=== PATIENT | female | born 1995 | race Hispanic/Latino ===

== ENCOUNTER 2019-04-26 21:30 | Emergency (ER) | payer OTHER ==
[2019-04-26] MEDS ORDERED: NA CHLORIDE 0.9% 1,000 ML ONE ×2 (22:12→23:25)
[2019-04-26] MEDS ORDERED: PROMETHAZINE 25 MG/ML VIAL ONE ×2 (22:12→23:24)
[2019-04-26 22:31] LABS: Absolute Lymphocytes (CBC) 1.7 K/uL (0.7-4.9); Basophils % 0.4 % (0-1.3); Hematocrit 43.4 % (36.0-45.0); Lymphocytes % 15.5 % (15.3-44.8); MPV 7.4 fL (7.6-11.3); RBC Red Blood Cell Count 5.01 M/uL (3.86-4.86)
[2019-04-26 22:50] LABS: BUN Blood Urea Nitrogen 6 mg/dL (7-18); Bicarbonate 21 mmol/L (21-32); Glucose Level 98 mg/dL (74-106); Potassium 3.1 mmol/L (3.5-5.1); Sodium Level 137 mmol/L (136-145)
[2019-04-26 22:55] LABS: Urine Blood 1+ (NEG); Urine Glucose NEGATIVE (NEG); Urine Protein 2+ (NEG); Urine Specific Gravity 1.025 (1.005-1.030); Urine pH 5.5 (5.0-7.0)
[2019-04-26 23:21] LABS: Urine Bacteria >50 /HPF (<20); Urine Culture Reflex Order REFLEXED; Urine RBC <5 /HPF (NONE SEEN)
[2019-04-26 23:22] LABS: Urine Mucus 1+ /HPF (NONE SEEN)
[2019-04-26] MEDS ORDERED: CEFTRIAXONE/SWI 1gm 1 GM/10 ML SYR ONE (23:45)
--- NOTE | 2019-04-27 00:19 | ER ---
Nurse's Notes [facility] Name: Matilda Jackson Age: 23 yrs Sex: Female : 1995 Arrival Date: 04/26/2019 Time: 21:33 Bed 30 Private MD: Diagnosis: Vomiting of , unspecified;Urinary tract infection, site not specified Presentation: 04/26 21:36 Presenting complaint: Patient states: I am about 9 weeks and cant hold la1 anything down, even water, for the last 2 days. Transition of care: patient was not received from another setting of care. Onset of symptoms was April 26, 2019. Risk Assessment: Do you want to hurt yourself or someone else? Patient reports no desire to harm self or others. Initial Sepsis Screen: Does the patient meet any 2 criteria? No. Patient's initial sepsis screen is negative. Does the patient have a suspected source of infection? No. Patient's initial sepsis screen is negative. Care prior to arrival: None. 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 - Social history:: Smoking status: Patient/guardian denies using tobacco. - Ebola Screening: : No symptoms or risks identified at this time. Screenin/23 01:05 Abuse screen: Denies threats or abuse. Denies injuries from another. Nutritional ad1 screening: No deficits noted. Has had N/V for 3 or more days due to . Tuberculosis screening: No symptoms or risk factors identified. Fall Risk None identified. Assessment: 04/26 22:35 General: Appears uncomfortable, Behavior is calm, cooperative, appropriate for age. ad1 Pain: Complains of pain in right upper quadrant and left upper quadrant. Neuro: No deficits noted. Cardiovascular: No deficits noted. Respiratory: No deficits noted. GI: Reports intolerance of fluids, intolerance of food, nausea, vomiting. Derm:. Musculoskeletal: No deficits noted. 23:13 Reassessment: Patient and/or family updated on plan of care and expected duration. Pain ad1 level reassessed. Patient is alert, oriented x 3, equal unlabored respirations, skin warm/dry/pink. states she still has some nausea.. 04/27 00:33 Reassessment: Patient appears in no apparent distress at this time. Patient and/or ad1 family updated on plan of care and expected duration. Pain level reassessed. Patient is alert, oriented x 3, equal unlabored respirations, skin warm/dry/pink. Patient reports no more nausea. patient able to keep water down with no nausea or vomiting following.. 01:03 Reassessment: No changes from previously documented assessment. Patient and/or family ad1 updated on plan of care and expected duration. Pain level reassessed. Patient is alert, oriented x 3, equal unlabored respirations, skin warm/dry/pink. Vital Signs: 04/26 21:38 BP 134 / 101; Pulse 97; Resp 16; Temp 97.7; Pulse Ox 100% on R/A; Weight 88.9 kg; la1 Height 5 ft. 6 in. (167.64 cm); 22:37 BP 134 / 76; Pulse 64; Resp 18; Pulse Ox 99% ; ad1 23:14 BP 109 / 65; Pulse 77; Resp 16; Pulse Ox 99% ; ad1 04/27 00:31 BP 108 / 54; Pulse 62; Resp 16; Pulse Ox 100% ; ad1 01:03 BP 111 / 65; Pulse 84; Resp 18; Pulse Ox 100% ; ad1 04/26 21:38 Body Mass Index 31.63 (88.90 kg, 167.64 cm) la1 ED Course: 04/26 21:33 Patient arrived in ED. ds1 21:37 Triage completed. la1 21:38 Arm band placed on left wrist. la1 21:50 Adarsh Preston NP is PHCP. pm1 21:50 Daniel Gomez MD is Attending Physician. pm1 22:21 Initial lab(s) drawn, by me, sent to lab. Inserted saline lock: 22 gauge in right lt1 antecubital area, using aseptic technique. 22:21 Basic Metabolic Panel Sent. lt1 22:21 CBC with Diff Sent. lt1 22:34 Urine Microscopic Only Sent. lt1 04/27 01:06 Patient has correct armband on for positive identification. ad1 01:06 No provider procedures requiring assistance completed. IV discontinued, intact, ad1 bleeding controlled. Administered Medications: 04/26 22:25 Drug: Phenergan 12.5 mg Route: IVP; Site: right antecubital; ad1 22:33 Drug: NS 0.9% 1000 ml Route: IV; Rate: 1000 ml; Site: right antecubital; ad1 23:30 Drug: Phenergan 12.5 mg Route: IVP; Site: right antecubital; ad1 23:45 Drug: NS 0.9% 1000 ml Route: IV; Rate: 1000 ml; Site: right antecubital; ad1 23:45 Drug: Rocephin 1 grams Route: IV; Rate: calculated rate; Site: right antecubital; ad1 Outcome: 04/27 00:15 Discharge ordered by . pm1 01:04 Discharged to home ad1 01:04 Condition: good 01:04 Discharge instructions given to patient, Instructed on discharge instructions, follow up and referral plans. medication usage, Demonstrated understanding of instructions, follow-up care, medications, Prescriptions given X 3. 01:07 Patient left the ED. ad1 Signatures: Vandana Daniels ds1 Madeline Caballero RN RN ad1 Everardo Vaca RN RN la1 Adarsh Preston, LANDSCAPE ACCOUNT MANAGER LANDSCAPE ACCOUNT MANAGER pm1 Alexsandra Bach lt
--- NOTE | 2019-04-27 00:21 | EDPHYS ---
Physician Documentation [facility] Name: Matilda Jackson Age: 23 yrs Sex: Female : 1995 Arrival Date: 04/26/2019 Time: 21:33 Bed 30 Private MD: ED Physician Daniel Gomez HPI: 04/26 22:05 This 23 yrs old Female presents to ER via Ambulatory with complaints of Cant pm1 Hold Anything Down- 9 Wks Preg. 22:05 The patient presents to the emergency department with nausea, vomiting. Onset: The pm1 symptoms/episode began/occurred yesterday. Possible causes: . The symptoms are aggravated by food , The symptoms are alleviated by nothing. Associated signs and symptoms: Pertinent negatives: abdominal pain, constipation, diarrhea, dysuria, fever. Severity of symptoms: in the emergency department the symptoms are unchanged. The patient has been recently seen by a physician: with similar presenting complaints, was given a prescription for an antiemetic, but unable to swallow Phenergan and the suppository kept coming out. 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 - Social history:: Smoking status: Patient/guardian denies using tobacco. - Ebola Screening: : No symptoms or risks identified at this time. ROS: 04/27 03:58 Constitutional: Negative for fever, chills, and weight loss, Eyes: Negative for injury, pm1 pain, redness, and discharge, ENT: Negative for injury, pain, and discharge, Neck: Negative for injury, pain, and swelling, Cardiovascular: Negative for chest pain, palpitations, and edema, Respiratory: Negative for shortness of breath, cough, wheezing, and pleuritic chest pain. Back: Negative for injury and pain, : Negative for injury, bleeding, discharge, and swelling, MS/Extremity: Negative for injury and deformity, Skin: Negative for injury, rash, and discoloration, Neuro: Negative for headache, weakness, numbness, tingling, and seizure. Abdomen/GI: Positive for nausea and vomiting, Negative for abdominal pain, diarrhea, constipation. Exam: 03:58 Constitutional: This is a well developed, well nourished patient who is awake, alert, pm1 and in no acute distress. Head/Face: Normocephalic, atraumatic. Eyes: Pupils equal round and reactive to light, extra-ocular motions intact. Lids and lashes normal. Conjunctiva and sclera are non-icteric and not injected. Cornea within normal limits. Periorbital areas with no swelling, redness, or edema. ENT: Nares patent. No nasal discharge, no septal abnormalities noted. Tympanic membranes are normal and external auditory canals are clear. Oropharynx with no redness, swelling, or masses, exudates, or evidence of obstruction, uvula midline. Mucous membranes moist. Neck: Trachea midline, no thyromegaly or masses palpated, and no cervical lymphadenopathy. Supple, full range of motion without nuchal rigidity, or vertebral point tenderness. No Meningismus. Chest/axilla: Normal chest wall appearance and motion. Nontender with no deformity. No lesions are appreciated. Cardiovascular: Regular rate and rhythm with a normal S1 and S2. No gallops, murmurs, or rubs. Normal PMI, no JVD. No pulse deficits. Respiratory: Lungs have equal breath sounds bilaterally, clear to auscultation and percussion. No rales, rhonchi or wheezes noted. No increased work of breathing, no retractions or nasal flaring. Abdomen/GI: Soft, non-tender, with normal bowel sounds. No distension or tympany. No guarding or rebound. No evidence of tenderness throughout. Back: No spinal tenderness. No costovertebral tenderness. Full range of motion. Skin: Warm, dry with normal turgor. Normal color with no rashes, no lesions, and no evidence of cellulitis. MS/ Extremity: Pulses equal, no cyanosis. Neurovascular intact. Full, normal range of motion. 03:58 Neuro: Orientation: is normal, Motor: is normal, moves all fours. Vital Signs: 04/26 21:38 BP 134 / 101; Pulse 97; Resp 16; Temp 97.7; Pulse Ox 100% on R/A; Weight 88.9 kg; la1 Height 5 ft. 6 in. (167.64 cm); 22:37 BP 134 / 76; Pulse 64; Resp 18; Pulse Ox 99% ; ad1 23:14 BP 109 / 65; Pulse 77; Resp 16; Pulse Ox 99% ; ad1 04/27 00:31 BP 108 / 54; Pulse 62; Resp 16; Pulse Ox 100% ; ad1 01:03 BP 111 / 65; Pulse 84; Resp 18; Pulse Ox 100% ; ad1 04/26 21:38 Body Mass Index 31.63 (88.90 kg, 167.64 cm) la1 MDM: 04/26 21:50 Patient medically screened. pm1 04/27 00:00 Data reviewed: vital signs. Data interpreted: Pulse oximetry: on room air is 99 %. pm1 Interpretation: normal. 00:14 ED course: Patient passed PO challenge. pm1 00:14 Counseling: I had a detailed discussion with the patient and/or guardian regarding: the pm1 historical points, exam findings, and any diagnostic results supporting the discharge/admit diagnosis, lab results, the need for outpatient follow up, to return to the emergency department if symptoms worsen or persist or if there are any questions or concerns that arise at home. 04/26 22:07 Order name: Basic Metabolic Panel; Complete Time: 22:53 pm1 04/26 22:07 Order name: CBC with Diff; Complete Time: 22:53 pm1 04/26 22:08 Order name: Urine Microscopic Only; Complete Time: 23:31 pm1 04/26 22:35 Order name: Urine Dipstick--Ancillary (enter results); Complete Time: 23:17 em1 04/26 22:35 Order name: Urine --Ancillary (enter results); Complete Time: 23:17 em1 04/26 23:24 Order name: Urine Culture [facility] 04/26 22:07 Order name: Urine Test (obtain specimen); Complete Time: 22:34 pm1 04/26 22:07 Order name: IV Saline Lock; Complete Time: 22:21 pm04/26 22:07 Order name: Labs collected and sent; Complete Time: 22:21 pm1 04/26 22:07 Order name: NPO; Complete Time: 22:21 pm1 04/26 22:07 Order name: Urine Dipstick-Ancillary (obtain specimen); Complete Time: 22:34 pm1 04/26 22:07 Order name: PO challenge; Complete Time: 00:29 pm1 Administered Medications: 04/26 22:25 Drug: Phenergan 12.5 mg Route: IVP; Site: right antecubital; ad1 22:33 Drug: NS 0.9% 1000 ml Route: IV; Rate: 1000 ml; Site: right antecubital; ad1 23:30 Drug: Phenergan 12.5 mg Route: IVP; Site: right antecubital; ad1 23:45 Drug: NS 0.9% 1000 ml Route: IV; Rate: 1000 ml; Site: right antecubital; ad1 23:45 Drug: Rocephin 1 grams Route: IV; Rate: calculated rate; Site: right antecubital; ad1 Disposition: 04/27 06:06 Co-signature as Attending Physician, Daniel Gomez MD I agree with the assessment and tw4 plan of care. Disposition: 04/27/19 00:15 Discharged to Home. Impression: Vomiting of , unspecified, Urinary tract infection, site not specified. - Condition is Stable. - Discharge Instructions: Hyperemesis Gravidarum, and Urinary Tract Infection. - Prescriptions for Phenergan 25 mg Rectal Suppository - insert 1 suppository by RECTAL route every 6 hours As needed; 12 suppository. promethazine 25 mg Oral Tablet - take 1 tablet by ORAL route every 6 hours As needed; 20 tablet. Macrobid 100 mg Oral Capsule - take 1 capsule by ORAL route every 12 hours for 7 days; 14 capsule. - Medication Reconciliation Form, Thank You Letter, Antibiotic Education, Prescription Opioid Use form. - Follow up: Emergency Department; When: As needed; Reason: Worsening of condition. Follow up: Private Physician; When: 2 - 3 days; Reason: Recheck today's complaints, Continuance of care, Re-evaluation by your physician. - Problem is new. - Symptoms have improved. Signatures: Dispatcher [employer] EDMS Madeline Caballero RN RN ad1 Everardo Vaca RN RN la1 Adarsh Preston, SUPERVISOR FINISHING ROOM SUPERVISOR FINISHING ROOM pm1 Daniel Gomez MD MD tw4 Corrections: (The following items were deleted from the chart) 00:15 00:15 04/27/2019 00:15 Discharged to Home. Impression: Vomiting of , pm1 unspecified. Condition is Stable. Forms are Medication Reconciliation Form, Thank You Letter, Antibiotic Education, Prescription Opioid Use. Follow up: Emergency Department; When: As needed; Reason: Worsening of condition. Follow up: Private Physician; When: 2 - 3 days; Reason: Recheck today's complaints, Continuance of care, Re-evaluation by your physician. Problem is new. Symptoms have improved. pm1 01:07 00:15 04/27/2019 00:15 Discharged to Home. Impression: Vomiting of , ad1 unspecified; Urinary tract infection, site not specified. Condition is Stable. Forms are Medication Reconciliation Form, Thank You Letter, Antibiotic Education, Prescription Opioid Use. Follow up: Emergency Department; When: As needed; Reason: Worsening of condition. Follow up: Private Physician; When: 2 - 3 days; Reason: Recheck today's complaints, Continuance of care, Re-evaluation by your physician. Problem is new. Symptoms have improved. pm1
[2019-04-27 01:54] VITALS: TEMP 97.7
[2019-04-27 01:58] VITALS: O2SAT 100
[2019-04-27 01:59] VITALS: BP 111/65
== END 2019-04-27 01:07 | disposition home or self-care (01) ==
LOC: ER 21:30 → EDBD 21:30 → ER 04-27 01:07
DX: O23.41 Unspecified infection of urinary tract in pregnancy, first trimester (principal); Z3A.09 9 weeks gestation of pregnancy
CPT/HCPCS: 87088; 85025; 87086; 80048; 36415; 81025; 96375; 96374; 99284; J2550 ×2; J0696; J7030 ×2; 81003; 81015

== ENCOUNTER 2019-07-28 13:10 | Emergency (ER) | payer OTHER ==
--- OUTSIDE RECORDS SUMMARY | 2019-07-28 13:13 | XMS REPORT | Summary of Care ---
:1995 Author Organization [facility] Address [address] [place] [address] Care Team Providers Name Role Phone Vania Kaur [facility] Unavailable Encounter Details Date Type Department Care Team Description 04/02/2019 Orders Only [facility] Doctor Unassigned, No 301 [facility] Name [address] [address] Allergies No Known Allergiesdocumented as of this encounter (statuses as of 04/02/2019) Medications Medication Sig Dispensed Refills Start Date End Date Status levonorgestrel-ethinyl Take 1 Tab by 1 Package 12 12/17/2012 Active estradiol mouth daily. (CHANELE,NUE,LESSINA) 0.1-20 mg-mcg per tabletIndications: Routine gynecological examination documented as of this encounter (statuses as of 04/02/2019) Active Problems No known active problemsdocumented as of this encounter (statuses as of 2018) Immunizations Name Administration Dates Next Due Td 08/05/2008 documented as of this encounter Social History Tobacco Use Types Packs/Day Years Used Date Never Smoker Smokeless Tobacco: Never Used Alcohol Use Drinks/Week oz/Week Comments No Sex Assigned at Date Recorded Not on file Job Start Date Occupation Industry Not on file Not on file Not on file Travel History Travel Start Travel End No recent travel history available. documented as of this encounter Last Filed Vital Signs Not on filedocumented in this encounter Plan of Treatment Health Maintenance Due Date Last Done Comments VARICELLA VACCINES (1 of 2 - 13+ 2007 2-dose series) HPV VACCINES (1 - Female 3-dose 2009 series) DTaP,Tdap,and Td Vaccines (2 - 2013 08/05/2008 Tdap) CHLAMYDIA SCREENING 12/17/2013 12/17/2012 PAP SMEAR 2015 INFLUENZA VACCINE (#1) 2019 PNEUMOCOCCAL 0-64 YEARS COMBINED Aged Out No longer eligible based on SERIES patient's age to complete this topic documented as of this encounter Procedures Procedure Name Priority Date/Time Associated Diagnosis Comments ASSIGNMENT OF BENEFITS Routine 04/02/2019 8:31 AM CDT documented in this encounter Results Not on filedocumented in this encounter Insurance Payer Benefit Plan / Subscriber ID Effective Dates Phone Address Type Group [facility] xxxxxxxxx 2012-Present [phone] [address] [place] [id number] Medicaid [place] [address] documented as of this encounter
--- OUTSIDE RECORDS SUMMARY | 2019-07-28 13:13 | XMS REPORT | Summary of Care ---
:1995 Author Organization [facility] Address [address] [place] [address] Care Team Providers Name Role Phone Vania Kaur [facility] Unavailable Imani Clay [facility] Primary Care Provider Reason for Visit Reason Comments Medication Problem Encounter Details Date Type Department Care Team Description 04/03/2019 Nurse Triage [facility] Xu Hooks RN Medication Problem [address] [place] [address] [id number] [phone] Allergies No Known Allergiesdocumented as of this encounter (statuses as of 04/03/2019) Medications Medication Sig Dispensed Refills Start Date End Date Status levonorgestrel-ethi Take 1 Tab by 1 Package 12 12/17/2012 Active nyl estradiol mouth daily. (NOLBERTO HO,BUCK COBOS) 0.1-20 mg-mcg per tabletIndications: Routine gynecological examination proMETHazine 25 mg Take 1 tablet by 30 tablet 0 04/02/2019 Active tabletIndications: mouth every 6 Nausea/vomiting in (six) hours as needed for Nausea and Vomiting (N/V). proMETHazine Insert 1 30 Suppository 0 04/03/2019 Active (PHENERGAN) 25 mg Suppository into suppositoryIndicati rectum every 4 ons: Abdominal pain (four) hours as affecting needed for Nausea and Vomiting (N/V). documented as of this encounter (statuses as of 04/03/2019) Active Problems Problem Noted Date Obesity affecting 04/02/2019 Supervision of high-risk 04/02/2019 Nausea and vomiting during 04/02/2019 Estimated Date of Delivery Comments Yes 11/10/2019 Based on last menstrual period of 02/03/2019 (Approximate) documented as of this encounter (statuses as of 04/03/2019) Immunizations Name Administration Dates Next Due Td 08/05/2008 documented as of this encounter Social History Tobacco Use Types Packs/Day Years Used Date Never Smoker Smokeless Tobacco: Never Used Alcohol Use Drinks/Week oz/Week Comments No Estimated Date of Delivery Comments Yes 11/10/2019 Based on last menstrual period of 02/03/2019 (Approximate) Sex Assigned at Date Recorded Not on file Job Start Date Occupation Industry Not on file Not on file Not on file Travel History Travel Start Travel End No recent travel history available. 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
--- OUTSIDE RECORDS SUMMARY | 2019-07-28 13:13 | XMS REPORT | Summary of Care ---
:1995 [place] [address] Care Team Providers Name Role Phone VincentBrianna mckinleyta [facility] Unavailable Imani Clay [facility] Primary Care Provider Reason for Visit Reason Comments Rx Concern/Question Encounter Details Date Type Department Care Team Description 04/03/2019 Telephone [facility] Randi Blakely RN Rx Concern/Question [place] [phone] Allergies No Known Allergiesdocumented as of this encounter (statuses as of 04/03/2019) Medications Medication Sig Dispensed Refills Start End Date Status Date levonorgestrel-et Take 1 Tab by 1 Package 12 Active hinyl estradiol mouth daily. 3 (NOLBERTO HO LE SSINA) 0.1-20 mg-mcg per tabletIndications : Routine gynecological examination proMETHazine 25 Take 1 tablet 30 tablet 0 Active mg by mouth every 9 tabletIndications 6 (six) hours : Nausea/vomiting as needed for in Nausea and Vomiting (N/V). proMETHazine Insert 1 30 Suppository 0 Active (PHENERGAN) 25 mg Suppository 9 suppositoryIndica into rectum tions: Abdominal every 4 (four) pain affecting hours as needed for Nausea and Vomiting (N/V). proMETHazine Insert 1 30 Suppository 0 04/03/20 Discontinued (PHENERGAN) 25 mg Suppository 9 19 suppositoryIndica into rectum tions: Abdominal every 4 (four) pain affecting hours as needed for Nausea and Vomiting (N/V). documented [...] Date Type Specialty Care Team Description 04/09/2019 Security Ambassador Visit [facility], [facility] 04/13/2019 Routine Visit [facility] Trimester, [facility] Res-1st 04/30/2019 Routine Visit [facility] Imani Clay, CNP [address] [place] [address] [phone] Health Maintenance Due Date Last Done Comments [...] Results Not on filedocumented in this encounter Visit Diagnoses Diagnosis Abdominal pain affecting documented in this encounter Insurance Payer Benefit Plan / Subscriber ID Effective Phone Address Type Group Dates MEDICAID MEDICAID PENDING 2019-[address] Pending PENDING [place] [address] documented as of this encounter
--- OUTSIDE RECORDS SUMMARY | 2019-07-28 13:13 | XMS REPORT | Summary of Care ---
:1995 Author Organization [facility] Address [address] [place] [id number] Care Team Providers Name Role Phone Vania Kaur [facility] Unavailable Imani Clay ELIZABETH Primary Care Provider Reason for Visit Reason Comments Initial Visit Encounter Details Date Type Department Care Team Description [facility] Supervision of high risk , antepartum (Primary Dx); Visit [facility] BETY Dolan Nausea/vomiting in ; [address] Obesity affecting in first trimester [facility] [phone] [facility] [phone] [place] [address] Allergies No Known Allergiesdocumented as of this encounter (statuses as of 04/03/2019) Medications Medication Sig Dispensed Refills Start Date End Date Status levonorgestrel-ethinyl Take 1 Tab by 1 Package 12 12/17/2012 Active estradiol mouth daily. (NOLBERTO HO LESSINA) 0.1-20 mg-mcg per tabletIndications: Routine gynecological examination [...] of this encounter Last Filed Vital Signs Vital Sign Reading Time Taken Comments Blood Pressure 127/86 04/02/2019 9:18 AM CDT Pulse 78 04/02/2019 9:18 AM CDT Temperature 36.7 C (98 F) 04/02/2019 9:18 AM CDT Respiratory Rate 16 04/02/2019 9:18 AM CDT Oxygen Saturation - - Inhaled Oxygen Concentration - - Weight 89.1 kg (196 lb 8 oz) 04/02/2019 9:18 AM CDT Height 167.6 cm (5' 6") 04/02/2019 9:18 AM CDT Body Mass Index 31.72 04/02/2019 9:18 AM CDT documented in this encounter Progress Notes Imani Clay, WHCNP - 04/02/2019 8:30 AM CDT Chief complaint: Chief Complaint Patient presents with Initial Visit HPI CC: Initial Visit Matilda Jackson is a 23 year old, , /White female. Patient's last menstrual period was 02/03/2019 (approximate). She is 8w2d with an suspected IUP. Her Estimated Date of Delivery: 11/10/19. She is being seen today for her first obstetrical visit. She complains today of: Vomiting. She reports multiple episodes of vomiting over couple week(s) and occurs after meals, in the mornings and occasionally. Associated symptom(s) include nausea. Symptoms are worse with foods,liquids and odors. OB History Para Term AB Living 1 0 SAB TAB Ectopic Multiple Live Births # Outcome Date GA Lbr Chente/2nd Weight Sex Delivery Anes PTL Lv 1 Current Histories OB History Para Term AB Living 1 0 SAB TAB Ectopic Multiple Live Births # Outcome Date GA Lbr Chente/2nd Weight Sex Delivery Anes PTL Lv 1 Current History reviewed. No pertinent past medical history. Family History Problem Relation Age of Onset No Significant Medical Problems Mother No Significant Medical Problems Father No Significant Medical Problems Sister No Significant Medical Problems Brother No Significant Medical Problems Maternal Aunt No Significant Medical Problems Maternal Uncle No Significant Medical Problems Paternal Aunt No Significant Medical Problems Paternal Uncle No Significant Medical Problems Maternal Grandmother No Significant Medical Problems Maternal Grandfather No Significant Medical Problems Paternal Grandmother No Significant Medical Problems Paternal Grandfather Family Status Relation Name Status Mo (Not Specified) Fa (Not Specified) Sis (Not Specified) Bro (Not Specified) MAunt (Not Specified) MUnc (Not Specified) PAunt (Not Specified) PUnc (Not Specified) MGMo (Not Specified) MGFa (Not Specified) PGMo (Not Specified) PGFa (Not Specified) History reviewed. No pertinent surgical history. Social History Socioeconomic History Marital status: Single Spouse name: Not on file Number of children: Not on file Years of education: Not on file Highest education level: Not on file Occupational History Not on file Social Needs Financial resource strain: Not on file Food insecurity: Worry: Not on file Inability: Not on file Transportation needs: Medical: Not on file Non-medical: Not on file Tobacco Use Smoking status: Never Smoker Smokeless tobacco: Never Used Substance and Sexual Activity Alcohol use: No Drug use: No Sexual activity: Not Currently Partners: Male control/protection: None Comment: Last intercourse: 03/26/2019 Lifestyle Physical activity: Days per week: Not on file Minutes per session: Not on file Stress: Not on file Relationships Social connections: Talks on phone: Not on file Gets together: Not on file Attends anabaptist service: Not on file Active member of club or organization: Not on file Attends meetings of clubs or organizations: Not on file Relationship status: Not on file Intimate partner violence: Fear of current or ex partner: Not on file Emotionally abused: Not on file Physically abused: Not on file Forced sexual activity: Not on file Other Topics Concern Not on file Social History Narrative Patient lives with mom. Patient feels safe at home. Patient denies any cats. Social History Substance and Sexual Activity Sexual Activity Not Currently Partners: Male control/protection: None Comment: Last intercourse: 03/26/2019 Genetic Screen Autism / Mental Retardation: No Rolan Disease: No Congenital Heart Defect: No Cystic Fibrosis: No Down Syndrome: No Familial Dysautonomia: No Hemophilia or other Blood Disorders: No Ford Chorea: No Maternal Metabolic Disorder--specify (eg. Type 1 Diabetes, PKU): No Muscular Dystrophy: No Neural Tube Defect: No Recurrent Loss or a Stillbirth: No Sickle Cell Disease or Trait: No Orlando Sachs: No Teratological Substances (specify type & strength/dose) since LMP: No Thalassemia: No Other Inherited Genetic or Chromosomal Disorder (specify): No No Significant History of Genetic Disorders: No Significant History of Genetic Disorders Labs Labs are pending. Radiology No new radiology. Allergies Matilda has No Known Allergies. Medications Matilda has a current medication list which includes the following prescription(s) : promethazine and levonorgestrel-ethinyl estradiol. Review of Systems Constitutional: Negative. HENT: Negative. Eyes: Negative. Respiratory: Negative. Breasts: Negative. Cardiovascular: Negative. Gastrointestinal: Positive for nausea and vomiting. Genitourinary: Negative. Musculoskeletal: Negative. Skin: Negative. Neurological: Negative. Psychiatric/Behavioral: Negative. Endocrine: Endocrine negative BP 127/86 (BP Location: Right arm, Patient Position: Sitting, BP CUFF SIZE: Adult Medium) | Pulse 78 | Temp 36.7 C (98 F) (Oral) | Resp 16 | Ht 5' 6 " (1.676 m) | Wt 196 lb 8 oz (89.1 kg) | LMP 02/03/2019 (Approximate) | BMI 31.72 kg/m Pregravid BMI: Could not be calculated Physical Exam Vitals reviewed. Constitutional: She is oriented to person, place, and time. She appears well- developed. Her body habitus is normal. Neck: No tenderness and no mass. No thyroid nodules and no thyromegaly palpated. No neck adenopathy. Cardiovascular: Regular rate and rhythm. No gallop, no friction rub and no murmur auscultated. No peripheral edema present. Pulmonary/Chest: Breath sounds clear to auscultation. Normal inspiratory effort. Abdominal: Abdomen is soft. No mass palpated. No tenderness present. There is no hepatosplenomegaly,splenomegaly or hepatomegaly. There is no rigidity. No hernia palpated or inspected. Neuro/Psychiatric: She has a normal mood and affect. She is oriented to person, place, and time. Skin: No lesion, no rash and no ulceration present. Lymphadenopathy: No neck adenopathy present. No axillary adenopathy present. No inguinal adenopathy present. Breast: Right breast exhibits no mass, no nipple discharge and no tenderness. Left breast exhibits no mass, no nipple discharge and no tenderness. Breasts are symmetrical. Normal left breast and normalright breast Rectal: Rectal exam with normal anal tone. No mass, no external hemorrhoid and no internal hemorrhoid palpated or inspected. External genitalia: Normal external genitalia appropriate for age. Normal hair distribution. No labial lesion. Urethral meatus: Normal urethral meatus size, location and no lesion. No prolapse present. Normal urethral meatus Urethra: Normal urethra. No urethral tenderness, no mass and no urethral scarring palpated. Bladder: Bladder has no fullness, no mass palpated and no tenderness. Normal bladder Vagina:Normal vagina. No lesion inspected. Normal estrogen effect. Normal support. No abnormal vaginal discharge found. Cervix: Normal cervix. No lesion. No tenderness and no discharge present. Closed thick Uterus: Uterus is normal size, normal contour, normal position and non-tender. Normal uterus Adnexa: Right adnexa without tenderness, ovary enlargement or mass. Left adnexa without tenderness, ovary enlargement or mass. Normal left adnexa and normal right adnexa Anus/perineum: Normal perineum and normal anus. PHYSICAL: General Exam: HEENT: Normal Neurological: Normal Abdomen: Normal gravid Extremities: Normal Pelvic Exam: Vulva: Normal Vagina: Normal Cervix: Normal Membrane status: Intact Uterus: 8 Weeks Adnexa: Normal Rectum: Normal Assessment/Plan Return to clinic in 1 weeks. for labs Denies zika virus risk, signs and symptoms such as fever,rash,joint pain, conjunctivitis (red eyes),muscle pain, headaches; outside [place] travel to areas affected by zika, and FOB exposure to zika. Educated on use of mosquito repellent. Supervision of high risk , antepartum (primary encounter diagnosis) Comment: initial visit with labs and physical exam Plan: POCT URINALYSIS W/O SPECIFIC GRAVITY, POCT TEST, PAP Smear-Liquid Based, GC & CHLAMYDIA AMPLIFIED ASSAY, POCT URINALYSIS W SPECIFIC GRAVITY, URINE CULTURE, Glucose 1 Hour Post Prandial, CBC WITH DIFF, HEPATITIS B SURFACE ANTIGEN, HIV 1/2 AG-AB WITH REFLEX, WORKUP, BLOOD BANK, RUBELLA SCREEN (DRU) IGG, GALV ONLY - SYPHILIS IGG/IGM, VZV ANTIBODY SCREEN, Nausea/vomiting in Comment: reports, patient declined IV fluids in clinic today, reporting she desires to go the ER because she reports she is not feeling well and is having pelvic discomfort Plan: proMETHazine 25 mg tablet Obesity affecting in first trimester Comment: see bmi Plan: limit weight gain and sensible diet. This visit did not involve counseling and coordination that comprised more than 50% of the visit time. BETY Carias 04/02/2019 10:15 AM Claire Paris RN - 04/02/2019 8:30 AM CDTPer provider patient to see [facility], [facility] appointment scheduled for 04/03/2019 at 8 am. CLAIRE NAYAK RN 04/02/2019 9:59 AM Claire Paris RN - 04/02/2019 8:30 AM CDTPatient is 23 year old female here for current . Patient is . 1) Previous delivery methods N/A 2) Patient is not experiencing cramping 3) Patient is not experiencing bleeding. 4) LMP 02/03/2019 5) Last Pap was: Never Results: N/A 6) Have you had a flu vaccine this season? No 7) PPD candidate? No 8) Patient complains of Sharp intermittent pain on both sides of pelvic area. 9) Patient denies history of physical, emotional, or sexual abuse. Patient states she currently feels safe at home. New ob packet given and discussed with patient. CLAIRE NAYAK RN 04/02/2019 9:26 AM documented in this encounter Plan of Treatment Date Type Specialty Care Team Description 04/09/2019 Die Forger Visit OB Satellites Lab, [facility] 04/13/2019 Routine Visit OB Satellites Trimester, [facility] Res-1st 04/30/2019 Routine Visit [facility] Satellites [facility]i engel[facility] [address] [place] [address] [phone] Name Type Priority Associated Diagnoses Date/Time GC & CHLAMYDIA LAB Routine Supervision of high risk 04/02/2019 11:21 AM CDT AMPLIFIED ASSAY , antepartum URINE CULTURE LAB Routine Supervision of high risk 04/02/2019 11:21 AM CDT , antepartum LAB ONLY PAP LAB Routine Supervision of high risk 04/02/2019 11:21 AM CDT SMEAR-LIQUID BASED , antepartum Name Type Priority Associated Diagnoses Order Schedule POCT URINALYSIS W LAB Routine Supervision of high risk 20 Occurrences starting SPECIFIC GRAVITY , antepartum 04/02/2019 until 01/27/2020 Glucose 1 Hour Post LAB Routine Supervision of high risk Expected: 2018, Prandial , antepartum Expires: 06/02/2019 CBC WITH DIFF LAB Routine Supervision of high risk Expected: 04/09/2019, , antepartum Expires: 05/03/2019 HEPATITIS B SURFACE LAB Routine Supervision of high risk Expected: 2018, ANTIGEN , antepartum Expires: 05/03/2019 HIV 1/2 AG-AB WITH LAB Routine Supervision of high risk Expected: 2018, REFLEX , antepartum Expires: 05/03/2019 WORKUP, BLOOD LAB Routine Supervision of high risk Expected: 04/09, BANK , antepartum Expires: 05/03/2019 RUBELLA SCREEN (DRU) LAB Routine Supervision of high risk Expected: 04/09, IGG , antepartum Expires: 05/03/2019 GALV ONLY - SYPHILIS LAB Routine Supervision of high risk Expected: 2018, IGG/IGM , antepartum Expires: 05/03/2019 VZV ANTIBODY SCREEN LAB Routine Supervision of high risk Expected: 2018, , antepartum Expires: 05/03/2019 Health Maintenance Due Date Last Done Comments [...] Procedure Name Priority Date/Time Associated Diagnosis Comments PAP SMEAR-LIQUID Routine 04/02/2019 11:21 Supervision of high BASED-CP AM CDT risk , antepartum POCT URINALYSIS W/O Routine 04/02/2019 9:23 Supervision of high Results for this SPECIFIC GRAVITY AM CDT risk , procedure are in antepartum the results section. POCT TEST Routine 04/02/2019 9:20 Supervision of high Results for this AM CDT risk , procedure are in antepartum the results section. documented in this encounter Results PAP Smear-Liquid Based (04/02/2019 11:21 AM CDT) Specimen Swab - CERVIX Performing Organization Address City/State/Zipcode Phone Number [facility] CLIA: [id number], [address] [place] [id number] [phone] [facility] POCT URINALYSIS W/O SPECIFIC GRAVITY (04/02/2019 9:23 AM CDT) POCT PH U 5 5 - 8 mg/dl POCT U LEUK EST 1+ Negative - Negative POCT U NIT Neg Negative - Negative POCT U PROT Trace Negative - Negative POCT U GLU Neg Negative - Negative POCT U KETONE 3+ Negative - Negative POCT U BLD Neg Negative - Negative Specimen Urine - URINE, CLEAN CATCH POCT TEST (04/02/2019 9:20 AM CDT) POCT PREG Positive On board controls acceptable Yes with C Line POCT PREG LOT # POCT PREG TEST DATE Specimen Urine - URINE, CLEAN CATCH documented in this encounter Visit Diagnoses Diagnosis Supervision of high risk , antepartum - Primary Nausea/vomiting in Unspecified vomiting of , unspecified as to episode of care Obesity affecting in first trimester documented in this encounter Insurance Payer Benefit Plan / Subscriber ID Effective Phone Address Type Group Dates MEDICAID MEDICAID PENDING 2019-[address] Pending [place] [address] [facility] [address] [address] documented as of this encounter
--- OUTSIDE RECORDS SUMMARY | 2019-07-28 13:13 | XMS REPORT | Summary of Care ---
:1995 Author Organization [facility] Address [address] [place] [address] Care Team Providers Name Role Phone Vania Kaur INFORMATION DIRECTOR Unavailable Imani Clay [facility] Primary Care Provider Reason for Visit Reason Comments Encounter Details Date Type Department Care Team Description 04/03/2019 Routine [facility] Michael Isaac MD [address] [place] [address] Abdominal pain Visit [facility] Trimester, [facility] Res-1st affecting [facility] (Primary Dx) [address] [facility], 7th [place] [address] Allergies No Known Allergiesdocumented as of this [...] Sign Reading Time Taken Comments Blood Pressure 122/80 04/03/2019 8:39 AM CDT Pulse 86 04/03/2019 8:39 AM CDT Temperature 36.9 C (98.4 F) 04/03/2019 8:39 AM CDT Respiratory Rate 17 04/03/2019 8:39 AM CDT Oxygen Saturation - - Inhaled Oxygen Concentration - - Weight 89 kg (196 lb 3.2 oz) 04/03/2019 8:39 AM CDT Height 167.6 cm (5' 6") 04/03/2019 8:39 AM CDT Body Mass Index 31.67 04/03/2019 8:39 AM CDT documented in this encounter Progress Notes Keesha Jones MD - 04/03/2019 8:00 AM CDT Chief complaint: Chief Complaint Patient presents with HPI Matilda Jackson is a 23 year old female at 8w3d by LMP referred to beta clinic for unknown viability. Patient was seen at OSH on 03/31 due to abdominal pain. Beta-hcg at that time was 35,000. TVUS showed GS and YS, no pole noted. Patient has epigastric pain. Mild diarrhea. Lasting one week. Patient denies lower pelvic pain and vaginal spotting. Histories OB History Para Term AB Living 1 0 SAB TAB Ectopic Multiple Live Births # Outcome Date GA Lbr Chente/2nd Weight Sex Delivery Anes PTL Lv 1 Current No past medical history on file. Family History Problem Relation Age of Onset [...] Specified) PGMo (Not Specified) PGFa (Not Specified) No past surgical history on file. Social History Socioeconomic History Marital status: Single [...] file Gets together: Not on file Attends christian service: Not on file Active member of [...] Male control/protection: None Comment: Last intercourse: 03/26/2019 Labs No new labs Radiology No new radiology. Allergies Matilda has No Known Allergies. Medications Matilda has a current medication list which includes the following prescription(s) : promethazine, promethazine, and levonorgestrel-ethinyl estradiol. Review of Systems Constitutional: Negative. HENT: Negative. Eyes: Negative. Respiratory: Negative. Breasts: Negative. Cardiovascular: Negative. Gastrointestinal: Positive for abdominal pain. Genitourinary: Negative. Musculoskeletal: Negative. Skin: Negative. Neurological: Negative. Psychiatric/Behavioral: Negative. Endocrine: Endocrine negative BP 122/80 (BP Location: Left arm, Patient Position: Sitting, BP CUFF SIZE: Adult Medium) | Pulse 86 | Temp 36.9 C (98.4 F) (Oral) | Resp 17 | Ht 5' 6" (1.676 m) | Wt 196 lb 3.2 oz (89 kg) | LMP 02/03/2019 (Approximate) | BMI 31.67 kg/m Pregravid BMI: Could not be calculated Physical Exam Vitals reviewed. Constitutional: She appears well-developed and well-nourished. Pulmonary/Chest: Normal inspiratory effort. Abdominal: Abdomen is soft. Tenderness present. There is no rigidity and no guarding. Epigastric tenderness and right lateral abdominal tenderness Neuro/Psychiatric: She has a normal mood and affect. Skin: Skin normal. Us Transvaginal Result Date: 03/31/2019 Narrative: EXAMINATION: US TRANSVAGINAL, US SINGLE LESS THAN 14 WEEKS CLINICAL HISTORY: r o ectopic COMPARISON: None. TECHNIQUE:Transverse and longitudinal transvaginal and transabdominal sonographic images of the pelvis were obtained. Grayscale, color Doppler, and spectral waveform analysis of the ovarian vessels wasperformed. FINDINGS: The uterus measures 7.9 x 4.9 x 6.0 cm and contains a 1.8 cm gestational sac equating to 6weeks 4 days with a 0.4 cm yolk sac. Neither a pole nor cardiac activity is visualized. The right ovary measures 4.1 x 2.8 x 2.1 cm and left ovary 3.5 x 2.3 x 1.9 cm.. Blood flow is documented within each ovary. The ovaries appear normal. There is a small subchorionic hematoma. Impression: Gestational sac with yolk sac equating to 6 weeks 4 days with small subchorionic hematoma and no visible pole could represent intrauterine demise with missed . However,correlation with quantitative serial hCGs and follow-up imaging is recommended. Findings were discussed with Dr. Raymond at 1316. hCG quantitative, serum 35,905 (H) 1 - 5 mIU/mL Assessment/Plan Abdominal pain affecting (primary encounter diagnosis) - pt denies vaginal bleeding, pelvic pain - TVUS OSH (03/31): 1.8 cm gestational sac c/w 6w4d; YS visualized, no pole ; 'subchorionic hematoma' noted - Beta-hc,905 (03/31) - Rh+/neg - VSS - Plan: Plan for patient to RTC for ultrasound 11 days from last ultrasound to assess viability Nausea and Vomiting Comment: abdominal pain Plan: LIPASE, CBC WITH DIFF, COMP. METABOLIC PANEL (23410), MAGNESIUM, proMETHazine (PHENERGAN) 25 mg suppository, CBC WITH DIFFERENTIAL D/w Dr. Poncho Jones MDElectronically signed by Keesha Jones MD at 2018 12:16 PM CDTdocumented in this encounter Plan of Treatment Date Type Specialty Care Team Description 04/09/2019 University Relations Vice President Visit OB Satellites Lab, [facility] 04/13/2019 Routine Visit OB Satellites Trimester, [facility] Res-1st 04/30/2019 Routine Visit OB Satellites Imani Clay, CNP [address] [place] [address] [phone] Name Type Priority Associated Diagnoses Order Schedule LIPASE LAB Routine Abdominal pain affecting Ordered: 04/03/2019 CBC WITH DIFF LAB Routine Abdominal pain affecting Ordered: 04/03/2019 COMP. METABOLIC PANEL LAB Routine Abdominal pain affecting Ordered: 2018 (26513) MAGNESIUM LAB Routine Abdominal pain affecting Ordered: 04/03/2019 CBC WITH DIFFERENTIAL LAB Routine Abdominal pain affecting Ordered: 2018 Health Maintenance Due Date Last Done Comments [...] encounter Visit Diagnoses Diagnosis Abdominal pain affecting - Primary documented in this encounter Insurance Payer Benefit Plan / Subscriber ID Effective Phone Address Type Group Dates MEDICAID MEDICAID PENDING 2019-[address] [place] [address] documented as of this encounter
--- OUTSIDE RECORDS SUMMARY | 2019-07-28 13:14 | XMS REPORT | Summary of Care ---
:1995 Author Organization [facility] Address [address] [place] [address] Care Team Providers Name Role Phone Vania Kaur [facility] Unavailable Imani Clay [facility] Primary Care Provider Reason for Visit Reason Comments Encounter Details Date Type Department Care Team Description 04/13/2019 Routine [facility] Monty Gu MD [address] [place] [address] with Visit [facility] Trimester, [facility] Res-1st uncertain [facility] Clinics viability, single or [address], 7th floor (Primary Dx) [place] [address] Allergies No Known Allergiesdocumented as of this encounter (statuses as of 04/13/2019) Medications Medication Sig Dispensed Refills Start Date End Date Status levonorgestrel-ethi Take 1 Tab by 1 Package 12 12/17/2012 Active nyl estradiol mouth daily. (NOLBERTO HO LESS INA) 0.1-20 mg-mcg per tabletIndications: Routine gynecological examination [...] as of this encounter (statuses as of 04/13/2019) Active Problems Problem Noted Date Abnormal maternal glucose tolerance, antepartum 04/10/2019 Overview: pendign 3hr gtt Obesity affecting 04/02/2019 Supervision of high-risk 04/02/2019 Nausea and vomiting during 04/02/2019 Estimated Date of Delivery Comments Yes 11/10/2019 Based on last menstrual period of 02/03/2019 (Approximate) documented as of this encounter (statuses as of 04/13/2019) Immunizations Name Administration Dates Next Due Td [...] Sign Reading Time Taken Comments Blood Pressure 122/76 04/13/2019 9:21 AM CDT Pulse 86 04/13/2019 9:21 AM CDT Temperature 36.8 C (98.3 F) 04/13/2019 9:21 AM CDT Respiratory Rate 17 04/13/2019 9:21 AM CDT Oxygen Saturation - - Inhaled Oxygen Concentration - - Weight 89 kg (196 lb 3.2 oz) 04/13/2019 9:21 AM CDT Height 167.6 cm (5' 6") 04/13/2019 9:21 AM CDT Body Mass Index 31.67 04/13/2019 9:21 AM CDT documented in this encounter Progress Notes Teri Corral MD - 04/13/2019 10:15 AM CDT Chief complaint: Chief Complaint Patient presents with HPI Matilda Jackson is a 23 year old who presents for follow-up for unknown viability. Patient was seen at OSH on 03/31 due to abdominal pain. Beta-hcg at that time was 35,000. TVUS 03/31 showed GS and YS, no pole noted. Today, she reports epigastric abdominal pain, rated 5/10, improves with Sprite and promethazine. Also reports vomiting 5-6x/day for the past week. Has been taking promethazine, which is improving n/v minimally. Reports occasional constipation , no diarrhea. Denies f/c, VB, CP,SOB. Histories OB History Para Term AB Living 1 0 SAB TAB Ectopic Multiple Live Births # Outcome Date GA Lbr Chente/2nd Weight Sex Delivery Anes PTL Lv 1 Current Past Medical History: Diagnosis Date Abnormal maternal glucose tolerance, antepartum 04/10/2019 Family History Problem Relation Age of Onset [...] file Gets together: Not on file Attends restoration service: Not on file Active member of [...] control/protection: None Comment: Last intercourse: 03/26/2019 Labs I have reviewed the patient's labs. Radiology TVUS 03/31: Us Transvaginal Result Date: 03/31/2019 Narrative: EXAMINATION: [...] serum 35,905 (H) 1 - 5 mIU/mL TVUS 04/13: IUP with CRL measuring 1.3 cm, cardiac activity present. Allergies Matilda has No Known Allergies. Medications Matilda has a current medication list which includes the following prescription(s) : promethazine, promethazine, and levonorgestrel-ethinyl estradiol. Review of Systems Constitutional: Negative. HENT: Negative. Eyes: Negative. Respiratory: Negative. Breasts: Negative. Cardiovascular: Negative. Gastrointestinal: Negative. Genitourinary: Negative. Musculoskeletal: Negative. Skin: Negative. Neurological: Negative. Psychiatric/Behavioral: Negative. Endocrine: Endocrine negative BP 122/76 (BP Location: Left arm, Patient Position: Sitting, BP CUFF SIZE: Adult Medium) | Pulse 86 | Temp 36.8 C (98.3 F) (Oral) | Resp 17 | Ht 5' 6" (1.676 m) | Wt 196 lb 3.2 oz (89 kg) | LMP 02/03/2019 (Approximate) | BMI 31.67 kg/m Pregravid BMI: Could not be calculated Physical Exam Vitals reviewed. Constitutional: She is oriented to person, place, and time. Neck: No mass. Cardiovascular: Regular rate and rhythm. No gallop, no friction rub and no murmur auscultated. No peripheral edema present. Pulmonary/Chest: Breath sounds clear to auscultation. Normal inspiratory effort. Abdominal: Abdomen is soft. No tenderness present. There is no rigidity and no guarding. Neuro/Psychiatric: She has a normal mood and affect. She is oriented to person, place, and time. Skin: Skin normal. Assessment/Plan - Patient was seen at OSH 03/31 for abdominal pain, TVUS showed GS 1.8 cm, YS present, no FP/CA - Beta 03/31 35,905 - Denies VB, cramping - US today: IUP, CRL 1.3 cm, cardiac activity present - Consistent with live IUP with gestational age 7w4d - Follow up for scheduled visit This visit did not involve counseling and coordination that comprised more than 50% of the visit time. Teri Corral MD 04/13/2019 9:31 AM documented in this encounter Plan of Treatment Date Type Specialty Care Team Description 04/13/2019 Ancillary Procedure [facility] Monty Gu MD Arrived [address] [place] [address] 04/16/2019 Furniture Manager Visit [facility] Lab, [facility] 04/30/2019 Routine Visit [facility] Imani Clay, CNP [address] [place] [address] [phone] Name Type Priority Associated Diagnoses Date/Time <14 WEEKS US IMAGING Routine with uncertain 04/13/2019 10:15 AM LIMITED viability, single CDT or unspecified fetus Health Maintenance Due Date Last Done Comments HPV VACCINES (1 - Female 2009 3-dose series) DTaP,Tdap,and Td Vaccines (2 2013 08/05/2008 - Tdap) INFLUENZA VACCINE (#1) 2019 CHLAMYDIA SCREENING 04/02/2020 04/02/2019, 12/17/2012 PAP SMEAR 04/02/2022 04/02/2019 PNEUMOCOCCAL 0-64 YEARS Aged Out No longer eligible based COMBINED SERIES on patient's age to complete this topic documented as of this encounter Procedures Procedure Name Priority Date/Time Associated Diagnosis Comments <14 WEEKS US Routine 04/13/2019 10:15 AM with LIMITED CDT uncertain viability, single or unspecified fetus Procedure Note - Teri Corral MD - 04/13/2019 10:16 AM CDT Live IUP. CRL measuring 1.3 cm, cardiac activity present. Consistent with gestational age of 7w4d. documented in this encounter Results Not on filedocumented in this encounter Visit Diagnoses Diagnosis with uncertain viability, single or unspecified fetus - Primary documented in this encounter Insurance Payer Benefit Plan / Subscriber ID Effective Dates Phone Address Type Group [employer] MEDICAID OF xxxxxxxxx 2019-Present [phone] [address] [place] [id number] [place] [address] documented as of this encounter
--- OUTSIDE RECORDS SUMMARY | 2019-07-28 13:14 | XMS REPORT | Summary of Care ---
:1995 Author Organization [facility] Address [address] [place] [address] Care Team Providers Name Role Phone Vania Kaur [facility] Unavailable Imani Clay [facility] Primary Care Provider Reason for Referral (Routine) Status Reason Specialty Diagnoses / Referred By Referred To Procedures Contact Contact New Request Maternal Diagnoses Supervision of high risk in first trimester Obed, Medicine Procedures CONSULT MATERNAL MEDICINE ULTRASOUND Preferred Location: [place] Imani Simon [facility] [address] [place] [address] Reason for Visit Reason Comments ULTRASOUND Encounter Details Date Type Department Care Team Description 04/09/2019 Telephone [facility]- Imani Clay ULTRASOUND Shiloh Simon [facility] [address] [facility] [address] [place] [address] [facility] [phone] [place], [place] [id number] Allergies No Known Allergiesdocumented as of this encounter (statuses as of 04/09/2019) Medications Medication Sig Dispensed Refills Start Date [...] as of this encounter (statuses as of 04/09/2019) Active Problems Problem Noted Date Obesity affecting 04/02/2019 Supervision of high-risk 04/02/2019 Nausea and vomiting during 04/02/2019 Estimated Date of Delivery Comments Yes 11/10/2019 Based on last menstrual period of 02/03/2019 (Approximate) documented as of this encounter (statuses as of 04/09/2019) Immunizations Name Administration Dates Next Due Td [...] Date Type Specialty Care Team Description 04/13/2019 Routine Visit [facility] Trimester, [facility] Res-1st 04/30/2019 Routine Visit [facility] Imani Clay, [facility] [address] [place] [address] [phone] Health Maintenance Due Date Last Done Comments VARICELLA VACCINES (1 of 2 - 2007 13+ 2-dose series) HPV VACCINES (1 - Female 2009 3-dose series) DTaP,Tdap,and Td Vaccines (2 2013 08/05/2008 - Tdap) PAP SMEAR 2015 INFLUENZA VACCINE (#1) 2019 CHLAMYDIA SCREENING 04/02/2020 04/02/2019, 12/17/2012 PNEUMOCOCCAL 0-64 YEARS Aged Out No longer eligible based COMBINED SERIES on patient's age to complete this topic documented as of this encounter Results Not on filedocumented in this encounter Visit Diagnoses Diagnosis Supervision of high risk in first trimester - Primary Unspecified high-risk documented in this encounter Insurance Payer Benefit Plan / Subscriber ID Effective Dates Phone Address Type Group [employer] MEDICAID OF xxxxxxxxx 2019-Present [phone] [address] Medicaid [place] [id number] [place] [phone] documented as of this encounter
--- OUTSIDE RECORDS SUMMARY | 2019-07-28 13:14 | XMS REPORT | Summary of Care ---
:1994 Author Organization [facility] Address [address] [place] [address] Care Team Providers Name Role Phone Vania Kaur [facility] Unavailable Imani Clay [facility] Primary Care Provider Reason for Referral (Routine) Status Reason Specialty Diagnoses / Referred By Referred To Procedures Contact Contact New Request Maternal Diagnoses Supervision of high risk in first trimester Obed, Medicine Procedures CONSULT MATERNAL MEDICINE ULTRASOUND Preferred Location: [place] Imani Simon [facility] [address] [place] [address] Reason for Visit Reason Comments ULTRASOUND Encounter Details Date Type Department Care Team Description 04/09/2019 Telephone [facility] Imani Clay ULTRASOUND Shiloh Simon [facility] [address] [facility] [address] [place] [address] [facility] [phone] [place], [place] [phone] Allergies No Known Allergiesdocumented as of this [...] Description 04/13/2019 Routine Visit [facility] Trimester, [facility] Res-1st 04/30/2019 Routine Visit [facility]mani Clay, [facility] [address] [place] [address] [phone] Health Maintenance Due Date Last Done Comments [...] Type Group [employer] MEDICAID [place] xxxxxxxxx 2019-Present [phone] [place] [id number] [place] [phone] documented as of this encounter
--- OUTSIDE RECORDS SUMMARY | 2019-07-28 13:14 | XMS REPORT | Summary of Care ---
:1994 Author Organization [facility] Address [address] [place] [address] Care Team Providers Name Role Phone Vania Kaur [facility] Unavailable Imani Clay [facility] Primary Care Provider Reason for Visit Reason Comments Encounter Details Date Type Department Care Team Description 04/13/2019 Routine [facility] Monty Gu MD [address] [place] [address] with Visit [facility] Trimester, [facility] Res-1st uncertain [facility] Clinics viability, single or [address], 7[address] floor (Primary Dx) [place] [address] Allergies No Known Allergiesdocumented as [...] complaint: Chief Complaint Patient presents with HPI aMtilda Jackson is a 23 year old who [...] file Gets together: Not on file Attends muslim service: Not on file Active member of [...] CRL 1.3 cm, cardiac activity present - Follow up for scheduled visit This visit did not involve counseling and coordination that comprised more than 50% of the visit time. Teri Corral MD 04/13/2019 9:31 AM documented in this encounter Plan of Treatment Date Type Specialty Care Team Description 04/16/2019 Lasting Machine Operator Visit [facility] Lab, [facility] 04/30/2019 Routine Visit [facility] Imani Clay, CNP [address] [place] [address] [phone] Health Maintenance Due Date Last Done Comments [...] Type Group [employer] MEDICAID OF xxxxxxxxx 2019-Present [phone] [address] [place] [id number] [place] [phone] documented as of this encounter
--- OUTSIDE RECORDS SUMMARY | 2019-07-28 13:14 | XMS REPORT ---
:1994 Author Organization [facility] Address [address] [place] [address] Dr. Darden [address] [place] [address] Care Team Providers Name Role Phone Unavailable Unavailable Unavailable Problems This patient has no known problems. Allergies, Adverse Reactions, Alerts This patient has no known allergies or adverse reactions. Medications This patient has no known medications.
--- OUTSIDE RECORDS SUMMARY | 2019-07-28 13:14 | XMS REPORT | Summary of Care ---
:[address] Author [address] [facility] Address [address] [place] [address] Care Team Providers Name Role Phone VincentVania mckinlye [facility] Unavailable Imani Clay [facility] Primary Care Provider Reason for Visit Reason Comments LAB Encounter Details Date Type Department Care Team Description 04/10/2019 Telephone [facility] Imani Clay, LAB [address] [place] [address] [address] [facility] [phone] [facility] [place] [address] Allergies No Known Allergiesdocumented as of this encounter (statuses as of 04/10/2019) Medications Medication Sig Dispensed Refills Start Date [...] as of this encounter (statuses as of 04/10/2019) Active Problems Problem Noted Date Abnormal maternal glucose tolerance, antepartum 04/10/2019 Overview: pendign 3hr gtt Obesity affecting 04/02/2019 Supervision of high-risk 04/02/2019 Nausea and vomiting during 04/02/2019 Estimated Date of Delivery Comments Yes 11/10/2019 Based on last menstrual period of 02/03/2019 (Approximate) documented as of this encounter (statuses as of 04/10/2019) Immunizations Name Administration Dates Next Due Td [...] Date Type Specialty Care Team Description 04/13/2019 Incident Response Analyst Visit Maternal 3, [facility] Usg Room Medicine 04/13/2019 Routine Visit [facility] Trimester, [facility] Res-1st 04/16/2019 Incident Response Analyst Visit [facility] Lab, [facility] 04/30/2019 Routine Visit [facility] Imani Clay, CNP [address] [place] [address] [phone] Name Type Priority Associated Diagnoses Order Schedule 3 HR GLUCOSE TOLERANCE LAB Routine Abnormal maternal glucose Expected: 01/2019, PANEL tolerance, antepartum Expires: 06/10/2019 Health Maintenance Due Date Last Done Comments [...] filedocumented in this encounter Visit Diagnoses Diagnosis Abnormal maternal glucose tolerance, antepartum - Primary documented in this encounter Insurance Payer Benefit Plan / Subscriber ID Effective Dates Phone Address Type Group [employer] MEDICAID OF xxxxxxxxx 2019-Present [phone] [address] Medicaid [place] [id number] [place] [phone] documented as of this encounter
--- OUTSIDE RECORDS SUMMARY | 2019-07-28 13:14 | XMS REPORT | Summary of Care ---
:1995 Author Organization [facility] Address [address] [place] [address] Care Team Providers Name Role Phone VincentBrianna mckinleyta [facility] Unavailable Imani Clay [facility] Primary Care Provider Reason for Visit Reason Comments LAB WORK Encounter Details Date Type Department Care Team Description 04/09/2019 Etl Architect Visit [facility] Imani Clay, [facility] [address] [place] [address] Supervision of [facility], [facility] risk , [address] [place] [address] Allergies No Known Allergiesdocumented as of this encounter (statuses as of 04/16/2019) Medications Medication Sig Dispensed Refills Start Date [...] as of this encounter (statuses as of 04/16/2019) Active Problems Problem Noted Date Abnormal maternal glucose tolerance, antepartum 04/10/2019 Overview: pendign 3hr gtt Obesity affecting 04/02/2019 Supervision of high-risk 04/02/2019 Nausea and vomiting during 04/02/2019 Estimated Date of Delivery Comments Yes 11/10/2019 Based on last menstrual period of 02/03/2019 (Approximate) documented as of this encounter (statuses as of 04/16/2019) Immunizations Name Administration Dates Next Due Td [...] Treatment Date Type Specialty Care Team Description 04/30/2019 Routine Visit OB Satellites Imani Clay, [facility] [address] [place] [address] [phone] Health Maintenance Due Date Last Done Comments [...] Procedure Name Priority Date/Time Associated Diagnosis Comments GALV ONLY - SYPHILIS Routine 04/09/2019 12:16 Supervision of high Results for this IGG/IGM PM CDT risk , procedure are in antepartum the results section. HIV 1/2 AG-AB WITH Routine 04/09/2019 12:16 Supervision of high Results for this REFLEX PM CDT risk , procedure are in antepartum the results section. CBC WITH DIFFERENTIAL Routine 04/09/2019 12:16 Supervision of high Results for this PM CDT risk , procedure are in antepartum the results section. WORKUP, Routine 04/09/2019 12:16 Supervision of high Results for this BLOOD BANK PM CDT risk , procedure are in antepartum the results section. HEPATITIS B SURFACE Routine 04/09/2019 12:16 Supervision of high Results for this ANTIGEN PM CDT risk , procedure are in antepartum the results section. VZV ANTIBODY SCREEN Routine 04/09/2019 12:16 Supervision of high Results for this PM CDT risk , procedure are in antepartum the results section. RUBELLA SCREEN IGG Routine 04/09/2019 12:16 Supervision of high Results for this PM CDT risk , procedure are in antepartum the results section. CBC WITH DIFF Routine 04/09/2019 12:16 Supervision of high Results for this PM CDT risk , procedure are in antepartum the results section. GLUCOSE 1 HOUR POST Routine 04/09/2019 12:16 Supervision of high Results for this PRANDIAL PM CDT risk , procedure are in antepartum the results section. documented in this encounter Results WORKUP, BLOOD BANK (04/09/2019 12:16 PM CDT) ABO & RH O POSITIVE LAB Comment: Performed at [facility] Laboratory Services - [facility] Blood [place] [address] Toll Free: [phone] CLIA No. [id number] IAT Negative LAB Comment: Performed at [facility] Laboratory Services - [facility] Blood Bank [address] [place] [address] Toll Free: [phone] CLIA No. [id number] Specimen Blood - VENOUS Performing Organization Address City/State/Zipcode Phone Number BLD LAB CBC WITH DIFFERENTIAL (04/09/2019 12:16 PM CDT) WBC 9.42 4.30 - 11.10 [facility] LABORATORY 10*3/L SERVICES RBC 5.20 3.93 - 5.25 [facility] 10*6/L SERVICES HGB 15.1 (H) 11.6 - 15.0 [facility] g/dL SERVICES HCT 45.5 (H) 35.7 - 45.2 % [facility] SERVICES MCV 87.5 80.6 - 95.5 fL [facility] SERVICES MCH 29.0 25.9 - 32.8 pg [facility] MCHC 33.2 31.6 - 35.1 [facility] g/dL SERVICES RDW-SD 40.2 39.0 - 49.9 fL [facility] SERVICES RDW-CV 12.6 12.0 - 15.5 % [facility] SERVICES PLT 402 (H) 166 - 358 [facility] 10*3/L SERVICES MPV 8.9 (L) 9.5 - 12.9 fL [facility] SERVICES NRBC/100 WBC 0.0 0.0 - 10.0 /100 [facility] WBCs SERVICES NRBC x10^3 <0.01 10*3/L [facility] SERVICES GRAN MAT (NEUT) % 73.8 % [facility] IMM GRAN % 0.20 % [facility] LYMPH % 18.9 % [facility] MONO % 6.1 % [facility] SERVICES EOS % 0.4 % [facility] BASO % 0.6 % [facility] GRAN MAT x10^3(ANC) 6.95 1.88 - 7.09 [facility] 10*3/uL SERVICES IMM GRAN x10^3 <0.03 0.00 - 0.06 [facility] 10*3/uL SERVICES LYMPH x10^3 1.78 1.32 - 3.29 [facility] 10*3/uL SERVICES MONO x10^3 0.57 0.33 - 0.92 [facility] 10*3/uL SERVICES EOS x10^3 0.04 0.03 - 0.39 [facility] 10*3/uL SERVICES BASO x10^3 0.06 0.01 - 0.07 [facility] 10*3/uL SERVICES Specimen Blood Performing Organization Address City/State/Zipcode Phone Number [facility] SERVICES CLIA: [id number], [address] [place] [address] [facility] VZV ANTIBODY SCREEN (04/09/2019 12:16 PM CDT) VZV IgG antibody Positive Negative [facility] SERVICES Specimen Blood Narrative Performed At Positive - Indicates the patient was exposed to VZV through [facility] infection or vaccination. Negative - Indicates the patient could be susceptible to VZV infection. Equivocal - A second specimen should be sent for testing. Performing Organization Address City/[facility] Phone Number [facility] CLIA: [id number], [address] [place] [phone] [facility] GALV ONLY - SYPHILIS IGG/IGM (04/09/2019 12:16 PM CDT) Syphilis IgG/IgM Non-reactive Non-reactive [facility] SERVICES Specimen Blood - VENOUS Narrative Performed At Non-reactive - No serologic evidence of T. pallidum [facility] infection. Cannot exclude incubating or early syphilis. Submit a second specimen in 2-4 weeks if syphilis is clinically suspected. Equivocal - Further testing to follow. Reactive - Further testing to follow. Performing Organization Address [facility] Phone Number [facility] CLIA: [id number], [address] [place] [address] [phone] [facility] RUBELLA SCREEN (DRU) IGG (04/09/2019 12:16 PM CDT) Rubella screen IgG Positive Negative [facility] SERVICES Specimen Blood Narrative Performed At Positive - Indicates the patient was exposed to Rubella [facility] through infection or vaccination. Negative - Indicates the patient could be susceptible to Rubella infection. Equivocal - A second specimen should be sent. Performing Organization Address [facility] Phone Number [facility] CLIA: [id number], [address] [place] [phone] [facility] HIV 1/2 AG-AB WITH REFLEX (04/09/2019 12:16 PM CDT) HIV 1/2 Ag-Ab with Negative Negative [facility] Reflex SERVICES HIV Semi-quantitative 0.08 [facility] SERVICES Specimen Blood Narrative Performed At Non-reactive for HIV-1 antigen and HIV-1/HIV-2 [facility] SERVICES antibodies.No laboratory evidence of HIV infection.Repeat in 2-4 weeks if acute HIV infection is suspected. Performing Organization Address [facility] Phone Number [facility] CLIA: [id number], [address] [place] [address] [phone] [facility] HEPATITIS B SURFACE ANTIGEN (04/09/2019 12:16 PM CDT) HBsAg HEPATITIS B Negative [facility] SURFACE ANTIGEN SERVICES NEGATIVE HBsAg 0.07 [facility] Semi-Quantitative SERVICES Specimen Blood Performing Organization Address City/State/Zipcode Phone Number [facility] CLIA: [id number], [address] [place] [address] [facility] Glucose 1 Hour Post Prandial (04/09/2019 12:16 PM CDT) GLUC 1 HR 135 120 - 170 mg/dL [facility] SERVICES Specimen Blood Performing Organization Address City/State/Zipcode Phone Number [facility] CLIA: [id number], [address] [place] [phone] [facility] documented in this encounter Visit Diagnoses Diagnosis Supervision of high risk , antepartum documented in this encounter Insurance Payer Benefit Plan / Subscriber ID Effective Dates Phone Address Type Group [facility] MEDICAID OF xxxxxxxxx 2019-Present [phone] [address] [place] [id number] [place] [id number] documented as of this encounter
--- NOTE | 2019-07-28 16:52 | EDPHYS ---
Physician Documentation [facility] Name: Matilda Jackson Age: 24 yrs Sex: Female : 1995 Arrival Date: 07/28/2019 Time: 13:19 Bed 6 Private MD: ED Physician Tatiana Martínez HPI: 07/28 14:00 This 24 yrs old Female presents to ER via Ambulatory with complaints of jr8 Nausea/Vomiting, Runny Nose. 14:00 The patient presents to the emergency department with nausea, vomiting. Onset: The jr8 symptoms/episode began/occurred acutely, yesterday. Possible causes: unknown. The symptoms are aggravated by nothing. The symptoms are alleviated by nothing. Associated signs and symptoms: Pertinent positives: body aches, headache, sore throat, runny nose, watery eyes . Severity of symptoms: At their worst the symptoms were moderate in the emergency department the symptoms are unchanged. The patient has not experienced similar symptoms in the past. The patient has not recently seen a physician. 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 - Social history:: Smoking status: Patient/guardian denies using tobacco. - Ebola Screening: : No symptoms or risks identified at this time. ROS: 14:00 Eyes: Negative for injury, pain, redness, and discharge, Neck: Negative for injury, jr8 pain, and swelling, Cardiovascular: Negative for chest pain, palpitations, and edema, Back: Negative for injury and pain, MS/Extremity: Negative for injury and deformity, Skin: Negative for injury, rash, and discoloration, Neuro: Negative for headache, weakness, numbness, tingling, and seizure. 14:00 Constitutional: Positive for body aches, chills. 14:00 ENT: Positive for rhinorrhea, sore throat. 14:00 Respiratory: Positive for cough, Negative for dyspnea on exertion, shortness of breath, sputum production, wheezing. 14:00 Abdomen/GI: Positive for nausea and vomiting, Negative for abdominal pain, diarrhea, constipation, abdominal cramps, abdominal distension. Exam: 14:00 Eyes: Pupils equal round and reactive to light, extra-ocular motions intact. Lids and jr8 lashes normal. Conjunctiva and sclera are non-icteric and not injected. Cornea within normal limits. Periorbital areas with no swelling, redness, or edema. ENT: Nares patent. No nasal discharge, no septal abnormalities noted. Tympanic membranes are normal and external auditory canals are clear. Oropharynx with mild redness. No swelling, or masses, exudates, or evidence of obstruction, uvula midline. Mucous membranes moist. Neck: Trachea midline, no thyromegaly or masses palpated, and no cervical lymphadenopathy. Supple, full range of motion without nuchal rigidity, or vertebral point tenderness. No Meningismus. Cardiovascular: Regular rate and rhythm with a normal S1 and S2. No gallops, murmurs, or rubs. Normal PMI, no JVD. No pulse deficits. Respiratory: Lungs have equal breath sounds bilaterally, clear to auscultation and percussion. No rales, rhonchi or wheezes noted. No increased work of breathing, no retractions or nasal flaring. Abdomen/GI: Soft, non-tender, with normal bowel sounds. No distension or tympany. No guarding or rebound. No evidence of tenderness throughout. Back: No spinal tenderness. No costovertebral tenderness. Full range of motion. Skin: Warm, dry with normal turgor. Normal color with no rashes, no lesions, and no evidence of cellulitis. MS/ Extremity: Pulses equal, no cyanosis. Neurovascular intact. Full, normal range of motion. Neuro: Awake and alert, GCS 15, oriented to person, place, time, and situation. Cranial nerves II-XII grossly intact. Motor strength 5/5 in all extremities. Sensory grossly intact. Cerebellar exam normal. Normal gait. Vital Signs: 13:24 BP 111 / 67; Pulse 93; Resp 18 S; Temp 98.3(O); Pulse Ox 98% on R/A; Weight 89.36 kg aa5 (R); Height 5 ft. 7 in. (170.18 cm) (R); 13:24 Body Mass Index 30.86 (89.36 kg, 170.18 cm) aa MDM: 13:36 Patient medically screened. [facility] 14:47 Data reviewed: vital signs, nurses notes, lab test result(s), and as a result, I will jr8 discharge patient. Data interpreted: Pulse oximetry: on room air is 98 %. Interpretation: normal. Counseling: I had a detailed discussion with the patient and/or guardian regarding: the historical points, exam findings, and any diagnostic results supporting the discharge/admit diagnosis, lab results, the need for outpatient follow up, a family practitioner, to return to the emergency department if symptoms worsen or persist or if there are any questions or concerns that arise at home. Administered Medications: No medications were administered Disposition: 15:50 Co-signature as Attending Physician, Tatiana Martínez MD. ma2 Disposition: 07/28/19 14:49 Discharged to Home. Impression: Viral infection, unspecified. - Condition is Stable. - Discharge Instructions: Viral Respiratory Infection. - Prescriptions for Prednisone 20 mg Oral Tablet - take 1 tablet by ORAL route once daily for 5 days; 5 tablet. Zofran 4 mg Oral Tablet - take 1 tablet by ORAL route every 12 hours As needed; 20 tablet. - Medication Reconciliation Form, Thank You Letter, Antibiotic Education, Prescription Opioid Use form. - Follow up: Private Physician; When: 5 - 6 days; Reason: Recheck today's complaints, Continuance of care, Re-evaluation by your physician. - Problem is new. - Symptoms have improved. Signatures: Leanne Allred RN RN aa5 Ruddy Hinson PA PA jr8 Yamileth Mae RN RN Tatiana Martínez MD MD ma2 Corrections: (The following items were deleted from the chart) 14:58 14:49 07/28/2019 14:49 Discharged to Home. Impression: Viral infection, unspecified. hb Condition is Stable. Forms are Medication Reconciliation Form, Thank You Letter, Antibiotic Education, Prescription Opioid Use. Follow up: Private Physician; When: 5 - 6 days; Reason: Recheck today's complaints, Continuance of care, Re-evaluation by your physician. Problem is new. Symptoms have improved. jr8
--- NOTE | 2019-07-28 16:53 | ER ---
Nurse's Notes [facility] Name: Matilda Jackson Age: 24 yrs Sex: Female : 1995 Arrival Date: 07/28/2019 Time: 13:19 Bed 6 Private MD: Diagnosis: Viral infection, unspecified Presentation: 07/28 13:22 Presenting complaint: Patient states: body aches, cough, runny nose, sore throat, aa5 nausea/vomiting that began yesterday. Pt reports being 24 weeks . Denies vaginal bleeding, denies abd pain. Transition of care: patient was not received from another setting of care. Onset of symptoms was July 2019. Risk Assessment: Do you want to hurt yourself or someone else? Patient reports no desire to harm self or others. Initial Sepsis Screen: Does the patient meet any 2 criteria? No. Patient's initial sepsis screen is negative. Does the patient have a suspected source of infection? No. Patient's initial sepsis screen is negative. Care prior to arrival: None. 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 - Social history:: Smoking status: Patient/guardian denies using tobacco. - Ebola Screening: : No symptoms or risks identified at this time. Screenin:45 Abuse screen: Denies threats or abuse. Denies injuries from another. Nutritional sv screening: No deficits noted. Tuberculosis screening: No symptoms or risk factors identified. Fall Risk None identified. Assessment: 13:45 General: Appears in no apparent distress. comfortable, Behavior is calm, cooperative, sv appropriate for age. Pain: Complains of pain in throat. Neuro: Level of Consciousness is awake, alert, obeys commands, Oriented to person, place, time, situation, Moves all extremities. Full function Gait is steady. Respiratory: Airway is patent Respiratory effort is even, unlabored, Respiratory pattern is regular, symmetrical. GI: Abdomen is flat, Reports nausea, vomiting. EENT: Oral mucosa is moist. Throat is reddened. EENT: Reports nasal discharge that is watery. Derm: Skin is pink, warm \T\ dry. 14:46 Reassessment: Patient appears in no apparent distress at this time. Patient and/or hb family updated on plan of care and expected duration. Pain level reassessed. Patient is alert, oriented x 3, equal unlabored respirations, skin warm/dry/pink. Vital Signs: 13:24 BP 111 / 67; Pulse 93; Resp 18 S; Temp 98.3(O); Pulse Ox 98% on R/A; Weight 89.36 kg aa5 (R); Height 5 ft. 7 in. (170.18 cm) (R); 13:24 Body Mass Index 30.86 (89.36 kg, 170.18 cm) aa5 ED Course: 13:19 Patient arrived in ED. am2 13:22 Arm band placed on. aa5 13:23 Triage completed. aa5 13:31 [facility] 13:31 Tatiana Martínez MD is Attending Physician. [facility] 13:45 Lisa Penny, RN is Primary Nurse. sv 13:45 Patient has correct armband on for positive identification. Bed in low position. Call sv light in reach. Adult w/ patient. Door closed. Head of bed elevated. 14:14 Awaiting lab results. sv 14:56 No provider procedures requiring assistance completed. Patient did not have IV access hb during this emergency room visit. Administered Medications: No medications were administered Outcome: 14:49 Discharge ordered by . [facility] 14:56 Discharged to home ambulatory, with family. 14:56 Condition: stable 14:56 Discharge instructions given to patient, Instructed on discharge instructions, follow up and referral plans. medication usage, Demonstrated understanding of instructions, follow-up care, medications, Prescriptions given X 2. 14:58 Patient left the ED. hb Signatures: Lisa Penny RN SIM Leanne Allred RN SIM [facility] Ruddy Hinson PA PA [facility] Yamileth Mae RN RN Joy Mcfarland am2
[2019-07-28 17:00] VITALS: BP 111/67; TEMP 98.3; O2SAT 98
== END 2019-07-28 14:58 | disposition home or self-care (01) ==
LOC: ER 13:10
DX: B34.9 Viral infection, unspecified (principal)
CPT/HCPCS: 87070; 87081; 87804; 99282

== ENCOUNTER 2020-02-10 22:48 | Emergency (ER) | payer OTHER ==
--- OUTSIDE RECORDS SUMMARY | 2020-02-10 22:50 | XMS REPORT | Clinical Summary ---
:1995 Author Organization [facility] Address [address] [place] [address] Care Team Providers Name Role Phone Asked, No Pcp Primary Care Provider Unavailable Allergies Active Allergy Reactions Severity Noted Date Comments Penicillins 03/31/2019 Medications Medication Sig Dispensed Refills Start Date End Date Status acetaminophen-codein Take 1-2 tablets 15 tablet 0 03/31/2019 0 04/05/2019 e (TYLENOL WITH by mouth every 6 CODEINE #3) 300-30 (six) hours as mg per needed for tabletIndications: moderate pain for acute pain up to 5 days .Acute Pain. Active Problems Not on file Encounters Date Type Specialty Care Team Description 03/31/2019 Emergency Emergency Medicine Cuong Raymond M issed with demise be fore 20 completed weeks of gestation (Prim delma Dx) after 02/09/2019 Family History Medical History Relation Name Comments No Known Problems Father Diverticulitis Maternal Grandmother No Known Problems Mother Relation Name Status Comments Father Maternal Grandmother Mother Social History Tobacco Use Types Packs/Day Years Used Date Never Smoker Smokeless Tobacco: Never Used Alcohol Use Drinks/Week oz/Week Comments Yes moderate use Sex Assigned at Date Recorded Not on file Job Start Date Occupation Industry Not on file Not on file Not on file Travel History Travel Start Travel End No recent travel history available. Last Filed Vital Signs Vital Sign Reading Time Taken Comments Blood Pressure 127/69 03/31/2019 3:08 PM CDT Pulse 78 03/31/2019 3:08 PM CDT Temperature 37.3 C (99.1 F) 03/31/2019 3:08 PM CDT Respiratory Rate 17 03/31/2019 3:08 PM CDT Oxygen Saturation 100% 03/31/2019 3:08 PM CDT Inhaled Oxygen Concentration - - Weight - - Height 170.2 cm (5' 7") 03/31/2019 10:05 AM CDT Body Mass Index - - Plan of Treatment Health Maintenance Due Date Last Done Comments CERVICAL CANCER SCREENING 2015 INFLUENZA VACCINE 03/05/2020 Procedures Procedure Name Priority Date/Time Associated Comments Diagnosis US STAT 03/31/2019 12:45 Results for this TRANSVAGINAL PM CDT procedure are i n the results section. US SINGLE STAT 03/31/2019 12:45 Resu lts for this LESS THAN 14 WEEKS PM CDT procedure are in the results section. HCG QUANTITATIVE, STAT 03/31/2019 11:30 Result s for this SERUM AM CDT procedure are i n the results section. GRAM STAIN STAT 03/31/2019 11:07 Results for this AM CDT procedure are i n the results section. URINE CULTURE STAT 03/31/2019 11:07 Results fo r this AM CDT procedure are i n the results section. ESTIMATED GFR STAT 03/31/2019 10:30 Results fo r this AM CDT procedure are i n the results section. HCG QUALITATIVE, SERUM STAT 03/31/2019 10:30 R esults for this SCREEN AM CDT procedure are i n the results section. URINALYSIS SCREEN AND STAT 03/31/2019 10:30 Re sults for this MICROSCOPY, WITH AM CDT procedure a re in REFLEX TO CULTURE the result s section. LIPASE LEVEL STAT 03/31/2019 10:30 Results for this AM CDT procedure are i n the results section. COMPREHENSIVE STAT 03/31/2019 10:30 Results fo r this METABOLIC PANEL AM CDT procedure ar e in the results section. HC COMPLETE BLD COUNT STAT 03/31/2019 10:30 Re sults for this W/AUTO DIFF AM CDT procedure are i n the results section. after 02/09/2019 Results US Transvaginal (03/31/2019 12:45 PM CDT) Specimen Narrative Performed At EXAMINATION: US TRANSVAGINAL, US SINGLE LESS THAN HM [facility] 14 WEEKS CLINICAL HISTORY: r o ectopic COMPARISON: None. TECHNIQUE:Transverse and longitudinal transvaginal and transabdominal sonographic images of the pelvis were obtained. Graysc jose j, color Doppler, and spectral waveform analysis of the ovarian vessels was performed. FINDINGS: The uterus measures 7.9 x 4.9 x 6.0 cm and contains a 1.8 cm gestational sac equating to 6 weeks 4 days with a 0.4 cm yolk sac. Neither a pole nor cardiac a ctivity is visualized. The right ovary measures 4.1 x 2.8 x 2.1 cm and left ovary 3.5 x 2.3 x 1.9 cm.. Blood flow is documented within each ovary. The ovaries appear normal. There is a small subchorionic hematoma. Impression: Gestational sac with yolk sac equating to 6 weeks 4 da ys with small subchorionic hematoma and no visible pole could represent intrauterine demise with missed . Letitia weir, correlation with quantitative serial hCGs and follow -up imaging is recommended. Findings were discussed with Dr. Raymond at 1316. ENDOMETRIAL THICKNESS GUIDELINES Pre-menopausal * Menstrual phase : 1 - 4 mm * Proliferative phase (days 6-14) : 5 - 7 mm * Late proliferative phase (trilaminar appearance) : up to 11 mm * Secretory Phase : 7 - 16 mm Post-menopausal without bleeding (acceptable ranges ar e less well-established) * Up to 8 -11 mm * Greater than 11 mm should prompt bio psy Post-menopausal with bleeding * Atrophy : 5 mm or less * Abnormal : greater than 5mm should p rompt biopsy Post-menopausal on Tamoxifen * Normal : 5 mm or less * Abnormal : greater than 5 mm (high-rate of false o f positive. consider hysteroscopy and biopsy on all patients with bleeding on Tamoxifen) [facility]-[id number] Procedure Note Hm Interface, Radiology Results - 03/31/2019 1:19 PM CDT EXAMINATION: US TRANSVAGINAL, US SINGLE LESS THAN 14 WEEKS CLINICAL HISTORY: r o ectopic COMPARISON: None. TECHNIQUE:Transverse and longitudinal tr ansvaginal and transabdominal sonographic images of the pelvis were obtained. Grayscale, color Doppler, and spectral waveform analysis of the ovarian vessels was performed. FINDINGS: The uterus measures 7.9 x 4.9 x 6.0 cm and contains a 1.8 cm gestational sac equating to 6 weeks 4 days with a 0.4 cm yolk sac. Neither a pole nor cardiac activity is visualized. The right ovary measures 4.1 x 2.8 x 2. 1 cm and left ovary 3.5 x 2.3 x 1.9 cm.. Blood flow is documented within each ovary. The ovaries appear normal. There is a small subchorionic hematoma. Impression: Gestational sac with yolk sac equating t o 6 weeks 4 days with small subchorionic hematoma and no visible pole could represent intrauterine demise with missed . However, correlation with quantitative serial hCGs and follow-up jean marie bourne is recommended. Findings were discussed with Dr. Raymond at 1316. ENDOMETRIAL THICKNESS GUIDELINES Pre-menopausal * Menstrual phase : 1 - 4 mm * Proliferative phase (days 6-14) : 5 - 7 mm * Late proliferative phase (trilaminar appearance) : up to 11 mm * Secretory Phase : 7 - 16 mm Post-menopausal without bleeding (accept able ranges are less well-established) * Up to 8 -11 mm * Greater than 11 mm should prompt biop sy Post-menopausal with bleeding * Atrophy : 5 mm or less * Abnormal : greater than 5mm should pr ompt biopsy Post-menopausal on Tamoxifen * Normal : 5 mm or less * Abnormal : greater than 5 mm (high-ra te of false of positive. consider hysteroscopy and biopsy on all patients with bleeding on Tamoxifen) [facility]-[id number] Performing Organization Address City/State/Zipcode Phone Number [facility] [address] [place] [address] [place] Single Less Than 14 Weeks (03/31/2019 12:45 PM CDT) Specimen Narrative Performed At EXAMINATION: US TRANSVAGINAL, US SINGLE LESS THAN HM [facility] 14 WEEKS CLINICAL HISTORY: r o ectopic COMPARISON: None. TECHNIQUE:Transverse and longitudinal transvaginal and transabdominal sonographic images of the pelvis were obtained. Graysc jose j, color Doppler, and spectral waveform analysis of the ovarian vessels was performed. FINDINGS: The uterus measures 7.9 x 4.9 x 6.0 cm and contains a 1.8 cm gestational sac equating to 6 weeks 4 days with a 0.4 cm yolk sac. Neither a pole nor cardiac a ctivity is visualized. The right ovary measures 4.1 x 2.8 x 2.1 cm and left ovary 3.5 x 2.3 x 1.9 cm.. Blood flow is documented within each ovary. The ovaries appear normal. There is a small subchorionic hematoma. Impression: Gestational sac with yolk sac equating to 6 weeks 4 da ys with small subchorionic hematoma and no visible pole could represent intrauterine demise with missed . Howeve r, correlation with quantitative serial hCGs and follow -up imaging is recommended. Findings were discussed with Dr. Raymond at 1316. ENDOMETRIAL THICKNESS GUIDELINES Pre-menopausal * Menstrual phase : 1 - 4 mm * Proliferative phase (days 6-14) : 5 - 7 mm * Late proliferative phase (trilaminar appearance) : up to 11 mm * Secretory Phase : 7 - 16 mm Post-menopausal without bleeding (acceptable ranges ar e less well-established) * Up to 8 -11 mm * Greater than 11 mm should prompt bio psy Post-menopausal with bleeding * Atrophy : 5 mm or less * Abnormal : greater than 5mm should p rompt biopsy Post-menopausal on Tamoxifen * Normal : 5 mm or less * Abnormal : greater than 5 mm (high-rate of false o f positive. consider hysteroscopy and biopsy on all patients with bleeding on Tamoxifen) [id number] Procedure Note Hm Interface, Radiology Results - 03/31/2019 1:19 PM CDT EXAMINATION: US TRANSVAGINAL, US SINGLE LESS THAN 14 WEEKS CLINICAL HISTORY: r o ectopic COMPARISON: None. TECHNIQUE:Transverse and longitudinal tr ansvaginal and transabdominal sonographic images of the pelvis were obtained. Grayscale, color Doppler, and spectral waveform analysis of the ovarian vessels was performed. FINDINGS: The uterus measures 7.9 x 4.9 x 6.0 cm and contains a 1.8 cm gestational sac equating to 6 weeks 4 days with a 0.4 cm yolk sac. Neither a pole nor cardiac activity is visualized. The right ovary measures 4.1 x 2.8 x 2. 1 cm and left ovary 3.5 x 2.3 x 1.9 cm.. Blood flow is documented within each ovary. The ovaries appear normal. There is a small subchorionic hematoma. Impression: Gestational sac with yolk sac equating t o 6 weeks 4 days with small subchorionic hematoma and no visible pole could represent intrauterine demise with missed . However, correlation with quantitative serial hCGs and follow-up i maging is recommended. Findings were discussed with Dr. Raymond at 1316. ENDOMETRIAL THICKNESS GUIDELINES Pre-menopausal * Menstrual phase : 1 - 4 mm * Proliferative phase (days 6-14) : 5 - 7 mm * Late proliferative phase (trilaminar appearance) : up to 11 mm * Secretory Phase : 7 - 16 mm Post-menopausal without bleeding (accept able ranges are less well-established) * Up to 8 -11 mm * Greater than 11 mm should prompt biop sy Post-menopausal with bleeding * Atrophy : 5 mm or less * Abnormal : greater than 5mm should pr ompt biopsy Post-menopausal on Tamoxifen * Normal : 5 mm or less * Abnormal : greater than 5 mm (high-ra te of false of positive. consider hysteroscopy and biopsy on all patients with bleeding on Tamoxifen) [facility]-[id number] Performing Organization Address [facility] Phone Number [facility] [address] [place] [phone] hCG quantitative, serum (03/31/2019 11:30 AM CDT) Pathologist [facility] hCG quantitative, 35,905 (H) 1 - 5 mIU/mL [facility] serum Comment: [facility] Reference range for HCG Quant applies to males and non - females. Post Menopausal 0.0 - 8.1 mIU/mL Specimen Serum Performing Organization Address [facility] Cliniccowi Phone Number [facility] DEPARTMENT OF PATHOLOGY AND [address] [address] [place], [place] [address] [facility] [address] [address] [place], [place] [address] Gram stain (03/31/2019 11:07 AM CDT) Pathologist [facility] Gram stain result Rare WBC's [facility] Moderate Gram variable rods [facility] Rare Gram positive cocci in clusters Comment: Specimen Information Specimen Source: Urine Specimen Site: Random void Specimen Urine - Random void Performing Organization Address [facility] Phone Number [facility] DEPARTMENT OF PATHOLOGY AND [address] [place] [address] [phone] [address] Urine culture (03/31/2019 11:07 AM CDT) Pathologist [facility] Urine culture Mixed patricio 10-4 col/cc [facility] isolate Comment: HOSPITAL Specimen Information Specimen Source: Urine Specimen Site: Random void Specimen Urine - Random void Performing Organization Address [facility] Phone Number [facility] DEPARTMENT OF PATHOLOGY AND [address] [place] [address] [phone] [address] Urinalysis screen and microscopy, with reflex to culture (03/31/2019 10:30 AM CDT) Specimen site Random void [facility] Color, UA Yellow [facility] Appearance, UA Hazy [facility] Specific gravity, UA 1.019 1.001 - 1.035 [facility] pH, UA 6.0 5.0 - 8.5 [facility] Protein, UA Negative Negative [facility] Glucose, UA Negative Negative [facility] Ketones, UA 2+ (A) Negative [facility] Bilirubin, UA Negative Negative [facility] Blood, UA Negative Negative [facility] Nitrite, UA Negative Negative [facility] Urobilinogen, UA <2.0 <2.0 [facility] Leukocyte esterase, Trace (A) Negative [facility] Epithelial cells, UA 1 /HPF [facility] WBC, UA 3 0 - 4 /HPF [facility] RBC, UA <1 0 - 5 /HPF [facility] Bacteria, UA Few None seen [facility] Yeast, UA None seen [facility] Yeast with None seen [facility] pseudohyphae, [facility] Specimen Urine Performing Organization Address City/State/Zipcode Phone Number [facility] DEPARTMENT OF PATHOLOGY AND [address] [place], [place] [address] [facility] [address] [address] [place], [place] [address] Estimated GFR (03/31/2019 10:30 AM CDT) [facility] Estimated GFR >=90 mL/min/1.73 [facility] Comment: [address] Catergory Units Interpretation G1 >=90 Normal or high G2 60-89 Mildly decreased G3a 45-59 Mildly to moderately decreas ed G3b 30-44 Moderately to severely decre ased G4 15-29 Severely decreased G5 <15 Kidney failure The eGFR was calculated using the Chronic Kidney Disea se Epidemiology Collaboration (CKD-EPI) equation. Interpretation is based on recommendations of the National Kidney Foundation-Kidney Disease Outcomes Venancio lity Initiative (NKF-KDOQI) published in 2014. Specimen Plasma specimen Performing Organization Address City/State/Zipcode Phone Number [facility] DEPARTMENT OF PATHOLOGY AND [address] [address] [place], [place] [address] [facility] [address] [address] [place] [address] CBC with platelet and differential (03/31/2019 10:30 AM CDT) WBC 10.09 4.50 - 11.00 [facility] k/uL [facility] RBC 5.15 4.20 - 5.50 [facility] m/uL [facility] HGB 15.0 12.0 - 16.0 [facility] g/dL [facility] HCT 44.3 37.0 - 47.0 % [facility] MCV 86.0 82.0 - 100.0 fL [facility] MCH 29.1 27.0 - 34.0 pg [facility] MCHC 33.9 31.0 - 37.0 [facility] g/dL [facility] RDW - SD 40.1 37.0 - 55.0 fL [facility] MPV 8.9 8.8 - 13.2 fL [facility] Platelet count 386 150 - 400 k/uL [facility] Neutrophils 76.3 (H) 39.0 - 69.0 % [facility] Lymphocytes 16.7 (L) 25.0 - 45.0 % [facility] Monocytes 5.9 0.0 - 10.0 % [facility] Eosinophils 0.2 0.0 - 5.0 % [facility] Basophils 0.6 0.0 - 1.0 % [facility] Immature granulocytes 0.3 0.0 - 1.0 % [facility] Specimen Blood Performing Organization Address City/[facility]/Zipcode Phone Number [facility] DEPARTMENT OF PATHOLOGY AND [address] [address] [id number] [place] [address] hCG qualitative, serum screen (03/31/2019 10:30 AM CDT) hCG qualitative, PositiveComment: [facility] serum Sensitivity of HCG [facility] test: 25 mIU/mL Specimen Blood Performing Organization Address City/[facility]/Zipcode Phone Number [facility] DEPARTMENT OF PATHOLOGY AND [id number] [place] [address]. [place] [address] [facility] [id number] [place] [address] Lipase level (03/31/2019 10:30 AM CDT) Pathologist [facility] Lipase 14 (L) 23 - 300 U/L [facility] Specimen Serum Performing Organization Address City/State/Zipcode Phone Number [facility] DEPARTMENT OF PATHOLOGY AND [address] [address] [place] [address] [facility] [address] [place] [address] Comprehensive metabolic panel (03/31/2019 10:30 AM CDT) Sodium 135 135 - 148 [facility] mEq/L [facility] Potassium 3.8 3.5 - 5.0 [facility] mEq/L [facility] Chloride 99 99 - 109 mEq/L [facility] CO2 20 (L) 24 - 31 mEq/L [facility] Anion gap 16@ANIO (H) 7 - 15 mEq/L [facility] BUN 8 8 - 24 mg/dL [facility] Creatinine 0.59 0.50 - 0.90 [facility] mg/dL [facility] Glucose 113 (H) 65 - 99 mg/dL [facility] Calcium 9.9 8.6 - 10.6 [facility] mg/dL [facility] Protein 8.1 6.3 - 8.2 g/dL [facility] Albumin 4.5 3.5 - 5.0 g/dL [facility] A/G ratio 1.2 0.7 - 3.8 [facility] Alkaline phosphatase 57 30 - 115 U/L [facility] AST 15 15 - 46 U/L [facility] ALT 10 10 - 55 U/L [facility] Total bilirubin 0.6 0.2 - 1.2 [facility] mg/dL [facility] Specimen Plasma specimen Performing Organization Address City/State/Zipcode Phone Number [facility] DEPARTMENT OF PATHOLOGY AND [address] [address] [place] [address] 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
--- OUTSIDE RECORDS SUMMARY | 2020-02-10 22:51 | XMS REPORT | Continuity of Care Document ---
:1995 Author Organization [facility] t Address [address] [place] [address] Care Team Providers Name Role Phone Asked, Pcp Primary Care Physician Unavailable Nikhil JONES Attending Clinician Nurse, Women's Health Attending Clinician Unavailable Hari VELOZ Attending Clinician Gonzalez VELOZ, Cam Attending Clinician Doctor Unassigned, Name Attending Clinician Unavailable Segundo VELOZ TMatti Attending Clinician Hari VELOZ Admitting Clinician Payers Payer Name Policy Type Policy Number Effective Date Expiration Date S lillie MEDICAIDMEDI xxxxxxxxx 2019 [place] CAIDxxxxxxxx 00:00:00 Yazidism x2019-Pr esentMedicai d Problems This patient has no known problems. Allergies, Adverse Reactions, Alerts Allergy Allergy Status Severity Reaction(s) Onset Inactive Treating Comm ents Source Name Type Date Date Clinician Penicill Propensi Active [place] ins ty to 03-31 Methodi adverse 00:00: st reaction 00 s to drug Family History Family Member Diagnosis Comments Start Date Stop Date Source Natural father No Known Problems Anitra Arnold Maternal grandmother Diverticulitis [place] Yazidism Natural mother No Known Problems Anitra Arnold Social History Social Habit Start Date Stop Date Quantity Comments Source Sex Assigned At [facility] ethodist Alcohol intake 2019-03-31 2019-03-31 Current drinker [place] Y[facility]idism 00:00:00 00:00:00 of alcohol (finding) Alcohol Comment 2019-03-31 2019-03-31 moderate use Montrell Arnold 00:00:00 00:00:00 Smoking Status Start Date Stop Date Source Never smoker Stock Jennais mia Medications Ordered Filled Start Stop Current Ordering Indication Dosage Frequency Signature Comments Components Source Medication Medication Date Date Medication? Clinician (SIG) Name Name acetaminoph 2019- No acute pain 1{tbl} Q6H Take 1-2 Stock en-codeine 03-31 tablets by Ga colten (TYLENOL 00:00: 23:[address] WITH 00 :00 every 6 CODEINE #3) (six) 300-30 mg hours as per tablet needed for moderate pain for up to 5 days .Acute Pain. Vital Signs Vital Name Observation Time Observation Value Comments Source Systolic blood 2019-03-31 15:08:00 127 mm[Hg] Maria Estherto n Yazidism pressure Diastolic blood 2019-03-31 15:08:00 69 mm[Hg] [place] on Yazidism pressure Heart rate 2019-03-31 15:08:00 78 /min Montrell Arnold Body temperature 2019-03-31 15:08:00 37.28 Malika Maria Esther ton Yazidism Respiratory rate 2019-03-31 15:08:00 17 /min Maria Esther Arnold Oxygen saturation in 2019-03-31 15:08:00 100 /min Montrell Arnold Arterial blood by Pulse oximetry Body height 2019-03-31 10:05:00 170.2 cm Montrell Arnold Procedures Procedure Date / Time Performed Performing Clinician Sour e US SINGLE LESS 2019-03-31 12:45:23 Cuong Raymond THAN 14 WEEKS US TRANSVAGINAL 2019-03-31 12:45:23 Cuong Raymond HCG QUANTITATIVE, SERUM 2019-03-31 11:30:00 Cuong Raymond URINE CULTURE 2019-03-31 11:07:00 Cuong Raymond GRAM STAIN 2019-03-31 11:07:00 Cuong Raymond HC COMPLETE BLD COUNT 2019-03-31 10:30:00 Cuong Raymond W/AUTO DIFF COMPREHENSIVE METABOLIC 2019-03-31 10:30:00 Cuong Raymond PANEL LIPASE LEVEL 2019-03-31 10:30:00 Cuong Raymond URINALYSIS SCREEN AND 2019-03-31 10:30:00 Cuong Raymond MICROSCOPY, WITH REFLEX TO CULTURE HCG QUALITATIVE, SERUM 2019-03-31 10:30:00 Cuong Raymond Yazidism SCREEN ESTIMATED GFR 2019-03-31 10:30:00 Cuong Raymond Plan of Care Planned Activity Planned Date Details Comments Source Future Scheduled 2020-03-05 INFLUENZA VACCINE [place] [facility] Test 00:00:00 [code = INFLUENZA VACCINE] Future Scheduled 2015 Screening for Stock [facility] Test 00:00:00 malignant neoplasm of cervix (procedure) [code = 303955445] Encounters Start End Encounter Admission Attending Care Care Encounter Source Date/Time Date/Time Type Type Clinicians Facility Department ID 2019-12-25 2019-12-[facility] [id number] 09:24:12 09:39:12 ne Visit Marcella Matamoros [id number] [place] 4.2.7.2.686 Professio [id number] [address] 2019-11-30 2019-11-30 Nurse Nurse, [facility] [id number] 14:38:58 14:55:30 Visit Womenpatti Matamoros [id number] [facility] [id number] Professio [id number] [address] 2019-11-22 2019-11-24 [facility] [id number] 21:57:00 10:35:00 Encounter Krystina Matamoros [id number] [place] 4.2.7.2.686 [place] [id number] [facility] 2019-11-24 2019-11-24 Telephone Ericka Roth [facility] [id number] 00:00:00 00:00:00 Salvatore Matamoros [id number] [place] 4.2.7.2.686 Professio [id number] [address] 2019-11-22 2019-11-22 [facility] [id number] 11:15:00 13:25:00 Encounter Krystina Matamoros [id number] [place] 4.2.7.2.686 [place] [id number] 2019-11-19 2019-11-19 Routine Ericka Roth [facility] [id number] 16:00:04 16:26:51 [place] [id number] Visit [place] 4.2.7.2.686 Professio [id number] [address] 2019-11-12 2019-11-12 Routine Ericka Roth [facility] [id number] 15:54:30 16:23:02 [place] [id number] Visit [place] 4.2.7.2.686 Professio [phone] [address] 2019-11-06 2019-11-06 Orders Doctor DARIA [id number] 00:00:00 00:00:00 Only Unassigned, GLENN 350.1.13.10 [place] [facility] 4.2.7.2.686 [id number] 2019-11-05 2019-11-05 [facility] [id number] 07:54:57 08:09:57 Marcella Matamoros 350.1.13.10 Visit [place] 4.2.7.2.686 Professio [id number] [address] 2019-11-02 2019-11-02 Telephone Ericka Roth [facility] 1.2.840.114 [id number] 00:00:00 00:00:00 [place] [id number] [place] 4.2.7.2.686 Professio [id number] [address] 2019-10-29 2019-10-30 Routine Ericka Roth [facility] [id number] 15:58:33 10:03:05 [place] [id number] Visit [place] 4.2.7.2.686 Professio [id number] [address] 2019-10-30 2019-10-30 Case Ericka Roth [facility] [id number] 00:00:00 00:00:00 Management Salvatore Matamoros 350.1.13.10 [place] 4.2.7.2.686 [place] [id number] [facility] [address] [facility] Results Test Description Test Time Test Comments Results Result Comments Source Urine culture 2019-04-01 17:21:13 Test Item Value Reference Range Interpretation Comme nts Urine culture isolate Mixed patricio 10-4 Sp ecimen InformationSpecimen (test code = 69024-7) col/cc Source : UrineSpecimen Site: Random void [facility] [id number] 17:21:13Gram stain resultRare WBC'sModerate Gram variable rodsRare Gram positive cocci in clusters Comment: S pecimen InformationSpecimen Source: UrineSpecimen Site: Random void [facility] Single Less Than 14 Weeks 2019-03-31 13:16:21Hm Interface, Radiology Results 03/31/2019 1:19 PM CDTEXAMINATION: US TRANSVAGINAL, US SINGLE LESS THAN 14 WEEKSCLINICAL HISTORY: r o ectopicCOMPARISON: None.TECHNIQUE:Transverse and longitudinal transvaginal and transabdominal sonographic images of the pelvis were obtained. Grayscale, color Doppler, and spectral waveform analysis of the ovarian vessels was performed.FINDINGS:The uterus measures 7.9 x 4.9 x 6.0 [...] documented within each ovary. The ovaries appear normal.There is a small subchorionic hematoma.Impression:Gestational sac with yolk sac equating to 6 weeks 4 days with small subchorionic hematoma and no visible pole could represent intrauterine demise with missed . However, correlation with quantitative serial hCGs and follow-up imaging is recommended.Findings were discussed with at 1316.ENDOMETRIAL THICKNESS GUIDELINESPre-menopausal* Menstrual phase : 1 - 4 mm* Proliferative phase (days 6-14) : 5 - 7 mm* Late proliferative phase (trilaminar appearance) : up to 11 mm* Secretory Phase : 7 - 16 mmPost-menopausal without bleeding (acceptable ranges are less well-established)* Up to 8 -11 mm* Greater than 11 mm should prompt biopsyPost-menopausal with bleeding* Atrophy : 5 mm or less* Abnormal : greater than 5mm should prompt biopsyPost-menopausal on Tamoxifen*Normal : 5 mm or less* Abnormal : greater than 5 mm (high-rate of false of positive. consider hysteroscopy and biopsy on all patients with bleeding on Tamoxifen)[facility]-[id number] MethodistUS Transvaginal 2019-03-31 13:16:21Hm Interface, Radiology Results 03/31/2019 1:19 PM CDTEXAMINATION: US TRANSVAGINAL, US SINGLE LESS THAN 14 WEEKSCLINICAL HISTORY: r o ectopicCOMPARISON: None.TECHNIQUE:Transverse and longitudinal transvaginal and transabdominal sonographic images of the pelvis were obtained. Grayscale, color Doppler, and spectral waveform analysis of the ovarian vessels was performed.FINDINGS:The uterus measures 7.9 x 4.9 x 6.0 [...] documented within each ovary. The ovaries appear normal.There is a small subchorionic hematoma.Impression:Gestational sac with yolk sac equating to 6 weeks 4 days with small subchorionic hematoma and no visible pole could represent intrauterine demise with missed . However, correlation with quantitative serial hCGs and follow-up imaging is recommended.Findings were discussed with at 1316.ENDOMETRIAL THICKNESS GUIDELINESPre-menopausal* Menstrual phase : 1 - 4 mm* Proliferative phase (days 6-14) : 5 - 7 mm* Late proliferative phase (trilaminar appearance) : up to 11 mm* Secretory Phase : 7 - 16 mmPost-menopausal without bleeding (acceptable ranges are less well-established)* Up to 8 -11 mm* Greater than 11 mm should prompt biopsyPost-menopausal with bleeding* Atrophy : 5 mm or less* Abnormal : greater than 5mm should prompt biopsyPost-menopausal on Tamoxifen*Normal : 5 mm or less* Abnormal : greater than 5 mm (high-rate of false of positive. consider hysteroscopy and biopsy on all patients with bleeding on Tamoxifen)[facility]-[id number] MethodistG quantitative, serum 2019-03-31 12:56:57 Test Item Value Reference Range Interpretation Comments hCG quantitative, serum 01952 1- 5 mIU/mL H Refe rence range for (test code = 57078-4) HCG Qu ant applies to males and non-fem ales. Post Menopausal 0.0 - 8.1 mIU/mL Lab Interpretation (test Abnormal code = 97311-0) Montrell ArnoldComprehensive metabolic [id number] 11:19:24 Test Item Value Reference Range Interpretation Comments Sodium (test code = 2951-2) 135 135- 148 mEq/L Potassium (test code = 2823-3) 3.8 3.5- 5.0 mEq/L Chloride (test code = 2075-0) 99 99- 109 mEq/L CO2 (test code = 2027-9) 20 24- 31 mEq/L L Anion gap (test code = 79092-9) 16@ANIO 7- 15 mEq/L H BUN (test code = 3094-0) 8 mg/dL 8-24 Creatinine (test code = 2160-0) 0.59 mg/dL 0.5-0.9 Glucose (test code = 2345-7) 113 mg/dL 65-99 H Calcium (test code = 25854-0) 9.9 mg/dL 8.6-10.6 Protein (test code = 2885-2) 8.1 g/dL 6.3-8.2 Albumin (test code = 1751-7) 4.5 g/dL 3.5-5 A/G ratio (test code = 1759-0) 1.2 0.7-3.8 Alkaline phosphatase (test code = 57 U/L 30-115 6768-6) AST (test code = 1920-8) 15 U/L 15-46 ALT (test code = 1742-6) 10 U/L 10-55 Total bilirubin (test code = 0.6 mg/dL 0.2-1.2 1974-) Lab Interpretation (test code = Abnormal 50937-1) Montrell MethodistEstimated [id number] 11:19:24 Test Item Value Reference Range Interpretation Comments Estimated GFR (test >=90 mL/min/1.73 m2 Linda hicks Units code = 5488) InterpretationG 1 >=90 Normal or highG2 60-89 Mildly dzputwbsgZ8r 45-59 Mildly to mode rately yzykvcdciT1b 30-44 Moderately to severely decreasedG4 15-29 Severely decre asedG5 <15 Kidn ey failureThe eGFR was calculated lizbet ordoñez the Chronic Kidney Disease Epidemiology Co llaboration (CKD-EPI) equat ion. Interpretation is based on recommendations of the National Kidney Foundation-Kidn ey Disease Outcomes Qualit y Initiative (NKF-KDOQI) pub lished in 2014. Montrell MethodistUrinalysis screen and microscopy, with reflex to culture 2019-03-31 11:13:18 Test Item Value Reference Range Interpretation Comments Specimen site (test code = Random void 6292854) Color, UA (test code = 5778-6) Yellow Appearance, UA (test code = Hazy 5767-9) Specific gravity, UA (test code = 1.019 1.001-1.035 5811-5) pH, UA (test code = 5803-2) 6.0 5.0-8.5 Protein, UA (test code = 50474-5) Negative Negative Glucose, UA (test code = 43076-1) Negative Negative Ketones, UA (test code = 2514-8) 2+ Negative A Bilirubin, UA (test code = Negative Negative 5770-3) Blood, UA (test code = 5794-3) Negative Negative Nitrite, UA (test code = 5802-4) Negative Negative Urobilinogen, UA (test code = <2.0 <2.0 02810-2) Leukocyte esterase, UA (test code Trace Negative A = 5799-2) Epithelial cells, UA (test code = 1 /HPF 5787-7) WBC, UA (test code = 5821-4) 3 0- 4 /HPF RBC, UA (test code = 07413-8) <1 0- 5 /HPF Bacteria, UA (test code = Few None seen 80431-8) Yeast, UA (test code = 41262-5) None seen Yeast with pseudohyphae, UA (test None seen code = 10936-1) Lab Interpretation (test code = Abnormal 76431-0) Montrell ArnoldLipase [id number] 11:12:59 Test Item Value Reference Range Interpretation Comments Lipase (test code = 3040-3) 14 U/L 23-300 L Lab Interpretation (test code = Abnormal 39508-8) Montrell ArnoldhCG qualitative, serum [id number] 11:09:18 Test Item Value Reference Range Interpretation Comments hCG qualitative, Positive Sensitivity of HCG test: serum (test code = 25 mIU/mL 2117-8) Montrell ArnoldCBC with platelet and aimbfyyaymmc5179-45-08 11:04:54 Test Item Value Reference Range Interpretation Comments WBC (test code = 72064-3) 10.09 4.50- 11.00 k/uL RBC (test code = 58490-1) 5.15 m/uL 4.2-5.5 HGB (test code = 718-7) 15.0 g/dL 12-16 HCT (test code = 4544-3) 44.3 % 37-47 MCV (test code = 787-2) 86.0 fL 82-100 MCH (test code = 785-6) 29.1 pg 27-34 MCHC (test code = 786-4) 33.9 g/dL 31-37 RDW - SD (test code = 88210-3) 40.1 fL 37-55 MPV (test code = 84160-2) 8.9 fL 8.8-13.2 Platelet count (test code = 386 150- 400 k/uL 81241-1) Neutrophils (test code = 11329-1) 76.3 % 39-69 H Lymphocytes (test code = 08606-2) 16.7 % 25-45 L Monocytes (test code = 67646-2) 5.9 % 0-10 Eosinophils (test code = 13909-9) 0.2 % 0-5 Basophils (test code = 08758-1) 0.6 % 0-1 Immature granulocytes (test code = 0.3 % 0-1 70717-3) Lab Interpretation (test code = Abnormal 35980-2) Montrell Arnold
--- OUTSIDE RECORDS SUMMARY | 2020-02-10 22:51 | XMS REPORT | Summary of Care ---
:1995 Author Organization [facility] Address [address] [place] [id number] Care Team Providers Name Role Phone Vincent IMMANUEL Unavailable Salvatore Roth MD Primary Care Provider Reason for Visit Auth/Cert Status Reason Specialty Diagnoses / Procedures Referred By Alfred ocampo Referred To Contact Obstetrics Diagnoses CONTRACTIONS [facility] Labor And Delivery [address] [place] [address] [place], [place] [address] Phone: Fax: Encounter Details Date Type Department Care Team Description 11/22/2019 Hospital Encounter [facility] Labor and Delivery Krystina Cline MD Unit [address] [place] [address] [place] [address] [phone] Allergies Active Allergy Reactions Severity Noted Date Comments Penicillins Rash 05/11/2019 documented as of this encounter (statuses as of 11/22/2019) Medications Medication Sig Dispensed Refills Start Date End Date Status doxylamine 25 mg Take 0.5 tablets 60 tablet 3 04/29/2019 Active tabletIndications: 12 by mouth every 6 weeks gestation of (six) hours. , Nausea and vomiting during prior to 22 weeks gestation pyridoxine, vitamin B6, Take 1 tablet by 60 tablet 3 9 Active 25 mg mouth every 6 tabletIndications: 12 (six) hours. weeks gestation of , Nausea and vomiting during prior to 22 weeks gestation metoclopramide HCl 10 Take 1 tablet by 18 tablet 0 05/11/2019 Active mg tabletIndications: mouth every 6 Nausea and vomiting in (six) hours as prior to 22 needed for Nausea weeks gestation and Vomiting (N/V). vit Take by mouth. 0 A ctive calc,iron,folic ( VITAMIN ORAL) ondansetron 4 mg tablet TK 1 T PO Q 12 0 07/28/2019 Active HOURS NEEDED documented as of this encounter (statuses as of 11/22/2019) Active Problems Problem Noted Date 39 weeks gestation of 08/03/2019 Obesity (BMI 30-39.9) 04/28/2019 Abnormal maternal glucose tolerance, antepartum 2018 Overview: pendign 3hr gtt Obesity affecting 04/02/2019 Supervision of high-risk 04/02/2019 Estimated Date of Delivery Comments Yes 11/26/2019 Based on Ultrasound documented as of this encounter (statuses as of 11/22/2019) Resolved Problems Problem Noted Date Resolved Date Hypokalemia 04/29/2019 08/03/2019 12 weeks gestation of 04/28/2019 08/03/20 19 Nausea and vomiting during prior to 22 weeks 04/2808/03/2019 gestation Nausea and vomiting during 04/02/2019 documented as of this encounter (statuses as of 11/22/2019) Immunizations Name Administration Dates Next Due TDAP (ADACEL) VACCINE 09/17/2019 Td 08/05/2008 documented as of this encounter Social History Tobacco Use Types Packs/Day Years Used Date Never Smoker Smokeless Tobacco: Never Used Alcohol Use Drinks/Week oz/Week Comments No Estimated Date of Delivery Comments Yes 11/26/2019 Based on Ultrasound Sex Assigned at Date Recorded Not on file Job Start Date Occupation Industry Not on file Not on file Not on file Travel History Travel Start Travel End No recent travel history available. documented as of this encounter Last Filed Vital Signs Vital Sign Reading Time Taken Comments Blood Pressure 131/78 11/22/2019 11:25 AM CDT Pulse 66 11/22/2019 1:00 PM CDT Temperature 37.1 C (98.7 F) 11/22/2019 11:25 AM CDT Respiratory Rate 18 11/22/2019 11:25 AM CDT Oxygen Saturation 100% 11/22/2019 12:30 PM CDT Inhaled Oxygen Concentration - - Weight 98 kg (216 lb) 11/22/2019 11:25 AM CDT Height 162.6 cm (5' 4") 11/22/2019 11:25 AM CDT Body Mass Index 37.08 11/22/2019 11:25 AM CDT documented in this encounter Discharge Instructions Joy Hawkins RN - 11/22/2019{DC INSTRUCTIONS L&D:36610} For worsening symptoms/changing condition/problems or questions call: Non-emergency/urgent: Access Center at or [facility] [phone] [facility] Labor and Delivery: Emergency: Go to the closest emergency room or call 911 Decreased Movement: 1. Your baby should move at least 10 times in 2 hrs. 2. Keep a record of your babys movements on the Kick Count sheet provided 3. If you feel your baby is not moving as much as usual, do the following: a. Drink a large glass of water. b. Make sure you have eaten a meal recently. c. Lie on your left side and count the babys movements. d. If you do not have at least 10 movements in 2 hours, you should be seen as soon as possible in Labor and Delivery, or call your clinic, whichever is closer. e. IF YOUR BABYS MOVEMENTS ARE MUCH SLOWER THAN NORMAL, OR ABSENT, AND YOU ARE WORRIED, DO NOT WAIT AN ENTIRE DAY. IT IS BETTER TO BE REASSURED THAN TO FIND A PROBLEM WITH YOUR BABY THAT COULD HAVE BEEN AVOIDED! AttachmentsThe following attachments cannot be sent through Care Everywhere. Labor, Recognizing (Namibian)documented in this encounter Plan of Treatment Date Type Specialty Care Team Description 11/25/2019 Routine Obstetrics & Roth, Ericka Chase MD Visit Gynecology [address] [place] [address] [address] [place] [address] [phone] Health Maintenance Due Date Last Done Comments HPV VACCINES (1 - Female 2005 2-dose series) INFLUENZA VACCINE (#1) 2019 PAP SMEAR 04/02/2022 04/02/2019 DTaP,Tdap,and Td Vaccines (3 09/17/2029 09/17/2019, - Td) 08/05/2008 PNEUMOCOCCAL 0-64 YEARS Aged Out No longe r eligible based COMBINED SERIES on patient's age to complete this to pic documented as of this encounter Results Not on filedocumented in this encounter Insurance Payer Benefit Plan / Subscriber ID Effective Phone Address T ype Group Dates [facility] xxxxxxxxx 2019-Jose [address] Medic aid HEALTH CHOICE - [place] [id number] 1 MANAGED MEDICAID [place], [place] [id number] documented as of this encounter
--- OUTSIDE RECORDS SUMMARY | 2020-02-10 22:51 | XMS REPORT | Summary of Care ---
:1995 Author Organization [facility] Address [address] [place] [id number] Care Team Providers Name Role Phone IMMANUEL Kaur Unavailable Salvatore Roth MD Primary Care Provider Reason for Visit Reason Comments ROUTINE VISIT 39wks Encounter Details Date Type Department Care Team Description 11/19/2019 Routine [facility] Ericka Roth am, MD Supervision of high-risk , thir d trimester (Primary Dx); Visit Healthcare- [address] [place] [address] 39 weeks g estation of [address], [place] [address] [address] [place] [id number] [phone] Allergies Active Allergy Reactions Severity Noted Date Comments Penicillins Rash 05/11/2019 documented as of this encounter (statuses as of 11/19/2019) Medications Medication Sig Dispensed Refills Start Date [...] as of this encounter (statuses as of 11/19/2019) Active Problems Problem Noted Date 39 weeks gestation of 08/03/2019 Obesity (BMI 30-39.9) 04/28/2019 Abnormal maternal glucose tolerance, antepartum 2018 Overview: pendign 3hr gtt Obesity affecting 04/02/2019 Supervision of high-risk 04/02/2019 Estimated Date of Delivery Comments Yes 11/26/2019 Based on Ultrasound documented as of this encounter (statuses as of 11/19/2019) Resolved Problems Problem Noted Date Resolved Date Hypokalemia 04/29/2019 08/03/2019 12 weeks gestation of 04/28/2019 08/03/20 19 Nausea and vomiting during prior to 22 weeks 04/2808/03/2019 gestation Nausea and vomiting during 04/02/2019 documented as of this encounter (statuses as of 11/19/2019) Immunizations Name Administration Dates Next Due TDAP [...] Sign Reading Time Taken Comments Blood Pressure 121/76 11/19/2019 4:14 PM CDT Pulse 86 11/19/2019 4:12 PM CDT Temperature 36.9 C (98.4 F) 11/19/2019 4:12 PM CDT Respiratory Rate 18 11/19/2019 4:12 PM CDT Oxygen Saturation - - Inhaled Oxygen Concentration - - Weight 98.7 kg (217 lb 9.6 oz) 11/19/2019 4:12 PM CDT Height 162.6 cm (5' 4") 11/19/2019 4:12 PM CDT Body Mass Index 37.35 11/19/2019 4:12 PM CDT documented in this encounter Patient Instructions Patient InstructionsAndria Yancey RN - 11/19/2019 4:15 PM CDT Patient Education Labor: Preparing for the Hospital During the final weeks of your , you may have irregular contractions. You may feel a drop in your babys position. And the profile of your stomach may look a little different. Because due dates are not exact, have your bag packed and ready for the hospital. Packing for the hospital Here are some items you may want to have ready for the hospital: A watch or clock with a second hand Insurance card and identification Nursing bra, nursing pads, and maternity underwear Toiletries Something to entertain yourself, like books or a handheld computer Heavy socks or slippers and a robe Clips for your hair, a brush, and lip balm An BIOSAF[employer] or other music player A camera [employer] camera and electrical appliance mechanic Important phone numbers or email addresses Going-home outfits for you and your baby A car seat to take your baby home in Leaving for the hospital Follow the instructions youve been given on when to leave for the hospital. You may be told to call yourhealthcare providerwhen it becomes hard to walk or talk during contractions or if your amniotic sac breaks (this causes a gush of water). If your partner makes the phone call for you, be nearby. That way, your healthcare provider can speak to you directly. Many women are told to go to the hospital after an hour of contractions that come3 to 5 minutes apart. Leave sooner if the hospital isnot nearby or is hard to get to. [employer] last reviewed this educational content on 08/05/201719992351-0627 [employer]. [address] [place] [address], [place] [address]. All rights reserved. This information is not intended as a substitute for professional medical care. Always follow your healthcare professional's instructions. Patient Education Anesthesia Options for Labor Anesthesia is a type of medicine to prevent pain. It is often used in labor. It may numb only one region of your body. This is called regional anesthesia. Or it may let you sleep during surgery. This is called general anesthesia. Only a trained specialist gives this type of medicine. When possible, your healthcare provider will use regional anesthesia. This is so you can be awake during your babysbirth. The type of anesthetic you have may depend on the hospital guidelines. Regional anesthesia Your healthcare providermay use regional anesthesia to numb your lower body for a vaginal or . It does not go into your bloodstream. This means that little or none of it will reach yourbaby. There are two kinds: Epidural. This is most often given while you sit up or lie on your side. A needle with a flexibletube (catheter) is put into your lower back. The needle is then removed. The anesthetic is sent through the catheter. A pump may be attached. This gives you a constant level of anesthetic. An epidural often affects only part of your muscle control. This means you should still be able to push for a vaginal . Spinal. This is most often given in one dose right before delivery.Your healthcare provider mayuse it for a . It acts fast. You may sit up or lie down when it is injected. It may affect muscle control in your lower body. This includesyour ability to push. General anesthesia General anesthesia lets you sleep and keeps you freefrom pain during surgery. It is most often used for an emergency .Your healthcare providermay use itfor a . Vadim mae may give it to you as an injection,as an inhaled gas, oras both. Delivery often happens before the medicine has reached the baby. [employer] last reviewed this educational content on 05/05/201719995843-6662 [employer]. [address] [place] [address]. All rights reserved. This information is not intended as a substitute for professional medical care. Always follow your healthcare professional's instructions. Patient Education Recognizing Labor The beginning of labor is the beginning of . Youll start to feel strong contractions. Thats when the muscles of your uterus tighten up to help push your baby out during . Yes, labor has probably started Signs of labor include: Your contractions are getting stronger and more painful instead of weaker. Youll probably feelthem throughout your whole uterus. Your contractions are regular. This means that you feel them about every 5 to 10 minutes. And they are getting closer together. You have pink-colored or blood-streaked fluid from your vagina. You feel that the baby has "dropped" lower in your pelvis Your water breaks. It may be a gush or a slow trickle of clear fluid from your vagina. No, its probably not real labor Signs of false labor include: Your contractions arent regular or strong. You feel the contractions only in your lower uterus. Your contractions go away when you walk or change position. Your contractions go away after drinking fluids. When to call your healthcare provider Call your healthcare provider or clinic right away if you notice any of these signs: Fluid from your vagina, with or without contractions. Bleeding heavy enough that you need a sanitary pad. You dont feel your baby moving as much as before. NOTE: Contractions are timed by both of these measures: The length of each contraction from its start to its finish. How far apart the contractions arethe time between the start of one contraction and the start of the next contraction. [employer] oral reviewed this educational content on 05/05/201719995006-8411 [employer]. [address] [place] [address]. All rights reserved. This information is not intended as a substitute for professional medical care. Always follow your healthcare professional's instructions. Patient Education Stages of Labor Labor has 3 stages. Your healthcare provider may talk about the progress of your labor with certain words. One of these is your babys position. Another is your babysstation. And the effacement and dilation of your cervix will be noted. Read below to learn about these terms and the 3 stages of labor. Your baby moves into position Position is your babys placement inyour uterus. Your baby may be facing left or right. He or she may be head first or feet first. Station refers to how far your baby has moved down intoyour pelvic cavity. First stage of labor During the first stage of labor, contractions of the uterus help your cervix thin (efface). They also help it widen (dilate). This will help your baby pass through the canal (vagina). At first your contractions will not come that often or last that long. But as time passes, they will come more often, they may be more painful, and they will last longer. They will last about 30 to 60 seconds each. The first stage of labor lasts until the cervix is fully dilated. Second stage of labor When your cervix is fully dilated, the second stage of labor begins. In this stage, you will have stronger contractions of your uterus that will help your baby move down the canal. They may happen every 2 to 5minutes. They may last from 45 to 90 seconds each. Your healthcare provider will ask you to push with each contraction. Try to rest between the contractions if you can. Your baby is delivered at the end of this stage of labor. Third stage of labor The third stage of labor comes after your baby is born. This is when the afterbirth (placenta) comesout ofyour uterus. Your uterus will continue tocontract. But the contractionsare much milder than before. [employer] reviewed this educational content on 05/05/201719993155-6840 [employer]. [address] [place] [address], [place] [id number]. All rights reserved. This information is not intended as a substitute for professional medical care. Always follow your healthcare professional's instructions. Patient Education Labor and Childbirth: Active Labor During active labor, your contractions will be stronger and more rhythmic than with early labor. They peak and subside like waves. They may happen2 to3 minutes apart and last about 45 to 60 seconds. This part of labor can be hard work. But it is often shorter than early labor. When you reach active labor, exams and tests will be done to see how you and your baby are doing. Your cervix may dilate 4 to 8 centimeters during the first part of active labor. Evaluating you and your baby An exam tells how you and your baby are responding to contractions. Your blood pressure, temperature, and pulse will be checked. A blood or urine sample may also be taken. A monitor will be used to check your babys heart rate. Sometimes an IV (intravenous) line is started to give you medicineand fluids. Moving ahead with labor You may now feel contractions inyour whole stomach instead of just the lower part (like during early labor). If your amniotic sac has not broken already, it may break now. Or, it may be broken for you. To help your baby descend, change position often. Walking or sitting in a rocking chair or recliner may help. You may find it hard to relax even though you are tired. You may also be less interested in talking than you were earlier. If youre having anesthesia, you will get it now. Special issues during labor If labor doesnt progress well or a problem arises, you may need a .But your healthcare providers maytake certain steps to help you avoid a : If your cervix isnt dilating, a medicine (oxytocin)may be used to augment labor. If monitoring shows your baby isnt getting enough oxygen, shifting your body position may help. You may also be given oxygen through a mask. If you have preeclampsia (a condition that results in high blood pressure, swelling, and other symptoms), you may be given medicines by IV (intravenous). Your healthcare provider may also tell you to lie on your left side. Responding to contractions During contractions, try to stay relaxed. Tense muscles use more oxygen, eat up your bodys energy, and increase pain. Use the breathing and relaxation techniques you may have learned. And let your support person know how he or she can help. If youve had problems during a previous , focus onthe present. Keep in mind that no 2 births are the same. Support persons note Here's how you can help: Have the mother walk or change positions at least once an hour. This improves circulation and helps the baby descend. Keep reminding the mother to breathe and relax through each contraction. Reassure her. Try to keep her from getting anxious or overstressed. Take care of yourself. Take a short break to eat or go to the bathroom when you need to. Rest when the mother does. Youll both benefit. [employer] last reviewed this educational content on 09/05/201719994519-7361 [employer]. [address] [place] [address]. All rights reserved. This information is not intended as a substitute for professional medical care. Always follow your healthcare professional's instructions. Patient Education Labor and Childbirth: Immediately after After any type of , your healthcare provider will closely monitor yourrecovery.Youll likely be able to greet your baby and start your new life together. While youre being cared for, yourbaby receives his or her first exam. Starting your life together Attachment, or bonding, starts soon after . Its an ongoing process that may take weeks or months. Be aware that you may not fall in love with your baby right away. Most newborns dont look like the chubby babies you see on TV. Months spent in your uterus and time in the canal can make your look wrinkled and puffy-eyed. A slightly pointed or misshapen head is also common. Theseall go away after a few days. After , you may place your baby on yourstomach or breast. This will signal your body to begin making milk. If you choose not to breastfeed, your healthcare providerwill instruct youon how to stop milk production.If you are going to breastfeed, your healthcare provider or nurse may help you introduce your baby to your breast and start . [place] babies are usually very alert right after . They are ready to start .Whether or not you are going to breastfeed your baby, your baby will likely be placed [id number] on your chest. This allows your body to help regulate your baby's temperature. It can also start the bonding process. Your immediate recovery After , most women shake and get chills. This is over quickly. Your healthcare provider will watch your temperature and blood pressureuntil they are stable. Sanitary pads absorb the discharge ofyour uterine lining. To ensure that you arent bleeding too much, the pad and the firmness ofyour uterus will be checked. If you had anesthesia, your healthcare provider will watch you closelyuntil you can feel and move your toes. If you have pain, he or she maygive you pain relievers.If you have perineal pain, an ice pack can help. Babys first exam A healthcare provider will examine your babywithin the first 5 minutes after , or after you have had the opportunity to breastfeed your baby. Your babys heart rate, respiration (breathing), muscle tone, reflexes, and color are assessed. Based on the exam, an (activity, pulse, grimace, appearance, respiration) score is given. Your baby may also be bathed, dried, weighed, and measured. Eye drops may be given to prevent infection. ID bracelets are placed around the babys wrist and ankle. [employer] last reviewed this educational content on 09/05/201719991481-1307 [employer]. [address] [place] [address], [place] [address]. All rights reserved. This information is not intended as a substitute for professional medical care. Always follow your healthcare professional's instructions. Patient Education Labor and Childbirth: Preparing to Go Home You may be anxious to go home as soon as possible. Before you and your baby go home, a healthcare provider will make sure that your baby has no health problems. You will also be checked to be sure you are healthy enough to take care of your baby and yourself. Checking babys health A hearing therapist or other healthcare provider willgive yournewborn acomplete examination. All babies are checked to rule out problems, like a dislocated hip or a heart murmur. A few drops of blood willbe taken from your baby's heel to check for certain diseases. A hepatitis B vaccine may be given. An antibiotic ointment may be put in your baby's eyes. The hearing therapist will discuss the exam results with you and answer your questions. You may also schedule your baby's first office visit. When youre ready Youre ready to go home when: You can walk to and use the bathroom without help. You have a normal amount of bleeding. You can eat solid food and swallow pain pills. You have adequate pain relief. You have no sign of infection or other health problem, including fever. If you are concerned that you are not ready to be discharged, be sure to discuss these concerns withyour healthcare provider. Taking baby home Most often you and your baby go home together. Your baby is ready to go home when: He or she has no sign of a health problem. He or she has had a hearing screen. He or she has had routine laboratory testing. He or she is eating well. Your infant's temperature is normal. A government-approved car seat is properly installed in the car your baby will ride home in. [employer] last reviewed this educational content on 09/05/201719993023-8150 [employer]. [address] [place] [address]. All rights reserved. This information is not intended as a substitute for professional medical care. Always follow your healthcare professional's instructions. Patient Education Labor Induction Labor induction is a way to help get your labor started. This can protect your health and your babys, too. Ways to induce labor Your healthcare provider can get your labor started by using any of 3 methods or a combination of them. Here are some common treatments: Prostaglandin.A medicine that may be given as a pill, capsule, or vaginal suppository. It softens,thins, and opens the cervix. This is called cervical ripening. Your healthcare provider may also usea Massey catheter or a double balloon catheter. Your healthcare provider inserts the catheter intoyour cervix to mechanically dilate it and cause the release of natural prostaglandins. Pitocin (oxytocin). A medicine your healthcare provider gives youthrough an IV (intravenous) line.You may get it within 4 to 24 hours after your healthcare provider gives you prostaglandin. Pitocin helps start contractions. Its always given in the hospital. Rupturing the membrane. A procedure in which your healthcare provideruses a small tool to break your bag of water. Healthcare providers perform this proceduremore often in women who have given before. And its always done in the hospital. This procedure needs the cervix to be dilated enough to allow the procedure and the baby's head to be down, close to the cervix. Reasons for inducing labor There are reasons that your healthcare provider will decide to induce labor, including the following: When the health of the mother or fetus is at risk by continuing the . These conditions include preeclampsia, poor growth, low amniotic fluid, infection of the membranes (chorioamnionitis), ruptured bag of water, and certain diseases,likediabetes. Elective after 39 weeks for nonmedical reasons likeliving far from the hospital What to expect Prostaglandin may be given in the hospital. monitoring is needed after placement. Other methods of inducing labor are done in the hospital. Youll need to stay there until you give . Your healthcare provider may attach monitors to your belly to measure contractions and help make sure yourbaby has no problems. No matter how your healthcare provider induces labor, afew factors may affect how long it takes you to give . These include how long it takes for your cervix to thin and open, and when contractions begin. Give yourself time Even though inducing labor gets the process started, you still may need to wait. Mothers who have labor induced most often give within a day or so. But it can take as long as a few days to give . With labor induction, you may have a greater chance of: A section (surgical delivery) An infection A longer hospital stay Uterine rupture, although rare , although extremely rare [employer] last reviewed this educational content on 05/05/201719998580-2717 [employer]. [address] [place] [address], [place] [address]. All rights reserved. This information is not intended as a substitute for professional medical care. Always follow your healthcare professional's instructions. Patient Education and Childbirth: What to Bring to the Hospital Youre likely feeling anxious as your keira approaches. This is normal. To give yourselfsome peace of mind, pack a bag ahead of time. Do this about one month ahead of your estimated delivery date. Here is a list of things to remember: Personal care items, like a toothbrush, hair brush, lip balm, lotion, and shampoo Eyeglasses (if you wear them) Nightgown (if you plan to breastfeed, pack one that allows for nursing) Nursing bra if you plan to breastfeed Bathrobe and slippers Many hospitals provide maternity underwear, but you may want to bring underwear that can be soiled because you will have bleeding after delivery Comfortable clothes for you to wear home, like sweat pants, yoga pants, or other stretchable clothes, because your prepregnancy clothes may not fit after delivery of your baby Clothes for your baby to wear home Personal music player and headphones Camera with new batteries or electrical appliance mechanic Coins for vending machines Telephone numbers of people to call after the Cell phone and electrical appliance mechanic Insurance information and any other paperwork needed for your hospital stay A list of baby names you are considering An , rear-facing car seat for bringing home your baby (this is required by law) Add anything else that you dont want to forget: [employer] last reviewed this educational content on 07/05/201719999449-7806 [employer]. [address] [place] [address]. All rights reserved. This information is not intended as a substitute for professional medical care. Always follow your healthcare professional's instructions. Patient Education Managing Labor Pain Without Medicine There are many ways to manage pain during labor. It can often be done with no anesthesia or strong pain medicines. Talk to your healthcare provider about any choices you would like to explore. Help from relaxation Some of these are learned in special classes. Your healthcare provider can help you find classes. The hospital or center may have a tub or shower you can use during early labor. These methods maybe of help to you: Breathing techniques A warm tub or shower between contractions Massage and therapeutic touch by your support person or labor passenger coach driver Reading materials that are comforting or inspiring Music that is soothing Hypnosis Acupuncture and acupressure Heat and cold application Aromatherapy ball Non-pharmacologic treatment Injections of sterile water by your healthcare provider cangive you temporary pain relief when injected in the back. If you need medicine You may plan to use little or no medicine. But you may change your mind during labor. You can ask for medicine at any time if you need it. [employer] last reviewed this educational content on 09/05/201719995110-1609 [employer]. [address] [place] [address]. All rights reserved. This information is not intended as a substitute for professional medical care. Always follow your healthcare professional's instructions. Patient Education Labor: Preparing for the Hospital During the final weeks of your , you may have irregular contractions. You may feel a drop in your babys position. And the profile of your stomach may look a little different. Because due dates are not exact, have your bag packed and ready for the hospital. Packing for the hospital Here are some items you may want to have ready for the hospital: A watch or clock with a second hand Insurance card and identification Nursing bra, nursing pads, and maternity underwear Toiletries Something to entertain yourself, like books or a handheld computer Heavy socks or slippers and a robe Clips for your hair, a brush, and lip balm An MP3 or other music player A camera [employer] camera and electrical appliance mechanic Important phone numbers or email addresses Going-home outfits for you and your baby A car seat to take your baby home in Leaving for the hospital Follow the instructions youve been given on when to leave for the hospital. You may be told to call yourhealthcare providerwhen it becomes hard to walk or talk during contractions or if your amniotic sac breaks (this causes a gush of water). If your partner makes the phone call for you, be nearby. That way, your healthcare provider can speak to you directly. Many women are told to go to the hospital after an hour of contractions that come3 to 5 minutes apart. Leave sooner if the hospital isnot nearby or is hard to get to. [employer] last reviewed this educational content on 08/05/201719990961-2183 [employer]. [address] [place] [address]. All rights reserved. This information is not intended as a substitute for professional medical care. Always follow your healthcare professional's instructions. Patient Education Kick Counts Its normal to worry about your babys health. One way you can knowyour babys doing well isto record the babys movements once a day. This is called a kick count.Remember to take your kick count records to all your appointments with your healthcare provider. How to count kicks Time how long it takes you to feel 10 kicks, flutters, swishes, or rolls. Ideally, you want to feel at least 10 movements within 2 hours. You will likely feel 10 movements in less time than that. Starting at 28 weeks, count your baby's movements daily. Follow your healthcare provider's instructions for kick counting. Here are tips for counting kicks: Choose a time when the baby is active, such as after a meal. Sit comfortably or lie on your side. The first time the baby moves,write downthe time. Count each movement until the baby has [id number]. This can take from 20 minutes to 2hours. If you have not felt 10 kicks by the end of the second hour, wait a few hours. Then try again. Try to do it at the same time each day. When to call your healthcare provider Call your healthcare providerright awayif: You do a couple sets of kick counts during the day and your baby moves fewer than 10times [id number] Your baby moves much less often than on thedays before. You have not felt your baby move all day. [employer] oral reviewed this educational content on 07/05/2017 [employer]. [address] [place] [address]. All rights reserved. This information is not intended as a substitute for professional medical care. Always follow your healthcare professional's instructions. Patient Education Using a Hand Drapery [employer] [id number] [employer] oral reviewed this educational content on 01/03/2019 [employer]. [address] [place] [address]. All rights reserved. This information is not intended as a substitute for professional medical care. Always follow your healthcare professional's instructions. Patient Education [id number]: Washing Your Hands Sena oral reviewed this educational content on 05/05/2017 [employer]. [address] [place] [address]. All rights reserved. This information is not intended as a substitute for professional medical care. Always follow your healthcare professional's instructions. documented in this encounter Progress Notes Ericka Roth MD - 11/19/2019 4:15 PM CDT Chief complaint: Chief Complaint Patient presents with ROUTINE VISIT 39wks HPI Denies contractions, vaginal bleeding, LOF, dysuria, or PIH symptoms. + active FM. Histories OB History Para Term AB Living [...] Grandmother No Significant Medical Problems Paternal Grandfather Asthma NoFHx Arthritis NoFHx defects NoFHx Breast Cancer NoFHx Colon Cancer NoFHx Ovarian Cancer NoFHx Uterine Cancer NoFHx Cancer NoFHx Depression NoFHx Diabetes NoFHx Genetic NoFHx Heart NoFHx Hypertension NoFHx Mental retardation NoFHx High cholesterol NoFHx Neurological NoFHx Osteoporosis NoFHx Psychiatry NoFHx Other - see comments NoFHx Family Status Relation Name Status Mo (Not Specified) Fa (Not Specified) Sis (Not Specified) Bro (Not Specified) MAunt (Not Specified) MUnc (Not Specified) PAunt (Not Specified) PUnc (Not Specified) MGMo (Not Specified) MGFa (Not Specified) PGMo (Not Specified) PGFa (Not Specified) NoFHx (Not Specified) History reviewed. No pertinent surgical [...] Sexual Activity Alcohol use: No Drug use: Yes Types: Marijuana Comment: previous / d/c when she had + UPT Sexual activity: Not Currently Partners: Male control/protection: None Comment: Last intercourse: 03/26/2019 Lifestyle Physical activity: Days per week: Not on file Minutes per session: Not on file Stress: Not on file Relationships Social connections: Talks on phone: Not on file Gets together: Not on file Attends yarsani service: Not on file Active member of [...] labs Radiology No new radiology. Allergies Matilda is allergic to pcn [penicillins]. Medications Matilda has a current medication list which includes the following prescription(s): ondansetron, vit calc,iron,folic, metoclopramide hcl, doxylamine, and pyridoxine (vitamin b-6). Review of Systems Constitutional: Negative for chills, fatigue and fever. HENT: Negative for congestion, rhinorrhea, sneezing and sore throat. Eyes: Negative for photophobia and visual disturbance. Respiratory: Negative for cough, chest tightness, shortness of breath and wheezing. Cardiovascular: Negative for chest pain and palpitations. Gastrointestinal: Negative for abdominal distention, abdominal pain, constipation, diarrhea, nausea and vomiting. Genitourinary: Negative for dysuria, urgency, frequency, vaginal bleeding and vaginal discharge. Skin: Negative for rash. Neurological: Negative for syncope and headaches. Hematological: Does not bruise/bleed easily. BP 121/76 (BP Location: Left arm) | Pulse 86 | Temp 36.9 C (98.4 F) (Oral) | Resp 18 | Ht 5'4" (1.626 m) | Wt 217 lb 9.6 oz (98.7 kg) | LMP 02/03/2019 (Approximate) | BMI 37.35 kg/m Pregravid BMI: 33.6 Physical Exam Vitals reviewed. Constitutional: She is oriented to person, place, and time. Her body habitus is obese. Cardiovascular: Regular rate and rhythm. Pulmonary/Chest: Normal inspiratory effort. Abdominal: Abdomen is soft. No tenderness present. No hernia palpated or inspected. Neuro/Psychiatric: She has a normal mood and affect. She is oriented to person, place, and time. Skin: Skin normal. No rash present. Assessment/Plan See OB Summary Return to clinic in 1 weeks. Reviewed patient instructions and provided printed copy. Activity restrictions: As tolerated at 39w0d This visit did not involve counseling and coordination that comprised more than 50% of the visit time. 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, [place] [address] [phone] Health Maintenance Due Date Last Done Comments HPV VACCINES (1 - Female 2005 2-dose series) INFLUENZA VACCINE (#1) 2019 PAP SMEAR 04/02/2022 04/02/2019 DTaP,Tdap,and Td Vaccines (3 09/17/2029 09/17/2019, - Td) 08/05/2008 PNEUMOCOCCAL 0-64 YEARS Aged Out No longe r eligible based COMBINED SERIES on patient's age to complete this to [facility] documented as of this encounter Procedures Procedure Name Priority Date/Time Associated Diagnosis Comme nts POCT URINALYSIS W/O Routine 11/19/2019 Supervision of Result s for this SPECIFIC GRAVITY high-risk , pro cedure are in the third trimester results section. 39 weeks gestation of documented in this encounter Results POCT URINALYSIS W/O SPECIFIC GRAVITY (11/19/2019) Pathologist Sig nature POCT PH U n/a 5 - 8 mg/dl POCT U LEUK EST n/a Negative - Negative POCT U NIT n/a Negative - Negative POCT U PROT neg Negative - Negative POCT U GLU neg Negative - Negative POCT U KETONE n/a Negative - Negative POCT U BLD n/a Negative - Negative Specimen Urine - URINE, CLEAN CATCH documented in this encounter Visit Diagnoses Diagnosis Supervision of high-risk , thir d trimester - Primary 39 weeks gestation of state, incidental documented in this encounter Insurance Payer Benefit Plan / Subscriber ID Effective Phone Address T ype Group [facility] xxxxxxxxx 2019-Prese [address] Medic aid HEALTH CHOICE - HEALTH CHOICE nt [id number] 1 MANAGED MEDICAID [place], [place] MEDICAID [phone] documented as of this encounter
--- OUTSIDE RECORDS SUMMARY | 2020-02-10 22:52 | XMS REPORT | Summary of Care ---
:1995 Author Organization [facility] Address [address] [place] [id number] Care Team Providers Name Role Phone IMMANUEL Kaur Unavailable Salvatore Roth MD Primary Care Provider Reason for Visit Reason Comments Care (Routine) Status Reason Specialty Diagnoses / Referred By Referred To Procedures Contact Contact Closed Obstetrics & Diagnoses Supervision of high risk , antepartum 39 weeks gestation of Normal labor Pre-eclampsia, mild, delivered Liveborn infant, of rojas , born in hospital by vaginal delivery Ericka Roth MD Lam, Vien Cam, Gynecology Procedures DISCHARGE FOLLOW-UP: PRIVATE PHYSICIAN [address] [place] [address] MD WHITMAN [address] [place] [address] [facility] [address] [place] [address] Phone: [phone] Phone: Encounter Details Date Type Department Care Team Description 12/25/2019 Telemedicine Visit [facility] Women's Marcella Tejeda , care and examination (Primary Dx); Healthcare- PA-C control counseling; [place] Jesus Matti [facility] Initiation of OCP (BCP) [address] [place] [address], [facility] [address] [place] [address] [phone] Allergies Active Allergy Reactions Severity Noted Date Comments Penicillins Rash 05/11/2019 documented as of this encounter (statuses as of 12/25/2019) Medications Medication Sig Dispensed Refills Start Date End Date Status hydroCHLOROthiazide 12.5 Take 1 42 capsule 0 11/24/2019 Active mg capsuleIndications: capsule by Supervision of high risk mouth daily. , antepartum, 39 weeks gestation of , Normal labor, Pre-eclampsia, mild, delivered, Liveborn , of rojas , born in hospital by vaginal delivery vitamin w/FA Take 1 tablet 100 tablet 3 11/24/2019 Active tabletIndications: by mouth Supervision of high risk daily. , antepartum, 39 weeks gestation of , Normal labor, Pre-eclampsia, mild, delivered, Liveborn infant, of rojas , born in hospital by vaginal delivery docusate calcium 240 mg Take 1 60 capsule 1 11/24/2019 Active capsuleIndications: capsule by Supervision of high risk mouth once , antepartum, 39 daily as weeks gestation of needed for , Normal labor, Constipation. Pre-eclampsia, mild, delivered, Liveborn infant, of rojas , born in hospital by vaginal delivery ferrous sulfate 325 mg (65 Take 1 tablet 60 tablet 2 0 Active mg iron) by mouth 2 tabletIndications: (two) times Supervision of high risk daily. , antepartum, 39 weeks gestation of , Normal labor, Pre-eclampsia, mild, delivered, Liveborn , of rojas , born in hospital by vaginal delivery ibuprofen 600 mg Take 1 tablet 30 tablet 1 11/24/2019 Active tabletIndications: by mouth Supervision of high risk every 6 (six) , antepartum, 39 hours as weeks gestation of needed , Normal labor, (Pain). Take Pre-eclampsia, mild, with food or delivered, Liveborn milk. infant, of rojas , born in hospital by vaginal delivery levonorgestrel-ethinyl Take 1 tablet 1 Package 12 12/25/2019 Active estradiol 0.1-20 mg-mcg by mouth per tabletIndications: daily. control counseling, Initiation of OCP (BCP) documented as of this encounter (statuses as of 12/25/2019) Active Problems Problem Noted Date Pre-eclampsia, mild, delivered 11/24/2019 Liveborn infant, of rojas , [facility] in [facility] by vaginal 11/24/2019 delivery Normal labor 11/23/2019 Uterine contractions during 11/22/2019 39 weeks gestation of 08/03/2019 Obesity (BMI 30-39.9) 04/28/2019 Abnormal maternal glucose tolerance, antepartum 2018 Overview: pendign 3hr gtt Obesity affecting 04/02/2019 Supervision of high risk , antepartum 019 documented as of this encounter (statuses as of 12/25/2019) Resolved Problems Problem Noted Date Resolved Date Hypokalemia 04/29/2019 08/03/2019 12 weeks gestation of 04/28/2019 08/03/20 19 Nausea and vomiting during prior to 22 weeks 04/2808/03/2019 gestation Nausea and vomiting during 04/02/2019 documented as of this encounter (statuses as of 12/25/2019) Immunizations Name Administration Dates Next Due TDAP [...] Travel End No recent travel history available. COVID-19 Exposure Response Date Recorded In the last month, have you been in contact with No / Unsure 11/30/2019 2:38 PM CDT someone who was confirmed or suspected to have Coronavirus / COVID-19? documented as of this encounter Last Filed Vital Signs Not on filedocumented in this encounter Progress Notes Marcella Tejeda PA-C - 12/25/2019 3:00 PM CDT TELEHEALTH NOTE Verbal consent obtained from Patient: Matilda Jackson for telehealth services provided below due to COVID-19 crises. Communication with patient was conducted via Video Call. Location of Patient: Home Location of Provider: Office Date of Service: 12/25/2019 Chief Complaint: visit HPI: Matilda Jackson is a 24 year old female s/p vaginal delivery on 11/23/2019 presents for pp visit. Bottlefeeding without issues. Denies blues or depressive symptoms. Denies intercourse. Stopped bleeding. Past Medical History: Diagnosis Date Abnormal maternal glucose tolerance, antepartum 04/10/2019 Pre-eclampsia, mild, delivered 11/24/2019 She has no complaints and reports is doing well. Patient denies any abnormal/pelvic pain, discharge, dysuria, hematuria, abnormal bleeding. MEDICATIONS: No outpatient medications have been marked as taking for the 12/25/19 encounter (Appointment) with Marcella Tejeda PA-C. ROS Per [facility] EPDS - 4 TELEHEALTH EXAM Alert and oriented, appropriate response ASSESSMENT/ PLAN Matilda Jackson is a 24 year old female with PMH as above presenting with: 1. care and examination FOLLOW-UP in 6 months WWE 2. control counseling Also counseled the patient about her options for control. We discussed risks and benefits of condoms, diaphragms along with control pills, the control patch and the Nuva ring. I then discussed risks and benefits of the Depo Provera injection, the various IUDs (Monica, Mirena, Paraguard) and the Nexplanon implant. After counseling, the patient is most interested in oral contraceptive. Proper use was discussed and reviewed. I stressed the importance of using condoms regardless ofher contraceptive method to assist in prevention of sexually transmitted infections. I discussed that no control method is 100% in preventing except abstinence. The patient expressed understanding. Initiation of ocp .Patient denies self or family history of thromboembolic disease or thrombophilia, migraine headache. I counseled patient regarding use of oral contraceptives. There are combined oral contraceptive, which has both estrogen and progestin, and there is progestin only oral contraceptive. With typical u se, 9 out 100 women get in the first year and with perfect use 0.3 out of 100 women get in the first year according to ACOG Practice Bulletin. Risks include but not limited to increase risk of thromboembolic disease, headache, weight gain, mood lability, and breast cancer. Decreaserisks of ovarian cancer, colon cancer, and endometrial cancer. Oral contraceptive may decrease milksupply. Alternatives reviewed include patch, ring, Depo-Provera, Nexplanon, and IUD. Advise using condoms for STDs prevention. Plan of care, desired health behaviors, goals, Ddx, and any prescribed medications were discussed with the patient. I spent 15 minute(s) conducting this Telehealth encounter with the patient over the video call. Education resources and self-management tools were provided is the AVS which is accessible through [employer]. Patient/guardian/family verbalized understanding and agrees to the plan of care.Barriers to care: None. Ability to manage care: Good. If applicable, the [facility] database was accessed to review any controlled substance prescription claims data. If the patient is taking prescribed medications, the [employer] prescription claims data in [employer] was reviewed to assess patient compliance with the medication treatment plan. COVID-19 precautions given including frequent handwashing, social distancing, cleaning and disinfecting, indications for testing, etc. After visit summary (AVS ) documentation will be available through [employer] for this encounter. Marcella Tejeda PA-C 12/25/2019 3:15 PM documented in this encounter Plan of Treatment Health Maintenance Due Date Last Done Comments HPV VACCINES (1 - Female 2005 2-dose series) INFLUENZA VACCINE (Season 04/05/2020 Ended) PAP SMEAR 04/02/2022 04/02/2019 DTaP,Tdap,and Td Vaccines (3 09/17/2029 09/17/2019, - Td) 08/05/2008 PNEUMOCOCCAL 0-64 YEARS Aged Out No longe r eligible based COMBINED SERIES on patient's age to complete this to [facility] documented as of this encounter Results Not on filedocumented in this encounter Visit Diagnoses Diagnosis care and examination - Primar y Routine follow-up control counseling General counseling for initiation of oth er contraceptive measures Initiation of OCP (BCP) General counseling for prescription of o ral contraceptives documented in this encounter Insurance Payer Benefit Plan / Subscriber ID Effective Phone Address T ype Group [facility] xxxxxxxxx 2019-Jose [address] Medic aid HEALTH CHOICE - HEALTH CHOICE nt [id number] 1 MANAGED MEDICAID [place], [place] MEDICAID [phone] documented as of this encounter
--- OUTSIDE RECORDS SUMMARY | 2020-02-10 22:52 | XMS REPORT | Summary of Care ---
:1995 Author Organization [facility] Address [address] [place] [address] Care Team Providers Name Role Phone CARLEE KaurP Unavailable Salvatore Roth MD Primary Care Provider Reason for Visit Reason Comments Refill Request Encounter Details Date Type Department Care Team Description 11/24/2019 Telephone [facility] Women's Ericka Roth MD Refill Request Healthcare- [address], [address] [place] [address] [place] [address] [phone] Allergies Active Allergy Reactions Severity Noted Date Comments Penicillins Rash 05/11/2019 documented as of this encounter (statuses as of 11/24/2019) Medications Medication Sig Dispensed Refills Start Date [...] mild, with food or delivered, Liveborn milk. , of rojas , born in hospital by vaginal delivery documented as of this encounter (statuses as of 11/24/2019) Active Problems Problem Noted Date Pre-eclampsia, mild, delivered 11/24/2019 Liveborn , [facility] rojas , [facility] 11/24/2019 delivery Normal labor 11/23/2019 Uterine contractions during 11/22/2019 39 weeks gestation of 08/03/2019 Obesity (BMI 30-39.9) 04/28/2019 Abnormal maternal glucose tolerance, antepartum 2018 Overview: pendign 3hr gtt Obesity affecting 04/02/2019 Supervision of high risk , antepartum 019 documented as of this encounter (statuses as of 11/24/2019) Resolved Problems Problem Noted Date Resolved Date Hypokalemia 04/29/2019 08/03/2019 12 weeks gestation of 04/28/2019 08/03/20 19 Nausea and vomiting during prior to 22 weeks 04/2808/03/2019 gestation Nausea and vomiting during 04/02/2019 documented as of this encounter (statuses as of 11/24/2019) Immunizations Name Administration Dates Next Due TDAP [...] Treatment Date Type Specialty Care Team Description 11/30/2019 Nurse Visit Obstetrics & Gynecology Nurse, [facility] 12/22/2019 Telemedicine Visit Obstetrics & Gynecology Stefanie Tejeda PA-C [address] [place] [phone] Health Maintenance Due Date Last Done Comments [...] / Subscriber ID Effective Phone Address [facility] xxxxxxxxx 2019-Jose [place] Medic aid HEALTH CHOICE - HEALTH CHOICE nt [id number] 1 MANAGED MEDICAID [place], [place] MED[place]ID [phone] documented as of this encounter
--- OUTSIDE RECORDS SUMMARY | 2020-02-10 22:52 | XMS REPORT | Summary of Care ---
:1995 Author Organization [facility] Address [address] [place] [address] Care Team Providers Name Role Phone Vincent IMMANUEL Unavailable Salvatore Peraza MD Primary Care Provider Reason for Referral (Routine) Status Reason Specialty Diagnoses / Referred By Referred To Procedures Contact Contact New Request Diagnoses Supervision of high risk , antepartum 39 weeks gestation of Normal labor Pre-eclampsia, mild, delivered Liveborn , of rojas , born in hospital by vaginal delivery Ericka Peraza MD Lam, Vien Cam, MD Procedures DISCHARGE FOLLOW-UP: PRIVATE PHYSICIAN [address] [facility] [address] [facility] [facility] [address] [place], [place] [address] [address] [place] [address] Phone: Fax: Reason for Visit Auth/Cert Status Reason Specialty Diagnoses / Procedures Referred By C ontact Referred To Contact Obstetrics [facility] Labor And Delivery [address] [place] [address] [place], [place] [address] Phone: Fax: Encounter Details Date Type Department Care Team Description 11/22/2019 - [facility] Labor and Noriega, Krystina, 39 weeks gestation 11/24/2019 Encounter Delivery Unit MD of [address] [place] [address] [place], [place] [phone] Allergies Active Allergy Reactions Severity Noted Date Comments Penicillins Rash 05/11/2019 documented as of this encounter (statuses as of 11/24/2019) Medications Medication Sig Dispensed Refills Start End Date Status Date hydroCHLOROthiazide 12.5 Take 1 42 capsule 0 Active mg capsuleIndications: capsule by 0 Supervision of high risk mouth daily. , antepartum, 39 weeks gestation of , Normal labor, Pre-eclampsia, mild, delivered, Liveborn , of rojas , born in hospital by vaginal delivery vitamin w/FA Take 1 100 tablet 3 Active tabletIndications: tablet by 0 Supervision of high risk mouth daily. , antepartum, 39 weeks gestation of , Normal labor, Pre-eclampsia, mild, delivered, Liveborn infant, of rojas , born in hospital by vaginal delivery docusate calcium 240 mg Take 1 60 capsule 1 Active capsuleIndications: capsule by 0 Supervision of high risk mouth once , antepartum, daily as 39 weeks gestation of needed for , Normal labor, Constipation Pre-eclampsia, mild, . delivered, Liveborn , of rojas , born in hospital by vaginal delivery ferrous sulfate 325 mg Take 1 60 tablet 2 Active (65 mg iron) tablet by 0 tabletIndications: mouth 2 Supervision of high risk (two) times , antepartum, daily. 39 weeks gestation of , Normal labor, Pre-eclampsia, mild, delivered, Liveborn , of rojas , born in hospital by vaginal delivery ibuprofen 600 mg Take 1 30 tablet 1 Act katina tabletIndications: tablet by 0 Supervision of high risk mouth every , antepartum, 6 (six) 39 weeks gestation of hours as , Normal labor, needed Pre-eclampsia, mild, (Pain). Take delivered, Liveborn with food or , of rojas milk. , born in hospital by vaginal delivery doxylamine 25 mg Take 0.5 60 tablet 3 11/24/19 Dis continued tabletIndications: 12 tablets by 9 20 weeks gestation of mouth every , Nausea and 6 (six) vomiting during hours. prior to 22 weeks gestation pyridoxine, vitamin B6, Take 1 60 tablet 3 Discontinued 25 mg tabletIndications: tablet by 9 20 12 weeks gestation of mouth every , Nausea and 6 (six) vomiting during hours. prior to 22 weeks gestation metoclopramide HCl 10 mg Take 1 18 tablet 0 11/23 Discontinued tabletIndications: tablet by 9 20 Nausea and vomiting in mouth every prior to 22 6 (six) weeks gestation hours as needed for Nausea and Vomiting (N/V). vit Take by 0 11/24/19 Discont inued calc,iron,folic mouth. 20 ( VITAMIN ORAL) ondansetron 4 mg tablet TK 1 T PO Q 0 11/04 Discontinued 12 HOURS 9 20 NEEDED documented as of this encounter (statuses as of 11/24/2019) Active Problems Problem Noted Date Pre-eclampsia, mild, delivered 11/24/2019 Liveborn , of rojas , born in [facility] by vaginal 11/24/2019 delivery Normal labor 11/23/2019 Uterine contractions during 11/22/2019 39 weeks gestation of 08/03/2019 Obesity (BMI 30-39.9) 04/28/2019 Abnormal maternal glucose tolerance, antepartum 2018 Overview: pendign 3hr gtt Obesity affecting 04/02/2019 Supervision of high risk , antepartum 019 Comments Yes documented as of this encounter (statuses as [...] Used Alcohol Use Drinks/Week oz/Week Comments No Comments Yes Sex Assigned at Date Recorded Not on file Job Start Date Occupation Industry Not on file Not on file Not on file Travel History Travel Start Travel End No recent travel history available. documented as of this encounter Last Filed Vital Signs Vital Sign Reading Time Taken Comments Blood Pressure 137/96 11/24/2019 6:55 AM CDT Pulse 69 11/24/2019 6:55 AM CDT Temperature 36.7 C (98.1 F) 11/24/2019 6:55 AM CDT Respiratory Rate 16 11/24/2019 6:55 AM CDT Oxygen Saturation 100% 11/24/2019 6:55 AM CDT Inhaled Oxygen Concentration - - Weight 98 kg (216 lb) 11/22/2019 10:02 PM CDT Height 162.6 cm (5' 4") 11/22/2019 10:02 PM CDT Body Mass Index 37.08 11/22/2019 10:02 PM CDT documented in this encounter Discharge Instructions Kacey Celestin RN - 11/24/2019RETURN TO HOSPITAL FOR ANY CONCERNS [facility] MANUAL GIVEN FOLLOW UP IN 3 DAYS FOR BLOOD PRESSURE CHECK & 4-[address]KS WITH YOUR DOCTOR CALL DR PERAZA [phone] OR [facility] [phone] TO SCHEDULE FOLLOW UP APPOINTMENT DISCUSS CONTROL OPTIONS WITH YOUR DOCTOR IF NEEDED NO SEX, NO TAMPONS, NO DOUCHING NO SWIMMING OR TUB BATHS, TAKE SHOWERS INSTEAD NO HEAVY LIFTING, PULLING, OR PUSHING (>10LBS) DRINK AT LEAST EIGHT (8oz) GLASSES WATER DAILY EAT NUTRITIONALLY DENSE FOODS: FRESH FRUITS, VEGETABLES, AND PROTEINS AVOID FRIED, GREASY, FATTY, SUGARY, AND SPICY FOODS TAKE MEDICATIONS PRESCRIBED AND FOLLOW LABEL PRECAUTIONS & INSTRUCTIONS DO NOT DRIVE WHILE TAKING PAIN MEDICINE TAKE OVER THE COUNTER STOOL SOFTENERS TO HELP PREVENT CONSTIPATION [facility] REFERRAL HANDOUT GIVEN [facility] TEACHING HANDOUTS GIVEN: DVT, POST CARE, DEPRESSION, BOTTLE FEEDING, HYDROCHLOROTHIAZIDE, IRON, AND MOTRIN For Patients ? All patients should call the [facility] at to determine the best way to receive caretelevisit (preferred when medically appropriate) or in-person appointment at the most appropriate location. ? Current visitation guidelines are available online. Resources ? [facility] for clinical appointments and 25/02 Nurse triage line: . ? [email or web address] Protecting Everyones Health Reminders for minimizing your risk of catching or spreading COVID-19: ? Avoid groups of 10 or more people and avoid people who are ill with respiratory symptoms. ? Thoroughly wash your hands frequently, for at least 20 seconds with soap and water. Any kind of soap will work. ? Use hand security shift manager with minimum 60% alcohol content if soap and water are not available. ? Cough/sneeze into a tissue and dispose of it right away. If you do not have a tissue, cough/sneezeinto your elbow. ? Avoid touching your eyes, nose or mouthespecially with unwashed hands. ? Use disinfectant wipes or filter cleaner on frequently touched or shared surfaces. ? Do not share dishes, cups/glasses, utensils or towels. ? STAY HOME IF YOU ARE SICK. Guiding Principles ? Protecting patients, students, employees, volunteers and the community ? Preventing exposures through social distancing and limiting non-clinical activity on our campuses ? Preserving access to the [facility] care in our hospitals and clinics ? Sustaining our financial stability for the long-term success of our mission. Thank you for your help in planning, preparing and responding to the COVID-19 public health threat. Sent by the Office of [employer], on behalf of President brenda Delgado and the [facility] Health Incident Command leadership. AttachmentsThe following attachments cannot be sent through Care Everywhere.Deep Vein Thrombosis (DVT) ([place])When to Call the Healthcare Provider, After Delivery ([place]) Depression, Understanding ([place])Vaginal , Incision Care After ([place])Vaginal , After a ([place])Bottle-feed, How to ([place])Hydrochlorothiazide, HCTZ capsules or tablets ([place])Iron tablets, capsules, extended-release tablets ([place])documented in this encounter Plan of Treatment Date Type Specialty Care Team Description 11/30/2019 Nurse Visit Obstetrics & Gynecology Nurse, [facility] Women' s [facility] 12/22/2019 Telemedicine Visit Obstetrics & Gynecology Stefanie Tejeda PA-C [address] [place] [phone] Name Type Priority Associated Diagnoses Date/Ti va SURGICAL PATHOLOGY EXAM LAB Routine 11/04 6:58 AM CDT Name Type Priority Associated Diagnoses Order S chedule SURGICAL PATHOLOGY EXAM LAB Routine ONCE for 1 Occurrences starting 2019 until 11/23/2019, 1 c ompleted Health Maintenance Due Date Last Done Comments HPV VACCINES (1 - Female 2005 2-dose series) INFLUENZA VACCINE (#1) 2019 PAP SMEAR 04/02/2022 04/02/2019 DTaP,Tdap,and Td Vaccines (3 09/17/2029 09/17/2019, - Td) 08/05/2008 PNEUMOCOCCAL 0-64 YEARS Aged Out No longe r eligible based COMBINED SERIES on patient's age to complete this to pic documented as of this encounter Procedures Procedure Name Priority Date/Time Associated Comments Diagnosis CBC WITH DIFFERENTIAL Routine 11/24/2019 4:18 Re sults for this AM CDT procedure are i n the results section. CBC WITH DIFFERENTIAL Routine 11/24/2019 4:18 Re sults for this AM CDT procedure are i n the results section. VENOUS CORD GAS Routine 11/23/2019 6:27 Results for this AM CDT procedure are i n the results section. ARTERIAL CORD GAS Routine 11/23/2019 6:27 Result s for this AM CDT procedure are i n the results section. HIV 1/2 AG-AB WITH Routine 11/23/2019 12:45 Resul ts for this REFLEX AM CDT procedure are i n the results section. ADC OR JAYNE ONLY - LEON 11/23/2019 12:45 Re sults for this RPR AM CDT procedure are i n the results section. HEPATITIS B SURFACE LEON 11/23/2019 12:45 Resu lts for this ANTIGEN AM CDT procedure are i n the results section. RHO (D) IMMUNE Routine 11/23/2019 12:30 Results f or this GLOBULIN AM CDT procedure are i n the results section. HB ABO GROUPING LEON 11/23/2019 12:30 Results for this AM CDT procedure are i n the results section. PROTEIN CREAT RATIO Routine 11/22/2019 11:04 Resu lts for this URINE RANDOM PM CDT procedure are i n the results section. CORONAVIRUS COVID-19 Routine 11/22/2019 11:03 Res ults for this TESTING PM CDT procedure are i n the results section. CBC WITH DIFFERENTIAL Routine 11/22/2019 11:03 Re sults for this PM CDT procedure are i n the results section. URINALYSIS Routine 11/22/2019 11:03 Results for this PM CDT procedure are i n the results section. CBC WITH DIFFERENTIAL Routine 11/22/2019 11:03 Re sults for this PM CDT procedure are i n the results section. COMP. METABOLIC PANEL Routine 11/22/2019 11:03 Re sults for this (19445) PM CDT procedure are i n the results section. URIC ACID Routine 11/22/2019 11:03 Results for this PM CDT procedure are i n the results section. L&D VISIT Routine 11/22/2019 12:01 (NON-DELIVERED) AM CDT documented in this encounter Results CBC WITH DIFFERENTIAL (11/24/2019 4:18 AM CDT) Pathologist Sig nature WBC 12.21 (H) 4.30 - 11.10 [facility] 10*3/L [facility] RBC 3.96 3.93 - 5.25 [facility] 10*6/L [facility] HGB 11.7 11.6 - 15.0 [facility] g/dL [facility] HCT 34.9 (L) 35.7 - 45.2 % [facility] MCV 88.1 80.6 - 95.5 fL [facility] MCH 29.5 25.9 - 32.8 pg [facility] MCHC 33.5 31.6 - 35.1 [facility] g/dL [facility] RDW-SD 43.0 39.0 - 49.9 fL [facility] RDW-CV 13.4 12.0 - 15.5 % [facility] PLT 253 166 - 358 [facility] 10*3/L [facility] MPV 10.4 9.5 - 12.9 fL [facility] NRBC/100 WBC 0.0 0.0 - 10.0 /100 [facility] WBCs [facility] NRBC x10^3 <0.01 10*3/L [facility] GRAN MAT (NEUT) % 65.7 % [facility] IMM GRAN % 0.90 % [facility] LYMPH % 23.8 % [facility] MONO % 8.5 % [facility] EOS % 0.6 % [facility] BASO % 0.5 % [facility] GRAN MAT x10^3(ANC) 8.03 (H) 1.88 - 7.09 [facility] 10*3/uL [facility] IMM GRAN x10^3 0.11 (H) 0.00 - 0.06 [facility] 10*3/uL [facility] LYMPH x10^3 2.90 1.32 - 3.29 [facility] 10*3/uL [facility] MONO x10^3 1.04 (H) 0.33 - 0.92 [facility] 10*3/uL [facility] EOS x10^3 0.07 0.03 - 0.39 [facility] 103/uL [facility] BASO x10^3 0.06 0.01 - 0.[address]/[facility] LABORATORY Specimen Blood - ARM, RIGHT Performing Organization Address City/[facility] Phone Number [facility] CLIA: [id number], [address] [place] [address] Venous Cord Gas (11/23/2019 6:27 AM CDT) Pathologist Sig nature VENOUS BASE EXCESS, -2.2 mEq/L [facility] VENOUS PH, CORD 7.40 7.25 - 7.45 [facility] VENOUS PC02, CORD 36 27 - 49 mmHg [facility] VENOUS PO2, CORD 31 17 - 41 mmHg [facility] VENOUS BICARBONATE, 22 12 - 29 mEq/L [facility] Specimen Blood - ARTERIAL Performing Organization Address City/[facility] Phone Number [facility] CLIA: [id number], [address] [place] [address] Arterial Cord Gas (11/23/2019 6:27 AM CDT) Pathologist Sig nature BASE EXCESS, CORD -1.9 mEq/L [facility] AC PH, CORD (BEAKER) 7.40 (H) 7.18 - 7.38 [facility] PC02, CORD 37 32 - 66 mmHg [facility] PO2, CORD 32 (H) 10 - 30 mmHg [facility] BICARBONATE, CORD 22 17 - 27 mEq/L [facility] Specimen Blood - ARTERIAL Performing Organization Address City/[facility]/Zipcode Phone Number [facility] CLIA: [id number], [address] [place], [place] [address] [facility] HIV 1/2 AG-AB WITH REFLEX (11/23/2019 12:45 AM CDT) Pathologist Sig nature HIV 1/2 Ag-Ab with Negative Negative [facility] Reflex [facility] HIV Semi-quantitative 0.16 [facility] LABORATORY Specimen Blood - VENOUS Narrative Performed At Non-reactive for HIV-1 antigen and HIV-1/HIV-2 [facility] antibodies. No laboratory evidence of HIV infection. Repeat in 2-4 weeks if acute HIV infection is suspected. Performing Organization Address City/[facility]/Zipcode Phone Number [facility] CLIA: [id number], [address] [place], [place] [address] LAB[facility]ATORY [facility] ADC OR JAYNE ONLY - RPR (11/23/2019 12:45 AM CDT) Pathologist Sig nature RPR (Qualitative) Nonreactive Nonreactive [facility]OR[facility] Specimen Blood - VENOUS Performing Organization Address City/[facility]/Zipcode Phone Number [facility] CLIA: [id number], [address] [place], [place] [address] [facility] Hepatitis B Surface Antigen (11/23/2019 12:45 AM CDT) Pathologist Sig nature HBsAg Negative Negative [facility]ORATORY SERVICES HBsAg 0.08 [facility] LABOR[facility] Semi-Quantitative SERVICES Specimen Blood - VENOUS Performing Organization Address City/State/Zipcode Phone Number [facility] SERVICES CLIA: [id number], [address] [place], [place] [address] RHO (D) IMMUNE GLOBULIN (11/23/2019 12:30 AM CDT) Pathologist Sig nature RHIG CANDIDATE? No- see comment LAB Comment: mom Rh pos Performed at [facility] Laboratory Services - ADC Blood [address] [place], [place] [address] Toll Free: [phone] CLIA No. [id number] Specimen Blood - VENOUS Performing Organization Address City/State/Zipcode Phone Number [facility] LAB Type and Screen - ONCE LEON (11/23/2019 12:30 AM CDT) Pathologist Sig audrey ABO & RH O Positive LAB Comment: Performed at [facility] Laboratory Services - [facility] Blood Bank [address] [place], [place] [address] Toll Free: [phone] CLIA No. [id number] IAT Negative LAB Comment: Performed at [facility] Laboratory Services - [facility] Blood [address] [place], [place] [address] Toll Free: [phone] CLIA No. [id number] Specimen Blood - VENOUS Performing Organization Address [facility] Phone Number [facility] PROTEIN CREAT RATIO URINE RANDOM (11/22/2019 11:04 PM CDT) Pathologist Sig audrey T. PROT U 32 mg/dL [facility]ORY CREAT U 118.6 mg/dL [facility]ORY Protein/Creatinine 0.3 0.0 - 2.0 [facility] LABORATORY Specimen Urine - URINE, CLEAN CATCH Performing Organization Address [facility] Phone Number [facility] CLIA: [id number], [address] [place], [place] [address] CORONAVIRUS COVID-19 TESTING (11/22/2019 11:03 PM CDT) Pathologist [facility] audrey SARS-CoV-2 Not Detected Not Detected [facility]OR[facility]ORY Specimen Swab - NASOPHARYNGEAL SWAB Narrative Performed At ID NOW COVID-19 Assay is an isothermal nucleic [facility] acid amplification test intended for the qualitative detection of nucleic acid from SARS-CoV-2 viral RNA in nasopharyngeal (ED PHYSICIANS) specimens. It is used under Emergency Use Authorization (EUA) by FDA. The limit of detection (LOD) of the assay is 125 Genome Equivalents/mL. A positive result is indicative of the presence of SARS-CoV-2 RNA. Clinical correlation with patient history and other diagnostic information is necessary to determine patient infection status. A negative (Not Detected) result does not preclude SARS-CoV-2 infection. Clinical correlation with patient history and other diagnostic information should be used in patient management decisions. Invalid: Please collect a new specimen for repeat patient testing if clinically indicated. Performing Organization Address [facility]/State/Zipcode Phone Number [facility] CLIA: [id number], [address] [place] [address] COMP. METABOLIC PANEL ([id number]) (11/22/2019 11:03 PM CDT) NA 136 135 - 145 [facility] mmol/L [facility] K 3.2 (L) 3.5 - 5.0 [facility] mmol/L [facility] CL 103 98 - 108 mmol/L [facility] CO2 TOTAL 23 23 - 31 mmol/L [facility] LABOR[facility]ORY AGAP 10 2 - 16 [facility] BUN 8 7 - 23 mg/dL [facility] GLUCOSE 87 70 - 110 mg/dL [facility] CREATININE 0.52 0.50 - 1.04 [facility] mg/dL [facility] TOTAL BILI 0.5 0.1 - 1.1 mg/dL [facility] CALCIUM 10.9 (H) 8.6 - 10.6 [facility] mg/dL [facility] T PROTEIN 7.2 6.3 - 8.2 g/dL [facility]OR[facility]ORY ALBUMIN 3.9 3.5 - 5.0 g/dL [facility] LABORATORY ALK PHOS 140 (H) 34 - 122 U/L [facility] LABOR[facility]ORY ALTv 12 5 - 35 U/L [facility] LABORATORY AST(SGOT) 19 13 - 40 U/L [facility] LABORATORY eGFR Calculation 143.7 mL/min/1.73m2 [facility] (Non-[facility] LABORATORY Stateless) eGFR Calculation 174.1 mL/min/1.73m2 [facility] () [facility] Specimen Blood - VENOUS Narrative Performed At Association of Glomerular Filtration Rate (GFR) [facility] LABORATORY and Staging of Kidney Disease* + + +- + | GFR (mL/min/1.73 m2) | With Kidney Damage | Without Kidney Damage + + +- + | >90 | Stage one | Normal + + +- + | 60-89 | Stage two | Decreased GFR + + +- + | 30-59 | Stage three | Stage three + + +- + | 15-29 | Stage four | Stage four + + +- + | <15 (or dialysis) | Stage five | Stage five + + +- + *Each stage assumes the associated GFR level has been in effect for at least three months. Stages 1 to 5, with or without kidney disease, indicate chronic kidney disease. Notes: Determination of stages one and two (with eGFR >59mL/min/1.73 m2) requires estimation of kidney damage for at least three months as defined by structural or functional abnormalities of the kidney, manifested by either: Pathological abnormalities or Markers of kidney damage (including abnormalities in the composition of the blood or urine or abnormalities in imaging tests). Performing Organization Address City/State/Zipcode Phone Number [facility] CLIA: [id number], [address] [place], [place] [address] CBC WITH DIFFERENTIAL (11/22/2019 11:03 PM CDT) Pathologist Sig nature WBC 17.46 (H) 4.30 - 11.10 [facility] 10*3/L [facility] RBC 4.63 3.93 - 5.25 [facility] 10*6/L [facility] HGB 13.7 11.6 - 15.0 [facility] g/dL [facility] HCT 39.6 35.7 - 45.2 % [facility] MCV 85.5 80.6 - 95.5 fL [facility] MCH 29.6 25.9 - 32.8 pg [facility] MCHC 34.6 31.6 - 35.1 [facility] g/dL [facility] RDW-SD 39.6 39.0 - 49.9 fL [facility] RDW-CV 13.0 12.0 - 15.5 % [facility] PLT 327 166 - 358 [facility] 10*3/L [facility] MPV 10.1 9.5 - 12.9 fL [facility] NRBC/100 WBC 0.0 0.0 - 10.0 /100 [facility] WBCs [facility] NRBC x10^3 <0.01 10*3/L [facility] GRAN MAT (NEUT) % 77.3 % [facility] IMM GRAN % 0.60 % [facility] LYMPH % 13.6 % [facility] [facility] MONO % 7.9 % [facility] EOS % 0.1 % [facility] BASO % 0.5 % [facility] GRAN MAT x10^3(ANC) 13.50 (H) 1.88 - 7.09 [facility] 10*3/uL [facility]ITAL [facility] IMM GRAN x10^3 0.11 (H) 0.00 - 0.06 [facility] 10*3/uL [facility] LYMPH x10^3 2.37 1.32 - 3.29 [facility] 10*3/uL H[facility]ITAL [facility] MONO x10^3 1.38 (H) 0.33 - 0.92 [facility] 10*3/uL H[facility]PITAL [facility] EOS x10^3 <0.03 (L) 0.03 - 0.39 [facility] 10*3/uL [facility] BASO x10^3 0.08 (H) 0.01 - 0.07 [facility] 10*3/uL [facility] Specimen Blood - VENOUS Performing Organization Address [facility] Phone Number [facility] CLIA: [id number], [address] [place] [address] URINALYSIS (11/22/2019 11:03 PM CDT) Pathologist Sig nature APPEARANCE Cloudy (A) Clear [facility] COLOR Yellow Yellow [facility] PH 7.0 4.8 - 8.0 [facility] SP GRAVITY 1.015 1.003 - 1.030 [facility] GLU U QUAL Normal Normal [facility] BLOOD 3+ (A) Negative [facility] KETONES 20 mg/dL (A) Negative [facility] PROTEIN Negative Negative [facility] UROBILIN Normal Normal [facility] BILIRUBIN Negative Negative [facility] NITRITE Negative Negative [facility] LEUK PAVITHRA 250/uL (A) Negative [facility] RBC/HPF 6 (H) 0 - 3 HPF [facility] WBC/HPF 40 (H) 0 - 5 HPF [facility] BACTERIA Few (A) Negative [facility] MUCOUS Slight (A) Negative LPF [facility] SQ EPITH 6 HPF [facility] Specimen Urine - URINE, CLEAN CATCH Performing Organization Address City/[facility] Phone Number [facility] CLIA: [id number], [address] [place], [place] [address] URIC ACID SERUM (11/22/2019 11:03 PM CDT) [facility] nature URIC ACID 3.8 2.9 - 6.0 mg/dL [facility] Specimen Blood - VENOUS Performing Organization Address City/State/Zipcode Phone Number [facility] CLIA: [id number], [address] [place], [place] [address] documented in this encounter Visit Diagnoses Diagnosis Supervision of high risk , ante - Primary 39 weeks gestation of state, incidental Normal labor Pre-eclampsia, mild, delivered Mild or unspecified pre-eclampsia, with delivery Liveborn , of rojas , born in hospital by vaginal delivery Abnormal maternal glucose tolerance, ant epartum Uterine contractions during Obesity affecting documented in this encounter Administered Medications Medication Order MAR Action Action Date Dose Rate Site acetaminophen (TYLENOL) tablet Given 11/24/2019 4:08 AM CDT 650 mg 650 mg 650 mg, Oral, Q6HPRN, Starting 11/23/19 at 1213, Until Discontinued, Routine, Pain (scale 1-3) Given 11/23/2019 1:02 PM CDT 650 mg docusate calcium (SURFAK) capsule 240 mg Given 11/24/2019 8:21 AM CDT 240 mg 240 mg, Oral, QDAILYPRN, Starting 11/23/19 at 1213, Until Discontinued, Routine, Constipation Given 11/23/2019 1:02 PM CDT 240 mg hydroCHLOROthiazide (ESIDRIX) tablet 12.5 Given 11/24/2019 8:21 AM CDT 12.5 mg mg 12.5 mg, Oral, DAILY, First dose on Sat11/24/19 at 0900, Until Discontinued, Routine ibuprofen (IBU) tablet 600 mg Given 11/24/2019 2:03 AM CDT 600 mg 600 mg, Oral, Q6HPRN, Starting 11/23/19 at 1213, Until Discontinued, Routine, Pain (scale 4-6) Given 11/23/2019 7:00 PM CDT 600 mg Given 11/23/2019 12:14 PM CDT 600 mg vitamin w/FA (PRENATABS RX) Given 11/24/2019 8:21 AM C DT 1 tablet tablet 1 tablet 1 tablet, Oral, DAILY, First dose on Sat11/24/19 at 0900, Until Discontinued, Routine simethicone (GAS RELIEF (SIMETHICONE)) Given 11/24/2019 8:21 AM CDT 160 mg chewable tablet 160 mg 160 mg, Oral, PC+HSPRN, Starting Sat11/23/19 at 1213, Until Discontinued, Routine, Gas Given 11/23/2019 1:02 PM CDT 160 mg Medication Order MAR Action Action Date Dose Rate Site clindamycin in 5 % dextrose Given 11/23/2019 6:51 AM CDT 900 mg (CLEOCIN) 900 mg/50 mL IV piggyback RTU 900 mg 900 mg, IV Piggyback, ONCE, 1 dose, Sat11/23/19 at 0800, 50 mL, Reason for Anti-Infective: Empiric Therapy for Suspected Infection, Restricted use approved by: ADC PROVIDER [id number] IV infusion 1,000 mL New Bag 11/23/2019 12:41 AM CDT 1,000 mL 125 mL/hr at 125 mL/hr, IV Infusion, CONTINUOUS, Starting Sat11/23/19 at 0045, Until Sat11/23/19 at 1213, Routine FENTanyl PF (SUBLIMAZE (PF)) injection 100 Given 11/21 11:06 PM CDT 100 mcg mcg 100 mcg, Slow IV Push, ONCE, 1 dose, [place] 11/22/19 at 2300, Routine gentamicin 40 mg/mL 280 mg in NaCl 0.9% (NS) Given 9:02 AM CDT 280 mg 250 mL IV infusion 280 mg (rounded from 273.5 mg = 5 mg/kg 54.7 kg Adrian weight), IV Infusion, ONCE, 1 dose, [facility] 11/23/19 at 0700, 250 mL, Reason for Anti-Infective: Empiric Therapy for Suspected Infection lactated ringers IV infusion 500 New Bag 11/22/2019 11:05 PM C DT 500 mL 999 mL/hr mL at 999 mL/hr, 500 mL, IV Infusion, ONCE, 1 dose, 11/23/19 at 0000, Routine LR 1000 mL + oxytocin Dose/Rate 11/23/2019 111 dion-units/min 333 m L/hr 20 units IV Solution Verify 7:00 AM CDT 2-40 dion-units/min (6-120 mL/hr), IV Infusion, TITRATE, Oxytocin Induction / Augmentation of Labor, Starting 11/23/19 at 0029, Infuse IV through a controlled infusion pump at a proximal port on the peripheral IV line. Start at 2 dion-units/min and increase by 2 dion-units/min every 20 minutes according to oxytocin policy 7.11.52. Going over 20 dion-units/min requires faculty approval. Max 40 dion-units/min., Rate Change 11/23/2019 4:23 AM CDT 8 dion-units/min 24 mL/hr Rate Change 11/23/2019 3:22 AM CDT 6 dion-units/min 18 mL/hr NaCl 0.9% (NS) 1000 mL + KCL 40 mEq New Bag 11/23/2019 10:07 AM CDT 125 mL/hr IV Infusion, at 125 mL/hr, ONCE, 1 dose, 11/23/19 at 0900, Routine proMETHazine (PHENERGAN) 25 mg in NaCl 0.9% Given 11/22/2019 11:06 PM CDT 25 mg (NS) 50 mL piggyback 25 mg, IV Piggyback, ONCE, 1 dose, [place] 11/22/19 at 2300, 50 mL documented in this encounter Insurance Payer Benefit Plan / Subscriber ID Effective Phone Address T [facility] xxxxxxxxx 2019-Jose [address] Medic aid HEALTH CHOICE - HEALTH CHOICE nt [id number] 1 MANAGED MEDICAID [place], [place] MEDICAID [id number] documented as of this encounter
--- OUTSIDE RECORDS SUMMARY | 2020-02-10 22:52 | XMS REPORT | Summary of Care ---
:1995 Author Organization [facility] Address [address] [place] [id number] Care Team Providers Name Role Phone CARLEE KaurP Unavailable Salvatore Roth MD Primary Care Provider Reason for Visit Reason Comments Bp Check Encounter Details Date Type Department Care Team Description 11/30/2019 Nurse Visit [facility] Women's Ericka Roth MD [address] [place] [address] [address] [place] [address] History of Healthcare- [place] Nurse, [facility] induced hypertension [address] [place] [address], (Primary Dx) [address] [place] [address] Allergies Active Allergy Reactions Severity Noted Date Comments Penicillins Rash 05/11/2019 documented as of this encounter (statuses as of 11/30/2019) Medications Medication Sig Dispensed Refills Start Date [...] as of this encounter (statuses as of 11/30/2019) Active Problems Problem Noted Date Pre-eclampsia, mild, delivered 11/24/2019 [facility] delivery Normal labor 11/23/2019 Uterine contractions during 11/22/2019 39 weeks gestation of 08/03/2019 Obesity (BMI 30-39.9) 04/28/2019 Abnormal maternal glucose tolerance, antepartum 2018 Overview: pendign 3hr gtt Obesity affecting 04/02/2019 Supervision of high risk , antepartum 019 documented as of this encounter (statuses as of 11/30/2019) Resolved Problems Problem Noted Date Resolved Date Hypokalemia 04/29/2019 08/03/2019 12 weeks gestation of 04/28/2019 08/03/20 19 Nausea and vomiting during prior to 22 weeks 04/2808/03/2019 gestation Nausea and vomiting during 04/02/2019 documented as of this encounter (statuses as of 11/30/2019) Immunizations Name Administration Dates Next Due TDAP [...] Sign Reading Time Taken Comments Blood Pressure 132/90 11/30/2019 2:54 PM CDT Pulse 85 11/30/2019 2:54 PM CDT Temperature 36.9 C (98.5 F) 11/30/2019 2:54 PM CDT Respiratory Rate 18 11/30/2019 2:54 PM CDT Oxygen Saturation - - Inhaled Oxygen Concentration - - Weight 87.5 kg (192 lb 12.8 oz) 11/30/2019 2:54 PM CDT Height 162.6 cm (5' 4") 11/30/2019 2:54 PM CDT Body Mass Index 33.09 11/30/2019 2:54 PM CDT documented in this encounter Patient Instructions Patient InstructionsAndria Yancey RN - 11/30/2019 2:30 PM CDT Patient Education Your High Blood Pressure Risk Factors Risk factors are things that make you more likely to have a disease or condition. Do you know your risk factors for high blood pressure? You cant do anything about some risk factors. But other risk factors are things that can be changed. Know what high blood pressure risk factors you have. Then find out what changes you can make to help control your risk for high blood pressure.Start with the change that you think will be easiest for you. Risk factors you cant control Though you cant change any of the things listed below, check off the ones that apply to you. The more boxes you check, the greater your risk for high blood pressure. Family history ? One or both of your parents or grandparents has had high blood pressure or heart disease. Gender, age, and race ? Youre a man over age 55 or a postmenopausal woman. Or you are . Risk factors you can control There are plenty of risk factors for high blood pressure that you can control. Learn what these riskfactors are and then find out how to reduce your risk. Check the ones that apply to you. ? What you eat Do you eat a lot of salty, fatty, fried, or greasy foods? Do you go to restaurants or eat out frequently? ? What you drink Do you have more than 1 alcoholic drink a day if you are a female or more than 2 drinks a day if youmale? ? If you smoke or someone close to you smokes Do you smoke cigarettes or cigars, chew tobacco, or dip snuff? Are you exposed to second-hand smoke on a regular basis? ? How active you are Are you inactive most of the time at work and at home? Do you go weeks without exercising? ? Your weight Has your doctor said that you are 15 or more pounds overweight? ? Your stress level Do you often feel anxious, nervous, and stressed? Do you feel that you don't have a supportive environment? [employer] last reviewed this educational content on 02/02/201919991699-6994 [employer]. [address] [place] [address]. All rights reserved. This information is not intended as a substitute for professional medical care. Always follow your healthcare professional's instructions. Patient Education What Is High Blood Pressure? High blood pressure (hypertension) is known as the silent killer. This is because most of the time it doesnt cause symptoms. In fact, many people dont know they have it until other problemsdevelop. In most cases, high blood pressure often requires lifelong treatment. Understanding blood pressure The circulatory system is made up of the heart and blood vessels that carry blood through the body. Your heart is the pump for this system. With each heartbeat (contraction), the heart sends blood out through large blood vessels called arteries. Blood pressure is a measure of how hard the moving bloodpushes against the pinto of the arteries. High blood pressure can harm your health In a healthy blood vessel, the blood moves smoothly through the vessel and puts normal pressure on the vessel pinto. High blood pressure occurs when blood pushes too hard against artery pinto. This causes damage to the artery pinto and then the formation of scar tissue as it heals. This makes the arteries stiff and weak. Plaque sticks to the scarred tissue narrowing and hardening the arteries. High blood pressure also causes your heart to work harder to get blood out to the body. High blood pressure raises your risk of heart attack, also known as acute myocardial infarction, or AMI, heart failure, and stroke. It can also lead to kidney disease, and blindness. In general, if you have high blood pressure, keeping your blood pressure below 130/80 mmHg may help prevent these problems. Your healthcare provider may prescribe medicine to help control blood pressure if lifestyle changes are not enough. It's important to know your blood pressure numbers. Blood pressure measurements are given as 2 numbers. Systolic blood pressure is the upper number. This is the pressure when the heart contracts. Diastolic blood pressure is the lower number. This is the pressure when the heart relaxes between beats. Blood pressure is categorized as normal, elevated, or stage 1 or stage 2 high blood pressure: Normal blood pressure is systolic of less than 120 and diastolic of less than 80 (120/80) Elevated blood pressure is systolic of 120 to 129 and diastolic less than 80 Stage 1 high blood pressure is systolic is 130 to 139 or diastolic between 80 to 89 Stage 2 high blood pressure is when systolic is 140 or higher or the diastolic is 90 or higher High blood pressure is diagnosed when multiple, separate readings show blood pressure above 130/80 mmHg. Talk with your healthcare provider if you have questions or concerns about your blood pressure readings. Measuring blood pressure An example of ablood pressure measurement is 120/70. The top number is the pressure of blood against the artery pinto during a heartbeat (systolic). The bottom number is the pressure of blood againstartery pinto between heartbeats (diastolic). Talk with your healthcare provider to find out what your blood pressure goals should be. Controlling blood pressure If your blood pressure is too high, work with your doctor on a plan for lowering it. Below are stepsyou can take that will help lower your blood pressure. Choose heart-healthy foods. Eating healthier meals helps you control your blood pressure. Ask your doctor about the DASH eating plan. This plan helps reduce blood pressure by limiting the amount of sodium (salt) you have in your diet. DASH also encourages eating plenty of fruits and vegetables, low-fat or non-fat dairy, whole-grains, and foods high in fiber, and low in fat. This also provides an enhanced amount of potassium which can also help lower blood pressure. Reduce sodium. Reducing sodium in your diet reduces fluid retention. Fluid retention caused by too much salt increases blood volume and blood pressure. The [place] [employer] (AHA) advises an "ideal" amount of sodium: no more than 1,500 mg a day. But because Americans eat so much salt, the AHA says a positive change can occur by cutting back to even 2,300 mg a day. Stay at a healthy weight. Being overweight makes you more likely to have high blood pressure. Losing excess weight helps lower blood pressure. Exercise regularly. Daily exercise helps your heart and blood vessels work better and stay healthier. It can help lower your blood pressure. Stop smoking. Smoking increases blood pressure and damages blood vessels. Limit alcohol. Drinking too much alcohol can raise blood pressure. Men should have no more than 2drinks a day. Women should have no more than 1. A drink is equal to 1 beer, or a small glass of wine, or a shot of liquor. Control stress. Stress makes your heart work harder and beat faster. Controlling stress helps youcontrol your blood pressure. Facts about high blood pressure FeelingOK does not mean your blood pressure is under control. Likewise, feeling bad doesnt mean its out of control. The only way to know for sure is to check your pressure regularly. Medicine is only one part of controlling high blood pressure. You also need to manage your weight, get regular exercise, and adjust your eating habits. High blood pressure is usually a lifelong problem. But it can be controlled with healthy lifestyle changes and medicine. Hypertension is not the same as stress. Although stress may be a factor in high blood pressure, its only one part of the story. Blood pressure medicines need to be taken every day. Stopping suddenly may cause a dangerous increase in pressure. [employer] last reviewed this educational content on 11/03/201819995040-3882 [employer]. [address] [place] [address]. All rights reserved. This information is not intended as a substitute for professional medical care. Always follow your healthcare professional's instructions. Patient Education Your High Blood Pressure Risk Factors Risk factors are things that make you more likely to have a disease or condition. Do you know your risk factors for high blood pressure? You cant do anything about some risk factors. But other risk factors are things that can be changed. Know what high blood pressure risk factors you have. Then find out what changes you can make to help control your risk for high blood pressure.Start with the change that you think will be easiest for you. Risk factors you cant control Though you cant change any of the things listed below, check off the ones that apply to you. The more boxes you check, the greater your risk for high blood pressure. Family history ? One or both of your parents or grandparents has had high blood pressure or heart disease. Gender, age, and race ? Youre a man over age 55 or a postmenopausal woman. Or you are . Risk factors you can control There are plenty of risk factors for high blood pressure that you can control. Learn what these riskfactors are and then find out how to reduce your risk. Check the ones that apply to you. ? What you eat Do you eat a lot of salty, fatty, fried, or greasy foods? Do you go to restaurants or eat out frequently? ? What you drink Do you have more than 1 alcoholic drink a day if you are a female or more than 2 drinks a day if youmale? ? If you smoke or someone close to you smokes Do you smoke cigarettes or cigars, chew tobacco, or dip snuff? Are you exposed to second-hand smoke on a regular basis? ? How active you are Are you inactive most of the time at work and at home? Do you go weeks without exercising? ? Your weight Has your doctor said that you are 15 or more pounds overweight? ? Your stress level Do you often feel anxious, nervous, and stressed? Do you feel that you don't have a supportive environment? [employer] last reviewed this educational content on 02/02/201919991985-6830 [employer]. [address] [place] [address]. All rights reserved. This information is not intended as a substitute for professional medical care. Always follow your healthcare professional's instructions. documented in this encounter Plan of Treatment Date Type Specialty Care Team Description 12/22/2019 Telemedicine Visit Obstetrics & Gynecology Stefanie Tejeda PA-C [address] [place] [phone] Health Maintenance Due Date Last Done [...] filedocumented in this encounter Visit Diagnoses Diagnosis History of induced hypertensio n - Primary documented in this encounter Insurance Payer Benefit Plan / Subscriber ID Effective Phone Address T [employer]pe [facility] xxxxxxxxx 2019-Jose [address] Medic aid HEALTH CHOICE - HEALTH CHOICE nt [id number] 1 MANAGED MEDICAID [place], [place] MEDICAID [phone] documented as of this encounter
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
[2020-02-11 01:06] VITALS: BP 119/86; TEMP 98; O2SAT 100
== END 2020-02-11 00:40 | disposition left against medical advice (07) ==
LOC: ER 22:48
DX: M54.9 Dorsalgia, unspecified (principal); Z53.21 Procedure and treatment not carried out due to patient leaving prior to being seen by health care provider
CPT/HCPCS: 99281; G0390

== ENCOUNTER 2020-05-25 20:38 | Inpatient (IN) | payer OTHER ==
--- OUTSIDE RECORDS SUMMARY | 2020-05-25 20:45 | XMS REPORT | Clinical Summary ---
:1995 Author Organization [facility] Address [address] [place] [id number] Care Team Providers Name Role Phone Asked, No Pcp Primary Care Provider Unavailable Allergies Active Allergy Reactions Severity Noted Date Comments Penicillins 03/31/2019 Medications Not on file Active Problems Not on file Family History Medical History Relation Name Comments No Known Problems Father Diverticulitis Maternal Grandmother No Known Problems Mother Relation Name Status Comments Father Maternal Grandmother Mother Social History Tobacco Use Types Packs/Day Years Used Date Never Smoker Smokeless Tobacco: Never Used Alcohol Use Drinks/Week oz/Week Comments Yes moderate use Sex Assigned at Date Recorded Not on file Last Filed Vital Signs Not on file Plan of Treatment Health Maintenance Due Date Last Done Comments CERVICAL CANCER SCREENING 2015 INFLUENZA VACCINE 03/05/2020 Results Not on fileafter 05/25[address] (Home) [address] [place] [address] Advance Directives For more information, please contact: [phone] Type Date Recorded 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
--- OUTSIDE RECORDS SUMMARY | 2020-05-25 20:46 | XMS REPORT | Summary of Care ---
:1995 Author Organization [facility] Address [address] [place] [id number] Care Team Providers Name Role Phone Vincent IMMANUEL Unavailable Salvatore Roth MD Primary Care Provider Reason for Visit Reason Comments Abdominal Pain Auth/Cert Status Reason Specialty Diagnoses / Referred By Referred To Procedures Contact Contact Emergency Medicine Diagnoses ABDOMINAL PAIN [facility] [address] [place] [address] Fax: Encounter Details Date Type Department Care Team Description 04/14/2020 - Emergency [facility] Hiral Massey, PAC [address] [place], [place] [id number] Epigastric pain (Primary Dx); 04/15/2020 Department Sheree Ramírez MD [address] [place] [address] [id number] [place], [place] [id number] Nausea and vomiting in adult patient [address] [place], [place] [id number] Allergies Active Allergy Reactions Severity Noted Date Comments Penicillins Rash 05/11/2019 documented as of this encounter (statuses as of 04/15/2020) Medications Medication Sig Dispensed Refills Start Date End Date Status hydroCHLOROthiazide 12.5 Take 1 capsule 42 capsule 0 0 Active mg capsuleIndications: by mouth daily. Supervision of high risk , antepartum, 39 weeks gestation of , Normal labor, Pre-eclampsia, mild, delivered, Liveborn , of rojas , born in hospital by vaginal delivery vitamin w/FA Take 1 tablet 100 tablet 3 11/24/2019 Active tabletIndications: by mouth daily. Supervision of high risk , antepartum, 39 weeks gestation of , Normal labor, Pre-eclampsia, mild, delivered, Liveborn infant, of rojas , born in hospital by vaginal delivery docusate calcium 240 mg Take 1 capsule 60 capsule 1 11/24/2019 Active capsuleIndications: by mouth once Supervision of high risk daily as needed , antepartum, 39 for weeks gestation of Constipation. , Normal labor, Pre-eclampsia, mild, delivered, Liveborn , of rojas , born in hospital by vaginal delivery ferrous sulfate 325 mg Take 1 tablet 60 tablet 2 11/24/2019 Active (65 mg iron) by mouth 2 tabletIndications: (two) times Supervision of high risk daily. , antepartum, 39 weeks gestation of , Normal labor, Pre-eclampsia, mild, delivered, Liveborn infant, of rojas , born in hospital by vaginal delivery ibuprofen 600 mg Take 1 tablet 30 tablet 1 11/24/2019 Active tabletIndications: by mouth every Supervision of high risk 6 (six) hours , antepartum, 39 as needed weeks gestation of (Pain). Take , Normal labor, with food or Pre-eclampsia, mild, milk. delivered, Liveborn infant, of rojas , born in hospital by vaginal delivery levonorgestrel-ethinyl Take 1 tablet 1 Package 12 12/25/2019 Active estradiol 0.1-20 mg-mcg by mouth daily. per tabletIndications: control counseling, Initiation of OCP (BCP) dicyclomine 20 mg Take 1 tablet 20 tablet 0 04/15/2020 Active tabletIndications: by mouth every Epigastric pain 6 (six) hours as needed for Abdominal pain. ondansetron (ZOFRAN) 4 mg Take 1 tablet 12 tablet 0 04/15/2020 Active tabletIndications: Nausea by mouth every and vomiting in adult 8 (eight) hours patient as needed for Nausea and Vomiting (N/V). pantoprazole (PROTONIX) Take 1 tablet 28 tablet 0 04/15/2020 Active 40 mg EC by mouth daily. tabletIndications: Epigastric pain documented as of this encounter (statuses as of 04/15/2020) Active Problems Problem Noted Date Pre-eclampsia, mild, delivered 11/24/2019 Liveborn , of rojas , born in [facility] by vaginal 11/24/2019 delivery Normal labor 11/23/2019 Uterine contractions during 11/22/2019 39 weeks gestation of 08/03/2019 Obesity (BMI 30-39.9) 04/28/2019 Abnormal maternal glucose tolerance, antepartum 2018 Overview: pendign 3hr gtt Obesity affecting 04/02/2019 Supervision of high risk , antepartum 019 documented as of this encounter (statuses as of 04/15/2020) Resolved Problems Problem Noted Date Resolved Date Hypokalemia 04/29/2019 08/03/2019 12 weeks gestation of 04/28/2019 08/03/20 19 Nausea and vomiting during prior to 22 weeks 04/2808/03/2019 gestation Nausea and vomiting during 04/02/2019 documented as of this encounter (statuses as of 04/15/2020) Immunizations Name Administration Dates Next Due TDAP (ADACEL) VACCINE 09/17/2019 Td 08/05/2008 documented as of this encounter Social History Tobacco Use Types Packs/Day Years Used Date Never Smoker Smokeless Tobacco: Never Used Alcohol Use Drinks/Week oz/Week Comments No Sex Assigned at Date Recorded Not on file COVID-19 Exposure Response Date Recorded In the last month, have you been in contact with No / Unsure 04/14/2020 10:33 PM CDT someone who was confirmed or suspected to have Coronavirus / COVID-19? documented as of this encounter Last Filed Vital Signs Vital Sign Reading Time Taken Comments Blood Pressure 115/72 04/15/2020 12:07 AM CDT Pulse 61 04/15/2020 12:07 AM CDT Temperature 36.7 C (98 F) 04/14/2020 10:30 PM CDT Respiratory Rate 16 04/15/2020 12:07 AM CDT Oxygen Saturation 97% 04/15/2020 12:07 AM CDT Inhaled Oxygen Concentration - - Weight 87.1 kg (192 lb) 04/14/2020 10:41 PM CDT Height - - Body Mass Index 32.96 11/30/2019 2:54 PM CDT documented in this encounter Discharge Instructions Sheree Urbano MD - 04/15/2020 DIAGNOSIS Diagnoses that have been ruled out: None Diagnoses that are still under consideration: None Final diagnoses: Epigastric pain Nausea and vomiting in adult patient NO LIFE-THREATENING FINDINGS ON TODAY'S EXAM. PROCEDURES IN THE ER TODAY: Orders Placed This Encounter Procedures CBC WITH DIFF COMP. METABOLIC PANEL (24847) LIPASE POCT TEST MEDICATIONS ADMINISTERED IN THE ER TODAY AND DISCHARGE MEDICATIONS: Orders Placed This Encounter Medications pantoprazole (PROTONIX) 40 mg in NaCl 0.9% (NS) 100 mL MINI-BAG ketorolac (TORADOL) injection 30 mg ondansetron (ZOFRAN (PF)) injection 4 mg morpHINE injection 4 mg FOLLOW-UP RECOMMENDATIONS: RECOMMEND FOLLOW-UP WITH A PRIMARY CARE PROVIDER OR SPECIALIST IN 2-5 DAYS, ESPECIALLY IF NO IMPROVEMENT IN SYMPTOMS. MAY FOLLOW-UP WITH A PROVIDER OF YOUR CHOICE, SUCH : 1. A PHYSICIAN OF YOUR CHOICE 2. [facility], . LOCATIONS IN [facility] 3. [facility], [address] [place] [address]; [phone] OR, IF YOU WISH TO FOLLOW-UP WITHIN THE [facility], MAY TRY THESE OPTIONS (CLINIC APPOINTMENTS AVAILABLE ON [id number] BASIS): 1. SCHEDULE AN APPOINTMENT ONLINE AT [email or web address] 2. OR CALL THE [facility] AT OR 3. OR CALL YOUR [facility] PHYSICIAN'S OFFICE DIRECTLY IF YOU ARE ALREADY AN ESTABLISHED [facility] PATIENT. RETURN TO ER FOR WORSENING OF SYMPTOMS documented in this encounter ED Notes Carri Ch RN - 04/14/2020 10:32 PM CDTEmistefan Jackson is a 24 year old female co mid upper abd pain that started 1 to 2 hrs ago. Denies fever reports vomited x 1 captain cannery tender. No diarrhea. Sheree Piña MD - 04/14/2020 10:25 PM CDT [facility] Department Note Patient Name: Matilda Jackson Date of : 1995 24 year old female Treatment Room: Room/bed info not found Primary Care Physician: Ericka Roth Patient Escorted by: Self [9] Mode of Arrival: Personal means [1] EMS Treatment Prior to ED Arrival: SKIN GRADER treatment: None Travel and Exposure Screening: Symptoms Does patient have any of these symptoms?: (not recorded) Exposure Screening Has patient had contact with someone with a communicable disease in the last month?: (not recorded) Diseases exposed to:: (not recorded) Is Patient ?: (not recorded) Exposure Date: (not recorded) Chief Complaint: Chief Complaint Patient presents with Abdominal Pain History of Present Illness: Matilda Jackson is a 24 year old female with no significant PMH who presented to the ED for evaluation of epigastric pain that began about an hour prior to arrival in the ED. Pain is rate at 8/10, non radiating and associated with N/V X 1 episode of digested food particles. No known aggravating factors and patient did not take any analgesics prior to arrival in the ED. Denies any fever or chills. No constipation or diarrhea. As never had similar type pain in the past. Denies any urinary symptoms. Past Medical History/Immunizations: Past Medical History: Diagnosis Date Abnormal maternal glucose tolerance, antepartum 04/10/2019 Pre-eclampsia, mild, delivered 11/24/2019 Tetanus received in last 5 years: Yes Childhood immunizations: Up-to-date Allergies: Allergies Allergen Reactions Pcn [Penicillins] Rash Past Social History: Tobacco Use Never smoked or used smokeless tobacco. Alcohol Use No. Drug Use Yes; Marijuana. Comments: previous / d/c when she had + UPT Sexual Activity Not currently sexually active; Partners: Male; Control/Protection: None. Comments: Last intercourse: 03/26/2019 Past Surgical History: None Review of Systems: Review of Systems Constitutional: Negative. Negative for appetite change, chills, diaphoresis, fatigue, fever and unexpected weight change. HENT: Negative. Eyes: Negative. Respiratory: Negative. Breasts: Negative. Cardiovascular: Negative. Gastrointestinal: Positive for abdominal pain, nausea and vomiting. Negative for abdominal distention, anal bleeding, blood in stool, constipation, diarrhea and rectal pain. Genitourinary: Negative. Negative for pelvic pain. Musculoskeletal: Negative. Skin: Negative. Neurological: Negative. Psychiatric/Behavioral: Negative. Endocrine: Endocrine negative Physical Exam: ED Triage Vitals Weight 04/14/20 2241 87.1 kg (192 lb) Actual or estimated -- Height -- BP 04/14/202229 (!) 133/97 Pulse 04/14/202229 53 Resp 04/14/202229 18 Temp 04/14/202229 36.7 C (98 F) Temp src -- SpO2 04/14/202229 98 % Measured on 04/14/202229 Room air Physical Exam Vitals signs and nursing note reviewed. Constitutional: General: She is not in acute distress. Appearance: Normal appearance. She is well-developed and normal weight. She is not ill-appearing,toxic-appearing or diaphoretic. HENT: Head: Normocephalic and atraumatic. Right Ear: External ear normal. There is no impacted cerumen. Left Ear: External ear normal. There is no impacted cerumen. Nose: Nose normal. No congestion or rhinorrhea. Mouth/Throat: Pharynx: No oropharyngeal exudate. Eyes: General: No scleral icterus. Right eye: No discharge. Left eye: No discharge. Extraocular Movements: Extraocular movements intact. Conjunctiva/sclera: Conjunctivae normal. Pupils: Pupils are equal, round, and reactive to light. Neck: Musculoskeletal: Normal range of motion and neck supple. Thyroid: No thyromegaly. Cardiovascular: Rate and Rhythm: Normal rate and regular rhythm. Heart sounds: Normal heart sounds. No murmur. Pulmonary: Effort: Pulmonary effort is normal. No respiratory distress. Breath sounds: Normal breath sounds. No stridor. No wheezing or rales. Chest: Chest wall: No tenderness. Abdominal: General: Bowel sounds are normal. There is no distension. Palpations: Abdomen is soft. There is no mass. Tenderness: There is no abdominal tenderness. There is no right CVA tenderness, left CVA tenderness, guarding or rebound. Hernia: No hernia is present. Musculoskeletal: Normal range of motion. General: No swelling, tenderness or deformity. Lymphadenopathy: Cervical: No cervical adenopathy. Skin: General: Skin is warm and dry. Capillary Refill: Capillary refill takes less than 2 seconds. Coloration: Skin is not jaundiced or pale. Findings: No bruising, erythema, lesion or rash. Neurological: Mental Status: She is alert and oriented to person, place, and time. Cranial Nerves: No cranial nerve deficit. Sensory: No sensory deficit. Motor: No weakness or abnormal muscle tone. Coordination: Coordination normal. Gait: Gait normal. Deep Tendon Reflexes: Reflexes normal. Psychiatric: Mood and Affect: Mood normal. Behavior: Behavior normal. Thought Content: Thought content normal. Judgment: Judgment normal. Radiology: No results found for this visit on 04/14/20. Lab Results (24h): Recent Results (from the past 24 hour(s)) CBC WITH DIFF Collection Time: 04/14/20 10:50 PM Result Value Ref Range WBC 9.08 4.30 - 11.10 10*3/L RBC 4.85 3.93 - 5.25 10*6/L HGB 13.7 11.6 - 15.0 g/dL HCT 40.9 35.7 - 45.2 % MCV 84.3 80.6 - 95.5 fL MCH 28.2 25.9 - 32.8 pg MCHC 33.5 31.6 - 35.1 g/dL RDW-SD 45.1 39.0 - 49.9 fL RDW-CV 14.7 12.0 - 15.5 % PLT 376 (H) 166 - 358 10*3/L MPV 8.9 (L) 9.5 - 12.9 fL NRBC/100 WBC 0.0 0.0 - 10.0 /100 WBCs NRBC x10^3 <0.01 10*3/L GRAN MAT (NEUT) % 53.4 % IMM GRAN % 0.30 % LYMPH % 35.5 % MONO % 9.4 % EOS % 0.8 % BASO % 0.6 % GRAN MAT x10^3(ANC) 4.86 1.88 - 7.09 10*3/uL IMM GRAN x10^3 0.03 0.00 - 0.06 10*3/uL LYMPH x10^3 3.22 1.32 - 3.29 10*3/uL MONO x10^3 0.85 0.33 - 0.92 10*3/uL EOS x10^3 0.07 0.03 - 0.39 10*3/uL BASO x10^3 0.05 0.01 - 0.07 10*3/uL COMP. METABOLIC PANEL (89163) Collection Time: 04/14/20 10:50 PM Result Value Ref Range NA 139 135 - 145 mmol/L K 3.6 3.5 - 5.0 mmol/L CL 102 98 - 108 mmol/L CO2 TOTAL 27 23 - 31 mmol/L AGAP 10 2 - 16 BUN 15 7 - 23 mg/dL GLUCOSE 119 (H) 70 - 110 mg/dL CREATININE 0.89 0.50 - 1.04 mg/dL TOTAL BILI 0.8 0.1 - 1.1 mg/dL CALCIUM 9.6 8.6 - 10.6 mg/dL T PROTEIN 7.3 6.3 - 8.2 g/dL ALBUMIN 4.2 3.5 - 5.0 g/dL ALK PHOS 91 34 - 122 U/L ALTv 32 5 - 35 U/L AST(SGOT) 94 (H) 13 - 40 U/L eGFR Calculation (Non-) 77.3 mL/min/1.73m2 eGFR Calculation () 93.7 mL/min/1.73m2 LIPASE Collection Time: 04/14/20 10:50 PM Result Value Ref Range LIPASE 69 0 - 220 U/L POCT TEST Collection Time: 04/14/20 10:52 PM Result Value Ref Range POCT PREG negative On board controls acceptable with C Line present POCT PREG LOT # [id number] POCT PREG TEST DATE 04/04/2021 Orders and Treatments: Orders Placed This Encounter Procedures CBC WITH DIFF COMP. METABOLIC PANEL (31470) LIPASE POCT TEST Orders Placed This Encounter Medications pantoprazole (PROTONIX) 40 mg in NaCl 0.9% (NS) 100 mL MINI-BAG ketorolac (TORADOL) injection 30 mg ondansetron (ZOFRAN (PF)) injection 4 mg morpHINE injection 4 mg dicyclomine 20 mg tablet ondansetron (ZOFRAN) 4 mg tablet pantoprazole (PROTONIX) 40 mg EC tablet ED COURSE ED Course as of Apr 15 7SatApr 15, 2020 0004 Pt re-examined. Pain now 11/12 Discussed work-up. Imaging deferred at this time as probably of an acute abdomen is low Discussed return precautions and need for close follow-up [WY] ED Course User Index [WY] Sheree Ramírez MD MDM: Coding Diagnosis/Impression: ICD-10-CM ICD-9-CM 1. Epigastric pain R10.13 789.06 2. Nausea and vomiting in adult patient R11.2 787.01 Disposition/Condition: ED Disposition ED Disposition Condition Comment Disch - Home Stable Discharge Medications: Patient's Medications START taking these medications DICYCLOMINE 20 MG TABLET Take 1 tablet by mouth every 6 (six) hours as needed for Abdominal pain. ONDANSETRON (ZOFRAN) 4 MG TABLET Take 1 tablet by mouth every 8 (eight) hours as needed for Nausea and Vomiting (N/V). PANTOPRAZOLE (PROTONIX) 40 MG EC TABLET Take 1 tablet by mouth daily. CONTINUE taking these medications which have NOT CHANGED DOCUSATE CALCIUM 240 MG CAPSULE Take 1 capsule by mouth once daily as needed for Constipation. FERROUS SULFATE 325 MG (65 MG IRON) TABLET Take 1 tablet by mouth 2 (two) times daily. HYDROCHLOROTHIAZIDE 12.5 MG CAPSULE Take 1 capsule by mouth daily. IBUPROFEN 600 MG TABLET Take 1 tablet by mouth every 6 (six) hours as needed (Pain). Take with food or milk. LEVONORGESTREL-ETHINYL ESTRADIOL 0.1-20 MG-MCG PER TABLET Take 1 tablet by mouth daily. VITAMIN W/FA TABLET Take 1 tablet by mouth daily. START taking Modified Medications as Prescribed No medications on file STOP taking these medications No medications on file Follow-up: Electronically signed by: Sheree Ramírez MD 04/14/2020 10:42 PM documented in this encounter Miscellaneous Notes ED Nurse Note - Carri Ch RN - 04/15/2020 12:13 AM CDTPatient has been medicated for pain Per orders. Reports that pain is better and down to 4/10 whileadministering pain medication. Patient then given prescription and discharge instructions with voiced understanding. Patient discharged ambulatory to home per private means. D Nurse Note - Carri Ch RN - 04/14/2020 11:54 PM CDTDr. Sri at bedside with patient. Discussing results and treatment plan. D Nurse Note - Carri Ch RN - 04/14/2020 11:10 PM CDTReport rec'd. Patient lying on stretcher with protonix infusing.. Patient reports already starting to feel better. Medicated per orders with zofran and toradol. Denies any needs at this time, D Nurse Note - Gavin Crooks RN - 04/14/2020 11:00 PM CDTNurse Report Report given to SIM Christina. Chief complaint, assessment findings and orders reviewed. Plan of care discussed with nurse. Pt pending lab results at this time. GAVIN CROOKS RN documented in this encounter Plan of Treatment Health Maintenance Due Date Last Done Comments HPV VACCINES (1 - 2-dose 2005 series) INFLUENZA VACCINE (#1) 2020 Depression Screening 10/13/2020 10/14/2019 PAP SMEAR 04/02/2022 04/02/2019 DTaP,Tdap,and Td Vaccines (3 09/17/2029 09/17/2019, - Td) 08/05/2008 PNEUMOCOCCAL 0-64 YEARS Aged Out No longe r eligible based COMBINED SERIES on patient's age to complete this to pic documented as of this encounter Procedures Procedure Name Priority Date/Time Associated Diagnosis Comme nts POCT TEST LEON 04/14/2020 10:52 PM Epigastric ford n Results for this CDT procedure are i n the results section. CBC WITH DIFF STAT 04/14/2020 10:50 PM Epigastric pain Resu lts for this CDT procedure are i n the results section. COMP. METABOLIC STAT 04/14/2020 10:50 PM Epigastric pain Re sults for this PANEL ([id number]) CDT procedure are in the results section. LIPASE STAT 04/14/2020 10:50 PM Epigastric pain Resul ts for this CDT procedure are i n the results section. NOTICE OF PRIVACY Routine 04/14/2020 10:26 PM PRACTICES CDT NOTICE OF PRIVACY Routine 04/14/2020 10:25 PM PRACTICES CDT documented in this encounter Results POCT TEST (04/14/2020 10:52 PM CDT) Pathologist Sig nature POCT PREG negative On board controls acceptable present with C Line POCT PREG LOT # [id number] POCT PREG TEST DATE 04/04/2021 Specimen Urine - URINE, CLEAN CATCH LIPASE (04/14/2020 10:50 PM CDT) Pathologist Sig nature LIPASE 69 0 - 220 U/L [facility] Specimen Blood - VENOUS Performing Organization Address City/State/Zipcode Phone Number [facility] CLIA: [id number] [place] [address] COMP. METABOLIC PANEL ([id number]) (04/14/2020 10:50 PM CDT) Pathologist Sig nature NA 139 135 - 145 [facility] mmol/L [facility] K 3.6 3.5 - 5.0 [facility] mmol/L [facility] CL 102 98 - 108 mmol/L [facility] CO2 TOTAL 27 23 - 31 mmol/L [facility] AGAP 10 2 - 16 [facility] BUN 15 7 - 23 mg/dL [facility] GLUCOSE 119 (H) 70 - 110 mg/dL [facility] CREATININE 0.89 0.50 - 1.04 [facility] mg/dL [facility] TOTAL BILI 0.8 0.1 - 1.1 mg/dL [facility] CALCIUM 9.6 8.6 - 10.6 [facility] mg/dL [facility] T PROTEIN 7.3 6.3 - 8.2 g/dL [facility] ALBUMIN 4.2 3.5 - 5.0 g/dL [facility] ALK PHOS 91 34 - 122 U/L [facility] ALTv 32 5 - 35 U/L [facility] AST(SGOT) 94 (H) 13 - 40 U/L [facility] eGFR Calculation 77.3 mL/min/1.73m2 [facility] ([facility] French) eGFR Calculation 93.7 mL/min/1.73m2 [facility] Specimen Blood - VENOUS Narrative Performed At Association of Glomerular Filtration Rate (GFR) [facility] and Staging of Kidney Disease* + [...] tests). Performing Organization Address City/State/Zipcode Phone Number [facility] CLIA: [id number] [place] [address] CBC WITH DIFF (04/14/2020 10:50 PM CDT) Pathologist [facility] nature WBC 9.08 4.30 - 11.10 [facility] 10*3/L [facility] RBC 4.85 3.93 - 5.25 [facility] 10*6/L [facility] HGB 13.7 11.6 - 15.0 g/dL [facility] HCT 40.9 35.7 - 45.2 % [facility] MCV 84.3 80.6 - 95.5 fL [facility] MCH 28.2 25.9 - 32.8 pg [facility] MCHC 33.5 31.6 - 35.1 g/dL [facility] RDW-SD 45.1 39.0 - 49.9 fL [facility] RDW-CV 14.7 12.0 - 15.5 % [facility] PLT 376 (H) 166 - 358 [facility] 10*3/L [facility] MPV 8.9 (L) 9.5 - 12.9 fL [facility] NRBC/100 WBC 0.0 0.0 - 10.0 /100 [facility] WBCs [facility] NRBC x10^3 <0.01 10*3/L [facility] GRAN MAT (NEUT) % 53.4 % [facility] IMM GRAN % 0.30 % [facility] LYMPH % 35.5 % [facility] MONO % 9.4 % [facility] EOS % 0.8 % [facility] BASO % 0.6 % [facility] GRAN MAT x10^3(ANC) 4.86 1.88 - 7.09 [facility] 10*3/uL [facility] IMM GRAN x10^3 0.03 0.00 - 0.06 [facility] 10*3/uL [facility] LYMPH x10^3 3.22 1.32 - 3.29 [facility] 10*3/uL [facility] MONO x10^3 0.85 0.33 - 0.92 [facility] 10*3/uL [facility] EOS x10^3 0.07 0.03 - 0.39 [facility] 10*3/uL [facility]ITAL [facility] BASO x10^3 0.05 0.01 - 0.07 [facility] 10*3/uL [facility] Specimen Blood - VENOUS Performing Organization Address City/State/Zipcode Phone Number [facility] CLIA: [id number] [place] [address] documented in this encounter Visit Diagnoses Diagnosis Epigastric pain - Primary Abdominal pain, epigastric Nausea and vomiting in adult patient Nausea with vomiting documented in this encounter Administered Medications Medication Order MAR Action Action Date Dose Rate Site ketorolac (TORADOL) injection 30 Given 04/14/2020 11:09 PM CDT 3 0 mg mg 30 mg, Slow IV Push, ONCE, 1 dose, Sat04/15/20 at 0000, Routine, chemistry faculty member approving Restricted medication: SHEREE RAMÍREZ morpHINE injection 4 mg Given 04/15/2020 12:04 AM CDT 4 mg 4 mg, Slow IV Push, ONCE, 1 dose, Sat04/15/20 at 0100, STAT ondansetron (ZOFRAN (PF)) injection 4 mg Given 04/14/2020 11:08 PM CDT 4 mg 4 mg, Slow IV Push, ONCE, 1 dose, 04/15/20 at 0000, LEON pantoprazole (PROTONIX) 40 mg in NaCl 0.9% Given 04/14/2020 10:5 4 PM CDT 40 mg (NS) 100 mL MINI-BAG 40 mg, IV Piggyback, ONCE, 1 dose, [facility] 04/14/20 at 2345, 100 mL documented in this encounter Insurance Payer Benefit Plan / Subscriber ID Effective Phone Address T e Group Dates [facility] [id number] 2019-Jose [address] Medic aid HEALTH CHOICE - [place] [id number] 1 MANAGED MEDICAID [place], [place] [phone] documented as of this encounter"
--- OUTSIDE RECORDS SUMMARY | 2020-05-25 20:46 | XMS REPORT | Continuity of Care Document ---
:1995 Author Organization [facility] t Address [address] [place] [address] [address] [place] [address] Care Team Providers Name Role Phone Asked, Pcp Primary Care Physician Unavailable Sri VELOZ, S Attending Clinician Bryson JASMINE, S Attending Clinician Nikhil JONES Attending Clinician Nurse, Women's Health Attending Clinician Unavailable Hari VELOZ Attending Clinician Gonzalez VELOZ, Cam Attending Clinician Doctor Unassigned, Name Attending Clinician Unavailable Hari VELOZ Admitting Clinician Problems This patient has no known problems. [...] Known Problems Anitra Arnold Maternal grandmother Diverticulitis [place] [employer] Natural mother No Known Problems Anitra Arnold Social History Social Habit Start Date Stop Date Quantity Comments Source Sex Assigned At [facility] ethodist Tobacco use and 2019-03-31 2019-03-31 Never used [facility] ethodist exposure 00:00:00 00:00:00 Alcohol intake 2019-03-31 2019-03-31 Current drinker Iris Arnold 00:00:00 00:00:00 of alcohol (finding) Alcohol Comment 2019-03-31 2019-03-31 moderate use Montrell Arnold 00:00:00 00:00:00 Smoking Status Start Date Stop Date Source Never smoker Montrell bellamy Medications This patient has no known medications. Procedures This patient has no known procedures. Plan of Care Planned Activity Planned Date Details Comments Source Future Scheduled 2020-03-05 INFLUENZA VACCINE Genevieve tavera [employer] Test 00:00:00 [code = INFLUENZA VACCINE] Future Scheduled 2015 Screening for Montrell Agudelo thodist Test 00:00:00 malignant neoplasm of cervix (procedure) [code = 747614413] Encounters Start End Encounter Admission Attending Care Care Encounter Source Date/Time Date/Time Type Type Clinicians Facility Department ID 2020-04-15 2020-04-15 Emergency Sri [facility] [id number] 21:04:00 23:55:00 Mony Matamoros [id number] [place] [id number] [place] [id number] 2020-04-14 2020-04-15 Emergency Hiral Massey [facility] [id number] 22:42:00 00:15:00 Mony Fierro [id number] [place] 4.2.7.2.686 [place] [id number] 2019-12-25 2019-12-25 Telemedici Nikhil [facility] [id number] 09:24:12 09:39:12 ne Visit Marcella Matamoros [id number] [place] 4.2.7.2.686 [facility] [id number] [address] 2019-11-30 2019-11-30 Nurse Nurse, [facility] [id number] 14:38:58 14:55:30 Visit Women'isabel Matamoros [id number] [facility] [id number] [place] [id number] [address] 2019-11-22 2019-11-24 [facility] [id number] 21:57:00 10:35:00 Encounter Krystina Matamoros [id number] [place] 4.2.7.2.686 [place] [id number] 2019-11-24 2019-11-24 Telephone Ericka Roth [facility] [id number] 00:00:00 00:00:00 [place] [id number] [place] [id number] [place] [phone] [address] 2019-11-22 2019-11-22 [facility] [id number] 11:15:00 13:25:00 Encounter Krystina Matamoros [id number] [place] 4.2.7.2.686 [place] [id number] 2019-11-19 2019-11-19 Routine Ericka Roth [facility] [id number] 16:00:04 16:26:51 Cam [place] [id number] Visit [place] 4.2.7.2.686 [place] [id number] [address] 2019-11-12 2019-11-12 Routine Ericka Roth [facility] [id number] 15:54:30 16:23:02 Cam [place] [id number] Visit [place] 4.2.7.2.686 [place] [id number] [address] 2019-11-06 2019-11-06 Orders Doctor DARIA [id number] 00:00:00 00:00:00 Only Unassigned, GLENN 350.1.13.10 [place] [facility] 4.2.7.2.686 [id number] 2019-11-05 2019-11-05 Routine Nikhil [facility] [id number] 07:54:57 08:09:57 Marcella Matamoros [id number] Visit [place] 4.2.7.2.686 [place] [id number] [address] 2019-11-02 2019-11-02 Telephone Ericka Roth [facility] [id number] 00:00:00 00:00:00 Cam [place] [id number] [place] 4.2.7.2.686 [place] [phone] [address] 2019-10-29 2019-10-30 Routine Ericka Roth [facility] [id number] 15:58:33 10:03:05 Cam [place] [id number] Visit [place] 4.2.7.2.686 [place] [id number] [address] 2019-10-30 2019-10-30 Case Ericka Roth [facility] [id number] 00:00:00 00:00:00 Management Cam [place] [id number] [place] 4.2.7.2.686 [place] [phone] [address] Results This patient has no known results.
--- OUTSIDE RECORDS SUMMARY | 2020-05-25 20:46 | XMS REPORT | Summary of Care ---
:1995 Author Organization [facility] Address [address] [place] [id number] Care Team Providers Name Role Phone Vincent IMMANUEL Unavailable Salvatore Roth MD Primary Care Provider Reason for Referral Radiology Services (STAT) Status Reason Specialty Diagnoses / Referred By Referred To Procedures Contact Contact New Request Diagnostic Diagnoses Generalized abdominal pain Mony Fierro Radiology Procedures US ABDOMEN LIMITED MD Noble [address] [place] [id number] Reason for Visit Reason Comments Abdominal Pain Vomiting Auth/Cert Status Reason Specialty Diagnoses / Referred By Referred To Procedures Contact Contact Emergency Medicine [facility] Em ergency Dept [address] [place] [address] Fax: Encounter Details Date Type Department Care Team Description 04/15/2020 Emergency [facility] Mony Fierro S, Calculus of gallbladder with acute cholecystitis without obstruction (Primary Dx); Department Generalized abdominal pain; [address] [phone] [id number] Allergies Active Allergy Reactions Severity Noted Date [...] EC by mouth daily. tabletIndications: Epigastric pain traMADoL (ULTRAM) 50 mg Take 1 tablet 20 tablet 0 04/15/2020 Active tabletIndications: acute by mouth every pain 6 (six) hours as needed for Pain (scale 7-10). Indications: acute pain documented as of this encounter (statuses as of 04/15/2020) Active Problems Problem Noted Date Pre-eclampsia, mild, delivered 11/24/2019 Liveborn infant, of [place]jas , born in [facility] by vaginal 11/24/2019 delivery Normal [...] been in contact with No / Unsure 04/15/2020 8:50 PM CDT someone who was confirmed or suspected to have Coronavirus / COVID-19? documented as of this encounter Last Filed Vital Signs Vital Sign Reading Time Taken Comments Blood Pressure 129/86 04/15/2020 11:54 PM CDT Pulse 55 04/15/2020 11:54 PM CDT Temperature 37.2 C (98.9 F) 04/15/2020 8:53 PM CDT Respiratory Rate 17 04/15/2020 11:54 PM CDT Oxygen Saturation 99% 04/15/2020 11:54 PM CDT Inhaled Oxygen Concentration - - Weight 83.9 kg (185 lb) 04/15/2020 8:53 PM CDT Height 162.6 cm (5' 4") 04/15/2020 8:53 PM CDT Body Mass Index 31.76 04/15/2020 8:53 PM CDT documented in this encounter Discharge Instructions Mony Urbano MD - 04/15/2020 DIAGNOSIS Diagnoses that have been ruled out: None Diagnoses that are still under consideration: None Final diagnoses: Generalized abdominal pain Calculus of gallbladder with acute cholecystitis without obstruction Transaminitis NO LIFE-THREATENING FINDINGS ON TODAY'S EXAM. PROCEDURES IN THE ER TODAY: Orders Placed This Encounter Procedures CT ABDOMEN PELVIS W CONTRAST US ABDOMEN LIMITED Complete Metabolic Panel Lipase, Serum Urinalysis CBC with Differential MEDICATIONS ADMINISTERED IN THE ER TODAY AND DISCHARGE MEDICATIONS: Orders Placed This Encounter Medications pantoprazole (PROTONIX) 40 mg in NaCl 0.9% (NS) 100 mL MINI-BAG ondansetron (ZOFRAN (PF)) injection 4 mg FENTanyl PF (SUBLIMAZE (PF)) injection 50 mcg FOLLOW-UP RECOMMENDATIONS: RECOMMEND FOLLOW-UP WITH DR LEVINE , DR RIGGINS OR ANY OTHER GENERAL SURGEON OF CHOICE DISCUSSED FOR DEFINITIVE MANAGEMENT RETURN TO ER FOR WORSENING OF SYMPTOMS SUCH FEVER, JAUNDICE, PERSISTENT OR WORSENING PAIN, NAUSEA/VOMITING OR ANY NEW CONCERNS AttachmentsThe following attachments cannot be sent through Care Everywhere. Gallstones, Treating ([place])Gallstones, Discharge Instructions ([place]) Gallstones, What are ([place])documented in this encounter ED Notes Claudia Bosch RN - 04/15/2020 8:51 PM CDTCC: patient presents to the ER with complaints of abdominal pain and vomiting. Patient states that she was seen yesterday for the same symptoms. Patient states that she has had 3 episodes of vomiting today and the medication she was sent home with is not helping. PMHx: None LMP: 03/27/2020 Tetanus: UTD Awake, alert, oriented, resp reg unlabored, skin warm and dry, color appropriate for race, moves allext without difficulty, amb without assistance. Appears in no distress. documented in this encounter Miscellaneous Notes ED Nurse Note - Claudia Bosch RN - 04/15/2020 11:47 PM CDTPt given printed and verbal discharge instructions regarding calculus of gallbladder with acute cholecystitis and transaminitis, encouraged hydration. Prescriptions provided. Discussed ibuprofen and to take with food to avoid GI distress. Discussed tramadol side affects and to avoid driving/operating machinery/or engaging in activities requiring alertness while taking. Pt verbalized understanding of instructions, pt awake alert oriented, resp reg unlabored, skin w/d, color appropriate for race, moves all ext well, pt encouraged to follow up with PCP. Advised to seek medical attention for new/prolonged/worsening of symptoms. Symptoms addressed. No adverse reaction to meds given in ER noted upon discharge. PIV d'cd, dressing to site, catheter intact. Pt leaving amb with steady gait, in no apparent distress. D Nurse Note - Joy Jacob RN - 04/15/2020 10:51 PM CDTIn radiology at this time. documented in this encounter Plan of Treatment [...] Name Priority Date/Time Associated Diagnosis Comme nts US ABDOMEN LIMITED STAT 04/15/2020 11:01 Generalized Resul ts for this PM CDT abdominal pain procedure are in the results section. CBC WITH DIFF STAT 04/15/2020 9:14 Generalized Results fo r this PM CDT abdominal pain procedure are in the results section. COMP. METABOLIC STAT 04/15/2020 9:14 Generalized Results for this PANEL (03537) PM CDT abdominal pain procedure ar e in the results section. LIPASE STAT 04/15/2020 9:14 Generalized Results for this PM CDT abdominal pain procedure are in the results section. URINALYSIS STAT 04/15/2020 9:06 Generalized Results for this PM CDT abdominal pain procedure are in the results section. CONSENT/REFUSAL FOR Routine 04/15/2020 8:42 DIAGNOSIS AND PM CDT TREATMENT documented in this encounter Results US ABDOMEN LIMITED (04/15/2020 11:01 PM CDT) Specimen Impressions Performed At PACS/VR/DOSE 1. Cholelithiasis without acute cholec ystitis. No biliary dilation. 2. A subcentimeter (0.4 cm) echogenic avascular focu s in the gallbladder fundus may represent a sludge ball versu s a polyp. Preliminary Report Dictated by Resident: Eitan Carlisle MD., have reviewed this study and agree with the above report. Narrative Performed At US ABDOMEN LIMITED PACS/VR/DOSE HISTORY: EPIGASTRIC Pain, elevated LFT, R/O ACUTE CHOLECYSTITIS vs CHOLELITHIASIS COMPARISON: None. TECHNIQUE: Grayscale and limited color Doppler images of the abdomen were obtained. FINDINGS: LIVER: Normal in size (16.4 cm) and echo-texture. No f ocal hepatic lesion. Normal hepatopetal flow within the dario n portal vein. GALLBLADDER: The gallbladder contains st ones with no distention, wall thickening, pericholecystic fluid . No s onographic Tanner's sign. The common bile duct measures 0.2 cm. An echogenic focus near the fundus of gallbladder balwinder ures 0.4 x 0.3 x 0.3 cm with no vascularity. This may represe nt a sludge ball versus a polyp. PANCREAS: The visualized portions of the pancreas are normal. RIGHT KIDNEY: The visualized portion of the right kidn ey is unremarkable. The suprarenal abdominal aorta measures 1.7 cm in diameter. Procedure Note [facility], Radiant Results Inft User - 2019 11:15 PM CDT US ABDOMEN LIMITED HISTORY: EPIGASTRIC Pain, elevated LFT, R/O ACUTE CHOLECYSTITIS vs CHOLELITHIASIS COMPARISON: None. TECHNIQUE: Grayscale and limited color D oppler images of the abdomen were obtained. FINDINGS: LIVER: Normal in size (16.4 cm) and echo -texture. No focal hepatic lesion. Normal hepatopetal flow within the main portal vein. GALLBLADDER: The gallbladder contains st ones with no distention, wall thickening, pericholecystic fluid . No s onographic Tanner's sign. The common bile duct measures 0.2 cm. An echogenic focus near the fundus of ga llbladder measures 0.4 x 0.3 x 0.3 cm with no vascularity. This may represe nt a sludge ball versus a polyp. PANCREAS: The visualized portions of the pancreas are normal. RIGHT KIDNEY: The visualized portion of the right kidney is unremarkable. The suprarenal abdominal aorta measures 1.7 cm in diameter. IMPRESSION 1. Cholelithiasis without acute cholecy stitis. No biliary dilation. 2. A subcentimeter (0.4 cm) echogenic a vascular focus in the gallbladder fundus may represent a sludge ball versu s a polyp. Preliminary Report Dictated by Resident: Eitan Carlisle MD., have reviewed [facility] study and agree with the above report. Performing Organization Address City/State/Zipcode Phone Number PACS/VR/DOSE CBC with Differential (04/15/2020 9:14 PM CDT) Pathologist Sig nature WBC 8.15 4.30 - 11.10 [facility] 10*3/L [facility] RBC 4.62 3.93 - 5.25 [facility] 10*6/L [facility] HGB 13.1 11.6 - 15.0 [facility] g/dL [facility] HCT 39.1 35.7 - 45.2 % [facility] MCV 84.6 80.6 - 95.5 fL [facility] MCH 28.4 25.9 - 32.8 pg [facility] MCHC 33.5 31.6 - 35.1 [facility] g/dL [facility] RDW-SD 45.0 39.0 - 49.9 fL [facility] RDW-CV 14.6 12.0 - 15.5 % [facility] PLT 372 (H) 166 - 358 [facility] 10*3/L [facility] MPV 9.0 (L) 9.5 - 12.9 fL [facility] NRBC/100 WBC 0.0 0.0 - 10.0 /100 [facility] WBCs [facility] NRBC x10^3 <0.01 10*3/L [facility] GRAN MAT (NEUT) % 65.4 % [facility] IMM GRAN % 0.20 % [facility] LYMPH % 21.5 % [facility] MONO % 11.7 % [facility] EOS % 0.5 % [facility] BASO % 0.7 % [facility] GRAN MAT x10^3(ANC) 5.33 1.88 - 7.09 [facility] 10*3/uL [facility] IMM GRAN x10^3 <0.03 0.00 - 0.06 [facility] 10*3/uL [facility] LYMPH x10^3 1.75 1.32 - 3.29 [facility] 10*3/uL [facility] MONO x10^3 0.95 (H) 0.33 - 0.92 [facility] 10*3/uL [facility] EOS x10^3 0.04 0.03 - 0.39 [facility] 10*3/uL [facility] BASO x10^3 0.06 0.01 - 0.07 [facility] 10*3/uL [facility] Specimen Blood - VENOUS Performing Organization Address City/[facility]/Zipcode Phone Number [facility] CLIA: [id number] [place] [address] LABORATORY [address] [facility] Lipase, Serum (04/15/2020 9:14 PM CDT) Pathologist Sig nature LIPASE 87 0 - 220 U/L [facility] Specimen Blood - VENOUS Performing Organization Address City/[facility]/Zipcode Phone Number [facility] CLIA: [id number] [place] [address] LABORATORY 132 [facility] Complete Metabolic Panel (04/15/2020 9:14 PM CDT) Pathologist Sig nature NA 139 135 - 145 [facility] mmol/L [facility] K 3.9 3.5 - 5.0 [facility] mmol/L [facility] CL 103 98 - 108 mmol/L [facility] CO2 TOTAL 27 23 - 31 mmol/L [facility] AGAP 9 2 - 16 [facility] BUN 14 7 - 23 mg/dL [facility] GLUCOSE 110 70 - 110 mg/dL [facility] CREATININE 0.78 0.50 - 1.04 [facility] mg/dL [facility] TOTAL BILI 2.4 (H) 0.1 - 1.1 mg/dL [facility] CALCIUM 9.4 8.6 - 10.6 [facility] mg/dL [facility] T PROTEIN 7.4 6.3 - 8.2 g/dL [facility] ALBUMIN 4.2 3.5 - 5.0 g/dL [facility] ALK PHOS 169 (H) 34 - 122 U/L [facility] ALTv 271 (H) 5 - 35 U/L [facility] AST(SGOT) 553 (H) 13 - 40 U/L [facility] eGFR Calculation 90.0 mL/min/1.73m2 [facility] [place]) eGFR Calculation 109.1 mL/min/1.73m2 [facility] () [facility] Specimen Blood - VENOUS Narrative Performed At Association of Glomerular Filtration Rate (GFR) [facility] and Staging of Kidney Disease* [...] tests). Performing Organization Address City/State/Zipcode Phone Number [facility] CLIA: [id number] [place] [address] Urinalysis (04/15/2020 9:06 PM CDT) Pathologist Sig nature APPEARANCE Hazy (A) Clear [facility] COLOR Evette (A) Yellow [facility] PH 6.0 4.8 - 8.0 [facility] SP GRAVITY 1.017 1.003 - 1.030 [facility] GLU U QUAL Normal Normal [facility] BLOOD Negative Negative [facility] KETONES Negative Negative [facility] PROTEIN Negative Negative [facility] UROBILIN 4.0 mg/dL (A) Normal [facility] BILIRUBIN Negative Negative [facility] NITRITE Negative Negative [facility] LEUK PAVITHRA 250/uL (A) Negative [facility] RBC/HPF <1 0 - 3 HPF [facility] WBC/HPF 55 (H) 0 - 5 HPF [facility] BACTERIA Few (A) Negative [facility] MUCOUS Slight (A) Negative LPF [facility] SQ EPITH 12 HPF [facility] Specimen Urine - URINE, CLEAN CATCH Performing Organization Address City/State/Zipcode Phone Number [facility] CLIA: [id number] [place] [address] [place] [address] documented in this encounter Visit Diagnoses Diagnosis Calculus of gallbladder with acute areli cystitis without obstruction - Primary Calculus of gallbladder with acute areli cystitis, without mention of obstruction Generalized abdominal pain Abdominal pain, generalized Transaminitis Nonspecific elevation of levels of trans aminase or lactic acid dehydrogenase (LDH) documented in this encounter Administered Medications Medication Order MAR Action Action Date Dose Rate Site FENTanyl PF (SUBLIMAZE (PF)) Given 04/15/2020 9:37 PM CDT 50 mc g injection 50 mcg 50 mcg, Slow IV Push, ONCE, 1 dose, Sat04/15/20 at 2215, Routine ondansetron (ZOFRAN (PF)) injection 4 mg Given 04/15/2020 9:37 PM CDT 4 mg 4 mg, Slow IV Push, ONCE, 1 dose, Sat04/15/20 at 2215, LEON pantoprazole (PROTONIX) 40 mg in NaCl 0.9% Given 04/15/2020 9:4 0 PM CDT 40 mg (NS) 100 mL MINI-BAG 40 mg, IV Piggyback, ONCE, 1 dose, Sat04/15/20 at 2215, 100 mL documented in this encounter Insurance Payer Benefit Plan / Subscriber ID Effective Phone Address T e Group Dates [facility] [id number] 2019-Prese [address] Medic aid HEALTH CHOICE - [place] [id number] MANAGED MEDICAID [place] [id number] documented as of this encounter
[2020-05-25 21:15] LABS: Absolute Lymphocytes (CBC) 1.8 K/uL (0.7-4.9); Basophils % 0.4 % (0-1.3); Hematocrit 40.9 % (36.0-45.0); Lymphocytes % 15.8 % (15.3-44.8); MPV 7.3 fL (7.6-11.3); RBC Red Blood Cell Count 4.84 M/uL (3.86-4.86)
[2020-05-25 21:35] LABS: Albumin 3.7 g/dL (3.4-5.0); Bilirubin Direct 0.3 mg/dL (0-0.2); Bilirubin Total 0.7 mg/dL (0.2-1.0); Potassium 3.1 mmol/L (3.5-5.1); Protein, Total 7.8 g/dL (6.4-8.2)
[2020-05-25] MEDS ORDERED: MORPHINE 4 MG/ML SYR ONE (21:45)
[2020-05-25] MEDS ORDERED: ONDANSETRON 4 MG/2 ML VIAL ONE (21:45)
[2020-05-25 22:22] LABS: Urine Blood NEGATIVE (NEG); Urine Glucose NEGATIVE (NEG); Urine Protein NEGATIVE (NEG); Urine Specific Gravity >1.030 (1.005-1.030)
--- NOTE | 2020-05-25 23:29 | EDPHYS ---
Physician Documentation [facility] Name: Matilda Jackson Age: 24 yrs Sex: Female : 1995 Arrival Date: 05/25/2020 Time: 20:41 Bed 7 Private MD: ED Physician Abad Benavidez HPI: 05/25 21:03 This 24 yrs old Female presents to ER via Ambulatory with complaints of jmm Abdominal Pain, Vomiting. 21:03 The patient presents with abdominal pain in the upper abdomen. Onset: The jmm symptoms/episode began/occurred acutely, just prior to arrival. The symptoms do not radiate. Associated signs and symptoms: Pertinent positives: vomiting. Modifying factors: The symptoms are alleviated by nothing, the symptoms are aggravated by nothing. The patient has experienced similar episodes in the past. This is a 24 year old female with a history of gallbladder pain that presents to the ED with complaints of epigastric pain beginning approx 2 hours prior to arrival. Denies fever. . 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 - Social history:: Smoking status: Patient denies any tobacco usage or history of. ROS: 21:03 Constitutional: Negative for fever, chills, and weight loss, Cardiovascular: Negative jmm for chest pain, palpitations, and edema, Respiratory: Negative for shortness of breath, cough, wheezing, and pleuritic chest pain. 21:03 Abdomen/GI: Positive for abdominal pain, nausea, vomiting, and diarrhea. 21:03 All other systems are negative. Exam: 21:03 Constitutional: This is a well developed, well nourished patient who is awake, alert, jmm and in no acute distress. Head/Face: atraumatic. Eyes: EOMI, no conjunctival erythema appreciated ENT: Moist Mucus Membranes Neck: Trachea midline, Supple Chest/axilla: Normal chest wall appearance and motion. Cardiovascular: Regular rate and rhythm. No edema appreciated Respiratory: Normal respirations, no respiratory distress appreciated Back: Normal ROM Skin: General appearance color normal MS/ Extremity: Moves all extremities, no obvious deformities appreciated, no edema noted to the lower extremities Neuro: Awake and alert, normal gait Psych: Behavior is normal, Mood is normal, Patient is cooperative and pleasant 21:03 Abdomen/GI: Inspection: abdomen appears normal, Bowel sounds: normal, Palpation: soft, moderate abdominal tenderness, in the epigastric area. Vital Signs: 20:54 Temp 97.3(O); Weight 90.72 kg (R); Height 5 ft. 5 in. (165.10 cm); Pain 9/10; mg2 20:56 BP 107 / 54; Pulse 50; Resp 16 S; Pulse Ox 100% on R/A; mg2 22:09 BP 114 / 66; Pulse 56; Resp 18; Pulse Ox 100% on R/A; mg2 23:12 BP 103 / 78; Pulse 96; Resp 18; Pulse Ox 100% on R/A; mg2 05/26 00:30 BP 115 / 67; Pulse 59; Resp 18; Temp 98; Pulse Ox 100% on R/A; mg2 05/25 20:54 Body Mass Index 33.28 (90.72 kg, 165.10 cm) mg2 MDM: 05/25 21:06 Patient medically screened. [facility] 23:27 Data reviewed: vital signs, nurses notes. Counseling: I had a detailed discussion with [facility] the patient and/or guardian regarding: the historical points, exam findings, and any diagnostic results supporting the discharge/admit diagnosis, lab results, radiology results, the need for further work-up and treatment in the hospital. ED course: I discussed the patient with Ruddy Andres PA-C, whom accepted admission. . 05/26 00:22 ED course: I discussed the patient with GI from [facility]. After reviewing labs and US [facility] findings, did not suspect the need for ERCP and that pancreatitis most likely caused from sludge. Recommended 2 days of IVF and ABX.. 05/25 21:03 Order name: Basic Metabolic Panel; Complete Time: 21:54 mg2 05/25 21:03 Order name: CBC with Diff; Complete Time: 21:22 mg2 05/25 21:03 Order name: Hepatic Function; Complete Time: 21:54 mg2 05/25 21:03 Order name: Lipase; Complete Time: 21:54 mg2 05/25 21:19 Order name: Urine Dipstick--Ancillary (enter results); Complete Time: :23 tt3 05/25 21:19 Order name: Urine --Ancillary (enter results); Complete Time: 22:23 tt3 05/25 21:03 Order name: IV Saline Lock; Complete Time: 21:03 mg2 05/25 21:03 Order name: Labs collected and sent; Complete Time: 21:04 mg2 05/25 21:23 Order name: US Abdomen Limited [facility] 05/25 22:32 Order name: COVID-19 mg2 05/26 00:16 Order name: CT Abd/Pelvis - IV Contrast Only jr8 05/26 00:21 Order name: CONS Physician Consult EDMS Administered Medications: 05/25 21:36 Drug: morphine 4 mg {Note: RASS 0.} Route: IVP; Site: right antecubital; rv 22:10 Follow up: Response: No adverse reaction; Marked relief of symptoms mg2 21:36 Drug: Zofran (Ondansetron) 4 mg Route: IVP; Site: right antecubital; rv 22:09 Follow up: Response: No adverse reaction; Marked relief of symptoms mg2 Disposition: 05/26 03:21 Co-signature as Attending Physician, Abad Benavidez MD. rn Disposition: 05/25/20 23:29 Hospitalization ordered by Tatiana Hansen for Inpatient Admission. Preliminary diagnosis is Acute pancreatitis. - Bed requested for Telemetry/MedSurg (Inpatient). - Status is Inpatient Admission. mg2 - Condition is Stable. - Problem is new. - Symptoms have improved. Signatures: Dispatcher [employer] EDMS Paulo Miller PA PA jmm Nieto, Roman, MD MD rn Lasagna, Tonya, RN RN tl1 Ronak Allen, SIM RN mg2 Dylan Hernández RN RN rv Corrections: (The following items were deleted from the chart) 00:54 05/25 23:29 Hospitalization Ordered by Tatiana Hansen MD for Inpatient Admission. tl1 Preliminary diagnosis is Acute pancreatitis. Bed requested for Telemetry/MedSurg (Inpatient). Status is Inpatient Admission. Condition is Stable. Problem is new. Symptoms have improved. [facility] 05/26 01:06 00:54 05/25/2020 23:29 Hospitalization Ordered by Tatiana Hansen MD for Inpatient mg2 Admission. Preliminary diagnosis is Acute pancreatitis. Bed requested for Telemetry/MedSurg (Inpatient). Status is Inpatient Admission. Condition is Stable. Problem is new. Symptoms have improved. tl1
--- NOTE | 2020-05-25 23:29 | ER ---
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 Pain is mg2 constant, stabbing, non radiating. Reports N/V. Coronavirus screen: Client denies travel out of the [place] in the last 14 days. nausea, Client presents with at least one sign or symptom that may indicate coronavirus-19. Standard/surgical mask placed on the client. Provider contacted for isolation considerations. Ebola Screen: Patient negative for fever greater than or equal to 101.5 degrees Fahrenheit, and additional compatible Ebola Virus Disease symptoms Patient denies exposure to infectious person. Patient denies travel to an Ebola-affected area in the 21 days before illness onset. No symptoms or risks identified at this time. Initial Sepsis Screen: Does the patient meet any 2 criteria? No. Patient's initial sepsis screen is negative. Does the patient have a suspected source of infection? No. Patient's initial sepsis screen is negative. Risk Assessment: Do you want to hurt yourself or someone else? Patient reports no desire to harm self or others. Onset of symptoms was May 25, 2020. 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 - Social history:: Smoking status: Patient denies any tobacco usage or history of. Screenin:56 Abuse screen: Denies threats or abuse. Denies injuries from another. Nutritional mg2 screening: No deficits noted. Tuberculosis screening: No symptoms or risk factors identified. Fall Risk IV access (20 points). Assessment: 20:56 General: Appears in no apparent distress. comfortable, Behavior is calm, cooperative, mg2 appropriate for age. Pain: Complains of pain in right upper quadrant and left upper quadrant Pain does not radiate. Pain currently is 9 out of 10 on a pain scale. Quality of pain is described as stabbing, Pain began 2 hours ago. Is continuous, Also complains of nausea. Neuro: Level of Consciousness is awake, alert, obeys commands, Oriented to person, place, time, situation. Cardiovascular: Heart tones S1 S2 present Capillary refill < 3 seconds Patient's skin is warm and dry. Respiratory: Airway is patent Respiratory effort is even, unlabored, Respiratory pattern is regular, symmetrical, Breath sounds are clear bilaterally. GI: Abdomen is round non-distended, Bowel sounds present X 4 quads. Abd is soft X 4 quads Abdomen is tender to palpation in right upper quadrant and left upper quadrant. GI: Reports nausea, vomiting. : No signs and/or symptoms were reported regarding the genitourinary system. EENT: No signs and/or symptoms were reported regarding the EENT system. Derm: Skin is intact, is healthy with good turgor, Skin is pink, warm \T\ dry. Musculoskeletal: Circulation, motion, and sensation intact. Capillary refill < 3 seconds. 22:09 Reassessment: Patient appears in no apparent distress at this time. Patient and/or mg2 family updated on plan of care and expected duration. Pain level reassessed. Patient is alert, oriented x 3, equal unlabored respirations, skin warm/dry/pink. 23:13 Reassessment: patient informed about the plan for transfer. mg2 23:57 Reassessment: patient informed that she will not be transferred anymore. she will be mg2 hospitalized here instead and she agreed about the plan. 05/26 00:08 Reassessment: hospitalist at bedside with the patient. mg2 Vital Signs: 05/25 20:54 Temp 97.3(O); Weight 90.72 kg (R); Height 5 ft. 5 in. (165.10 cm); Pain 9/10; mg2 20:56 BP 107 / 54; Pulse 50; Resp 16 S; Pulse Ox 100% on R/A; mg2 22:09 BP 114 / 66; Pulse 56; Resp 18; Pulse Ox 100% on R/A; mg2 23:12 BP 103 / 78; Pulse 96; Resp 18; Pulse Ox 100% on R/A; mg2 05/26 00:30 BP 115 / 67; Pulse 59; Resp 18; Temp 98; Pulse Ox 100% on R/A; mg2 05/25 20:54 Body Mass Index 33.28 (90.72 kg, 165.10 cm) mg2 ED Course: 05/25 20:41 Patient arrived in ED. mr 20:50 Paulo Miller PA is PHCP. [facility] 20:50 Abad Benavidez MD is Attending Physician. [facility] 20:50 Ronak Allen, SIM is Primary Nurse. mg2 20:55 Triage completed. mg2 20:56 Arm band placed on right wrist. mg2 20:56 Patient has correct armband on for positive identification. Placed in gown. Bed in low mg2 position. Call light in reach. Side rails up X2. Pulse ox on. NIBP on. Warm blanket given. 21:03 No provider procedures requiring assistance completed. Inserted saline lock: 20 gauge mg2 in right antecubital area, using aseptic technique. Blood collected. 22:07 US Abdomen Limited In Process Unspecified. EDMS 23:13 covid swab sent to lab. Patient transferred, IV remains in place. mg2 23:28 Tatiana Hansen MD is Hospitalizing Provider. [facility] Administered Medications: 21:36 Drug: morphine 4 mg {Note: RASS 0.} Route: IVP; Site: right antecubital; rv 22:10 Follow up: Response: No adverse reaction; Marked relief of symptoms mg2 21:36 Drug: Zofran (Ondansetron) 4 mg Route: IVP; Site: right antecubital; rv 22:09 Follow up: Response: No adverse reaction; Marked relief of symptoms mg2 Outcome: 23:29 Decision to Hospitalize by Provider. [facility] 05/26 01:04 Admitted to Med/surg accompanied by tech, via wheelchair, room 223, with chart, Report mg2 called to SIM Ritter Condition: stable Instructed on the need for admit, Demonstrated understanding of instructions. 01:06 Patient left the ED. mg2 Addendum: 05/30/2020 19:15 Addendum: COVID-19 Result: Negative result given to RN to notify pt. Attempted to i w contact pt regarding negative COVID-19 swab results. Unable to leave voice mail due to the number provided was either not a working number, the voice mail has not been set up, or the voice mailbox is full.. 19:16 Addendum: COVID-19 Result: Negative result given to RN to notify pt. Notified pt of i w negative COVID 19 swab results. Pt advised that even with a negative test result they should remain in isolation until symptom free for 3 days without medication. Pt also advised to return to the ED for worsening symptoms. Signatures: Dispatcher [employer] EDMS Paulo Miller PA PA jmm Rivera, Mary mr Marisela Beard RN RN iw Ronak Allen RN RN mg2 Dylan Hernández RN RN rv
--- NOTE | 2020-05-26 01:12 | P.HP ---
Certification for Inpatient Patient admitted to: Inpatient With expected LOS: >2 Midnights Patient will require the following post-hospital care: None Practitioner: I am a practitioner with admitting privileges, knowledge of patient current condition, hospital course, and medical plan of care. Services: Services provided to patient in accordance with Admission requirements found in Title 42 Section 412.3 of the Code of Federal Regulations <DevinsupaSandip Leandra Felipe Filed: 05/26/20 01:05> Patient History Date of Service: 05/26/20 Reason for admission: Cholelithiasis, Pancreatitis History of Present Illness: This is a 24-year-old female that presented to the emergency room for acute upper abdominal pain with nausea and vomiting. Patient stated that she had a similar episode a couple months ago but was short lived and self-resolving. Today she started again with abdominal pain with nausea vomiting that was unrelieved at home. Came to the emergency room at that time. Patient has no medical history that she knows of and no previous surgeries. Patient was worked up in the emergency room and found to have cholelithiasis with an elevation in her lipase of over 3000. Ultrasound showed gallstones but without seat BD dilation. ER consulted Gastroenterology at another facility for possible transfer. They stated at that time that they do not believe that it is stone related and probably most likely 2 sludge. was then consulted for cholelithiasis. He stated that he is okay with admitting her at this time. The patient did have a mild increase in white cell count but without fever. Bili Dobson mildly elevated but not significant nature at this time. Mild hypokalemia present but without any other electrolyte disturbance and no acute renal dysfunction. Patient admitted to the hospital at that time for acute cholelithiasis and acute pancreatitis. As for the pancreatitis patient stated that she does not have any cholesterol problems that she knows of and only occasionally drinks on the weekends but denies heavy alcohol abuse. Home medications list reviewed: Yes - Past Medical/Surgical History Has patient received pneumonia vaccine in the past: No Diabetic: No Past Medical History: Patient denies medical history Past Surgical History: Patient denies surgical history - Family History Family History: Reviewed- Non-Contributory - Social History Smoking Status: Never smoker Smoking therapy provided: No Alcohol use: Yes CD- Drugs: No Caffeine use: Yes Place of Residence: Home <Sandip Hinson Filed: 05/26/20 01:05> Date of Service: 05/26/20 <Tatiana Hansen - Last Filed: 05/26/20 14:31> Allergies Penicillins Allergy (Verified 05/26/20 01:38) Itching/Hives/Rash Review of Systems General: Unremarkable Eyes: Unremarkable ENT: Unremarkable Respiratory: Unremarkable Cardiovascular: Unremarkable Gastrointestinal: Nausea, Vomiting, Abdominal Pain Musculoskeletal: Unremarkable Integumentary: Unremarkable Neurological: Unremarkable Lymphatics: Unremarkable <Sandip Hinson - Last Filed: 05/26/20 01:05> Physical Examination - Vital Signs Temperature: 97.3 F Blood Pressure: 107/54 Pulse: 54 Respirations: 18 Pulse Ox (%): 100 - Physical Exam General: Alert, In no apparent distress, Oriented x3 HEENT: Normocephalic, PERRLA, Mucous membr. moist/pink, EOMI Neck: Supple, 2+ carotid pulse no bruit, No Thyromegaly Respiratory: Clear to auscultation bilaterally, Normal air movement Cardiovascular: No edema, Normal pulses, Regular rate/rhythm, Normal S1 S2, No gallops, No rubs, No murmurs Capillary refill: <2 Seconds Gastrointestinal: Normal bowel sounds, W/out hepatosplenomegaly, No ascites, No masses, No rebound, No guarding, Tenderness (Tenderness noted to the left upper quadrant, epigastric region, and right upper quadrant with positive Tanner sign) Musculoskeletal: No clubbing, No swelling, No contractures, No erythema, No tenderness, No warmth Integumentary: No rashes, No breakdown, No significant lesion, No tenderness/swelling, No erythema, No warmth Neurological: Normal speech, Normal strength at 5/5 x4 extr, Normal tone, Sensation intact, Cranial nerves 3-12 intact, Normal reflexes 2+, Normal affect Lymphatics: No axilla or inguinal lymphadenopathy - Studies Laboratory Data (last 24 hrs) 05/25/20 21:00: WBC 11.3 H, Hgb 13.9, Hct 40.9, Plt Count 330 05/25/20 21:00: Sodium 140, Potassium 3.1 L, BUN 9, Creatinine 0.84, Glucose 144 H, Total Bilirubin 0.7, AST 49 H, ALT 30, Alkaline Phosphatase 83, Lipase 3102 H <Sandip Hinson - Last Filed: 05/26/20 01:05> - Studies Laboratory Data (last 24 hrs) 05/25/20 21:00: WBC 11.3 H, Hgb 13.9, Hct 40.9, Plt Count 330 05/25/20 21:00: Sodium 140, Potassium 3.1 L, BUN 9, Creatinine 0.84, Glucose 144 H, Total Bilirubin 0.7, AST 49 H, ALT 30, Alkaline Phosphatase 83, Lipase 3102 H Microbiology Data (last 24 hrs): 05/25/20 22:40 Nasopharnyx Coronavirus COVID-19 PCR - Final <Tatiana Hansen - Last Filed: 05/26/20 14:31> Assessment and Plan - Problems (Diagnosis) (1) Cholelithiasis Current Visit: Yes Status: Acute Plan: Patient has cholelithiasis present without current suspicion for infection. Patient was put on antibiotics prophylactically along with pain meds and nausea meds. General Surgery was consulted for possible cholecystectomy. Qualifiers: Cholelithiasis location: gallbladder Cholecystitis presence: without cholecystitis Biliary obstruction: without biliary obstruction Qualified Code(s): K80.20 - Calculus of gallbladder without cholecystitis without obstruction (2) Acute pancreatitis Current Visit: Yes Status: Acute Plan: Patient's lipase is elevated and with epigastric and upper abdominal pain suggestive of acute pancreatitis. Undetermined cause of pancreatitis at this time as common bile duct was without dilation and there is no severe elevation in total bili Dobson. Will continue to rule out secondary causes such as hypertriglyceridemia or alcohol abuse. Patient will be on fluids and pain meds and nausea meds for the time being. Patient will be on an p.o. diet well to decrease the inflammatory process of the pancreatitis. Labs and lipase will be trended to show improvement. Qualifiers: Pancreatitis type: unspecified pancreatitis type Acute pancreatitis complication: no infection or necrosis Qualified Code(s): K85.90 - Acute pancreatitis without necrosis or infection, unspecified (3) Hypokalemia Current Visit: Yes Status: Acute Plan: Patient moderately hypokalemic up on a presentation. Patient will be given potassium in the emergency room and will have potassium protocol in place and recheck in the morning. Will continue to monitor for decompensation. Will also check a magnesium level. Discharge Plan: Home Plan to discharge in: 48 Hours - Advance Directives Does patient have a Living Will: No Does patient have a Durable POA for Healthcare: No - Code Status/Comfort Care Code Status Assessed: Yes Code Status: Full Code Critical Care: No Time Spent Managing Pts Care (In Minutes): 45 <Sandip Hinson - Last Filed: 05/26/20 01:05> Date of Service: 05/26/20 Chart reviewed. Agree with above findings. Patient still having some pain. Patient with epigastric tenderness. Also with some right upper quadrant tenderness. Lipase is still elevated. Continue with pain control. Patient be admitted for surgical evaluation. <Tatiana Hansen - Last Filed: 05/26/20 14:31>
[2020-05-26] MEDS ORDERED: ONDANSETRON 4 MG/2 ML VIAL IV PRN (01:24)
[2020-05-26] MEDS: NA CHLORIDE 0.9% 1,000 ML IV SCH ×4 (01:24→20:45)
[2020-05-26 02:17] VITALS: BMI 33.3
[2020-05-26] MEDS ORDERED: POTASSIUM CL SA 10 MEQ TAB PO ONE ×2 (04:18→14:00)
[2020-05-26] MEDS ORDERED: CEFOXITIN SODIUM 1 GM/VIAL IVPB SCH (06:00)
[2020-05-26] MEDS ORDERED: CEFOXITIN/SWI 1gm 1 GM/10 ML SYR ONE (06:05)
[2020-05-26] MEDS: METRONIDAZOLE 500mg IVPB 500 MG/100 ML BAG IV SCH ×3 (06:33→17:10)
[2020-05-26] MEDS: CEFOXITIN/SWI 1gm 1 GM/10 ML SYR IV SCH ×3 (06:34→17:11)
--- NOTE | 2020-05-26 07:55 | RAD REPORT ---
EXAM DESCRIPTION: US - Abdomen Exam Limited - 05/25/2020 10:06 pm CLINICAL HISTORY: Abdominal pain. FINDINGS: Multiple gallstones. Common bile duct upper limits normal caliber. Gallbladder wall is not thickened IMPRESSION: Cholelithiasis without evidence cholecystitis
--- NOTE | 2020-05-26 11:04 | RAD REPORT ---
EXAM DESCRIPTION: CT - Abdomen Pelvis W Contrast - 05/26/2020 6:53 am CLINICAL HISTORY: 24 years Female ABD PAIN COMPARISON: None TECHNIQUE: Images were obtained in axial, sagittal, and coronal planes. Intravenous contrast was adm inistered. Arterial and venous phase imaging was performed. This exam was performed according to our departmental dose-optimization program which includes use of Automated Exposure Control, adjustment of the mA and/or kV according to patient size and/or use o f iterative reconstruction technique. FINDINGS: 3.0 x 3.0 cm enhancing lesion posterior medial spleen on arterial phase imaging. The finding displays mildly decreased attenuation when correlated with the splenic parenchyma on venous phase imaging. Th e finding could be consistent with hemangioma. No abnormality involving the liver, pancreas, gallblad aliya, or adrenal glands bilaterally. No obstructing renal or ureteral calculi bilaterally. No hydronephrosis bilaterally. Unremarkable aniyah dder. Appendix within normal limits. No bowel obstruction, perforation, or inflammation. No abnormality lower lungs bilaterally. No acute osseous abnormality. No abnormality of the abdominal aorta or portal vein. No adenopathy or abnormal fluid collections see n. IMPRESSION: No acute intra-abdominal abnormality. Suspected 3 cm hemangioma posterior medial spleen. Electronically signed by: Tomasa Lopez MD 05/26/2020 1:15 AM CDT Due to temporary technical issues with the PACS/Fluency reporting system, reports are being signed by the in house radiologist without review as a courtesy to ensure prompt reporting. The interpreting r adiologist is fully responsible for the content of the report.
[2020-05-26] MEDS: MORPHINE 4 MG/ML SYR IV PRN ×2 (11:10→21:41)
--- NOTE | 2020-05-26 14:34 | P.PN ---
Subjective Date of Service: 05/26/20 Subjective: Improving Patient evaluated. No new complaints. Still having some tenderness as mentioned. Patient was seen this morning around 1:00 a.m.. Continue with pain control. Monitor lipase level closely. Review of Systems 10-point ROS is otherwise unremarkable Physical Examination - Vital Signs Temperature: 98 F Blood Pressure: 118/67 Pulse: 64 Respirations: 20 Pulse Ox (%): 99 - Physical Exam General: Alert, In no apparent distress, Oriented x3 Respiratory: Clear to auscultation bilaterally, Normal air movement Cardiovascular: Regular rate/rhythm, Normal S1 S2, No murmurs Gastrointestinal: Normal bowel sounds, Soft and benign, Non-distended, Tenderness Musculoskeletal: No clubbing, No swelling, No tenderness Neurological: Sensation intact, Cranial nerves 3-12 intact - Studies Laboratory Data (last 24 hrs) 05/25/20 21:00: WBC 11.3 H, Hgb 13.9, Hct 40.9, Plt Count 330 05/25/20 21:00: Sodium 140, Potassium 3.1 L, BUN 9, Creatinine 0.84, Glucose 144 H, Total Bilirubin 0.7, AST 49 H, ALT 30, Alkaline Phosphatase 83, Lipase 3102 H Microbiology Data (last 24 hrs): 05/25/20 22:40 Nasopharnyx Coronavirus COVID-19 PCR - Final Medications List Reviewed: Yes Assessment & Plan - Problems (Diagnosis) (1) Acute pancreatitis Current Visit: Yes Status: Acute Qualifiers: Pancreatitis type: unspecified pancreatitis type Acute pancreatitis complication: no infection or necrosis Qualified Code(s): K85.90 - Acute pancreatitis without necrosis or infection, unspecified (2) Cholelithiasis Current Visit: Yes Status: Acute Qualifiers: Cholelithiasis location: gallbladder Cholecystitis presence: without cholecystitis Biliary obstruction: without biliary obstruction Qualified Code(s): K80.20 - Calculus of gallbladder without cholecystitis without obstruction (3) Hypokalemia Current Visit: Yes Status: Acute - Plan Plan: 1. IV fluids 2. Pain control 3. NPO 4. Appreciate surgical consultation 5. Monitor lipase levels and LFTs 6. GI and DVT prophylaxis Discharge Plan: Home Plan to discharge in: Greater than 2 days - Advance Directives Does patient have a Living Will: No Does patient have a Durable POA for Healthcare: No - Code Status/Comfort Care Code Status: Full Code Critical Care: No Time Spent Managing PTS Care (In Minutes): 35
[2020-05-26] MEDS: ACETAMINOPHEN 500 MG TAB PO PRN (17:11)
[2020-05-27] MEDS: CEFOXITIN/SWI 1gm 1 GM/10 ML SYR IV SCH ×3 (00:10→11:36)
[2020-05-27] MEDS: METRONIDAZOLE 500mg IVPB 500 MG/100 ML BAG IV SCH ×3 (00:10→11:35)
[2020-05-27] MEDS: NA CHLORIDE 0.9% 1,000 ML IV SCH ×2 (00:11→07:24)
[2020-05-27 05:42] LABS: Absolute Lymphocytes (CBC) 2.6 K/uL (0.7-4.9); Basophils % 1.2 % (0-1.3); Hematocrit 37.8 % (36.0-45.0); Lymphocytes % 44.3 % (15.3-44.8); MPV 7.2 fL (7.6-11.3); RBC Red Blood Cell Count 4.44 M/uL (3.86-4.86)
[2020-05-27 06:01] LABS: BUN Blood Urea Nitrogen 4 mg/dL (7-18); Bicarbonate 23 mmol/L (21-32); Glucose Level 84 mg/dL (74-106); Lipase 68 U/L (73-393); Potassium 3.5 mmol/L (3.5-5.1); Sodium Level 140 mmol/L (136-145)
[2020-05-27] MEDS: ACETAMINOPHEN 500 MG TAB PO PRN (06:34)
--- NOTE | 2020-05-27 08:16 | P.PN ---
Subjective Date of Service: 05/26/20 Chief Complaint: Cholelithiasis, Pancreatitis Subjective: Improving Patient feels much better, no more pain, but continues to have minimal tenderness to epigastrium, passing gas. Physical Examination - Vital Signs Temperature: 97.6 F Blood Pressure: 120/82 Pulse: 60 Respirations: 16 Pulse Ox (%): 98 - Physical Exam General: Alert, In no apparent distress, Cooperative Respiratory: Clear to auscultation bilaterally Cardiovascular: Regular rate/rhythm Gastrointestinal: Other (soft, mild epigastric TTP, ND, obese, Negative murphys sign) - Studies Microbiology Data (last 24 hrs): 05/25/20 22:40 Nasopharnyx Coronavirus COVID-19 PCR - Final Medications List Reviewed: Yes Assessment And Plan - Current Problems (Diagnosis) (1) Acute pancreatitis Current Visit: Yes Status: Acute Plan: - Patient has minimal pain @ this time - start clear liquid diet and advance to low fat as tolerated - serial exams - continue medical management - recheck lipase in AM Qualifiers: Pancreatitis type: unspecified pancreatitis type Acute pancreatitis complication: no infection or necrosis Qualified Code(s): K85.90 - Acute pancreatitis without necrosis or infection, unspecified
--- NOTE | 2020-05-27 08:18 | P.PN ---
Subjective Date of Service: 05/27/20 Chief Complaint: Cholelithiasis, Pancreatitis Patient feels much better, no more pain, no tenderness, passing gas. Physical Examination - Vital Signs Temperature: 97.6 F Blood Pressure: 120/82 Pulse: 60 Respirations: 16 Pulse Ox (%): 98 - Physical Exam General: Alert, Cooperative Respiratory: Clear to auscultation bilaterally Cardiovascular: Regular rate/rhythm Gastrointestinal: Soft and benign, Non-distended, No ascites, No tenderness, No masses, No rebound, No guarding - Studies Microbiology Data (last 24 hrs): 05/25/20 22:40 Nasopharnyx Coronavirus COVID-19 PCR - Final Medications List Reviewed: Yes Assessment And Plan - Current Problems (Diagnosis) (1) Acute pancreatitis Current Visit: Yes Status: Acute Plan: - Patient has no pain or tenderness - start full liquid diet and advance to low fat as tolerated - serial exams - ok to DC today if diet tolerated - follow up in my clinic in 2 weeks to discuss options Qualifiers: Pancreatitis type: unspecified pancreatitis type Acute pancreatitis complication: no infection or necrosis Qualified Code(s): K85.90 - Acute pancreatitis without necrosis or infection, unspecified
[2020-05-27] MEDS ORDERED: POTASSIUM CL SA 10 MEQ TAB PO ONE (09:00)
[2020-05-27 09:42] VITALS: O2SAT 98
--- NOTE | 2020-05-27 09:55 | CON ---
Brief History Of Present Illness: Patient is a 25-year-old female who presents with a histo ry of abdominal pain, and not with nausea or vomiting, beginning several days prior to her admission. These were usually short-lived and self limited in the past. She started having the pain at home a fter eating greasy meal. She has had these episodes before, but has gone to see multiple emergency r oom visits, not at this facility. The facility included [facility] (formerly [facility]) and other stand-alone ERs. Sh e states she has had multiple ultrasounds of her gallbladder, which did not show any evidence of chol ecystitis. She was not recommended by her report to go and have any surgical intervention for this a s she is unsure if she has had elevation of her lipase before, but her gallbladder function was by he r report normal on all of these occasions. These episodes were all self-limited, mostly in the epiga strium with radiation through to her back. She does drink alcohol intermittently. She is unsure of the temporal correlation with pain on the alcohol usage or if there are any particular food triggers. [place] meals she was unsure would cause the symptoms to worsen and, as such, she came to the emerge ncy room with the above-stated complaints. Past Medical History: Significant for abdominal pain of a similar type for approximately 6 months to a year. Past Surgical History: She denies smoking. She drinks alcohol recreationally. She denies any recre ational drug use. Allergies: TO PENICILLIN. Family History: Noncontributory. Review of Systems: Ten point review of systems other than HPI, denies. Physical Examination: Vital Signs: At the time of my examination, her blood pressure was 103/78, her heart rate was 96, re spiratory rate 18, temperature 97.3. General: She is awake, alert, and oriented. Psychiatric: She is appropriately conversive. HEENT: She is normocephalic. Sclerae anicteric. Mucous membranes are moist. Oropharynx clear. Neck: Supple. No JVD. Chest: Normal expansion and excursion. Cardiovascular: Regular rate and rhythm. Pulmonary: Clear to auscultation bilaterally. Abdomen: Soft with mild epigastric tenderness to palpation. Negative right upper quadrant tendernes s to palpation. No rebound, no guarding. No focal peritonitis. Negative Tanner sign. No Rovsing's sign. No Gregorio Malcolm or Cristofer signs. Extremities: No clubbing, cyanosis, or edema. Skin: Warm and dry. Laboratory Data: Reveals a white blood count 11.3, hemoglobin 13.9, hematocrit of 40.9, platelet cou nt 330, neutrophils 77%. Her sodium is 140, potassium 3.1, chloride 108, carbon dioxide 24, BUN 9, c reatinine 0.8, glucose is 144. Her calcium 8.5. Her total bilirubin 0.7, direct bilirubin 0.3, AST 49, ALT 30, alkaline phosphatase is 83. Her lipase is 3102. Her triglycerides were not ordered at t his time. Her urine test was negative. Urine was otherwise negative by report. She did h ave a CT scan of the abdomen and pelvis, officially read the following morning as no acute intraabdom inal abnormality suspected, 3 cm hemangioma on the posterior medial spleen. She had an abdominal ult rasound performed on 05/25/2020, officially read as cholelithiasis without evidence of cholecystitis, multiple gallstones, common bile duct is upper limits of normal caliber. Gallbladder wall is not th ickened. Assessment And Plan: This is a 25-year-old female who comes in with pancreatitis of uncertain etiolo gy: 1.While gallstones is a possible etiology, alcohol use may be also a contributing factor. We will r ecommend workup to see if we can better define the etiology of her pancreatitis and, as such, we will discuss surgical versus nonsurgical management based on our workup. I have explained the risks, brianna efits, and alternatives of the above stated plan. Continue medical management, n.p.o., IV fluid hydration, and serial abdominal exams. Thank you for this interesting consult. LENA/VAHE Voice ID: [id number] Report ID: [id number]
[2020-05-27 11:15] VITALS: BP 134/62; TEMP 97.2
--- NOTE | 2020-05-27 13:54 | P.DS ---
Discharge Date: 05/27/20 Disposition: ROUTINE DISCHARGE Discharge Condition: GOOD Reason for Admission: Cholelithiasis, Pancreatitis Consultations: General surgeon - Problems (1) Acute pancreatitis Status: Acute Qualifiers: Pancreatitis type: unspecified pancreatitis type Acute pancreatitis complication: no infection or necrosis Qualified Code(s): K85.90 - Acute pancreatitis without necrosis or infection, unspecified (2) Cholelithiasis Status: Acute Qualifiers: Cholelithiasis location: gallbladder Cholecystitis presence: without cholecystitis Biliary obstruction: without biliary obstruction Qualified Code(s): K80.20 - Calculus of gallbladder without cholecystitis without obstruction (3) Hypokalemia Status: Acute Brief History of Present Illness: Patient is a 25-year-old female who came into the hospital with abdominal pain. Patient was found to have cholelithiasis and pancreatitis. Patient is admitted to the hospital for further evaluation. Hospital Course: Patient was given IV fluids and was made NPO. Patient was given pain control. At this time, patient is clinically doing well. Patient is no longer having pain. Patient is tolerating diet. Surgery once patient a follow-up as an outpatient. Patient improved much quicker than expected. At this time, patient is doing well the be discharged with outpatient follow-up. Patient will be scheduled for outpatient laparoscopically at a later date. Vital Signs/Physical Exam: Temp Pulse Resp BP Pulse Ox 97.2 F 54 16 134/62 96 05/27/20 11:14 05/27/20 11:14 05/27/20 11:14 05/27/20 11:14 05/27/20 11:14 General: Alert, In no apparent distress, Oriented x3 Laboratory Data at Discharge: WBC 5.8 K/uL (4.3-10.9) D 05/27/20 05:24 Hgb 12.7 g/dL (12.0-15.0) 05/27/20 05:24 Hct 37.8 % (36.0-45.0) 05/27/20 05:24 Plt Count 243 K/uL (152-406) D 05/27/20 05:24 Sodium 140 mmol/L (136-145) 05/27/20 05:24 Potassium 3.5 mmol/L (3.5-5.1) 05/27/20 05:24 BUN 4 mg/dL (7-18) L 05/27/20 05:24 Creatinine 0.69 mg/dL (0.55-1.3) 05/27/20 05:24 Glucose 84 mg/dL (74-106) 05/27/20 05:24 Magnesium 1.9 mg/dL (1.8-2.4) 05/26/20 01:45 Total Bilirubin 0.7 mg/dL (0.2-1.0) 05/25/20 21:00 AST 49 U/L (15-37) H 05/25/20 21:00 ALT 30 U/L (12-78) 05/25/20 21:00 Alkaline Phosphatase 83 U/L (45-117) 05/25/20 21:00 Triglycerides 44 mg/dL (<150) 05/26/20 01:45 Cholesterol 94 mg/dL (<200) 05/26/20 01:45 HDL Cholesterol 53 mg/dL (40-60) 05/26/20 01:45 Cholesterol/HDL Ratio 1.77 05/26/20 01:45 Lipase 68 U/L (73-393) L 05/27/20 05:24 Home Medications: NK [No Home Meds] 05/26/20 Patient Discharge Instructions: -OK TO DC IV AND DC HOME. -FOLLOW-UP WITH PRIMARY CARE PROVIDER IN 1-2 WEEKS. -FOLLOW-UP WITH SURGEON in 1-2 weeks. -FOLLOW-UP WITH GI in 1-2 weeks. -FOLLOW WITH NEUROLOGIST IN 1-2 WEEKS. - RETURN TO THE ER IF SYMPTOMS WORSEN. -CALL or TEXT DR. VELASQUEZ AT [phone] IF ANY QUESTIONS REGARDING HOSPITAL STAY. -PLEASE CALL THE FLOOR AT [phone] IF ANY MEDICATION OR NURSING QUESTIONS. Diet: low fat diet Activity: Fall precautions Followup: De Vegas MD [ACTIVE - CAN ADMIT] - 1-2 Weeks (follow up in 1-2 weeks, call to schedule an appointment) NONE,NONE [Primary Care Provider] - Time spent managing pt's care (in minutes): 35
== END 2020-05-27 14:15 | disposition home or self-care (01) | DRG 444 ==
LOC: ER 20:38 → ERHOLD 05-26 00:19 → 2ND 05-26 01:04
PROVIDERS: ADMIT Hospitalist; ATTEND Hospitalist
DX: K80.20 Calculus of gallbladder without cholecystitis without obstruction (principal); K85.90 Acute pancreatitis without necrosis or infection, unspecified; E87.6 Hypokalemia; Z88.0 Allergy status to penicillin; Z20.828 Contact with and (suspected) exposure to other viral communicable diseases
CPT/HCPCS: 36415; 74177; 76705; 80048; 80061; 80076; 81003; 81025; 83036; 83690; 83735; 84132; 85025; 96374; 96375; 99285; J2405; J7030; Q9967; U0002

== ENCOUNTER 2020-06-08 22:38 | Emergency (ER) | payer OTHER ==
--- OUTSIDE RECORDS SUMMARY | 2020-06-08 22:40 | XMS REPORT | Clinical Summary ---
:1995 Author Organization [facility] Address [address] [place] [address] Care Team Providers Name Role Phone Asked, [...] INFLUENZA VACCINE 03/05/2020 Results Not on fileafter 06/08/2019 rd (Home) [address] [place] [address] Advance Directives For more information, please contact: [phone] Type Date Recorded Patient Barn Boss Explanati on Advance Directives, Living Will and Medical Power of Disc Pad Plate Filler
--- OUTSIDE RECORDS SUMMARY | 2020-06-08 22:41 | XMS REPORT | Summary of Care ---
:1995 Author Organization [facility] Address [address] [place] [id number] Care Team Providers Name Role Phone Vincent IMMANUEL Unavailable Salvatore Roth MD Primary Care Provider Reason for Visit Reason Comments Abdominal Pain Auth/Cert Status Reason Specialty Diagnoses / Referred By Referred To Procedures Contact Contact Emergency Medicine Diagnoses ABDOMINAL PAIN [facility] [address] [place] [address] Fax: Encounter Details Date Type Department Care Team Description 04/14/2020 - Emergency [facility] Hiral Massey, PAC [address] [place], [place] [address] Epigastric pain (Primary Dx); 04/15/2020 Department Sheree Ramírez MD [address] [place] [address] [id number] [place], [place] [id number] Nausea and vomiting in adult patient [address] [place] [employer], [place] [id number] Allergies Active Allergy Reactions Severity Noted Date [...] labor, Pre-eclampsia, mild, delivered, Liveborn infant, of orjas , born in hospital by vaginal delivery [...] Liveborn , of rojas , born in [facility] by vaginal 11/24/2019 delivery Normal labor 11/23/2019 [...] Procedures CBC WITH DIFF COMP. METABOLIC PANEL (98676) LIPASE POCT TEST MEDICATIONS ADMINISTERED IN THE [...] 1. A PHYSICIAN OF YOUR CHOICE 2. [facility], . LOCATIONS IN [facility] 3. [facility], [address] [place] [address]; [phone] OR, IF YOU WISH TO FOLLOW-UP WITHIN THE [facility] HEALTH[facility]ARE [facility], MAY TRY THESE OPTIONS (CLINIC APPOINTMENTS AVAILABLE ON [id number]-[id number] BASIS): 1. SCHEDULE AN APPOINTMENT ONLINE AT WWW[facility] 2. OR CALL THE [facility] ACCESS CENTER AT OR 3. OR CALL YOUR [facility] PHYSICIAN'S OFFICE DIRECTLY IF YOU ARE ALREADY AN ESTABLISHED [facility] PATIENT. RETURN TO ER FOR WORSENING OF SYMPTOMS documented in this encounter ED Notes Carri Ch RN - 04/14/2020 10:32 PM CDTEmistefan Jackson is a 24 year old female co mid upper abd pain that started 1 to 2 hrs ago. 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 No diarrhea. Sheree Piña MD - 04/14/2020 10:25 PM CDT [facility] Emergency Department Note Patient Name: Matilda Jackson Date of : 1995 24 year old female Treatment Room: Room/bed info not found Primary Care Physician: Ericka Roth Patient Escorted by: Self [9] Mode of Arrival: Personal means [1] EMS Treatment Prior to ED Arrival: SPECIAL NEEDS TUTOR treatment: None Travel and Exposure Screening: Symptoms [...] 0.01 - 0.07 10*3/uL COMP. METABOLIC PANEL (99168) Collection Time: 04/14/20 10:50 PM Result Value [...] C Line present POCT PREG LOT # [id number] POCT PREG TEST DATE 04/04/2021 Orders and Treatments: Orders Placed This Encounter Procedures CBC WITH DIFF COMP. METABOLIC PANEL (10307) LIPASE POCT TEST Orders Placed This Encounter [...] Epigastric pain Re sults for this PANEL (67259) CDT procedure are in the results section. [...] with C Line POCT PREG LOT # [id number] POCT PREG TEST DATE 04/04/2021 Specimen Urine - URINE, CLEAN CATCH LIPASE (04/14/2020 10:50 PM CDT) Pathologist Sig nature LIPASE 69 0 - 220 U/L [facility] Specimen Blood - VENOUS Performing Organization Address City/State/Zipcode Phone Number [facility] CLIA: [id number] [place] [address] COMP. METABOLIC PANEL ([id number]) (04/14/2020 10:50 PM CDT) Pathologist Sig nature NA 139 135 - 145 [facility] mmol/L [facility] K 3.6 3.5 - 5.0 [facility] mmol/L [facility] CL 102 98 - 108 mmol/L [facility] CO2 TOTAL 27 23 - 31 mmol/L [facility] AGAP 10 2 - 16 [facility] BUN 15 7 - 23 mg/dL [facility] GLUCOSE 119 (H) 70 - 110 mg/dL [facility] CREATININE 0.89 0.50 - 1.04 [facility] mg/dL [facility] TOTAL BILI 0.8 0.1 - 1.1 mg/dL [facility] CALCIUM 9.6 8.6 - 10.6 [facility] mg/dL [facility] T PROTEIN 7.3 6.3 - 8.2 g/dL [facility] ALBUMIN 4.2 3.5 - 5.0 g/dL [facility] ALK PHOS 91 34 - 122 U/L [facility] ALTv 32 5 - 35 U/L [facility] AST(SGOT) 94 (H) 13 - 40 U/L [facility] eGFR Calculation 77.3 mL/min/1.73m2 [facility] (Non[facility] LABORATORY [place]) eGFR Calculation 93.7 mL/min/1.73m2 [facility] Specimen Blood - VENOUS Narrative Performed At Association of Glomerular Filtration Rate (GFR) [facility] and Staging of Kidney Disease* [...] tests). Performing Organization Address City/State/Zipcode Phone Number [facility] CLIA: [id number] [place] [address] CBC WITH DIFF (04/14/2020 10:50 PM CDT) Pathologist [facility] nature WBC 9.08 4.30 - 11.10 [facility] 10*3/L [facility] RBC 4.85 3.93 - 5.25 [facility] 10*6/L [facility] HGB 13.7 11.6 - 15.0 g/dL [facility] HCT 40.9 35.7 - 45.2 % [facility] MCV 84.3 80.6 - 95.5 fL [facility] MCH 28.2 25.9 - 32.8 pg [facility] MCHC 33.5 31.6 - 35.1 g/dL [facility] RDW-SD 45.1 39.0 - 49.9 fL [facility] RDW-CV 14.7 12.0 - 15.5 % [facility] PLT 376 (H) 166 - 358 [facility] 10*3/L [facility] MPV 8.9 (L) 9.5 - 12.9 fL [facility] NRBC/100 WBC 0.0 0.0 - 10.0 /100 [facility] WBCs [facility] NRBC x10^3 <0.01 10*3/L [facility] GRAN MAT (NEUT) % 53.4 % [facility] IMM GRAN % 0.30 % [facility] LYMPH % 35.5 % [facility] MONO % 9.4 % [facility] EOS % 0.8 % [facility] BASO % 0.6 % [facility] GRAN MAT x10^3(ANC) 4.86 1.88 - 7.09 [facility] 10*3/uL HOSPITAL LABORATORY IMM GRAN x10^3 0.03 0.00 - 0.06 [facility] 10*3/uL HOSPITAL LAB[facility]ATORY LYMPH x10^3 3.22 1.32 - 3.29 [facility] 10*3/uL HOSPITAL LAB[facility]ATORY MONO x10^3 0.85 0.33 - 0.92 [facility] 10*3/uL HOSPITAL LABORATORY EOS x10^3 0.07 0.03 - 0.39 [facility] 10*3/uL HOSPITAL LAB[facility]ATORY BASO x10^3 0.05 0.01 - 0.07 [facility] 10*3/uL [facility] Specimen Blood - VENOUS Performing Organization Address City/State/Zipcode Phone Number [facility] CLIA: [id number] [place] [address] documented in this [...] ONCE, 1 dose, Sat04/15/20 at 0000, Routine, [employer] member approving Restricted medication: SHEREE RAMÍREZ morpHINE [...] 40 mg, IV Piggyback, ONCE, 1 dose, [facility] 04/14/20 at 2345, 100 mL documented in this encounter Insurance Payer Benefit Plan / Subscriber ID Effective Phone Address T e Group Dates [facility] [id number] [address] Medic aid HEALTH CHOICE - [place] [id number] MANAGED MEDICAID [place], [place] [phone] documented as of this encounter"
--- OUTSIDE RECORDS SUMMARY | 2020-06-08 22:41 | XMS REPORT | Continuity of Care Document ---
:1995 Author Organization [facility] t Address [address] [place] [address] [place] [address] Care Team Providers Name Role Phone Asked, Pcp Primary Care Physician Unavailable Problems This patient has no known [...] Known Problems Anitra Arnold Maternal grandmother Diverticulitis [place] Natural mother No Known Problems Anitra meek Amish Social History Social Habit Start Date Stop Date Quantity Comments Source Sex Assigned At [facility] ethodist Tobacco use and 2019-03-31 2019-03-31 Never used [facility] ethodist exposure 00:00:00 00:00:00 Alcohol intake 2019-03-31 2019-03-31 Current drinker Maria Esthert on [facility]ish 00:00:00 00:00:00 of alcohol (finding) Alcohol Comment 2019-03-31 2019-03-31 moderate use [place] [facility] 00:00:00 00:00:00 Smoking Status Start Date Stop Date Source Never smoker [place] [facility] Medications This patient has no known medications. Procedures This patient has no known procedures. Plan of Care Planned Activity Planned Date Details Comments Source Future Scheduled 2020-03-05 INFLUENZA VACCINE [place] [facility] Test 00:00:00 [code = INFLUENZA VACCINE] Future Scheduled 2015 Screening for [facility] thodist Test 00:00:00 malignant neoplasm of cervix (procedure) [code = 876536670] Results This patient has no known results.
--- OUTSIDE RECORDS SUMMARY | 2020-06-08 22:42 | XMS REPORT | Summary of Care ---
:1995 Author Organization [facility] - [facility] Address [address] [place] [id number] Care Team Providers Name Role Phone Vincent IMMANUEL Unavailable Salvatore Roth MD Primary Care Provider Reason for Referral Radiology Services (STAT) Status Reason Specialty Diagnoses / Referred By Referred To Procedures Contact Contact New Request Diagnostic Diagnoses Generalized abdominal pain Mony Fierro Radiology Procedures US ABDOMEN LIMITED MD Noble [address] [place] [id number] Reason for Visit Reason Comments Abdominal Pain Vomiting Auth/Cert Status Reason Specialty Diagnoses / Referred By Referred To Procedures Contact Contact Emergency Medicine [facility] Em ergency Dept [address] [place] [address] Fax: Encounter Details Date Type Department Care Team Description 04/15/2020 Emergency ADC-Emergency Mony Fierro S, Calculus of gallbladder with acute cholecystitis without obstruction (Primary Dx); Department Generalized abdominal pain; [address] [phone] [id number] Allergies Active Allergy Reactions Severity Noted Date [...] Liveborn infant, of rojas , born in [facility] by vaginal 11/24/2019 delivery Normal labor [...] be sent through Care Everywhere. Gallstones, Treating (Nepalese)Gallstones, Discharge Instructions (Nepalese) Gallstones, What are (Nepalese)documented in this encounter ED Notes Claudia Bosch [...] 04/15/2020 9:14 Generalized Results for this PANEL (92921) PM CDT abdominal pain procedure ar e [...] polyp. Preliminary Report Dictated by Resident: Eitan aCrlisle MD., have reviewed this study and agree [...] by Resident: Eitan Carlisle MD., have reviewed [facility] study and agree with the above report. Performing Organization Address City/State/Zipcode Phone Number PACS/VR/DOSE CBC with Differential (04/15/2020 9:14 PM CDT) Pathologist Sig nature WBC 8.15 4.30 - 11.10 [facility] 10*3/L [facility] RBC 4.62 3.93 - 5.25 [facility] 10*6/L [facility] HGB 13.1 11.6 - 15.0 [facility] g/dL [facility] HCT 39.1 35.7 - 45.2 % [facility] MCV 84.6 80.6 - 95.5 fL [facility] MCH 28.4 25.9 - 32.8 pg [facility] MCHC 33.5 31.6 - 35.1 [facility] g/dL [facility]ITAL [facility] RDW-SD 45.0 39.0 - 49.9 fL [facility] RDW-CV 14.6 12.0 - 15.5 % [facility] PLT 372 (H) 166 - 358 [facility] 10*3/L [facility] MPV 9.0 (L) 9.5 - 12.9 fL [facility] NRBC/100 WBC 0.0 0.0 - 10.0 /100 [facility] WBCs [facility] NRBC x10^3 <0.01 10*3/L [facility] GRAN MAT (NEUT) % 65.4 % [facility] IMM GRAN % 0.20 % [facility] LYMPH % 21.5 % [facility] MONO % 11.7 % [facility] EOS % 0.5 % [facility] BASO % 0.7 % [facility] GRAN MAT x10^3(ANC) 5.33 1.88 - 7.09 [facility] 10*3/uL [facility] IMM GRAN x10^3 <0.03 0.00 - 0.06 [facility] 10*3/uL [facility] LYMPH x10^3 1.75 1.32 - 3.29 [facility] 10*3/uL [facility] MONO x10^3 0.95 (H) 0.33 - 0.92 [facility] 10*3/uL [facility] EOS x10^3 0.04 0.03 - 0.39 [facility] 10*3/uL [facility] BASO x10^3 0.06 0.01 - 0.07 [facility] 10*3/uL [facility]ITAL [facility] Specimen Blood - VENOUS Performing Organization Address City/[facility]/Zipcode Phone Number [facility] CLIA: [id number] [place] [address] LABORATORY 132 [facility] Lipase, Serum (04/15/2020 9:14 PM CDT) Pathologist Sig nature LIPASE 87 0 - 220 U/L [facility] Specimen Blood - VENOUS Performing Organization Address City/[facility]/Zipcode Phone Number [facility] CLIA: [id number] [place] [address] [facility] Complete Metabolic Panel (04/15/2020 9:14 PM CDT) Pathologist Sig nature NA 139 135 - 145 [facility] mmol/L [facility] K 3.9 3.5 - 5.0 [facility] mmol/L [facility] CL 103 98 - 108 mmol/L [facility] CO2 TOTAL 27 23 - 31 mmol/L [facility] AGAP 9 2 - 16 [facility] BUN 14 7 - 23 mg/dL [facility] GLUCOSE 110 70 - 110 mg/dL [facility] CREATININE 0.78 0.50 - 1.04 [facility] mg/dL [facility] TOTAL BILI 2.4 (H) 0.1 - 1.1 mg/dL [facility] CALCIUM 9.4 8.6 - 10.6 [facility] mg/dL [facility] T PROTEIN 7.4 6.3 - 8.2 g/dL [facility] ALBUMIN 4.2 3.5 - 5.0 g/dL [facility] ALK PHOS 169 (H) 34 - 122 U/L [facility] ALTv 271 (H) 5 - 35 U/L [facility] AST(SGOT) 553 (H) 13 - 40 U/L [facility] eGFR Calculation 90.0 mL/min/1.73m2 [facility] [place]) eGFR Calculation 109.1 mL/min/1.73m2 [facility] () [facility] Specimen Blood - VENOUS Narrative Performed At Association of Glomerular Filtration Rate (GFR) [facility] and Staging of Kidney Disease* [...] tests). Performing Organization Address City/State/Zipcode Phone Number [facility] CLIA: [id number] [place] [address] Urinalysis (04/15/2020 9:06 PM CDT) Pathologist Sig nature APPEARANCE Hazy (A) Clear [facility] COLOR Evette (A) Yellow [facility] PH 6.0 4.8 - 8.0 [facility] SP GRAVITY 1.017 1.003 - 1.030 [facility] GLU U QUAL Normal Normal [facility] BLOOD Negative Negative [facility] KETONES Negative Negative [facility] PROTEIN Negative Negative [facility] UROBILIN 4.0 mg/dL (A) Normal [facility] BILIRUBIN Negative Negative [facility] NITRITE Negative Negative [facility] LEUK PAVITHRA 250/uL (A) Negative [facility] RBC/HPF <1 0 - 3 HPF [facility] WBC/HPF 55 (H) 0 - 5 HPF [facility] BACTERIA Few (A) Negative [facility] MUCOUS Slight (A) Negative LPF [facility] SQ EPITH 12 HPF [facility] Specimen Urine - URINE, CLEAN CATCH Performing Organization Address City/State/Zipcode Phone Number [facility] CLIA: [id number] [place] [address] [place] [address] documented in this encounter Visit Diagnoses Diagnosis [...] Effective Phone Address T e Group Dates [facility] [id number] 2019-Prese [address] Medic aid HE[facility] CHOICE - [place] nt 194878 1 MANAGED MEDICAID [place], [place] [phone] documented as of this encounter
[2020-06-08 23:11] LABS: Absolute Lymphocytes (CBC) 1.6 K/uL (0.7-4.9); Basophils % 0.9 % (0-1.3); Hematocrit 46.2 % (36.0-45.0); Lymphocytes % 19.1 % (15.3-44.8); RBC Red Blood Cell Count 5.46 M/uL (3.86-4.86)
[2020-06-08] MEDS ORDERED: KETOROLAC 30 MG/ML INJ ONE (23:20)
[2020-06-08 23:29] LABS: Albumin 4.4 g/dL (3.4-5.0); Bilirubin Direct 0.4 mg/dL (0-0.2); Bilirubin Total 1.2 mg/dL (0.2-1.0); Potassium 3.6 mmol/L (3.5-5.1); Protein, Total 8.6 g/dL (6.4-8.2)
--- NOTE | 2020-06-08 23:34 | EDPHYS ---
Physician Documentation [facility] Name: Matilda Jackson Age: 25 yrs Sex: Female : 1995 Arrival Date: 06/08/2020 Time: 22:39 Bed 13 Private MD: ED Physician Chidi Piña HPI: 06/08 23:03 This 25 yrs old Female presents to ER via Ambulatory with complaints of kb Abdominal Pain. 23:03 The patient presents with abdominal pain in the upper abdomen. kb 23:03 Onset: The symptoms/episode began/occurred 1 month(s) ago, and became worse today. The kb symptoms do not radiate. Associated signs and symptoms: none. The symptoms are described as constant. Modifying factors: The symptoms are alleviated by nothing, the symptoms are aggravated by nothing. Severity of pain: At its worst the pain was moderate in the emergency department the pain is unchanged. The patient has experienced a previous episode. The patient has been recently seen at the [facility] Emergency Department. Pt reports upper abdominal pain that started a month ago and has gotten worse. Was seen by Dr Vegas and told she needed to follow up to have surgery to remove her gallbladder outpatient. States she hasn't scheduled the surgery yet.. 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 - Social history:: Smoking status: Patient denies any tobacco usage or history of. ROS: 23:00 Constitutional: Negative for fever, chills, and weight loss, Cardiovascular: Negative kb for chest pain, palpitations, and edema, Respiratory: Negative for shortness of breath, cough, wheezing, and pleuritic chest pain, Back: Negative for injury and pain, MS/Extremity: Negative for injury and deformity, Skin: Negative for injury, rash, and discoloration, Neuro: Negative for headache, weakness, numbness, tingling, and seizure. 23:00 Abdomen/GI: Positive for abdominal pain, Negative for nausea, vomiting, and diarrhea. Exam: 23:02 Constitutional: This is a well developed, well nourished patient who is awake, alert, kb and in no acute distress. Head/Face: Normocephalic, atraumatic. Chest/axilla: Normal chest wall appearance and motion. Nontender with no deformity. No lesions are appreciated. Cardiovascular: Regular rate and rhythm with a normal S1 and S2. No gallops, murmurs, or rubs. Normal PMI, no JVD. No pulse deficits. Respiratory: Lungs have equal breath sounds bilaterally, clear to auscultation and percussion. No rales, rhonchi or wheezes noted. No increased work of breathing, no retractions or nasal flaring. Skin: Warm, dry with normal turgor. Normal color with no rashes, no lesions, and no evidence of cellulitis. MS/ Extremity: Pulses equal, no cyanosis. Neurovascular intact. Full, normal range of motion. Neuro: Awake and alert, GCS 15, oriented to person, place, time, and situation. Cranial nerves II-XII grossly intact. Motor strength 5/5 in all extremities. Sensory grossly intact. Cerebellar exam normal. Normal gait. 23:02 Abdomen/GI: Inspection: abdomen appears normal, Bowel sounds: normal, in all quadrants, Palpation: soft, in all quadrants, moderate abdominal tenderness, in the right upper quadrant and left upper quadrant. Vital Signs: 22:46 BP 121 / 70; Pulse 55; Resp 18; Temp 98.6; Pulse Ox 99% on R/A; Pain 4/10; sg 23:34 BP 119 / 77; Pulse 50; Resp 17 S; Pulse Ox 100% on R/A; jd3 11/05 00:30 BP 110 / 76; Pulse 58; Resp 18; Temp 98.5; Pulse Ox 100% ; Pain 0/10; jv1 MDM: 1104 22:42 Patient medically screened. kb 23:02 Data reviewed: vital signs, nurses notes. Data interpreted: Pulse oximetry: on room air kb is 99 %. Interpretation: normal. 23:33 Counseling: I had a detailed discussion with the patient and/or guardian regarding: the kb historical points, exam findings, and any diagnostic results supporting the discharge/admit diagnosis, lab results, radiology results, the need for outpatient follow up, a family practitioner, a general surgeon, to return to the emergency department if symptoms worsen or persist or if there are any questions or concerns that arise at home. 06/08 22:44 Order name: Basic Metabolic Panel; Complete Time: 23:33 kb 06/08 22:44 Order name: CBC with Diff; Complete Time: 23:22 kb 06/08 22:44 Order name: Hepatic Function; Complete Time: 23:33 kb 06/08 22:44 Order name: Lipase; Complete Time: 23:33 kb 06/08 22:45 Order name: US Abdomen Limited kb 06/08 22:44 Order name: IV Saline Lock; Complete Time: 23:10 kb 06/08 22:44 Order name: Labs collected and sent; Complete Time: 23:10 kb Administered Medications: 23:10 Drug: TORadol 30 mg Route: IVP; Site: right antecubital; jd3 23:41 Follow up: Response: No adverse reaction jd3 23:33 Drug: NS 0.9% 1000 ml Route: IV; Rate: 1000 ml; Site: right antecubital; jd3 06/09 00:25 Follow up: Response: No adverse reaction; IV Status: Completed infusion jv1 06/08 23:41 Drug: morphine 4 mg Route: IVP; Site: right antecubital; jd3 23:56 Follow up: Response: No adverse reaction; RASS: Alert and Calm (0) jd3 23:41 Drug: Zofran (Ondansetron) 4 mg Route: IVP; Site: right antecubital; jd3 23:56 Follow up: Response: No adverse reaction jd3 Disposition: 06/09 07:12 Co-signature as Attending Physician, Chidi Piña MD. [email or web address] Disposition: 06/08/20 23:34 Discharged to Home. Impression: Cholelithiasis. - Condition is Stable. - Discharge Instructions: Cholelithiasis, [id number]. - Prescriptions for Bentyl 20 mg Oral Tablet - take 1 tablet by ORAL route every 6 hours As needed; 20 tablet. Zofran 4 mg Oral Tablet - take 1 tablet by ORAL route every 6 hours As needed; 20 tablet. - Medication Reconciliation Form, Thank You Letter, Antibiotic Education, Prescription Opioid Use form. - Follow up: Emergency Department; When: As needed; Reason: Worsening of condition. Follow up: Private Physician; When: 2 - 3 days; Reason: Recheck today's complaints, Continuance of care, Re-evaluation by your physician. Signatures: Dispatcher [employer] EDAretha Yu, SENIOR C DEVELOPER-C SENIOR C DEVELOPER-Ckb Adebayo Flannery RN RN sg Martin Aguila RN RN jd3 Beryl Hernández RN RN jv1 Chidi Piña MD MD [email or web address] Corrections: (The following items were deleted from the chart) 00:35 06/08 23:34 06/08/2020 23:34 Discharged to Home. Impression: Cholelithiasis. Condition jv1 is Stable. Forms are Medication Reconciliation Form, Thank You Letter, Antibiotic Education, Prescription Opioid Use. Follow up: Emergency Department; When: As needed; Reason: Worsening of condition. Follow up: Private Physician; When: 2 - 3 days; Reason: Recheck today's complaints, Continuance of care, Re-evaluation by your physician. kb
--- NOTE | 2020-06-08 23:34 | ER ---
Nurse's Notes [facility] Name: Matilda Jackson Age: 25 yrs Sex: Female : 1995 Arrival Date: 06/08/2020 Time: 22:39 Bed 13 Private MD: Diagnosis: Cholelithiasis Presentation: 06/08 22:46 Chief complaint: Patient states: I was seen about a month ago I guess, and was told by sg that I need to follow up with a surgeon to have my gall bladder removed, but I have not been getting any better and they told me that I was not well enough to have the sx so I didn't get one scheduled. Now Im having the pain again so I need to get that checked out. Coronavirus screen: Client denies travel out of the [place] in the last 14 days. At this time, the client does not indicate any symptoms associated with coronavirus-19. Initial Sepsis Screen: Does the patient meet any 2 criteria? No. Patient's initial sepsis screen is negative. Does the patient have a suspected source of infection? Yes: Acute abdominal pain. Risk Assessment: Do you want to hurt yourself or someone else? Patient reports no desire to harm self or others. Onset of symptoms was June 08, 2020. Care prior to arrival: None. Transition of care: patient was not received from another setting of care. 22:46 Acuity: CHI 3 sg 22:46 Method Of Arrival: Ambulatory sg 23:12 Ebola Screen: Patient negative for fever greater than or equal to 101.5 degrees jd3 Fahrenheit, and additional compatible Ebola Virus Disease symptoms. 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 - Social history:: Smoking status: Patient denies any tobacco usage or history of. Screenin:12 Abuse screen: Denies threats or abuse. Nutritional screening: No deficits noted. jd3 Tuberculosis screening: No symptoms or risk factors identified. Fall Risk Ambulatory Aid- None/Bed Rest/Nurse Assist (0 pts). Gait- Normal/Bed Rest/Wheelchair (0 pts) Mental Status- Oriented to own ability (0 pts). Total Marte Fall Scale indicates No Risk (0-24 pts). Assessment: 23:10 General: Appears in no apparent distress. uncomfortable, Behavior is calm, cooperative, jd3 appropriate for age. Pain: Complains of pain in right upper quadrant Quality of pain is described as sharp, tender. Neuro: Level of Consciousness is awake, alert, obeys commands, Oriented to person, place, time, situation. Cardiovascular: Denies chest pain, Capillary refill < 3 seconds Patient's skin is warm and dry. Respiratory: Airway is patent Respiratory effort is even, unlabored, Respiratory pattern is regular, symmetrical, Denies cough, shortness of breath. GI: Abdomen is round non-distended, Abd is soft X 4 quads Abdomen is tender to palpation in right upper quadrant and right lower quadrant Reports nausea, vomiting. : No signs and/or symptoms were reported regarding the genitourinary system. EENT: No signs and/or symptoms were reported regarding the EENT system. Derm: Skin is intact, Skin is dry, Skin is normal, Skin temperature is warm. Musculoskeletal: Circulation, motion, and sensation intact. Range of motion: intact in all extremities. 23:34 Reassessment: Patient appears in no apparent distress at this time. No changes from jd3 previously documented assessment. Patient and/or family updated on plan of care and expected duration. Pain level reassessed. Patient is alert, oriented x 3, equal unlabored respirations, skin warm/dry/pink. 23:41 Reassessment: discharge pending IV fluids infusion. jd3 23:56 Reassessment: Patient appears in no apparent distress at this time. No changes from jv1 previously documented assessment. Patient and/or family updated on plan of care and expected duration. Pain level reassessed. Patient is alert, oriented x 3, equal unlabored respirations, skin warm/dry/pink. 11 00:31 Reassessment: Patient appears in no apparent distress at this time. No changes from jv1 previously documented assessment. Patient and/or family updated on plan of care and expected duration. Pain level reassessed. Patient is alert, oriented x 3, equal unlabored respirations, skin warm/dry/pink. Patient denies pain at this time. Patient states feeling better. Vital Signs: 06/08 22:46 BP 121 / 70; Pulse 55; Resp 18; Temp 98.6; Pulse Ox 99% on R/A; Pain 4/10; sg 23:34 BP 119 / 77; Pulse 50; Resp 17 S; Pulse Ox 100% on R/A; jd3 06/09 00:30 BP 110 / 76; Pulse 58; Resp 18; Temp 98.5; Pulse Ox 100% ; Pain 0/10; jv1 ED Course: 06/08 22:39 Patient arrived in ED. cl3 22:42 Aretha Harmon FNP-C is PHCP. kb 22:42 Chidi Piña MD is Attending Physician. kb 22:46 Arm band placed on. sg 22:49 Triage completed. sg 22:50 Martin Aguila, RN is Primary Nurse. jd3 23:02 US Abdomen Limited In Process Unspecified. EDMS 23:10 Inserted saline lock: 20 gauge in right antecubital area, using aseptic technique. jd3 Blood collected. 23:12 Patient has correct armband on for positive identification. Bed in low position. Call jd3 light in reach. Side rails up X 1. Pulse ox on. NIBP on. 06/09 00:31 No provider procedures requiring assistance completed. IV discontinued, intact, jv1 bleeding controlled, No redness/swelling at site. Pressure dressing applied. Administered Medications: 06/08 23:10 Drug: TORadol 30 mg Route: IVP; Site: right antecubital; jd3 23:41 Follow up: Response: No adverse reaction jd3 23:33 Drug: NS 0.9% 1000 ml Route: IV; Rate: 1000 ml; Site: right antecubital; jd3 06/09 00:25 Follow up: Response: No adverse reaction; IV Status: Completed infusion jv1 06/08 23:41 Drug: morphine 4 mg Route: IVP; Site: right antecubital; jd3 23:56 Follow up: Response: No adverse reaction; RASS: Alert and Calm (0) jd3 23:41 Drug: Zofran (Ondansetron) 4 mg Route: IVP; Site: right antecubital; jd3 23:56 Follow up: Response: No adverse reaction jd3 Outcome: 23:34 Discharge ordered by . kb 06/09 00:31 Discharged to home ambulatory. jv1 Condition: stable Discharge instructions given to patient, Instructed on discharge instructions, follow up and referral plans. medication usage, Instructed to follow up with a surgeon tabatha. pt said yes she has a surgeon to go to. Demonstrated understanding of instructions, follow-up care, medications, Prescriptions given X 2. 00:35 Patient left the ED. jv1 Signatures: Dispatcher [employer] EDKY Aretha Harmon, IMMANUEL-C OPERATIONS MANAGER ASSISTANT-Adebayo Prieto RN RN Martin Nuno RN RN jd3 Beryl Hernández RN RN jv1 Santos Malone cl3
[2020-06-08] MEDS ORDERED: NA CHLORIDE 0.9% 1,000 ML ONE (23:44)
[2020-06-08] MEDS ORDERED: ONDANSETRON 4 MG/2 ML VIAL ONE (23:51)
[2020-06-08] MEDS ORDERED: MORPHINE 4 MG/ML SYR ONE (23:51)
--- NOTE | 2020-06-09 07:54 | RAD REPORT ---
EXAM DESCRIPTION: US - Abdomen Exam Limited - 06/08/2020 11:02 pm CLINICAL HISTORY: Abdominal pain. COMPARISON: May 2020 FINDINGS: The gallbladder wall is not thickened. Multiple gallstones The biliary tree is normal caliber. IMPRESSION: Cholelithiasis without evidence cholecystitis.
== END 2020-06-09 00:35 | disposition home or self-care (01) ==
LOC: ER 22:38
DX: K80.20 Calculus of gallbladder without cholecystitis without obstruction (principal); Z88.0 Allergy status to penicillin
CPT/HCPCS: 96361; 85025; 80048; 36415; 80076; 83690; 76705; 96375; 96374; 99284; J7030; J2405

== ENCOUNTER 2020-07-17 09:10 | Emergency (ER) | payer OTHER ==
--- OUTSIDE RECORDS SUMMARY | 2020-07-17 09:12 | XMS REPORT | Continuity of Care Document ---
:1995 Author Organization [facility] t Address [address] [place] [address] Care Team Providers Name Role Phone Asked, Pcp Primary Care Physician Unavailable Sri VELOZ S Attending Clinician Bryson JASMINE S Attending Clinician Nikhil JONES Attending Clinician Nurse, Women's [facility] Attending Clinician Unavailable Hari VELOZ Attending Clinician Salvatore Roth MD Attending Clinician Doctor Unassigned, Name Attending Clinician Unavailable Hari VELOZ Admitting Clinician Payers Payer Name Policy Type Policy Number Effective Date Expiration Date S ource Problems This patient has no known problems. Allergies, Adverse Reactions, Alerts Allergy Allergy Status Severity Reaction(s) Onset Inactive Treating Comm ents Source Name Type Date Date Clinician [place] DA Active MO 2019-08 [facility] ins 08-09 Clear 00:00: [place] 00 [facility] No Known DA Active U 2019-08 [facility] Allergie 08-09 [place] s 00:00: d 00 [facility] Penicill Propensi Active [place] ty to 03-31 Methodi adverse 00:00: st reaction 00 s to drug Family History Family Member Diagnosis Comments Start Date Stop Date Source Natural father No Known Problems Anitra Arnold Maternal grandmother Diverticulitis [place] Natural mother No Known Problems Anitra meek Arnold Social History Social Habit Start Date Stop Date Quantity Comments Source Sex Assigned [facility] ethodist Tobacco use and 2019-03-31 2019-03-31 Never used Stock ethodist exposure 00:00:00 00:00:00 Alcohol intake 2019-03-31 2019-03-31 Current drinker [place] 00:00:00 00:00:00 of alcohol (finding) Alcohol Comment 2019-03-31 2019-03-31 moderate use [place] 00:00:00 00:00:00 Smoking Status Start Date Stop Date Source Never smoker [place] [facility] t Medications This patient has no known medications. Procedures This patient has no known procedures. Plan of Care Planned Activity Planned Date Details Comments Source Future Scheduled 2020-03-05 INFLUENZA VACCINE [place] Test 00:00:00 [code = INFLUENZA VACCINE] Future Scheduled 2015 Screening for [facility] thodist Test 00:00:00 malignant neoplasm of cervix (procedure) [code = 700686281] Encounters Start End Encounter Admission Attending Care Care Encounter Source Date/Time Date/Time Type Type Clinicians Facility Department ID 2020-04-15 2020-04-[address] [facility] [id number] 21:04:00 23:55:00 Mony Dickey [place] 350.1.13.10 [place] 4.2.7.2.686 [place] [id number] 2020-04-14 2020-04-15 Emergency MasseyHiral [facility] 1.2.840.1 [id number] 22:42:00 00:15:00 Mony Fierro [place] 350.1.13.10 [place] 4.2.7.2.686 [place] [id number] 2019-12-25 2019-12-25 [facility] 1.2.840.114 [id number] 09:24:12 09:39:12 ne Visit Marcella Matamoros 350.1.13.10 [place] 4.2.7.2.686 Professio [id number] [address] 2019-11-30 2019-11-30 Nurse Nurse, [facility] 1.2.840.114 [id number] 14:38:58 14:55:30 Visit Women's [place] 350.1.13.10 [facility] 4.2.7.2.686 Professio [id number] [address] 2019-11-22 2019-11-24 [facility] 1.2.840.114 [id number] 21:57:00 10:35:00 Encounter Krystina Matamoros 350.1.13.10 [place] 4.2.7.2.686 [place] [id number] [facility] 2019-11-24 2019-11-24 Telephone Ericka Roth [facility] 1.2.840.114 [id number] 00:00:00 00:00:00 Cam [place] 350.1.13.10 [place] 4.2.7.2.686 Professio [id number] [address] 2019-11-22 2019-11-22 [facility] 1.2.840.114 [id number] 11:15:00 13:25:00 Encounter Krystina Matamoros 350.1.13.10 [place] 4.2.7.2.686 [place] [id number] 3 2019-11-19 2019-11-19 Routine Ericka Roth [facility] [id number] 16:00:04 16:26:51 Cam [place] 350.1.13.10 Visit [place] 4.2.7.2.686 Professio [phone] [address] 2019-11-12 2019-11-12 Routine Ericka Roth [facility] [id number] 15:54:30 16:23:02 Cam [place] 350.1.13.10 Visit [place] 4.2.7.2.686 Professio [id number] [address] 2019-11-06 2019-11-06 Orders Doctor HUFF 1.2.840.114 [id number] 00:00:00 00:00:00 Only Unassigned, GLENN 350.1.13.10 Jordan [facility] 4.2.7.2.686 [id number] 2019-11-05 2019-11-05 Routine TONE Tejeda [id number] 07:54:57 08:09:57 Marcella Matamoros 350.1.13.10 Visit [place] 4.2.7.2.686 Professio [id number] [address] 2019-11-02 2019-11-02 Telephone Ericka Roth [facility]CH[facility]STOPHER 1.2.840.114 [id number] 00:00:00 00:00:00 Cam [place] 350.1.13.10 [place] 4.2.7.2.686 Professio [id number] [address] 2019-10-29 2019-10-30 Routine Ericka Roth [facility] 1.2.117.780 [id number] 15:58:33 10:03:05 Salvatore Matamoros 350.1.13.10 Visit [place] 4.2.7.2.686 Professio [id number] [address] 2019-10-30 2019-10-30 Case Ericka Roth [facility] [id number] [id number] 00:00:00 00:00:00 Management Salvatore Matamoros 350.1.13.10 [place] 4.2.7.2.686 Professio [id number] [address] Results Test Description Test Time Test Comments Results Result Comments Source COMPREHENSIVE METABOLIC PANEL 2020-06-11 05:17:00 Test Item Value Reference Range Interpretation Comme nts SODIUM (test code = NA) 138 mmol/L 134-147 N POTASSIUM (test code = K) 3.7 mmol/L 3.4-5.0 N CHLORIDE (test code = CL) 108 mmol/L 100-108 N CARBON DIOXIDE (test code = CO2) 22 mmol/L 21-32 N ANION GAP (test code = GAP) 8.0 GAP calc 4.0-15.0 N GLUCOSE (test code = GLU) 73 MG/DL 70-110 N BLOOD UREA NITROGEN (test code = BUN) 4 MG/DL 7-18 L GLOMERULAR FILTRATION RATE (test code = GFR) >=60 max estimate estG FR >60 CREATININE (test code = CREAT) 0.7 MG/DL 0.6-1.0 N TOTAL PROTEIN (test code = PROT) 6.8 G/DL 6.4-8.2 N ALBUMIN (test code = ALB) 3.4 G/DL 3.4-5.0 N GLOBULIN (test code = GLOB) 3.4 GM/dL ALBUMIN/GLOBULIN RATIO (test code = A/G) 1.0 RATIO 1.2-2.2 L CALCIUM (test code = CA) 8.4 MG/DL 8.5-10.1 L BILIRUBIN TOTAL (test code = BILT) 0.70 MG/DL 0.2-1.2 N SGOT/AST (test code = AST) 14 Unit/L 15-37 L SGPT/ALT (test code = ALT) 15 Unit/L 12-78 N ALKALINE PHOSPHATASE TOTAL (test code = ALKP) 66 Unit/L 45-117 N [id number] 05:17:00 Test Item Value Reference Range Interpretation Comments LIPASE (test code = LIP) 100 Unit/L 114-286 L COMPREHENSIVE METABOLIC [id number] 05:14:00 Test Item Value Reference Range Interpretation Comments SODIUM (test code = NA) 138 mmol/L 134-147 N POTASSIUM (test code = K) 3.7 mmol/L 3.4-5.0 N CHLORIDE (test code = CL) 108 mmol/L 100-108 N CARBON DIOXIDE (test code = CO2) 22 mmol/L 21-32 N ANION GAP (test code = GAP) 8.0 GAP calc 4.0-15.0 N GLUCOSE (test code = GLU) 73 MG/DL 70-110 N BLOOD UREA NITROGEN (test code = 4 MG/DL 7-18 L BUN) GLOMERULAR FILTRATION RATE (test estGFR >60 code = GFR) CREATININE (test code = CREAT) MG/DL 0.6-1.0 TOTAL PROTEIN (test code = PROT) G/DL 6.4-8.2 ALBUMIN (test code = ALB) G/DL 3.4-5.0 GLOBULIN (test code = GLOB) GM/dL ALBUMIN/GLOBULIN RATIO (test RATIO 1.2-2.2 code = A/G) CALCIUM (test code = CA) 8.4 MG/DL 8.5-10.1 L BILIRUBIN TOTAL (test code = MG/DL 0.2-1.2 BILT) SGOT/AST (test code = AST) Unit/L 15-37 SGPT/ALT (test code = ALT) Unit/L 12-78 ALKALINE PHOSPHATASE TOTAL (test Unit/L 45-117 code = ALKP) [id number] 05:14:00 Test Item Value Reference Range Interpretation Comments LIPASE (test code = LIP) 100 Unit/L 114-286 L CBC W/AUTO [id number] 05:04:00 Test Item Value Reference Range Interpretation Comments WHITE BLOOD CELL (test code = 6.2 K/mm3 3.5-11.0 N WBC) RED BLOOD CELL (test code = 4.65 M/mm3 4.70-6.10 L RBC) HEMOGLOBIN (test code = HGB) 13.4 G/DL 10.4-14.9 N HEMATOCRIT (test code = HCT) 39.8 % 31.5-44.1 N MEAN CELL VOLUME (test code = 85.6 Fl 84.5-98.6 N MCV) MEAN CELL HGB (test code = MCH) 28.8 pg 27.0-34.2 N MEAN CELL HGB CONCETRATION 33.7 G/DL 31.5-34.0 N (test code = MCHC) RED CELL DISTRIBUTION WIDTH 13.1 SD 11.5-14.5 N (test code = RDW) PLATELET COUNT (test code = 327 K/mm3 150-450 N PLT) MEAN PLATELET VOLUME (test code 8.70 fL 7.0-10.5 N = MPV) NEUTROPHIL % (test code = NT%) 60.0 % 40-76 IMMATURE GRANULOCYTE % (test 0.2 % 0.0-5.0 N code = IG%) LYMPHOCYTE % (test code = LY%) 29.1 % 20.5-51.1 N MONOCYTE % (test code = MO%) 8.9 % 1.7-9.3 N EOSINOPHIL % (test code = EO%) 1.0 % 0.0-6.0 N BASOPHIL % (test code = BA%) 0.8 % 0.0-2.0 N NUCLEATED RBC % (test code = 0.0 /100WBC% 0.0-1.0 N NRBC%) NEUTROPHIL # (test code = NT#) 3.7 K/mm3 1.8-7.6 N IMMATURE GRANULOCYTE # (test 0.01 x10 3/uL 0.00-0.03 N code = IG#) LYMPHOCYTE # (test code = LY#) 1.8 K/mm3 0.6-3.2 N MONOCYTE # (test code = MO#) 0.6 K/mm3 0.3-1.1 N EOSINOPHIL # (test code = EO#) 0.1 K/mm3 0.0-0.4 N BASOPHIL # (test code = BA#) 0.1 K/mm3 0.0-0.1 N NUCLEATED RBC # (test code = 0.0 K/mm3 0.0-0.1 N NRBC#) MANUAL DIFF REQUIRED (test code NO DIFF/SCN CRITERIA = MDIFF) - XR [id number] 17:35:00 [facility] 1995 Sex: F Name: FORREST GIMENEZ [facility] : 1995 Age/S: 25 / F [address] Unit #: [id number] Loc: [place] [address] Phys: Kishor Sánchez MD Acct: [id number] Dis Date: Status: ADM IN PHONE #: [phone] Exam Date: 06/10/2020 1610 FAX #: Reason: ERCP EXAMS:CPT: [id number] XR ERCP 09100 Fluoro Time: 199 DAP (Gy m2): Air Kerma (mGy): EXAM: - XR ERCP HISTORY:ERCP Location code: C3 COMPARISON: None available time of interpretation. FINDINGS: Intraoperative fluoroscopy was provided for Kishor Sánchez MD. Radiologist was not present for the procedure. 1 fluoroscopy images was obtained. Pleasesee surgical report. IMPRESSION: 1. As above. Fluoroscopy time: 3 minutes 33 seconds Cumulative dose: 25.59 mGy at 8713 Reported and signed by: Annabella Thorne M.D. CC: Kishor Sánchez MD; Ericka Roth MD PAGE 1 Signed Report Name: FORREST GIMENEZ [place] : 1995 Age/S: 25 / F [address] it #: [id number] Loc: [place] [address] Phys: Kishor Sánchez MD Acct: [id number] Dis Date: Status: ADM IN PHONE #: [phone] Exam Date: 06/10/2020 1612 FAX #: Reason: ERCP EXAMS: CPT: [id number] XR ERCP 60082 Fluoro Time: 199 DAP (Gy m2): Air Kerma (mGy): <Continued> Technologist: Sage Grant, RT(R)(CT); ... Trnscb Date/Time: 06/10/2020 (4583) [email or web address] Orig Print D/T: S: 06/10/2020 (5190) PAGE 2 Signed ReportUR HCG [id number] 11:21:00 Test Item Value Reference Range Interpretation Comments UR HCG QUAL (test code = HCGQLU) NEGATIVE NEGATIVE PROTHROMBIN [id number] 11:01:00 Test Item Value Reference Range Interpretation Comments PT PATIENT (test code = PTP) 14.2 SECONDS 9.3-12.9 H INTERNATIONAL NORMAL RATIO 1.25 INR Unit 0.8-1.2 H (test code = INR) [id number] 22:52:00 Test Item Value Reference Range Interpretation Comments TROPONIN-I (test < 0.015 NG/ML 0.000-0.045 N Negative: </= 0.045 code = TROPI) Positive: >/= 0.046 Correlation wit h serial results, other cardiac markers, and cl inical findings is nec essary to determine the c linical significance of this result. Quantit ative results using d ifferent methodologies s hould not be compared to one another as nume rical results may michelle yby method. Completed by Nursing: [id number] 18:51:00 Test Item Value Reference Range Interpretation Comments TROPONIN-I (test < 0.015 NG/ML 0.000-0.045 N Negative: </= 0.045 code = TROPI) Positive: >/= 0.046 Correlation wit h serial results, other cardiac markers, and cl inical findings is nec essary to determine the c linical significance of this result. Quantit ative results using d ifferent methodologies s hould not be compared to one another as nume rical results may michelle yby method. Completed by Nursing: NO- MRI [id number] 18:12:00 [facility] : 1995 Sex: F FAX: Kishor Sánchez MD [phone] Cam[place]: PM St: ADM FAX: Ericka Lee MD [phone] FAX: Jeffry Payton [phone] Name: FORREST GIMENEZ [facility] : 1995 Age/S: 25/F [address] Unit #: [id number] Loc: [place] [address] Phys: Kishor Sánchez MD Acct: [id number] Dis Date: Status: ADM IN PHONE #: [phone] Exam Date: 06/09/2020 1804 FAX #: Reason: Dilated CBDEXAMS: CPT: [id number] MRI MRCP 92634 EXAM: - MRI MRCP HISTORY: Cholelithiasis, biliary dilatation TECHNIQUE: Multiplanar multisequence MR imaging was performed of the abdomen utilizing MRCP protocol. Rotational image data as well as 3-D volume renderedimages are provided. COMPARISON: Right upper quadrant ultrasound performed the same day FINDINGS: The liver is normal in appearance. The spleen is mildly enlarged measuring 13.5 cm in AP dimension. The pancreas, adrenal glands and kidneys appear normal. There isno free fluid or lymphadenopathy. The stomach and bowel are normal in appearance. No suspicious bony abnormalities are identified and the lung bases are clear. Numerous small gallstones are present in the gallbladder lumen. There is no gallbladder wall thickening and no adjacent inflammatory changes are identified. The common bile duct is dilated measuring 1 cm. There is also prominence of the central intrahepatic biliary system. The common bile duct appears patent to the level of the ampulla where it abruptly truncates. On series 8 image 33 there is discontinuity between the distal common bile duct and the adjacent bowel. An area measuring approximately 4.4 mm this present and may represent an impacted stone at the ampulla. A small filling defect is also seen in this area on axial images. The finding may represent adjacent stones. IMPRESSION: 1. Continued biliary dilatation.There are numerous stones in the gallbladder lumen and and apparent filling defect in the distal common bile duct at the level of the ampulla, likely a small stone. at 1812 Reported and signed by: Annabella Thorne M.D. PAGE 1 Signed Report (CONTINUED) FAX: Kishor Sánchez MD [phone] Camps: PM St: ADM FAX: Ericka Lee MD [phone] FAX: Jeffry Payton [phone] Name: FORREST GIMENEZ : 1995 Age/S: 25/F [address] Unit #: [id number] Loc: [place] [address] Phys: Kishor Sánchez MD Acct: [id number] Dis Date: Status: ADM IN PHONE #: [phone] Exam Date: 06/09/2020 1802 FAX #: Reason: Dilated CBD EXAMS: CPT: [id number] MRI MRCP 95288 <Continued> CC: Kishor Sánchez MD; Ericka Roth MD; Jeffry Moffett MD Technologist: Theresa Barragan RT(R)(MR) Transcribed Date/Time/By: 06/09/2020 (1811) :[email or web address] Orig Print D/T: S: 06/09/2020 (1814) PAGE 2 Signed ReportCOVID 19 INHOUSE [id number] 16:34:00 Test Item Value Reference Range Interpretation Comments COVID 19 INHOUSE AG NEGATIVE Negative Per manu facturer, (test code = negative result s should [id number]) be treated aspr esumptive and, if inconsi stent with clinical signs andsymptoms or necessary for patient man agement, should betested with an alternative mol ecular assay. Negative resultsdo not preclude SA RS-CoV-2 infection and s hould not be usedas the s ole basis for patient man agement decisions. Neg ative results should be considered in t he context of apatient's r ecent exposures, hist ory, presence of cli nicalsigns and symptoms co nsistent with COVID-19. UA RFLX MICR CULT IF [id number] 16:20:00 Test Item Value Reference Range Interpretation Comments UA COLOR (test code = YELLOW discript YEL/STRAW COLU) UA APPEARANCE (test code HAZY discript CLEAR A = APPU) UA GLUCOSE DIPSTICK (test NEGATIVE mg/dL NEG code = DGLUU) UA BILIRUBIN DIPSTICK 1+ mg/dL NEG A (test code = BILU) UA KETONE DIPSTICK (test 2+ mg/dL NEG A code = KETU) UA SPECIFIC GRAVITY (test 1.020 SG 1.005-1.030 code = SGU) UA BLOOD DIPSTICK (test NEGATIVE mg/DL NEG code = KHURRAM) UA PH DIPSTICK (test code 5.5 pH UNITS 5.0-7.0 = RAFITA) UA PROTEIN DIPSTICK (test NEGATIVE mg/dL NEG code = PROU) UA UROBILINIOGEN DIPSTICK 0.2 mg/dL <2.0 (test code = URO) UA NITRITE DIPSTICK (test NEGATIVE SCREEN NEG code = JORJE) UA LEUKOCYTE ESTERASE 1+ Leuk/mcL NEGATIVE A DIPSTICK (test code = LEUU) UA WBC (test code = WBCU) 5-10 #WBC/HPF 0-3 A UA BACTERIA (test code = 1+ /HPF NONE-TRACE A BACU) UA SQUAMOUS CELLS (test 2+ /HPF NONE A code = SQU) UA MUCUS (test code = 1+ /LPF NONE SEEN MUCU) UA CULTURE NEEDED? (test NO, WBC<10 Criteria Culture CHK code = UACULT) Indication for culture: Flank PainUA RFLX MICR CULT IF [id number] 16:19:00 Test Item Value Reference Range Interpretation Comments UA COLOR (test code = COLU) YELLOW discript YEL/STRAW UA APPEARANCE (test code = HAZY discript CLEAR A APPU) UA GLUCOSE DIPSTICK (test NEGATIVE mg/dL NEG code = DGLUU) UA BILIRUBIN DIPSTICK (test 1+ mg/dL NEG A code = BILU) UA KETONE DIPSTICK (test code 2+ mg/dL NEG A = KETU) UA SPECIFIC GRAVITY (test 1.020 SG 1.005-1.030 code = SGU) UA BLOOD DIPSTICK (test code NEGATIVE mg/DL NEG = KHURRAM) UA PH DIPSTICK (test code = 5.5 pH UNITS 5.0-7.0 RAFITA) UA PROTEIN DIPSTICK (test NEGATIVE mg/dL NEG code = PROU) UA UROBILINIOGEN DIPSTICK 0.2 mg/dL <2.0 (test code = URO) UA NITRITE DIPSTICK (test NEGATIVE SCREEN NEG code = JORJE) UA LEUKOCYTE ESTERASE 1+ Leuk/mcL NEGATIVE A DIPSTICK (test code = LEUU) UA CULTURE NEEDED? (test code Criteria Culture CHK = UACULT) Indication for culture: Flank Pain- US ABDOMEN [id number] 15:08:00 [facility] : 1995 Sex: F Name: FORREST GIMENEZ [facility] : 1995 Age/S: 25 / F [address] Unit #: [id number] Loc: [place] [address] Phys: Jeffry Moffett MD Acct: [id number] Dis Date: Status: REG ER PHONE #: [phone] Exam Date: 06/09/2020 1500 FAX #: Reason: abdominal pain EXAMS: CPT: [id number] US ABDOMEN LTD 96744 EXAMINATION: - US ABDOMEN LTD. LOCATION: S17. HISTORY: Abdominal pain. COMPARISON: None. TECHNIQUE: Multiple grayscale, pulse Doppler and color Doppler images of the right upper quadrant of the abdomen were obtained. FINDINGS: Examination is limited due to patient body habitus and overlying bowel gas. The visualized liver parenchyma is homogeneous in echogenicity. The main portal vein is patent. There is no intra or extrahepatic biliary ductal dilatation. The common duct measures 10 mm. The gallbladder demonstrates echogenic calculi, including in neck without wall thickening. Nonvisualization of pancreas due to overlying bowel gas. The right kidneymeasures 9 cm. There is no hydronephrosis. The visualized portions of abdominal aorta and IVC appear unremarkable. IMPRESSION: Dilated CBD at 10 mm, correlate with LFTs. Cholelithiasis. at 1508 Reported and signed by: Alison Guerrero M.D. CC: Gretchen RENDON; Jeffry Moffett MD Technologist: Amber Chandler Trnscb Date/Time: 06/09/2020 (1503) [email or web address] PAGE 1 Signed Report Name: FORREST GIMENEZ : Age/S: 25 / F [address] Unit #: [id number] Loc: [place] [address] Phys: Jeffry Moffett MD Acct: [id number] Dis Date: Status: REG ER PHONE #: [phone] Exam Date: 06/09/2020 1500 FAX #: Reason: abdominal pain EXAMS: CPT: [id number] US ABDOMEN LTD 66524<Continued> Orig Print D/T: S: 06/09/2020 (6852) Probe: PAGE 2 Signed ReportBASIC METABOLIC [id number] 14:57:00 Test Item Value Reference Range Interpretation Comments SODIUM (test code = NA) 139 mmol/L 134-147 N POTASSIUM (test code = 3.5 mmol/L 3.4-5.0 N K) CHLORIDE (test code = 108 mmol/L 100-108 N CL) CARBON DIOXIDE (test 24 mmol/L 21-32 N code = CO2) ANION GAP (test code = 7.0 GAP calc 4.0-15.0 N GAP) GLUCOSE (test code = 80 MG/DL 70-110 N GLU) BLOOD UREA NITROGEN 15 MG/DL 7-18 N (test code = BUN) GLOMERULAR FILTRATION >=60 max estimate >60 RATE (test code = GFR) estGFR CREATININE (test code = 1.0 MG/DL 0.6-1.0 N CREAT) CALCIUM (test code = CA) 9.2 MG/DL 8.5-10.1 N HEPATIC FUNCTION [id number] 14:57:00 Test Item Value Reference Range Interpretation Comments TOTAL PROTEIN (test code = PROT) 7.5 G/DL 6.4-8.2 N ALBUMIN (test code = ALB) 3.9 G/DL 3.4-5.0 N BILIRUBIN TOTAL (test code = BILT) 1.00 MG/DL 0.2-1.2 N BILIRUBIN DIRECT (test code = 0.30 MG/DL 0.00-0.30 N BILD) BILIRUBIN INDIRECT (test code = 0.70 MG/DL 0.2-1.2 N BILIND) SGOT/AST (test code = AST) 8 Unit/L 15-37 L SGPT/ALT (test code = ALT) 17 Unit/L 12-78 N ALKALINE PHOSPHATASE TOTAL (test 68 Unit/L 45-117 N code = ALKP) [id number] 14:57:00 Test Item Value Reference Range Interpretation Comments LIPASE (test code = LIP) 3123 Unit/L 114-286 H CBC W/AUTO [id number] 14:48:00 Test Item Value Reference Range Interpretation Comments WHITE BLOOD CELL (test code = 8.4 K/mm3 3.5-11.0 N WBC) RED BLOOD CELL (test code = 5.01 M/mm3 4.70-6.10 N RBC) HEMOGLOBIN (test code = HGB) 14.5 G/DL 10.4-14.9 N HEMATOCRIT (test code = HCT) 43.4 % 31.5-44.1 N MEAN CELL VOLUME (test code = 86.6 Fl 84.5-98.6 N MCV) MEAN CELL HGB (test code = MCH) 28.9 pg 27.0-34.2 N MEAN CELL HGB CONCETRATION 33.4 G/DL 31.5-34.0 N (test code = MCHC) RED CELL DISTRIBUTION WIDTH 13.6 SD 11.5-14.5 N (test code = RDW) PLATELET COUNT (test code = 347 K/mm3 150-450 N PLT) MEAN PLATELET VOLUME (test code 8.70 fL 7.0-10.5 N = MPV) NEUTROPHIL % (test code = NT%) 71.5 % 40-76 N IMMATURE GRANULOCYTE % (test 0.1 % 0.0-5.0 N code = IG%) LYMPHOCYTE % (test code = LY%) 18.9 % 20.5-51.1 L MONOCYTE % (test code = MO%) 8.5 % 1.7-9.3 N EOSINOPHIL % (test code = EO%) 0.4 % 0.0-6.0 N BASOPHIL % (test code = BA%) 0.6 % 0.0-2.0 N NUCLEATED RBC % (test code = 0.0 /100WBC% 0.0-1.0 N NRBC%) NEUTROPHIL # (test code = NT#) 6.0 K/mm3 1.8-7.6 N IMMATURE GRANULOCYTE # (test 0.01 x10 3/uL 0.00-0.03 N code = IG#) LYMPHOCYTE # (test code = LY#) 1.6 K/mm3 0.6-3.2 N MONOCYTE # (test code = MO#) 0.7 K/mm3 0.3-1.1 N EOSINOPHIL # (test code = EO#) 0.0 K/mm3 0.0-0.4 N BASOPHIL # (test code = BA#) 0.1 K/mm3 0.0-0.1 N NUCLEATED RBC # (test code = 0.0 K/mm3 0.0-0.1 N NRBC#) MANUAL DIFF REQUIRED (test code NO DIFF/SCN CRITERIA = MDIFF)
--- OUTSIDE RECORDS SUMMARY | 2020-07-17 09:12 | XMS REPORT | Clinical Summary ---
:1995 Author Organization [facility] Address [address] [place] [address] Care Team Providers Name Role Phone Asked, [...] INFLUENZA VACCINE 03/05/2020 Results Not on fileafter 07/17/2019 rd (Home) [address] [place] [address] Advance Directives For more information, please contact: [phone] Type Date Recorded Patient Lead Software Tester Explanati on Advance Directives, Living Will and Medical Power of Leak Inspector
[2020-07-17] MEDS ORDERED: FAMOTIDINE 20 MG TAB ONE (10:36)
[2020-07-17] MEDS ORDERED: ONDANSETRON 4 MG (ODT) TAB ONE (10:36)
[2020-07-17 10:40] LABS: Urine Blood 1+ (NEG); Urine Glucose NEGATIVE (NEG); Urine Protein 2+ (NEG); Urine Specific Gravity 1.025 (1.005-1.030); Urine pH 6.5 (5.0-7.0)
[2020-07-17 10:51] LABS: Urine Bacteria >50 /HPF (<20); Urine RBC <5 /HPF (NONE SEEN)
[2020-07-17 10:52] LABS: Urine Mucus HEAVY /HPF (NONE SEEN)
[2020-07-17] MEDS ORDERED: NA CHLORIDE 0.9% 1,000 ML ONE (11:04)
[2020-07-17] MEDS ORDERED: FAMOTIDINE 20 MG/2 ML VIAL IV ONE (11:04)
[2020-07-17] MEDS ORDERED: ONDANSETRON 4 MG/2 ML VIAL ONE ×2 (11:04→14:20)
[2020-07-17 11:14] LABS: Absolute Lymphocytes (CBC) 1.3 K/uL (0.7-4.9); Basophils % 0.8 % (0-1.3); Hematocrit 44.7 % (36.0-45.0); Lymphocytes % 15.2 % (15.3-44.8); MPV 7.6 fL (7.6-11.3); RBC Red Blood Cell Count 5.15 M/uL (3.86-4.86)
[2020-07-17 11:44] LABS: ALT/SGPT 11 U/L (12-78); AST/SGOT 8 U/L (15-37); Albumin 4.4 g/dL (3.4-5.0); Alkaline Phosphatase 60 U/L (45-117); BUN Blood Urea Nitrogen 8 mg/dL (7-18); Bicarbonate 26 mmol/L (21-32); Bilirubin Direct 0.2 mg/dL (0-0.2); Bilirubin Total 0.8 mg/dL (0.2-1.0); Glucose Level 95 mg/dL (74-106); HCG, Quantitative 39422 mIU/mL (1-3); Lipase 56 U/L (73-393); Potassium 3.2 mmol/L (3.5-5.1); Protein, Total 8.7 g/dL (6.4-8.2); Sodium Level 138 mmol/L (136-145)
--- NOTE | 2020-07-17 14:07 | ER ---
Nurse's Notes [facility] Name: Matilda Jackson Age: 25 yrs Sex: Female : 1995 Arrival Date: 07/17/2020 Time: 09:11 Bed 13 Private MD: Diagnosis: related conditions, unspecified, first trimester;Nausea and vomiting Presentation: 07/17 09:54 Chief complaint: Patient states: nausea and vomiting that began 2 days ago, pt reports aa5 unable to tolerate food. Pt denies cough, denies fever. 09:54 Coronavirus screen: nausea, vomiting. Client presents with at least one sign or symptom aa5 that may indicate coronavirus-19. Standard/surgical mask placed on the client. Provider contacted for isolation considerations. Ebola Screen: Patient negative for fever greater than or equal to 101.5 degrees Fahrenheit, and additional compatible Ebola Virus Disease symptoms. Initial Sepsis Screen: Does the patient meet any 2 criteria? No. Patient's initial sepsis screen is negative. Does the patient have a suspected source of infection? No. Patient's initial sepsis screen is negative. Risk Assessment: Do you want to hurt yourself or someone else? Patient reports no desire to harm self or others. Onset of symptoms was July 2020. 09:54 Acuity: CHI 3 aa5 09:54 Method Of Arrival: Ambulatory aa5 Historical: - Allergies: 09:55 PENICILLINS; aa5 - PMHx: 09:55 GALLSTONES; aa5 - PSHx: 09:55 None; aa5 - Immunization history:: Adult Immunizations unknown. - Social history:: Smoking status: Patient denies any tobacco usage or history of. Screenin:18 Abuse screen: Denies threats or abuse. Denies injuries from another. Nutritional ca1 screening: No deficits noted. Tuberculosis screening: No symptoms or risk factors identified. Fall Risk None identified. Assessment: 10:18 General: Appears in no apparent distress. comfortable, Behavior is calm, cooperative, ca1 appropriate for age. Pain: Denies pain. Neuro: Level of Consciousness is awake, alert, obeys commands, Oriented to person, place, time, situation. Cardiovascular: Heart tones S1 S2 present Capillary refill < 3 seconds Patient's skin is warm and dry. Respiratory: Airway is patent Respiratory effort is even, unlabored, Respiratory pattern is regular, symmetrical, Breath sounds are clear bilaterally. GI: Abdomen is flat, non-distended, Bowel sounds present X 4 quads. Abd is soft and non tender X 4 quads. Reports nausea, vomiting, since 2 days. : No signs and/or symptoms were reported regarding the genitourinary system. EENT: No signs and/or symptoms were reported regarding the EENT system. Derm: Skin is intact, is healthy with good turgor, Skin is pink, warm \T\ dry. Musculoskeletal: Circulation, motion, and sensation intact. Capillary refill < 3 seconds. 11:00 Reassessment: Patient appears in no apparent distress at this time. Patient and/or ca1 family updated on plan of care and expected duration. Pain level reassessed. Patient is alert, oriented x 3, equal unlabored respirations, skin warm/dry/pink. 12:00 Reassessment: Patient appears in no apparent distress at this time. Patient and/or ca1 family updated on plan of care and expected duration. Pain level reassessed. Patient is alert, oriented x 3, equal unlabored respirations, skin warm/dry/pink. 12:30 General: Appears in no apparent distress. comfortable, Behavior is calm, cooperative, zb appropriate for age. Pain: Denies pain. Neuro: Level of Consciousness is awake, alert, obeys commands, Oriented to person, place, time, situation. Cardiovascular: Heart tones S1 S2 present Capillary refill < 3 seconds Patient's skin is warm and dry. Respiratory: Airway is patent Respiratory effort is even, unlabored, Respiratory pattern is regular, symmetrical. GI: Abdomen is round non-distended, Bowel sounds present X 4 quads. Abd is soft and non tender Patient currently denies nausea. : No signs and/or symptoms were reported regarding the genitourinary system. EENT: No signs and/or symptoms were reported regarding the EENT system. Derm: Skin is intact, is healthy with good turgor, Skin is pink, warm \T\ dry. Musculoskeletal: Circulation, motion, and sensation intact. Capillary refill < 3 seconds. Vital Signs: 09:55 BP 121 / 73; Pulse 66; Resp 16 S; Temp 98.3(O); Pulse Ox 100% on R/A; Weight 90.72 kg aa5 (R); Height 5 ft. 4 in. (162.56 cm) (R); Pain 0/10; 11:00 BP 115 / 62; Pulse 63; Resp 16 S; Pulse Ox 100% on R/A; ca1 12:06 BP 106 / 58; Pulse 56; Resp 16 S; Pulse Ox 100% on R/A; ca1 12:12 BP 106 / 58; Pulse 81; Resp 17 S; Pulse Ox 100% on R/A; jd3 14:23 BP 107 / 60; Pulse 80; Resp 16; Pulse Ox 99% on R/A; zb 09:55 Body Mass Index 34.33 (90.72 kg, 162.56 cm) aa5 ED Course: 09:11 Patient arrived in ED. ag5 09:12 Xu Ward PA is PHCP. cp 09:12 Xu Smith MD is Attending Physician. cp 09:54 Arm band placed on Patient placed in an exam room, on a stretcher. aa5 09:58 Kim Ceron RN is Primary Nurse. ca1 10:01 Triage completed. aa5 10:18 Patient has correct armband on for positive identification. Bed in low position. Call ca1 light in reach. Side rails up X 1. Pulse ox on. NIBP on. Warm blanket given. 10:18 No provider procedures requiring assistance completed. ca1 10:56 Initial lab(s) drawn, by me, sent to lab. Inserted saline lock: 20 gauge in right ca1 antecubital area, using aseptic technique. Blood collected. 12:14 Report given to SIM Hernandez. ca1 13:54 US Transvaginal Ob In Process Unspecified. EDMS 14:23 IV discontinued, intact, bleeding controlled, No redness/swelling at site. Pressure zb dressing applied. Administered Medications: 10:16 Drug: Zofran (Ondansetron) 4 mg Route: PO; ca1 10:47 Not Given (Physician Discretion): Pepcid 20 mg PO once ca1 10:57 Drug: NS 0.9% 1000 ml Route: IV; Rate: 1 bolus; Site: right antecubital; ca1 10:58 Drug: Pepcid 20 mg Route: IVP; Site: right antecubital; ca1 11:00 Drug: Zofran (Ondansetron) 4 mg Route: IVP; Site: right antecubital; ca1 14:20 Drug: Zofran (Ondansetron) 4 mg Route: IVP; Site: right antecubital; zb 14:22 Drug: Potassium Effervescent Tablet 50 mEq Route: PO; zb Outcome: 14:06 Discharge ordered by . cp 14:22 Discharged to home ambulatory. zb 14:22 Condition: stable 14:22 Discharge instructions given to patient, Instructed on discharge instructions, follow up and referral plans. medication usage, Demonstrated understanding of instructions, follow-up care, medications, Prescriptions given X 2. 14:23 Patient left the ED. zb Signatures: Dispatcher [employer] EDMS Leanne Allred RN RN aa5 Xu Ward PA PA cp Davies, Jonathon, RN RN Kim Salazar RN RN ca1 Henry Holden Zipporah, RN RN zb Corrections: (The following items were deleted from the chart) 11:00 10:18 Patient did not have IV access during this emergency room visit. ca1 ca1 12:31 11:00 Reassessment: Patient appears in no apparent distress at this time. Patient is ca1 alert, oriented x 3, equal unlabored respirations, skin warm/dry/pink. ca1
--- NOTE | 2020-07-17 14:07 | EDPHYS ---
Physician Documentation [facility] Name: Matilda Jackson Age: 25 yrs Sex: Female : 1995 Arrival Date: 07/17/2020 Time: 09:11 Bed 13 Private MD: ED Physician Xu Smith HPI: 07/17 10:15 This 25 yrs old Female presents to ER via Ambulatory with complaints of cp Nausea/Vomiting. 10:15 The patient presents to the emergency department with nausea, that is mild, vomiting, cp that is intermittent. Onset: The symptoms/episode began/occurred 2 day(s) ago. Possible causes: unknown. Associated signs and symptoms: Pertinent negatives: diarrhea, vaginal bleeding. Historical: - Allergies: 09:55 PENICILLINS; aa5 - PMHx: 09:55 GALLSTONES; aa5 - PSHx: 09:55 None; aa5 - Immunization history:: Adult Immunizations unknown. - Social history:: Smoking status: Patient denies any tobacco usage or history of. ROS: 10:20 Constitutional: Negative for body aches, chills, fever. cp 10:20 Abdomen/GI: Positive for nausea and vomiting, Negative for abdominal pain, diarrhea, constipation. 10:20 ENT: Negative for ear pain, sore throat, difficulty swallowing, difficulty handling cp secretions. 10:20 Cardiovascular: Negative for chest pain. 10:20 Respiratory: Negative for cough, shortness of breath. 10:20 : Negative for urinary symptoms, pelvic pain, flank pain, vaginal bleeding, vaginal discharge. 10:20 All other systems are negative. Exam: 10:25 Constitutional: The patient appears in no acute distress, alert, awake, non-toxic, well cp developed, well nourished, obese. 10:25 Head/Face: Normocephalic, atraumatic. cp 10:25 Eyes: Periorbital structures: appear normal, Conjunctiva: normal, no exudate, no cp injection, Sclera: no appreciated abnormality, Lids and lashes: appear normal, bilaterally. 10:25 ENT: External ear(s): are unremarkable, Nose: is normal, Posterior pharynx: Airway: no evidence of obstruction, patent. 10:25 Chest/axilla: Inspection: normal, Palpation: is normal, no crepitus, no tenderness. 10:25 Cardiovascular: Rate: normal, Rhythm: regular. 10:25 Respiratory: the patient does not display signs of respiratory distress, Respirations: normal, no use of accessory muscles, no retractions, labored breathing, is not present, Breath sounds: are clear throughout, no decreased breath sounds. 10:25 Abdomen/GI: Inspection: abdomen appears normal, Bowel sounds: active, all quadrants, Palpation: abdomen is soft and non-tender, in all quadrants. 10:25 Back: CVA tenderness, is absent. 10:25 Neuro: Orientation: to person, place \T\ time. Mentation: is normal. Vital Signs: 09:55 BP 121 / 73; Pulse 66; Resp 16 S; Temp 98.3(O); Pulse Ox 100% on R/A; Weight 90.72 kg aa5 (R); Height 5 ft. 4 in. (162.56 cm) (R); Pain 0/10; 11:00 BP 115 / 62; Pulse 63; Resp 16 S; Pulse Ox 100% on R/A; ca1 12:06 BP 106 / 58; Pulse 56; Resp 16 S; Pulse Ox 100% on R/A; ca1 12:12 BP 106 / 58; Pulse 81; Resp 17 S; Pulse Ox 100% on R/A; jd3 14:23 BP 107 / 60; Pulse 80; Resp 16; Pulse Ox 99% on R/A; zb 09:55 Body Mass Index 34.33 (90.72 kg, 162.56 cm) aa5 MDM: 09:55 Patient medically screened. [facility] 14:05 Data reviewed: vital signs, nurses notes, lab test result(s), radiologic studies, cp ultrasound. 14:05 Differential diagnosis: gastritis, cholecystitis, viral gastroenteritis, cp gastroenteritis, related N/V. Counseling: I had a detailed discussion with the patient and/or guardian regarding: the historical points, exam findings, and any diagnostic results supporting the discharge/admit diagnosis, lab results, radiology results, the need for outpatient follow up, an OB/Gyne specialist, to return to the emergency department if symptoms worsen or persist or if there are any questions or concerns that arise at home. Response to treatment: the patient's symptoms have markedly improved after treatment, patient is well hydrated. VSS. Nausea improved and no vomiting observed while in ED. Patient observed tolerating po fluids. Will discharge to home for continued monitoring. US shows viable 6 week IUP, and as a result, I will discharge patient. 07/17 10:32 Order name: Urine Microscopic Only; Complete Time: 11:30 ca1 07/17 11:30 Interpretation: Normal except: UWBC 10-20; UBACT >50; SQEPI 20-50. cp 07/17 10:36 Order name: Urine Dipstick--Ancillary (enter results); Complete Time: 11:30 em1 07/17 10:36 Order name: Urine --Ancillary (enter results); Complete Time: 11:30 em1 07/17 10:38 Order name: Basic Metabolic Panel; Complete Time: 12:04 cp 07/17 10:38 Order name: CBC with Diff; Complete Time: 11:30 cp 07/17 10:38 Order name: Hepatic Function; Complete Time: 12:04 cp 07/17 10:38 Order name: Lipase; Complete Time: 12:04 cp 07/17 10:38 Order name: Quantitative Hcg; Complete Time: 12:04 cp 07/17 12:04 Order name: US Transvaginal Ob cp 07/17 10:12 Order name: Urine Dipstick-Ancillary (obtain specimen); Complete Time: 10:33 cp 07/17 10:12 Order name: Urine Test (obtain specimen); Complete Time: 10:33 cp 07/17 10:28 Order name: PO challenge; Complete Time: 10:37 cp 07/17 10:38 Order name: IV Saline Lock; Complete Time: 10:59 cp 07/17 10:38 Order name: Labs collected and sent; Complete Time: 10:59 cp Administered Medications: 10:16 Drug: Zofran (Ondansetron) 4 mg Route: PO; ca1 10:47 Not Given (Physician Discretion): Pepcid 20 mg PO once ca1 10:57 Drug: NS 0.9% 1000 ml Route: IV; Rate: 1 bolus; Site: right antecubital; ca1 10:58 Drug: Pepcid 20 mg Route: IVP; Site: right antecubital; ca1 11:00 Drug: Zofran (Ondansetron) 4 mg Route: IVP; Site: right antecubital; ca1 14:20 Drug: Zofran (Ondansetron) 4 mg Route: IVP; Site: right antecubital; zb 14:22 Drug: Potassium Effervescent Tablet 50 mEq Route: PO; zb Disposition: 14:25 Chart complete. 07/18 10:40 Co-signature as Attending Physician, Xu Smith MD I agree with the assessment and yoon plan of care. Disposition: 07/17/20 14:06 Discharged to Home. Impression: related conditions, unspecified, first trimester, Nausea and vomiting. - Condition is Stable. - Discharge Instructions: Nausea and Vomiting, Adult, First Trimester of . - Prescriptions for Diclegis 10- 10 mg Oral tablet,delayed release (DR/EC) - take 1 tablet by ORAL route as directed As needed before each meal and 2 tablets at bedtime; 60 tablet. Vitamin 27- 0.8 mg Oral Tablet - take 1 tablet by ORAL route once daily; 60 tablet. - Medication Reconciliation Form, Thank You Letter, Antibiotic Education, Prescription Opioid Use form. - Follow up: Private Physician; When: 1 week; Reason: Recheck today's complaints. - Problem is new. - Symptoms have improved. Signatures: Dispatcher [employer] [facility] Xu Smith MD MD cha Calderon, Audri, RN RN aa5 Xu Ward PA PA cp Kim Ceron RN RN ca1 Brown, Zipporah, RN RN zgerri Corrections: (The following items were deleted from the chart) 07/17 10:39 10:38 RH [id number] ordered. [facility] 14:23 14:06 07/17/2020 14:06 Discharged to Home. Impression: related conditions, zb unspecified, first trimester; Nausea and vomiting. Condition is Stable. Prescriptions for Diclegis 10-10 mg Oral tablet,delayed release (DR/EC) - take 1 tablet by ORAL route as directed As needed before each meal and 2 tablets at bedtime; 60 tablet, Vitamin 27-0.8 mg Oral Tablet - take 1 tablet by ORAL route once daily; 60 tablet. and Forms are Medication Reconciliation Form, Thank You Letter, Antibiotic Education, Prescription Opioid Use. Follow up: Private Physician; When: 1 week; Reason: Recheck today's complaints. Problem is new. Symptoms have improved. cp 22:03 10:25 Abdomen/GI: Inspection: abdomen appears normal, Bowel sounds: active, all cp quadrants, Palpation: soft, in all quadrants, moderate abdominal tenderness, in the left lower quadrant, severe abdominal tenderness, in the right lower quadrant, rebound tenderness, is not appreciated, voluntary guarding, is elicited in the right lower quadrant, cp
[2020-07-17] MEDS ORDERED: POTASSIUM 25 MEQ EFFERV TAB ONE (14:20)
--- NOTE | 2020-07-17 14:25 | RAD REPORT ---
EXAM DESCRIPTION: US - Transvaginal OB - 07/17/2020 1:55 pm CLINICAL HISTORY: NAUSEA/VOMITING, COMPARISON: No comparisons FINDINGS: Normal shaped intrauterine gestational sac identified in the fundal portion endometrial ca vity. No myometrial mass. No hematoma or other suspicious finding in the endometrial cavity. Yolk sac and pole identified. Cardiac activity is 112 BPM. Measurements correspond to a 6 week 1 day ag e. Both ovaries are identified and show normal blood flow in the stroma. No suspicious ovarian or adnexa l finding. No blood or abnormal fluid collection in the cul de sac. IMPRESSION: Single 6 week 1 day IUP. RADHA is 03/11/2021. Heart rate is 112 BPM with no hematoma, mass or other suspicious uterine finding.
[2020-07-21 01:00] VITALS: TEMP 98.3
[2020-07-21 01:08] VITALS: BP 107/60; O2SAT 99
== END 2020-07-17 14:23 | disposition home or self-care (01) ==
LOC: ER 09:10
DX: Z33.1 Pregnant state, incidental (principal); Z88.0 Allergy status to penicillin
CPT/HCPCS: 85025; 80048; 36415; 81025; 80076; 84702; 83690; 76817; 96375; 96374; 99284; J7030; J2405 ×2; 81003; 81015

== ENCOUNTER 2022-12-15 17:28 | Emergency (ER) | payer OTHER ==
--- OUTSIDE RECORDS SUMMARY | 2022-12-15 17:42 | XMS REPORT | Continuity of Care Document ---
:1995 Author Organization [facility] t Address [address] [place] [address] [address] [place] [address] Care Team Providers Name Role Phone Asked, No Pcp Primary Care Physician Unavailable Kishor Sánchez Attending Clinician Unavailable MP CARRASCO Attending Clinician Unavailable EbMp Siegel Attending Clinician Unknown, Attending Attending Clinician Unavailable Doctor Unassigned, Arpelar Attending Clinician Unavailable Quentin CAMPBELL Attending Clinician Unavailable Betty JASMINE K Tiffany Attending Clinician Obed Kinjal JOHNSON Attending Clinician [phone] Ultrasound, Ang-Mfm Attending Clinician Unavailable KINJAL CLAY Attending Clinician Unavailable Jeyson Jarquin MD Attending Clinician [place] VELOZ, Francia Giordano Attending Clinician Manpreet Strong Attending Clinician MANPREET VAZQUEZ Attending Clinician Unavailable Mario Alberto Pollock MD Attending Clinician Patricia Ogden MD, Alma Delia Attending Clinician [phone], [facility] Usg Room Attending Clinician Unavailable Chad VELOZ, Gale Attending Clinician Gonzalez VELOZ, Srinivas Chase Attending Clinician [facility] Attending Clinician Unavailable Sheree Fierro MD Attending Clinician Massey PAC, Hiral S Attending Clinician HUBERT PABON Attending Clinician Unavailable Hubert Pabon PA-C Attending Clinician Nurse, [facility] Attending Clinician Unavailable SRINIVAS PERAZA Attending Clinician Unavailable Luis Martinez MD Attending Clinician Pob, [facility] Attending Clinician Unavailable Art Borges MD Attending Clinician ART BORGES Attending Clinician Unavailable Trimester, [facility] Attending Clinician Unavailable Monty Gu MD Attending Clinician Michael Isaac MD Attending Clinician Reddy MONTEMAYOR, Randi Trejo Attending Clinician Unavailable Jessee MONTEMAYOR, Xu Attending Clinician Unavailable LUIS MARTINEZ Admitting Clinician Unavailable Kishor Sánchez Admitting Clinician Unavailable Quentin CAMPBELL Admitting Clinician Unavailable Srinivas Peraza MD Admitting Clinician Luis Martinez MD Admitting Clinician Payers Payer Name Policy Type Policy Number Effective Date Expiration Date [facility] [id number] 2019 [facility] MEDICAID 00:00:00 Problems Condition Condition Condition Status Onset Resolution Last Treating Co mments Source Name Details Category Date Date Treatment Clinician Date IUGR IUGR Disease Active Overview: Univer s (intrauter (intrauter 6-17 Formattin ity of ine growth ine growth 00:00: g of this [place] restrictio restrictio 00 note Me dical n) n) might be Branch affecting affecting different care of care of from the mother, mother, original. third third 1) Twice trimester, trimester, wkly NST fetus 1 fetus 1 till delivery. 2) Weekly SIN and cord Dopplers. 3) Q3wkly interval growth. Hypomagnes Hypomagnes Disease Active U nivers emia emia 6-10 ity of 00:00: [facility] 31 weeks 31 weeks Disease Active Unive rs gestation gestation 6-10 ity of of of 00:00: [place] 00 [facility] UTI in UTI in Disease Active Overview: Univer s 3-29 Formattin i ty of 00:00: g of this [place] 00 note Medical might be Branch different from the original. Pending anselmo, still positive Rubella Rubella Disease Active Overview: Univ ers non-immune non-immune 3-29 Formattin ity of status, status, 00:00: g of this [place] antepartum antepartum 00 note Me dical might be Branch different from the original. Address pp Maternal Maternal Disease Active Unive rs varicella, varicella, 3-26 it y of non-immune [place] [facility] Multiparit Multiparit Disease Active U nivers y y 3-26 ity of 00:00: [place] [facility] Short Short Disease Active Univers interval interval 3-26 ity of between between 00:00: [place] pregnancie pregnancie 00 Me dical s s Branch affecting affecting , , antepartum antepartum Pre-eclamp Pre-eclamp Disease Active U nivers dewayne, mild, dewayne, mild, 4-21 [place] [facility] Liveborn Liveborn Disease Active Unive rs infant, of , of 4-21 it y of [place] , , 00 Me dical born in born in [facility] by vaginal by vaginal delivery delivery History of History of Disease Active Overview : Univers pre-eclamp pre-eclamp 4-21 Formattin ity of dewayne dewayne 00:00: g of this [place] 00 note Medical might be Branch different from the original. With last Normal Normal Disease Active Univers labor labor 4-20 ity of 00:00: [place] [facility] Branch Uterine Uterine Disease Active Univers contractio contractio 4-19 it y of ns during ns during 00:[place] [facility] 25 weeks 25 weeks Disease Active 2018-08 Unive rs gestation gestation 2-30 ity of of of 00:00: [place] 00 [facility] 36 weeks 36 weeks Disease Active 2018-08 Unive rs gestation gestation 2-30 ity of of of 00:00: [place] 00 [facility] 38 weeks 38 weeks Disease Active 2018-08 Unive rs gestation gestation 2-30 ity of of of 00:00: [place] 00 [facility] 39 weeks 39 weeks Disease Active 2018-08 Unive rs gestation gestation 2-30 ity of of of 00:00: [place] 00 [facility] Hypokalemi Hypokalemi Disease Active 2019 U nivers a a 9-25 ity of 00:00: [address] Obesity Obesity Disease Active 2019 Univers (BMI (BMI 9-24 ity of 30-39.9) 30-39.9) 00:00: [address] Abnormal Abnormal Disease Active Overview: Un marco a maternal maternal 04-10 pendign ity o f glucose glucose 00:00: 3hr gtt [place] tolerance, tolerance, 00 Me dical antepartum antepartum Br anch Insufficie Insufficie Disease Active 2019 U nivers nt nt 8-29 ity of 00:00: [place] care in care in 00 [facility] third Branch trimester trimester Obesity Obesity Disease Active 2019 Univers affecting affecting 8-29 [place] [facility] Supervisio Supervisio Disease Active 2019 U nivers n of high n of high 8-29 ity of risk risk 00:00: [place] , , 00 Me dical antepartum antepartum Br anch Nausea and Nausea and Disease Active 2019 U nivers vomiting vomiting 8-29 ity of during during 00:00: [place] 00 [facility] No known No known Disease Unive rs active active ity of problems problems [facility] Allergies, Adverse Reactions, Alerts Allergy Allergy Status Severity Reaction(s) Onset Inactive Treating Comm ents Source Name Type Date Date Clinician Penicill DA Active MO 2019-08 [facility] ins 08-09 Clear 00:00: [place] 00 [facility] Penicill DA Active MO HIVES 2019-08 [facility] ins 08-09 Clear 00:00: [place] [facility] No Known DA Active U 2019- [facility] Allergie 1-05 [place] 00:[facility] No Known DA Active U 2019- [facility] Allergie 1-05 [place] 00:[facility]: [facility] PENICILL Drug Active Rash 2018-08 Univers INS Class 0-07 ity of 00:00: [place] 00 Medical Branch Penicill Propensi Active Rash 2018-08 Univer s ins ty to 0-07 ity of adverse 00:00: [place] reaction 00 Medical s Branch Penicill Propensi Active Rash 2018-08 Univer s ins ty to 0-07 ity of adverse 00:00: [place] reaction 00 Medical s Branch Penicill Propensi Active Rash 2018-08 Univer s ins ty to 0-07 ity of adverse 00:00: [place] reaction 00 Medical s Branch Penicill Propensi Active Method i ins ty to 8-27 st adverse 00:00: Hospita reaction 00 l s to drug Family History Family Member Diagnosis Comments Start Date Stop Date Source Maternal grandmother Diverticulitis [facility] Social History Social Habit Start Date Stop Date Quantity Comments Source ASSERTION 2020-06-17 University of 00:00:00 [facility] Gender identity [facility] Sexual orientation [facility] Exposure to 2022-07-15 2022-07-25 Not sure University SARS-CoV-2 (event) 00:00:00 12:52:00 [facility] Alcohol intake 2019-03-31 2019-03-31 Current drinker [facility] dist 00:00:00 00:00:00 of alcohol Hospital (finding) History of Social 2019-03-31 2019-03-[address] function 00:00:00 00:00:00 Hospital Alcohol Comment 2019-03-31 2019-03-[address] 00:00:00 00:00:00 Hospital Tobacco use and 2012-12-17 2012-12-17 Smokeless Universit y of exposure 00:00:00 00:00:00 tobacco non-user [facility] Sex Assigned At [birth year] Sabianism 00:00:00 00:00:00 Hospital Smoking Status Start Date Stop Date Source Never smoked tobacco [facility] Medications Ordered Filled Start Stop Current Ordering Indication Dosage Frequency Signature Comments Components Source Medication Medication Date Date Medication? Clinician (SIG) Name Name chlorhexidi 2021-08 Yes [id number] 15mL Swish and Univers ne 2-21 spit out ity of (PERIDEX) 00:00: [place] 0.12 % 00 the Medical mouthwash morning Branch and 15 mL in the evening. chlorhexidi 2021-08 Yes [id number] 15mL Swish and Univers ne 2-21 spit out ity of (PERIDEX) 00:00: 15 [place] 0.12 % 00 the Medical mouthwash morning Branch and 15 mL in the evening. clindamycin 2021-08- No [id number] 300mg Take 1 Univers 300 mg 09-25 capsule by ity of capsule 00:00: 05:59 mouth in [place] 00 :00 the Medical morning Branch and 1 capsule at noon and 1 capsule in the evening. Do all this for 10 days. clindamycin 2021-08- No [id number] 300mg Take 1 Univers 300 mg 09-25 capsule by ity of capsule 00:00: 05:59 mouth in [place] 00 :00 the Medical morning Branch and 1 capsule at noon and 1 capsule in the evening. Do all this for 10 days. magnesium 2021- No 2g 2 g, IV Univ ers sulfate in 03-07 Piggyback, it y of water 2 21:00: 21:07 Administer [place] as gram/50 mL 00 :00 over 60 Medica l (4 %) Minutes, Branch infusion 2 ONCE, 1 g dose, On Sat03/07/22 at 1600, Routine iopamidol 2021- No [id number] 55mL 55 mL, Univers (ISOVUE 03-07 Intravenou ity o f 370-500 mL) 19:45: 19:45 s, ONCE, 1 [place] injection 00 :00 dose, On Medica l 55 mL Sat03/07/22 Branch at 1445, Routine ondansetron 2021- No 4mg 4 mg, Slow Univers (ZOFRAN 03-07 IV Push, ity of (PF)) 19:15: 19:29 ONCE, 1 [place] injection 4 00 :00 dose, On Medi francis mg Sat03/07/22 Branch at 1415, LEON morpHINE (2 2021- No 4mg 4 mg, Slow Univers mg/mL) 03-07 IV Push, ity of injection 4 19:15: 19:29 ONCE, 1 [place] mg 00 :00 dose, On Medical 03/07/22 Branch at 1415, STAT NaCl 0.9% 2021- No 1000mL at 999 Uni vers (NS) bolus 03-07 mL/hr, ity of infusion 16:15: 19:29 1,000 mL, [place] as 1,000 mL 00 :00 IV Medical Infusion, Branch ONCE, 1 dose, On Sat03/07/22 at 1115, STAT ondansetron 2021- No 4mg 4 mg, Univ ers (ZOFRAN-ODT 03-07 Oral, ity of ) 16:15: 15:23 ONCE, 1 [place] disintegrat 00 :00 dose, On Medi francis ing tablet Sat03/07/22 Bra nch 4 mg at 1115, Routine ondansetron Yes [id number] 4mg Take 1 Univers 4 mg 8-03 tablet by ity of disintegrat 00:00: mouth [place] ing tablet 00 every 8 Medica l (eight) Branch hours as needed for Nausea and Vomiting (N/V). ondansetron Yes [id number] 4mg Take 1 Univers 4 mg 8-03 tablet by ity of disintegrat 00:00: mouth [place] ing tablet 00 every 8 Medica l (eight) Branch hours as needed for Nausea and Vomiting (N/V). ondansetron Yes [id number] 4mg Take 1 Univers 4 mg 8-03 tablet by ity of disintegrat 00:00: mouth [place] ing tablet 00 every 8 Medica l (eight) Branch hours as needed for Nausea and Vomiting (N/V). ondansetron Yes [id number] 4mg Take 1 Univers 4 mg 8-03 tablet by ity of disintegrat 00:00: mouth [place] ing tablet 00 every 8 Medica l (eight) Branch hours as needed for Nausea and Vomiting (N/V). docusate Yes [id number] 240mg Take 1 Univers calcium 240 - 7 capsule by it y of mg capsule 00:00: mouth [place] 00 daily as Medical needed for Branch Constipati on. ibuprofen 0 Yes [id number] 600mg Take 1 Univers 600 mg 8-01 7 tablet by ity of tablet 00:00: mouth [place] 00 every 6 Medical (six) Branch hours as needed (Pain). Take with food or milk. docusate 0 Yes [id number] 240mg Take 1 Univers calcium 240 8-01 7 capsule by it y of mg capsule 00:00: mouth once [place] 00 daily as Medical needed for Branch Constipati on. ibuprofen 0 Yes [id number] 600mg Take 1 Univers 600 mg 8-01 7 tablet by ity of tablet 00:00: mouth [place] 00 every 6 Medical (six) Branch hours as needed (Pain). Take with food or milk. docusate 0 Yes [id number] 240mg Take 1 Univers calcium 240 8-01 7 capsule by it y of mg capsule 00:00: mouth once [place] 00 daily as Medical needed for Branch Constipati on. ibuprofen 0 Yes [id number] 600mg Take 1 Univers 600 mg 8-01 7 tablet by ity of tablet 00:00: mouth [place] 00 every 6 Medical (six) Branch hours as needed (Pain). Take with food or milk. docusate 0 Yes [id number] 240mg Take 1 Univers calcium 240 8-01 7 capsule by it y of mg capsule 00:00: mouth [place] 00 daily as Medical needed for Branch Constipati on. ibuprofen 0 Yes [id number] 600mg Take 1 Univers 600 mg 8-01 7 tablet by ity of tablet 00:00: mouth [place] 00 every 6 Medical (six) Branch hours as needed (Pain). Take with food or milk. potassium 2020-0 2020- No 10meq 10 mEq, IV Univers chloride in 01-13-11 Piggyback, i ty of water 10 00:00: 01:32 Q1H, 2 [place] mEq/100 mL 00 :00 doses, Medical RTU 10 mEq First dose Bra nch (after last reorder) on Nivia 01/12/21 at 1900, Last dose on [place] 01/12/21 at 2000, 100 mL Nitrofurant 2020-0 Yes 100mg 100 mg, Un marco a oin&Nit. 6-10 Oral, Q12H ity o f Macrocryst 17:30: ABX, First [place] (MACROBID) 00 dose on Medica l 100 mg [place] Branch capsule 100 01/12/21 at mg 1230, Until Discontinu ed, Routine
Reason for Anti-Infec tive: Documented Infection< br>Documen andriy Infection Site: Urine
D uration of Therapy: 7 days magnesium No 2g 2 g, IV Univ ers sulfate in 01-12 Piggyback, it y of water 2 17:30: 16:55 ONCE, 1 [place] gram/50 mL 00 :00 dose, [place] Medi francis (4 %) 01/12/21 at Branch infusion 2 1230, g Routine potassium 2020- No 10meq 10 mEq, IV Univers chloride in 01-12 Piggyback, i ty of water 10 16:00: 22:44 Q1H, 5 [place] mEq/100 mL 00 :00 doses, Medical RTU 10 mEq First dose Bra nch on Nivia 01/12/21 at 1100, Last dose on [place]ivia 01/12/21 at 1500, 100 mL [id number] IV Yes 1000mL at 150 Univ ers infusion 6-10 mL/hr, IV ity of 1,000 mL 14:45: Infusion, [place] 00 CONTINUOUS Medical , Starting Branch [place] 01/12/21 at 0945, Until Discontinu ed, Routine lactated 2020- No 1000mL at 999 Univ ers ringers IV 01-12-10 mL/hr, ity of infusion 14:45: 14:15 1,000 mL, [place] 1,000 mL 00 :00 IV Medical Infusion, Branch ONCE, 1 dose, [place] 01/12/21 at 0945, STAT metoclopram Yes 10mg 10 mg, IV U nivers jason HCl 01-12 Piggyback, ity of (REGLAN) 10 13:44: Q6HPRN, [place] mg in NaCl 27 Starting Medic al 0.9% (NS) [place] Branch piggyback 01/12/21 at 0844, Until Discontinu ed, 50 mL Nitrofurant Yes [id number] 100mg Take 1 Univers oin&Nit. 6-04 capsule by ity o f [place] 00:00: mouth 2 [place] (MACROBID) 00 (two) Medical 100 mg times Branch capsule daily. Nitrofurant Yes [id number] 100mg Take 1 Univers oin&Nit. 6-04 capsule by ity o f [place]ryst 00:00: mouth [place] (MACROBID) 00 (two) Medical 100 mg times Branch capsule daily. Nitrofurant Yes [id number] 100mg Take 1 Univers oin&Nit. 6-04 capsule by ity o f Macrocryst 00:00: mouth 2 [place] (MACROBID) 00 (two) Medical 100 mg times Branch capsule daily. Nitrofurant Yes [id number] 100mg Take 1 Univers oin&Nit. 6-04 capsule by ity o f [place]rocryst 00:00: mouth 2 [place] (MACROBID) 00 (two) Medical 100 mg times Branch capsule daily. Nitrofurant Yes [id number] 100mg Take 1 Univers oin&Nit. 6-04 capsule by ity o f Macrocryst 00:00: mouth 2 [place] (MACROBID) 00 (two) Medical 100 mg times Branch capsule daily. Nitrofurant Yes [id number] 100mg Take 1 Univers oin&Nit. 6-04 capsule by ity o f Macrocryst 00:00: mouth 2 [place] (MACROBID) 00 (two) Medical 100 mg times Branch capsule daily. Nitrofurant Yes [id number] 100mg Take 1 Univers oin&Nit. 6-04 capsule by ity o f Macrocryst 00:00: mouth 2 [place] (MACROBID) 00 (two) Medical 100 mg times Branch capsule daily. Nitrofurant 2020- Yes [id number] 100mg Take 1 Univers oin&Nit. 6-04 capsule by ity o f Macrocryst 00:00: mouth 2 [place] (MACROBID) 00 (two) Medical 100 mg times Branch capsule daily. Nitrofurant 2020- Yes [id number] 100mg Take 1 Univers oin&Nit. 6-04 capsule by ity o f Macrocryst 00:00: mouth 2 [place] (MACROBID) 00 (two) Medical 100 mg times Branch capsule daily. Nitrofurant 2020-0 Yes [id number] 100mg Take 1 Univers oin&Nit. 6-04 capsule by ity o f [place]ryst 00:00: mouth [place] (MACROBID) 00 (two) Medical 100 mg times Branch capsule daily. Nitrofurant 2020-0 Yes [id number] 100mg Take 1 Univers oin&Nit. 6-04 capsule by ity o f Macrocryst 00:00: mouth 2 [place] (MACROBID) 00 (two) Medical 100 mg times Branch capsule daily. Nitrofurant 2020- Yes [id number] 100mg Take 1 Univers oin&Nit. 6-04 capsule by ity o f Macrocryst 00:00: mouth 2 [place] (MACROBID) 00 (two) Medical 100 mg times Branch capsule daily. Nitrofurant 2020- Yes [id number] 100mg Take 1 Univers oin&Nit. 6-04 capsule by ity o f Mac[place]ryst 00:00: mouth 2 [place] (MACROBID) 00 (two) Medical 100 mg times Branch capsule daily. Nitrofurant 2020-0 Yes [id number] 100mg Take 1 Univers oin&Nit. 6-04 capsule by ity o f Macrocryst 00:00: mouth 2 [place] (MACROBID) 00 (two) Medical 100 mg times Branch capsule daily. Nitrofurant 2020-0 Yes [id number] 100mg Take 1 Univers oin&Nit. 6-04 capsule by ity o f [place]ryst 00:00: mouth 2 [place] (MACROBID) 00 (two) Medical 100 mg times Branch capsule daily. Nitrofurant 2020-0 Yes [id number] 100mg Take 1 Univers oin&Nit. 6-04 capsule by ity o f [place] 00:00: mouth 2 [place] (MACROBID) 00 (two) Medical 100 mg times Branch capsule daily. Nitrofurant 2020-0 Yes [id number] 100mg Take 1 Univers oin&Nit. 6-04 capsule by ity o f Mac[place]ryst 00:00: mouth 2 [place] (MACROBID) 00 (two) Medical 100 mg times Branch capsule daily. Nitrofurant Yes [id number] 100mg Take 1 Univers oin&Nit. 6-04 capsule by ity o f Macrocryst 00:00: mouth 2 [place] (MACROBID) 00 (two) Medical 100 mg times Branch capsule daily. Nitrofurant Yes [id number] 100mg Take 1 Univers oin&Nit. 6-04 capsule by ity o f Macrocryst 00:00: mouth 2 [place] (MACROBID) 00 (two) Medical 100 mg times Branch capsule daily. Nitrofurant Yes [id number] 100mg Take 1 Univers oin&Nit. 6-04 capsule by ity o f Macrocryst 00:00: mouth 2 [place] (MACROBID) 00 (two) Medical 100 mg times Branch capsule daily. Nitrofurant Yes [id number] 100mg Take 1 Univers oin&Nit. 6-04 capsule by ity o f Macrocryst 00:00: mouth 2 [place] (MACROBID) 00 (two) Medical 100 mg times Branch capsule daily. Nitrofurant Yes [id number] 100mg Take 1 Univers oin&Nit. 6-04 capsule by ity o f Macrocryst 00:00: mouth 2 [place] (MACROBID) 00 (two) Medical 100 mg times Branch capsule daily. Nitrofurant Yes [id number] 100mg Take 1 Univers oin&Nit. 6-04 capsule by ity o f Mac[place]ryst 00:00: mouth 2 [place] (MACROBID) 00 (two) Medical 100 mg times Branch capsule daily. Nitrofurant Yes [id number] 100mg Take 1 Univers oin&Nit. 6-04 capsule by ity o f Macrocryst 00:00: mouth 2 [place] (MACROBID) 00 (two) Medical 100 mg times Branch capsule daily. Nitrofurant Yes [id number] 100mg Take 1 Univers oin&Nit. 6-04 capsule by ity o f Macrocryst 00:00: mouth 2 [place] (MACROBID) 00 (two) Medical 100 mg times Branch capsule daily. Nitrofurant Yes [id number] 100mg Take 1 Univers oin&Nit. 6-04 capsule by ity o f Mac[place]ryst 00:00: mouth 2 [place] (MACROBID) 00 (two) Medical 100 mg times Branch capsule daily. Nitrofurant Yes [id number] 100mg Take 1 Univers oin&Nit. 6-04 capsule by ity o f Macrocryst 00:00: mouth 2 [place] (MACROBID) 00 (two) Medical 100 mg times Branch capsule daily. Nitrofurant Yes [id number] 100mg Take 1 Univers oin&Nit. 6-04 capsule by ity o f Macrocryst 00:00: mouth 2 [place] (MACROBID) 00 (two) Medical 100 mg times Branch capsule daily. Nitrofurant Yes [id number] 100mg Take 1 Univers oin&Nit. 6-04 capsule by ity o f Macrocryst 00:00: mouth 2 [place] (MACROBID) 00 (two) Medical 100 mg times Branch capsule daily. Nitrofurant Yes [id number] 100mg Take 1 Univers oin&Nit. 6-04 capsule by ity o f Mac[place]ryst 00:00: mouth 2 [place] (MACROBID) 00 (two) Medical 100 mg times Branch capsule daily. Nitrofurant Yes [id number] 100mg Take 1 Univers oin&Nit. 6-04 capsule by ity o f Macrocryst 00:00: mouth 2 [place] (MACROBID) 00 (two) Medical 100 mg times Branch capsule daily. Nitrofurant Yes [id number] 100mg Take 1 Univers oin&Nit. 6-04 capsule by ity o f [place]ryst 00:00: mouth 2 [place] (MACROBID) 00 (two) Medical 100 mg times Branch capsule daily. Nitrofurant 2020- Yes [id number] 100mg Take 1 Univers oin&Nit. 6-04 capsule by ity o f [place]ryst 00:00: mouth 2 [place] (MACROBID) 00 (two) Medical 100 mg times Branch capsule daily. Nitrofurant 2020- Yes [id number] 100mg Take 1 Univers oin&Nit. 6-04 capsule by ity o f [place] 00:00: mouth [place] (MACROBID) 00 (two) Medical 100 mg times Branch capsule daily. Nitrofurant 2020- No [id number] 100mg Take 1 Univers oin&Nit. 5-18 05-29 capsule by ity of Macrocryst 00:00: 04:59 mouth 2 [place] (MACROBID) 00 :00 (two) Medical 100 mg times Branch capsule daily for 10 days. Nitrofurant 2020- No [id number] 100mg Take 1 Univers oin&Nit. 5-18 05-29 capsule by ity of Macrocryst 00:00: 04:59 mouth 2 [place] (MACROBID) 00 :00 (two) Medical 100 mg times Branch capsule daily for 10 days. Nitrofurant 2020- No [id number] 100mg Take 1 Univers oin&Nit. 5-18 05-29 capsule by ity of Macrocryst 00:00: 04:59 mouth 2 [place] (MACROBID) 00 :00 (two) Medical 100 mg times Branch capsule daily for 10 days. Nitrofurant 2020- No [id number] 100mg Take 1 Univers oin&Nit. 5-18 05-29 capsule by ity of Macrocryst 00:00: 04:59 mouth 2 [place] (MACROBID) 00 :00 (two) Medical 100 mg times Branch capsule daily for 10 days. Nitrofurant 2020- No [id number] 100mg Take 1 Univers oin&Nit. 5-18 05-29 capsule by ity of Macrocryst 00:00: 04:59 mouth 2 [place] (MACROBID) 00 :00 (two) Medical 100 mg times Branch capsule daily for 10 days. Nitrofurant 2020- No [id number] 100mg Take 1 Univers oin&Nit. 5-18 05-29 capsule by ity of Macrocryst 00:00: 04:59 mouth 2 [place] (MACROBID) 00 :00 (two) Medical 100 mg times Branch capsule daily for 10 days. Nitrofurant 2020- Yes [id number] 100mg Take 1 Univers oin&Nit. 3-29 capsule by ity o f [place] 00:00: mouth [place] (MACROBID) 00 (two) Medical 100 mg times Branch capsule daily. Nitrofurant 2020-0 Yes [id number] 100mg Take 1 Univers oin&Nit. 3-29 capsule by ity o f [place] 00:00: mouth 2 [place] (MACROBID) 00 (two) Medical 100 mg times Branch capsule daily. Nitrofurant 2020-0 Yes [id number] 100mg Take 1 Univers oin&Nit. 3-29 capsule by ity o f [place] 00:00: mouth 2 [place] (MACROBID) 00 (two) Medical 100 mg times Branch capsule daily. Nitrofurant 2020-0 Yes [id number] 100mg Take 1 Univers oin&Nit. 3-29 capsule by ity o f [place] 00:00: mouth 2 [place] (MACROBID) 00 (two) Medical 100 mg times Branch capsule daily. Nitrofurant 2020-0 Yes [id number] 100mg Take 1 Univers oin&Nit. 3-29 capsule by ity o f [place] 00:00: mouth 2 [place] (MACROBID) 00 (two) Medical 100 mg times Branch capsule daily. Nitrofurant 2020-0 Yes [id number] 100mg Take 1 Univers oin&Nit. 3-29 capsule by ity o f [place] 00:00: mouth 2 [place] (MACROBID) 00 (two) Medical 100 mg times Branch capsule daily. Nitrofurant 2020-0 Yes [id number] 100mg Take 1 Univers oin&Nit. 3-29 capsule by ity o f [place] 00:00: mouth 2 [place] (MACROBID) 00 (two) Medical 100 mg times Branch capsule daily. Nitrofurant 2020-0 Yes [id number] 100mg Take 1 Univers oin&Nit. 3-29 capsule by ity o f [place] 00:00: mouth 2 [place] (MACROBID) 00 (two) Medical 100 mg times Branch capsule daily. Nitrofurant 2020-0 Yes [id number] 100mg Take 1 Univers oin&Nit. 3-29 capsule by ity o f [place] 00:00: mouth 2 [place] (MACROBID) 00 (two) Medical 100 mg times Branch capsule daily. Nitrofurant Yes [id number] 100mg Take 1 Univers oin&Nit. 3-29 capsule by ity o f [place] 00:00: mouth 2 [place] (MACROBID) 00 (two) Medical 100 mg times Branch capsule daily. Nitrofurant Yes [id number] 100mg Take 1 [facility] o[facility]&Nit. 3-29 capsule by [facility] [place] ([place] (two) Medical 100 mg times Branch capsule daily. Nitrofurant Yes [id number] 100mg Take 1 [facility] o[facility]it. 3-29 capsule by [facility] [place] 00[place]: [place] ([place]CROBID) 00 (two) Medical 100 mg times Branch capsule daily. Nitrofurant Yes [id number] 100mg Take 1 [facility]it. 3-29 capsule by [facility] [place] 00[place]: [place] ([place]CROBID) 00 (two) Medical 100 mg times Branch capsule daily. Nitrofurant Yes [id number] 100mg Take 1 [facility] oin[facility]Nit. 3-29 capsule by [facility] [place] 00:[place]: mouth [place] (MACROBID) 00 (two) Medical 100 mg times Branch capsule daily. Nitrofurant Yes [id number] 100mg Take 1 [facility] o[facility]Nit. 3-29 capsule by [facility] [place] 00[place]: [place] (MACROBID) 00 (two) Medical 100 mg times Branch capsule daily. Nitrofurant Yes [id number] 100mg Take 1 [facility]. 3-29 capsule by [facility] [place] 00:[place]: mouth [place] (MACROBID) 00 (two) Medical 100 mg times Branch capsule daily. Nitrofurant Yes [id number] 100mg Take 1 [facility] o[facility]it. 3-29 capsule by [facility] [place] 00:[place]: mouth [place] (MACROBID) 00 (two) Medical 100 mg times Branch capsule daily. Nitrofurant Yes [id number] 100mg Take 1 [facility] o[facility]Nit. 3-29 capsule by [facility] [place] 00:[place]: mouth [place] (MACROBID) 00 (two) Medical 100 mg times Branch capsule daily. Nitrofurant Yes [id number] 100mg Take 1 [facility] o[facility]Nit. 3-29 capsule by [facility] [place] 00:[place]: mouth [place] (MACROBID) 00 (two) Medical 100 mg times Branch capsule daily. Nitrofurant 2020- Yes [id number] 100mg Take 1 [facility]it. 3-29 capsule by [facility] [place] 00:[place]: mouth [place] (MACROBID) 00 (two) Medical 100 mg times [facility] capsule daily. Nitrofurant 2020- Yes [id number] 100mg Take 1 [facility]. 3-29 capsule by [facility] [place] 00:[place]: mouth [place] (MACROBID) 00 (two) Medical 100 mg times Branch capsule daily. Nitrofurant 2020- Yes [id number] 100mg Take 1 [facility]. 3-29 capsule by [facility] [place] 00:[place]: mouth [place] (MACROBID) 00 (two) Medical 100 mg times [facility] capsule daily. Nitrofurant 2020- Yes [id number] 100mg Take 1 [facility]it. 3-29 capsule by [facility] [place] 00:[place]: mouth [place] (MACROBID) 00 (two) Medical 100 mg times [facility] capsule daily. Nitrofurant 2020-0 Yes [id number] 100mg Take 1 [facility]. 3-29 capsule by [facility] [place] 00:[place]: [place] (MACROBID) 00 (two) Medical 100 mg times Branch capsule daily. Nitrofurant 2020-0 Yes [id number] 100mg Take 1 [facility]it. 3-29 capsule by [facility] [place] 00[facility]: mouth [place] (MACROBID) 00 (two) Medical 100 mg times Branch capsule daily. Nitrofurant 2020-0 Yes [id number] 100mg Take 1 [facility]it. 3-29 capsule by [facility] [place] 00:[place]: mouth [place] (MACROBID) 00 (two) Medical 100 mg times Branch capsule daily. Nitrofurant 2020-0 Yes [id number] 100mg Take 1 [facility]it. 3-29 capsule by [facility] [place] 00:[place]: mouth [place] (MACROBID) 00 (two) Medical 100 mg times Branch capsule daily. Nitrofurant 2020-0 Yes [id number] 100mg Take 1 [facility]it. 3-29 capsule by [facility] [place] 00:[place]: mouth [place] (MACROBID) 00 (two) Medical 100 mg times Branch capsule daily. Nitrofurant 2020-0 Yes [id number] 100mg Take 1 [facility]it. 3-29 capsule by [facility] [place] 00:[place]: mouth [place] (MACROBID) 00 (two) Medical 100 mg times Branch capsule daily. Nitrofurant 2020-0 Yes [id number] 100mg Take 1 [facility]it. 3-29 capsule by [facility] [place] 00:[place]: mouth [place] (MACROBID) 00 (two) Medical 100 mg times Branch capsule daily. Nitrofurant 2020-0 Yes [id number] 100mg Take 1 [facility]it. 3-29 capsule by [facility] [place] 00:00: mouth [place] (MACROBID) 00 (two) Medical 100 mg times Branch capsule daily. Nitrofurant 2020-0 Yes [id number] 100mg Take 1 [facility] o[facility]it. 3-29 capsule by [facility] o [facility] [place] 00:00: mouth [place] (MACROBID) 00 (two) Medical 100 mg times Branch capsule daily. Nitrofurant 2020-0 Yes [id number] 100mg Take 1 [facility] o[facility]it. 3-29 capsule by [facility] o [facility] [place] 00:00: mouth [place] (MACROBID) 00 (two) Medical 100 mg times Branch capsule daily. Nitrofurant 2020-0 Yes [id number] 100mg Take 1 [facility] o[facility]it. 3-29 capsule by [facility] o [facility] [place] 00:00: mouth 2 [place] (MACROBID) 00 (two) Medical 100 mg times Branch capsule daily. Nitrofurant Yes [id number] 100mg Take 1 [facility] o[facility]Nit. 3-29 capsule by [facility] [place] 00:00: mouth 2 [place] (MACROBID) 00 (two) Medical 100 mg times Branch capsule daily. Nitrofurant Yes [id number] 100mg Take 1 [facility] oin[facility]Nit. 3-29 capsule by [facility] o [facility] [place] 00:00: mouth 2 [place] (MACROBID) 00 (two) Medical 100 mg times Branch capsule daily. Nitrofurant Yes [id number] 100mg Take 1 [facility] oin[facility]Nit. 3-29 capsule by [facility] o [facility] [place] 00:00: mouth [place] (MACROBID) 00 (two) Medical 100 mg times Branch capsule daily. Nitrofurant Yes [id number] 100mg Take 1 [facility] oin[facility]it. 3-29 capsule by [facility] [place] 00:00: mouth 2 [place] (MACROBID) 00 (two) Medical 100 mg times Branch capsule daily. Nitrofurant Yes [id number] 100mg Take 1 [facility] oin[facility]Nit. 3-29 capsule by [facility] o [facility] [place] 00:00: mouth 2 [place] (MACROBID) 00 (two) Medical 100 mg times Branch capsule daily. Nitrofurant Yes [id number] 100mg Take 1 [facility]it. 3-29 capsule by [facility] [place] 00:00: mouth 2 [place] (MACROBID) 00 (two) Medical 100 mg times Branch capsule daily. Nitrofurant Yes [id number] 100mg Take 1 [facility]. 3-29 capsule by [facility] o [facility] [place] 00:00: mouth 2 [place] (MACROBID) 00 (two) Medical 100 mg times Branch capsule daily. Nitrofurant Yes [id number] 100mg Take 1 [facility]it. 3-29 capsule by [facility] [place] 00:00: mouth [place] (MACROBID) 00 (two) Medical 100 mg times Branch capsule daily. Nitrofurant Yes [id number] 100mg Take 1 [facility] o[facility]it. 3-29 capsule by [facility] o [facility] [place] 00:00: mouth 2 [place] (MACROBID) 00 (two) Medical 100 mg times Branch capsule daily. Nitrofurant Yes [id number] 100mg Take 1 [facility]. 3-29 capsule by [facility] [place] 00:00: mouth 2 [place] (MACROBID) 00 (two) Medical 100 mg times Branch capsule daily. Nitrofurant Yes [id number] 100mg Take 1 [facility]it. 3-29 capsule by [facility] o [facility] [place] 00:00: mouth 2 [place] (MACROBID) 00 (two) Medical 100 mg times Branch capsule daily. Nitrofurant Yes [id number] 100mg Take 1 [facility]. 3-29 capsule by [facility] o [facility] [place] 00:00: mouth 2 [place] (MACROBID) 00 (two) Medical 100 mg times Branch capsule daily. Nitrofurant Yes [id number] 100mg Take 1 [facility]. 3-29 capsule by [facility] [place] 00:00: mouth 2 [place] (MACROBID) 00 (two) Medical 100 mg times Branch capsule daily. Nitrofurant Yes [id number] 100mg Take 1 [facility]. 3-29 capsule by [facility] [place] 00:[place]: mouth 2 [place] (MACROBID) 00 (two) Medical 100 mg times Branch capsule daily. Yes [id number] 1{tbl} Take 1 [facility]it[facility] 3-26 tablet by ity of n ( 00:00: mouth [place] VITAMIN) 00 daily. Medical tablet Branch Yes [id number] 1{tbl} Take 1 [facility] 3-26 tablet by ity of n ( 00:00: mouth [place] VITAMIN) 00 daily. Medical tablet Branch Yes [id number] 1{tbl} Take 1 [facility] 3-26 tablet by ity of n ( 00:00: mouth [place] VITAMIN) 00 daily. Medical tablet Branch Yes [id number] 1{tbl} Take 1 [facility] 3-26 tablet by ity of n ( 00:00: mouth [place] VITAMIN) 00 daily. Medical tablet Branch Yes [id number] 1{tbl} Take 1 [facility] 3-26 tablet by ity of n ( 00:00: mouth [place] VITAMIN) 00 daily. Medical tablet Branch Yes [id number] 1{tbl} Take 1 [facility] 3-26 tablet by ity of n ( 00:00: mouth [place] VITAMIN) 00 daily. Medical tablet Branch Yes [id number] 1{tbl} Take 1 [facility] 3-26 tablet by ity of n ( 00:00: mouth [place] VITAMIN) 00 daily. Medical tablet Branch Yes [id number] 1{tbl} Take 1 [facility] 3-26 tablet by ity of n ( 00:00: mouth [place] VITAMIN) 00 daily. Medical tablet Branch Yes [id number] 1{tbl} Take 1 [facility] 3-26 tablet by ity of n ( 00:00: mouth [place] VITAMIN) 00 daily. Medical tablet Branch Yes [id number] 1{tbl} Take 1 [facility] 3-26 tablet by ity of n ( 00:00: mouth [place] VITAMIN) 00 daily. Medical tablet Branch Yes [id number] 1{tbl} Take 1 [facility] 3-26 tablet by ity of n ( 00:00: mouth [place] VITAMIN) 00 daily. Medical tablet Branch Yes [id number] 1{tbl} Take 1 [facility] 3-26 tablet by ity of n ( 00:00: mouth [place] VITAMIN) 00 daily. Medical tablet Branch Yes [id number] 1{tbl} Take 1 [facility] 3-26 tablet by ity of n ( 00:00: mouth [place] VITAMIN) 00 daily. Medical tablet Branch Yes [id number] 1{tbl} Take 1 [facility] 3-26 tablet by ity of n ( 00:00: mouth [place] VITAMIN) 00 daily. Medical tablet Branch Yes [id number] 1{tbl} Take 1 [facility] 3-26 tablet by ity of n ( 00:00: mouth [place] VITAMIN) 00 daily. Medical tablet Branch Yes [id number] 1{tbl} Take 1 [facility] 3-26 tablet by ity of n ( 00:00: mouth [place] VITAMIN) 00 daily. Medical tablet Branch Yes [id number] 1{tbl} Take 1 [facility] 3-26 tablet by ity of n ( 00:00: mouth [place] VITAMIN) 00 daily. Medical tablet Branch Yes [id number] 1{tbl} Take 1 [facility] 3-26 tablet by ity of n ( 00:00: mouth [place] VITAMIN) 00 daily. Medical tablet Branch Yes [id number] 1{tbl} Take 1 [facility] 3-26 tablet by ity of n ( 00:00: mouth [place] VITAMIN) 00 daily. Medical tablet Branch Yes [id number] 1{tbl} Take 1 [facility] mult[facility] 3-26 tablet by ity of n ( 00:00: mouth [place] VITAMIN) 00 daily. Medical tablet Branch Yes [id number] 1{tbl} Take 1 [facility] mult[facility] 3-26 tablet by ity of n ( 00:00: mouth [place] VITAMIN) 00 daily. Medical tablet Branch Yes [id number] 1{tbl} Take 1 [facility] 3-26 tablet by ity of n ( 00:00: mouth [place] VITAMIN) 00 daily. Medical tablet Branch Yes [id number] 1{tbl} Take 1 [facility] 3-26 tablet by ity of n ( 00:00: mouth [place] VITAMIN) 00 daily. Medical tablet Branch Yes [id number] 1{tbl} Take 1 [facility] 3-26 tablet by ity of n ( 00:00: mouth [place] VITAMIN) 00 daily. Medical tablet Branch Yes [id number] 1{tbl} Take 1 [facility] 3-26 tablet by ity of n ( 00:00: mouth [place] VITAMIN) 00 daily. Medical tablet Branch Yes [id number] 1{tbl} Take 1 [facility] 3-26 tablet by ity of n ( 00:00: mouth [place] VITAMIN) 00 daily. Medical tablet Branch Yes [id number] 1{tbl} Take 1 [facility] 3-26 tablet by ity of n ( 00:00: mouth [place] VITAMIN) 00 daily. Medical tablet Branch Yes [id number] 1{tbl} Take 1 [facility] 3-26 tablet by ity of n ( 00:00: mouth [place] VITAMIN) 00 daily. Medical tablet Branch Yes [id number] 1{tbl} Take 1 [facility] mult[facility]ami 3-26 tablet by ity of n ( 00:00: mouth [place] VITAMIN) 00 daily. Medical tablet Branch Yes [id number] 1{tbl} Take 1 [facility] mult[facility] 3-26 tablet by ity of n ( 00:00: mouth [place] VITAMIN) 00 daily. Medical tablet Branch Yes [id number] 1{tbl} Take 1 [facility] mult[facility] 3-26 tablet by ity of n ( 00:00: mouth [place] VITAMIN) 00 daily. Medical tablet Branch Yes [id number] 1{tbl} Take 1 [facility] mult[facility]itami 3-26 tablet by ity of n ( 00:00: mouth [place] VITAMIN) 00 daily. Medical tablet Branch Yes [id number] 1{tbl} Take 1 [facility] 3-26 tablet by ity of n ( 00:00: mouth [place] VITAMIN) 00 daily. Medical tablet Branch Yes [id number] 1{tbl} Take 1 [facility] mult[facility]it[facility] 3-26 tablet by ity of n ( 00:00: mouth [place] VITAMIN) 00 daily. Medical tablet Branch Yes [id number] 1{tbl} Take 1 [facility] 3-26 tablet by ity of n ( 00:00: mouth [place] VITAMIN) 00 daily. Medical tablet Branch Yes [id number] 1{tbl} Take 1 [facility] 3-26 tablet by ity of n ( 00:00: mouth [place] VITAMIN) 00 daily. Medical tablet Branch Yes [id number] 1{tbl} Take 1 [facility] mult[facility]itami 3-26 tablet by ity of n ( 00:00: mouth [place] VITAMIN) 00 daily. Medical tablet Branch Yes [id number] 1{tbl} Take 1 [facility] mult[facility]itami 3-26 tablet by ity of n ( 00:00: mouth [place] VITAMIN) 00 daily. Medical tablet Branch Yes [id number] 1{tbl} Take 1 [facility] mult[facility]it[facility] 3-26 tablet by ity of n ( 00:00: mouth [place] VITAMIN) 00 daily. Medical tablet Branch Yes [id number] 1{tbl} Take 1 [facility] mult[facility]it[facility] 3-26 tablet by ity of n ( 00:00: mouth [place] VITAMIN) 00 daily. Medical tablet Branch Yes [id number] 1{tbl} Take 1 [facility] mult[facility] 3-26 tablet by ity of n ( 00:00: mouth [place] VITAMIN) 00 daily. Medical tablet Branch Yes [id number] 1{tbl} Take 1 [facility] mult[facility]itami 3-26 tablet by ity of n ( 00:00: mouth [place] VITAMIN) 00 daily. Medical tablet Branch Yes [id number] 1{tbl} Take 1 [facility] mult[facility]it[facility] 3-26 tablet by ity of n ( 00:00: mouth [place] VITAMIN) 00 daily. Medical tablet Branch Yes [id number] 1{tbl} Take 1 [facility]it[facility] 3-26 tablet by ity of n ( 00:00: mouth [place] VITAMIN) 00 daily. Medical tablet Branch Yes [id number] 1{tbl} Take 1 [facility] mult[facility]it[facility] 3-26 tablet by ity of n ( 00:00: mouth [place] VITAMIN) 00 daily. Medical tablet Branch Yes [id number] 1{tbl} Take 1 [facility] mult[facility]itami 3-26 tablet by ity of n ( 00:00: mouth [place] VITAMIN) 00 daily. Medical tablet Branch Yes [id number] 1{tbl} Take 1 [facility] mult[facility]itami 3-26 tablet by ity of n ( 00:00: mouth [place] VITAMIN) 00 daily. Medical tablet Branch Yes [id number] 1{tbl} Take 1 [facility] mult[facility]itami 3-26 tablet by ity of n ( 00:00: mouth [place] VITAMIN) 00 daily. Medical tablet Branch Yes [id number] 1{tbl} Take 1 [facility] mult[facility]itami 3-26 tablet by ity of n ( 00:00: mouth [place] VITAMIN) 00 daily. Medical tablet Branch Yes [id number] 1{tbl} Take 1 [facility] n[facility] mult[facility]itami 3-26 tablet by ity of n ( 00:00: mouth [place] VITAMIN) 00 daily. Medical tablet Branch Yes [id number] 1{tbl} Take 1 [facility] n[facility] multivitami 3-26 tablet by ity of n ( 00:00: mouth [place] VITAMIN) 00 daily. Medical tablet Branch FENTanyl PF 2019-0 2020- No 50ug 50 mcg, Un [facility] a (SUBLIMAZE 04-16 Slow IV ity o f (PF)) 03:15: 02:37 Push, [place] injection 00 :00 ONCE, 1 Medical 50 mcg dose, Fri Branch 04/15/20 at 2215, Routine ondansetron 2019-0 2020- No 4mg 4 mg, Slow Univers (ZOFRAN 04-16 IV Push, ity of (PF)) 03:15: 02:37 ONCE, 1 [place] injection 4 00 :00 dose, Fri Med ical mg 04/15/20 at Branch 2215, LEON pantoprazol 2019-0 2020- No 40mg 40 mg, IV Univers e 04-16 Piggyback, ity of (PROTONIX) 03:15: 02:55 ONCE, 1 [place] 40 mg in 00 :00 dose, Fri Medica l NaCl 0.9% 04/15/20 at [facility] (NS) 100 mL 2215, 100 MINI-BAG mL morpHINE 2019-0 2020- No 4mg 4 mg, Slow Un mar[facility] a injection 4 04-15 IV Push, ity of mg 06:00: 05:04 ONCE, 1 [place] 00 :00 dose, Fri Medical 04/15/20 at Branch 0100, STAT ondansetron 2020-0 2020- No 4mg 4 mg, Slow Univers (ZOFRAN 04-15 IV Push, ity of (PF)) 05:00: 04:08 ONCE, 1 [place] injection 4 00 :00 dose, Fri Med ical mg 04/15/20 at Branch 0000, LEON ketorolac 2020-0 2020- No 30mg 30 mg, Unive rs (TORADOL) 04-15 Slow IV ity of injection 05:00: 04:09 Push, [place] 30 mg 00 :00 ONCE, 1 Medical dose, Fri Branch 04/15/20 at 0000, Routine
membership solicitor approving Restricted medication : SHEREE FIERRO pantoprazol 2020-0 2020- No 40mg 40 mg, IV Univers e 04-15 Piggyback, ity of (PROTONIX) 04:45: 04:09 ONCE, 1 [place] 40 mg in 00 :00 dose, [place] Medica l NaCl 0.9% 04/14/20 at [facility] (NS) 100 mL 2345, 100 MINI-BAG mL dicyclomine 2020-0 Yes [id number] 20mg Take 1 [facility] 20 mg 9-11 tablet by ity of tablet 00:00: mouth [place] 00 every 6 Medical (six) Branch hours as needed for Abdominal pain. ondansetron 2020-0 Yes [id number] 4mg Take 1 [facility] (ZOFRAN) 4 9-11 tablet by ity of mg tablet 00:00: mouth [place] 00 every 8 Medical (eight) Branch hours as needed for Nausea and Vomiting (N/V). pantoprazol 2020-0 Yes [id number] 40mg Take 1 [facility] e 9-11 tablet by ity of (PROTONIX) 00:00: mouth [place] 40 mg EC 00 daily. Medical tablet Branch traMADoL 2020-0 Yes [id number] 50mg Take 1 [facility] (ULTRAM) 50 9-11 tablet by ity of mg tablet 00:00: mouth [place] 00 every 6 Medical (six) Branch hours as needed for Pain (scale 7-10). Indication s: acute pain dicyclomine 2020-0 Yes [id number] 20mg Take 1 [facility] 20 mg 9-11 tablet by ity of tablet 00:00: mouth [place] 00 every 6 Medical (six) Branch hours as needed for Abdominal pain. ondansetron 2020-0 Yes [id number] 4mg Take 1 [facility] (ZOFRAN) 4 9-11 tablet by ity of mg tablet 00:00: mouth [place] 00 every 8 Medical (eight) Branch hours as needed for Nausea and Vomiting (N/V). pantoprazol 2020-0 Yes [id number] 40mg Take 1 [facility] e 9-11 tablet by ity of (PROTONIX) 00:00: mouth [place] 40 mg EC 00 daily. Medical tablet Branch traMADoL 2020-0 Yes [id number] 50mg Take 1 [facility] (ULTRAM) 50 9-11 tablet by ity of mg tablet 00:00: mouth [place] 00 every 6 Medical (six) Branch hours as needed for Pain (scale 7-10). Indication s: acute pain dicyclomine 2020-0 Yes [id number] 20mg Take 1 [facility] 20 mg 9-11 tablet by ity of tablet 00:00: mouth [place] 00 every 6 Medical (six) Branch hours as needed for Abdominal pain. ondansetron 2020-0 Yes [id number] 4mg Take 1 [facility] (ZOFRAN) 4 9-11 tablet by ity of mg tablet 00:00: mouth [place] 00 every 8 Medical (eight) Branch hours as needed for Nausea and Vomiting (N/V). pantoprazol 2020-0 Yes [id number] 40mg Take 1 [facility] e 9-11 tablet by ity of (PROTONIX) 00:00: mouth [place] 40 mg EC 00 daily. Medical tablet Branch traMADoL 2020-0 Yes [id number] 50mg Take 1 [facility] (ULTRAM) 50 9-11 tablet by ity of mg tablet 00:00: mouth [place] 00 every 6 Medical (six) Branch hours as needed for Pain (scale 7-10). Indication s: acute pain dicyclomine 2020-0 Yes [id number] 20mg Take 1 [facility] 20 mg 9-11 tablet by ity of tablet 00:00: mouth [place] 00 every 6 Medical (six) Branch hours as needed for Abdominal pain. ondansetron 2020-0 Yes [id number] 4mg Take 1 [facility] (ZOFRAN) 4 9-11 tablet by ity of mg tablet 00:00: mouth [place] 00 every 8 Medical (eight) Branch hours as needed for Nausea and Vomiting (N/V). pantoprazol 2020-0 Yes [id number] 40mg Take 1 Univers e 9-11 tablet by ity of (PROTONIX) 00:00: mouth [place] 40 mg EC 00 daily. Medical tablet Branch traMADoL 2020-0 Yes [id number] 50mg Take 1 [facility] (ULTRAM) 50 9-11 tablet by ity of mg tablet 00:00: mouth [place] 00 every 6 Medical (six) Branch hours as needed for Pain (scale 7-10). Indication s: acute pain dicyclomine 2020-0 Yes [id number] 20mg Take 1 [facility] 20 mg 9-11 tablet by ity of tablet 00:00: mouth [place] 00 every 6 Medical (six) Branch hours as needed for Abdominal pain. ondansetron 2020-0 Yes [id number] 4mg Take 1 Univers (ZOFRAN) 4 9-11 tablet by ity of mg tablet 00:00: mouth [place] 00 every 8 Medical (eight) Branch hours as needed for Nausea and Vomiting (N/V). pantoprazol 2020-0 Yes [id number] 40mg Take 1 Univers e 9-11 tablet by ity of (PROTONIX) 00:00: mouth [place] 40 mg EC 00 daily. Medical tablet Branch traMADoL 2020-0 Yes [id number] 50mg Take 1 Univers (ULTRAM) 50 9-11 tablet by ity of mg tablet 00:00: mouth [place] 00 every 6 Medical (six) Branch hours as needed for Pain (scale 7-10). Indication s: acute pain dicyclomine 2020-0 Yes [id number] 20mg Take 1 [facility] 20 mg 9-11 tablet by ity of tablet 00:00: mouth [place] 00 every 6 Medical (six) Branch hours as needed for Abdominal pain. ondansetron 2020-0 Yes [id number] 4mg Take 1 Univers (ZOFRAN) 4 9-11 tablet by ity of mg tablet 00:00: mouth [place] 00 every 8 Medical (eight) Branch hours as needed for Nausea and Vomiting (N/V). pantoprazol 2020-0 Yes [id number] 40mg Take 1 Univers e 9-11 tablet by ity of (PROTONIX) 00:00: mouth [place] 40 mg EC 00 daily. Medical tablet Branch traMADoL 2020-0 Yes [id number] 50mg Take 1 [facility] (ULTRAM) 50 9-11 tablet by ity of mg tablet 00:00: mouth [place] 00 every 6 Medical (six) Branch hours as needed for Pain (scale 7-10). Indication s: acute pain dicyclomine 2020-0 Yes [id number] 20mg Take 1 [facility] 20 mg 9-11 tablet by ity of tablet 00:00: mouth [place] 00 every 6 Medical (six) Branch hours as needed for Abdominal pain. ondansetron 2020-0 Yes [id number] 4mg Take 1 [facility] (ZOFRAN) 4 9-11 tablet by ity of mg tablet 00:00: mouth [place] 00 every 8 Medical (eight) Branch hours as needed for Nausea and Vomiting (N/V). pantoprazol 2020-0 Yes [id number] 40mg Take 1 Univers e 9-11 tablet by ity of (PROTONIX) 00:00: mouth [place] 40 mg EC 00 daily. Medical tablet Branch traMADoL 2020-0 Yes [id number] 50mg Take 1 [facility] (ULTRAM) 50 9-11 tablet by ity of mg tablet 00:00: mouth [place] 00 every 6 Medical (six) Branch hours as needed for Pain (scale 7-10). Indication s: acute pain dicyclomine 2020-0 Yes [id number] 20mg Take 1 [facility] 20 mg 9-11 tablet by ity of tablet 00:00: mouth [place] 00 every 6 Medical (six) Branch hours as needed for Abdominal pain. ondansetron 2020-0 Yes [id number] 4mg Take 1 Univers (ZOFRAN) 4 9-11 tablet by ity of mg tablet 00:00: mouth [place] 00 every 8 Medical (eight) Branch hours as needed for Nausea and Vomiting (N/V). pantoprazol 2020-0 Yes [id number] 40mg Take 1 [facility] e 9-11 tablet by ity of (PROTONIX) 00:00: mouth [place] 40 mg EC 00 daily. Medical tablet Branch traMADoL 2020-0 Yes [id number] 50mg Take 1 [facility] (ULTRAM) 50 9-11 tablet by ity of mg tablet 00:00: mouth [place] 00 every 6 Medical (six) Branch hours as needed for Pain (scale 7-10). Indication s: acute pain dicyclomine 2020-0 Yes [id number] 20mg Take 1 [facility] 20 mg 9-11 tablet by ity of tablet 00:00: mouth [place] 00 every 6 Medical (six) Branch hours as needed for Abdominal pain. ondansetron 2020-0 Yes [id number] 4mg Take 1 [facility] (ZOFRAN) 4 9-11 tablet by ity of mg tablet 00:00: mouth [place] 00 every 8 Medical (eight) Branch hours as needed for Nausea and Vomiting (N/V). pantoprazol 2020-0 Yes [id number] 40mg Take 1 Univers e 9-11 tablet by ity of (PROTONIX) 00:00: mouth [place] 40 mg EC 00 daily. Medical tablet Branch traMADoL 2020-0 Yes [id number] 50mg Take 1 [facility] (ULTRAM) 50 9-11 tablet by ity of mg tablet 00:00: mouth [place] 00 every 6 Medical (six) Branch hours as needed for Pain (scale 7-10). Indication s: acute pain dicyclomine 2020-0 Yes [id number] 20mg Take 1 [facility] 20 mg 9-11 tablet by ity of tablet 00:00: mouth [place] 00 every 6 Medical (six) Branch hours as needed for Abdominal pain. ondansetron 2020-0 Yes [id number] 4mg Take 1 Univers (ZOFRAN) 4 9-11 tablet by ity of mg tablet 00:00: mouth [place] 00 every 8 Medical (eight) Branch hours as needed for Nausea and Vomiting (N/V). pantoprazol 2020-0 Yes [id number] 40mg Take 1 Univers e 9-11 tablet by ity of (PROTONIX) 00:00: mouth [place] 40 mg EC 00 daily. Medical tablet Branch traMADoL 2020-0 Yes [id number] 50mg Take 1 [facility] (ULTRAM) 50 9-11 tablet by ity of mg tablet 00:00: mouth [place] 00 every 6 Medical (six) Branch hours as needed for Pain (scale 7-10). Indication s: acute pain dicyclomine 2020-0 Yes [id number] 20mg Take 1 [facility] 20 mg 9-11 tablet by ity of tablet 00:00: mouth [place] 00 every 6 Medical (six) Branch hours as needed for Abdominal pain. ondansetron 2020-0 Yes [id number] 4mg Take 1 [facility] (ZOFRAN) 4 9-11 tablet by ity of mg tablet 00:00: mouth [place] 00 every 8 Medical (eight) Branch hours as needed for Nausea and Vomiting (N/V). pantoprazol 2020-0 Yes [id number] 40mg Take 1 [facility] e 9-11 tablet by ity of (PROTONIX) 00:00: mouth [place] 40 mg EC 00 daily. Medical tablet Branch traMADoL 2020-0 Yes [id number] 50mg Take 1 [facility] (ULTRAM) 50 9-11 tablet by ity of mg tablet 00:00: mouth [place] 00 every 6 Medical (six) Branch hours as needed for Pain (scale 7-10). Indication s: acute pain dicyclomine 2020-0 Yes [id number] 20mg Take 1 [facility] 20 mg 9-11 tablet by ity of tablet 00:00: mouth [place] 00 every 6 Medical (six) Branch hours as needed for Abdominal pain. ondansetron 2020-0 Yes [id number] 4mg Take 1 [facility] (ZOFRAN) 4 9-11 tablet by ity of mg tablet 00:00: mouth [place] 00 every 8 Medical (eight) Branch hours as needed for Nausea and Vomiting (N/V). pantoprazol 2020-0 Yes [id number] 40mg Take 1 [facility] e 9-11 tablet by ity of (PROTONIX) 00:00: mouth [place] 40 mg EC 00 daily. Medical tablet Branch traMADoL 2020-0 Yes [id number] 50mg Take 1 [facility] (ULTRAM) 50 9-11 tablet by ity of mg tablet 00:00: mouth [place] 00 every 6 Medical (six) Branch hours as needed for Pain (scale 7-10). Indication s: acute pain dicyclomine 2020-0 Yes [id number] 20mg Take 1 [facility] 20 mg 9-11 tablet by ity of tablet 00:00: mouth [place] 00 every 6 Medical (six) Branch hours as needed for Abdominal pain. ondansetron 2020-0 Yes [id number] 4mg Take 1 [facility] 4 9-11 tablet by [facility] mg tablet 00:00: mouth [place] 00 every 8 [facility] (eight) Branch hours as needed for Nausea and Vomiting (N/V). pantoprazol 2020-0 Yes [id number] 40mg Take 1 [facility] e 9-11 tablet by [facility] (PROTONIX) 00:00: mouth [place] 40 mg EC 00 daily. Medical tablet Branch traMADoL 2020-0 Yes [id number] 50mg Take 1 [facility] (ULTRAM) 50 9-11 tablet by [facility] mg tablet 00:00: mouth [place] 00 every 6 Medical (six) Branch hours as needed for Pain (scale 7-10). Indication s: acute pain dicyclomine 2020-0 Yes [id number] 20mg Take 1 [facility] 20 mg 9-11 tablet by [facility] tablet 00:00: mouth [place] 00 every 6 Medical (six) Branch hours as needed for Abdominal pain. ondansetron 2020-0 Yes [id number] 4mg Take 1 [facility] ([facility]) 4 9-11 tablet by [facility] mg tablet 00:00: mouth [place] 00 every 8 Medical (eight) Branch hours as needed for Nausea and Vomiting (N/V). pantoprazol 2020-0 Yes [id number] 40mg Take 1 [facility] e 9-11 tablet by [facility] (PROTONIX) 00:00: mouth [place] 40 mg EC 00 daily. Medical tablet Branch traMADoL 2020-0 Yes [id number] 50mg Take 1 [facility] ([facility]) 50 9-11 tablet by [facility] mg tablet 00:00: mouth [place] 00 every 6 Medical (six) Branch hours as needed for Pain (scale 7-10). Indication s: acute pain dicyclomine 2020-0 Yes [id number] 20mg Take 1 [facility] 20 mg 9-11 tablet by [facility] tablet 00:00: mouth [place] 00 every 6 Medical (six) Branch hours as needed for Abdominal pain. ondansetron 2020-0 Yes [id number] 4mg Take 1 [facility] ([facility]) 4 9-11 tablet by [facility] mg tablet 00:00: mouth [place] 00 every 8 Medical (eight) Branch hours as needed for Nausea and Vomiting (N/V). pantoprazol 2020-0 Yes [id number] 40mg Take 1 [facility] e 9-11 tablet by [facility] (PROTONIX) 00:00: mouth [place] 40 mg EC 00 daily. [facility] tablet Branch traMADoL 2020-0 Yes [id number] 50mg Take 1 [facility] ([facility]) 50 9-11 tablet by [facility] mg tablet 00:00: mouth [place] 00 every 6 Medical (six) Branch hours as needed for Pain (scale 7-10). Indication s: acute pain dicyclomine 2020-0 Yes [id number] 20mg Take 1 [facility] 20 mg 9-11 tablet by [facility] tablet 00:00: mouth [place] 00 every 6 Medical (six) Branch hours as needed for Abdominal pain. ondansetron 2020-0 Yes [id number] 4mg Take 1 [facility] ([facility]) 4 9-11 tablet by [facility] mg tablet 00:00: mouth [place] 00 every 8 Medical (eight) Branch hours as needed for Nausea and Vomiting (N/V). pantoprazol 2020-0 Yes [id number] 40mg Take 1 [facility] e 9-11 tablet by [facility] (PROTONIX) 00:00: mouth [place] 40 mg EC 00 daily. [facility] tablet Branch traMADoL 2020-0 Yes [id number] 50mg Take 1 [facility] ([facility]) 50 9-11 tablet by [facility] mg tablet 00:00: mouth [place] 00 every 6 Medical (six) Branch hours as needed for Pain (scale 7-10). Indication s: acute pain dicyclomine 2020-0 Yes [id number] 20mg Take 1 [facility] 20 mg 9-11 tablet by [facility] tablet 00:00: mouth [place] 00 every 6 Medical (six) Branch hours as needed for Abdominal pain. ondansetron 2020-0 Yes [id number] 4mg Take 1 [facility] ([facility]) 4 9-11 tablet by [facility] mg tablet 00:00: mouth [place] 00 every 8 Medical (eight) Branch hours as needed for Nausea and Vomiting (N/V). pantoprazol 2020-0 Yes [id number] 40mg Take 1 [facility] e 9-11 tablet by [facility] (PROTONIX) 00:00: mouth [place] 40 mg EC 00 daily. [facility] tablet Branch traMADoL 2020-0 Yes [id number] 50mg Take 1 [facility] ([facility]) 50 9-11 tablet by [facility] mg tablet 00:00: mouth [place] 00 every 6 Medical (six) Branch hours as needed for Pain (scale 7-10). Indication s: acute pain dicyclomine 2020-0 Yes [id number] 20mg Take 1 [facility] 20 mg 9-11 tablet by [facility] tablet 00:00: mouth [place] 00 every 6 Medical (six) Branch hours as needed for Abdominal pain. ondansetron 2020-0 Yes [id number] 4mg Take 1 [facility] ([facility]) 4 9-11 tablet by [facility] mg tablet 00:00: mouth [place] 00 every 8 Medical (eight) Branch hours as needed for Nausea and Vomiting (N/V). pantoprazol 2020-0 Yes [id number] 40mg Take 1 [facility] e 9-11 tablet by [facility] (PROTONIX) 00:00: mouth [place] 40 mg EC 00 daily. Medical tablet Branch traMADoL 2020-0 Yes [id number] 50mg Take 1 [facility] ([facility]) 50 9-11 tablet by [facility] mg tablet 00:00: mouth [place] 00 every 6 Medical (six) Branch hours as needed for Pain (scale 7-10). Indication s: acute pain dicyclomine 2020-0 Yes [id number] 20mg Take 1 [facility] 20 mg 9-11 tablet by [facility] tablet 00:00: mouth [place] 00 every 6 Medical (six) Branch hours as needed for Abdominal pain. ondansetron 2020-0 Yes [id number] 4mg Take 1 [facility] ([facility]) 4 9-11 tablet by [facility] mg tablet 00:00: mouth [place] 00 every 8 Medical (eight) Branch hours as needed for Nausea and Vomiting (N/V). pantoprazol 2020-0 Yes [id number] 40mg Take 1 [facility] e 9-11 tablet by [facility] (PROTONIX) 00:00: mouth [place] 40 mg EC 00 daily. Medical tablet Branch traMADoL 2020-0 Yes [id number] 50mg Take 1 [facility] (UL[facility]) 50 9-11 tablet by [facility] mg tablet 00:00: mouth [place] 00 every 6 Medical (six) Branch hours as needed for Pain (scale 7-10). Indication s: acute pain dicyclomine 2020-0 Yes [id number] 20mg Take 1 [facility] 20 mg 9-11 tablet by [facility] tablet 00:00: mouth [place] 00 every 6 Medical (six) Branch hours as needed for Abdominal pain. ondansetron 2020-0 Yes [id number] 4mg Take 1 [facility] ([facility]) 4 9-11 tablet by [facility] mg tablet 00:00: mouth [place] 00 every 8 Medical (eight) Branch hours as needed for Nausea and Vomiting (N/V). pantoprazol 2020-0 Yes [id number] 40mg Take 1 [facility] e 9-11 tablet by [facility] (PROTONIX) 00:00: mouth [place] 40 mg EC 00 daily. Medical tablet Branch traMADoL 2020-0 Yes [id number] 50mg Take 1 [facility] ([facility]) 50 9-11 tablet by [facility] mg tablet 00:00: mouth [place] 00 every 6 Medical (six) Branch hours as needed for Pain (scale 7-10). Indication s: acute pain dicyclomine 2020-0 Yes [id number] 20mg Take 1 [facility] 20 mg 9-11 tablet by [facility] tablet 00:00: mouth [place] 00 every 6 Medical (six) Branch hours as needed for Abdominal pain. ondansetron 2020-0 Yes [id number] 4mg Take 1 [facility] ([facility]) 4 9-11 tablet by [facility] mg tablet 00:00: mouth [place] 00 every 8 Medical (eight) Branch hours as needed for Nausea and Vomiting (N/V). pantoprazol 2020-0 Yes [id number] 40mg Take 1 [facility] e 9-11 tablet by [facility] (PROTONIX) 00:00: mouth [place] 40 mg EC 00 daily. Medical tablet Branch traMADoL 2020-0 Yes [id number] 50mg Take 1 [facility] ([facility]) 50 9-11 tablet by [facility] mg tablet 00:00: mouth [place] 00 every 6 Medical (six) Branch hours as needed for Pain (scale 7-10). Indication s: acute pain dicyclomine 2020-0 Yes [id number] 20mg Take 1 [facility] 20 mg 9-11 tablet by [facility] tablet 00:00: mouth [place] 00 every 6 Medical (six) Branch hours as needed for Abdominal pain. ondansetron 2020-0 Yes [id number] 4mg Take 1 [facility] ([facility]) 4 9-11 tablet by [facility] mg tablet 00:00: mouth [place] 00 every 8 Medical (eight) Branch hours as needed for Nausea and Vomiting (N/V). pantoprazol 2020-0 Yes [id number] 40mg Take 1 [facility] e 9-11 tablet by [facility] (PROTONIX) 00:00: mouth [place] 40 mg EC 00 daily. Medical tablet Branch traMADoL 2020-0 Yes [id number] 50mg Take 1 [facility] (UL[facility]) 50 9-11 tablet by [facility] mg tablet 00:00: mouth [place] 00 every 6 Medical (six) Branch hours as needed for Pain (scale 7-10). Indication s: acute pain dicyclomine 2020-0 Yes [id number] 20mg Take 1 [facility] 20 mg 9-11 tablet by [facility] tablet 00:00: mouth [place] 00 every 6 Medical (six) Branch hours as needed for Abdominal pain. ondansetron 2020-0 Yes [id number] 4mg Take 1 [facility] ([facility]) 4 9-11 tablet by [facility] mg tablet 00:00: mouth [place] 00 every 8 Medical (eight) Branch hours as needed for Nausea and Vomiting (N/V). pantoprazol 2020-0 Yes [id number] 40mg Take 1 [facility] e 9-11 tablet by [facility] (PROTONIX) 00:00: mouth [place] 40 mg EC 00 daily. Medical tablet Branch traMADoL 2020-0 Yes [id number] 50mg Take 1 [facility] ([facility]) 50 9-11 tablet by [facility] mg tablet 00:00: mouth [place] 00 every 6 Medical (six) Branch hours as needed for Pain (scale 7-10). Indication s: acute pain dicyclomine 2020-0 Yes [id number] 20mg Take 1 [facility] 20 mg 9-11 tablet by [facility] tablet 00:00: mouth [place] 00 every 6 Medical (six) Branch hours as needed for Abdominal pain. ondansetron 2020-0 Yes [id number] 4mg Take 1 [facility] ([facility]) 4 9-11 tablet by [facility] mg tablet 00:00: mouth [place] 00 every 8 Medical (eight) Branch hours as needed for Nausea and Vomiting (N/V). pantoprazol 2020-0 Yes [id number] 40mg Take 1 [facility] e 9-11 tablet by [facility] (PROTONIX) 00:00: mouth [place] 40 mg EC 00 daily. Medical tablet Branch traMADoL 2020-0 Yes [id number] 50mg Take 1 [facility] (UL[facility]) 50 9-11 tablet by [facility] mg tablet 00:00: mouth [place] 00 every 6 Medical (six) Branch hours as needed for Pain (scale 7-10). Indication s: acute pain dicyclomine 2020-0 Yes [id number] 20mg Take 1 [facility] 20 mg 9-11 tablet by [facility] tablet 00:00: mouth [place] 00 every 6 Medical (six) Branch hours as needed for Abdominal pain. ondansetron 2020-0 Yes [id number] 4mg Take 1 [facility] ([facility]) 4 9-11 tablet by [facility] mg tablet 00:00: mouth [place] 00 every 8 Medical (eight) Branch hours as needed for Nausea and Vomiting (N/V). pantoprazol 2020-0 Yes [id number] 40mg Take 1 [facility] e 9-11 tablet by [facility] (PROTONIX) 00:00: mouth [place] 40 mg EC 00 daily. Medical tablet Branch traMADoL 2020-0 Yes [id number] 50mg Take 1 [facility] (UL[facility]) 50 9-11 tablet by [facility] mg tablet 00:00: mouth [place] 00 every 6 Medical (six) Branch hours as needed for Pain (scale 7-10). Indication s: acute pain dicyclomine 2020-0 Yes [id number] 20mg Take 1 [facility] 20 mg 9-11 tablet by [facility] tablet 00:00: mouth [place] 00 every 6 Medical (six) Branch hours as needed for Abdominal pain. ondansetron 2020-0 Yes [id number] 4mg Take 1 [facility] ([facility]) 4 9-11 tablet by [facility] mg tablet 00:00: mouth [place] 00 every 8 Medical (eight) Branch hours as needed for Nausea and Vomiting (N/V). pantoprazol 2020-0 Yes [id number] 40mg Take 1 [facility] e 9-11 tablet by [facility] (PROTONIX) 00:00: mouth [place] 40 mg EC 00 daily. Medical tablet Branch traMADoL 2020-0 Yes [id number] 50mg Take 1 [facility] (ULTRAM) 50 9-11 tablet by [facility] mg tablet 00:00: mouth [place] 00 every 6 Medical (six) Branch hours as needed for Pain (scale 7-10). Indication s: acute pain dicyclomine 2020-0 Yes [id number] 20mg Take 1 [facility] 20 mg 9-11 tablet by [facility] tablet 00:00: mouth [place] 00 every 6 Medical (six) Branch hours as needed for Abdominal pain. ondansetron 2020-0 Yes [id number] 4mg Take 1 [facility] ([facility]) 4 9-11 tablet by [facility] mg tablet 00:00: mouth [place] 00 every 8 Medical (eight) Branch hours as needed for Nausea and Vomiting (N/V). pantoprazol 2020-0 Yes [id number] 40mg Take 1 [facility] e 9-11 tablet by [facility] (PROTONIX) 00:00: mouth [place] 40 mg EC 00 daily. Medical tablet Branch traMADoL 2020-0 Yes [id number] 50mg Take 1 [facility] (ULTRAM) 50 9-11 tablet by [facility] mg tablet 00:00: mouth [place] 00 every 6 Medical (six) Branch hours as needed for Pain (scale 7-10). Indication s: acute pain dicyclomine 2020-0 Yes [id number] 20mg Take 1 [facility] 20 mg 9-11 tablet by [facility] tablet 00:00: mouth [place] 00 every 6 Medical (six) Branch hours as needed for Abdominal pain. ondansetron 2020-0 Yes [id number] 4mg Take 1 [facility] ([facility]) 4 9-11 tablet by [facility] mg tablet 00:00: mouth [place] 00 every 8 Medical (eight) Branch hours as needed for Nausea and Vomiting (N/V). pantoprazol 2020-0 Yes [id number] 40mg Take 1 [facility] e 9-11 tablet by [facility] (PROTONIX) 00:00: mouth [place] 40 mg EC 00 daily. Medical tablet Branch traMADoL 2020-0 Yes [id number] 50mg Take 1 [facility] (ULTRAM) 50 9-11 tablet by [facility] mg tablet 00:00: mouth [place] 00 every 6 Medical (six) Branch hours as needed for Pain (scale 7-10). Indication s: acute pain dicyclomine 2020-0 Yes [id number] 20mg Take 1 [facility] 20 mg 9-11 tablet by [facility] tablet 00:00: mouth [place] 00 every 6 Medical (six) Branch hours as needed for Abdominal pain. ondansetron 2020-0 Yes [id number] 4mg Take 1 [facility] ([facility]) 4 9-11 tablet by [facility] mg tablet 00:00: mouth [place] 00 every 8 Medical (eight) Branch hours as needed for Nausea and Vomiting (N/V). pantoprazol 2020-0 Yes [id number] 40mg Take 1 [facility] e 9-11 tablet by [facility] (PROTONIX) 00:00: mouth [place] 40 mg EC 00 daily. Medical tablet Branch traMADoL 2020-0 Yes [id number] 50mg Take 1 [facility] (ULTRAM) 50 9-11 tablet by [facility] mg tablet 00:00: mouth [place] 00 every 6 Medical (six) Branch hours as needed for Pain (scale 7-10). Indication s: acute pain dicyclomine 2020-0 Yes [id number] 20mg Take 1 [facility] 20 mg 9-11 tablet by [facility] tablet 00:00: mouth [place] 00 every 6 Medical (six) Branch hours as needed for Abdominal pain. ondansetron 2020-0 Yes [id number] 4mg Take 1 [facility] ([facility]) 4 9-11 tablet by [facility] mg tablet 00:00: mouth [place] 00 every 8 Medical (eight) Branch hours as needed for Nausea and Vomiting (N/V). pantoprazol 2020-0 Yes [id number] 40mg Take 1 [facility] e 9-11 tablet by [facility] (PROTONIX) 00:00: mouth [place] 40 mg EC 00 daily. Medical tablet Branch traMADoL 2020-0 Yes [id number] 50mg Take 1 [facility] (ULTRAM) 50 9-11 tablet by [facility] mg tablet 00:00: mouth [place] 00 every 6 Medical (six) Branch hours as needed for Pain (scale 7-10). Indication s: acute pain dicyclomine 2020-0 Yes [id number] 20mg Take 1 [facility] 20 mg 9-11 tablet by [facility] tablet 00:00: mouth [place] 00 every 6 Medical (six) Branch hours as needed for Abdominal pain. ondansetron 2020-0 Yes [id number] 4mg Take 1 [facility] ([facility]) 4 9-11 tablet by [facility] mg tablet 00:00: mouth [place] 00 every 8 Medical (eight) Branch hours as needed for Nausea and Vomiting (N/V). pantoprazol 2020-0 Yes [id number] 40mg Take 1 [facility] e 9-11 tablet by [facility] (PROTONIX) 00:00: mouth [place] 40 mg EC 00 daily. Medical tablet Branch traMADoL 2020-0 Yes [id number] 50mg Take 1 [facility] (ULTRAM) 50 9-11 tablet by [facility] mg tablet 00:00: mouth [place] 00 every 6 Medical (six) Branch hours as needed for Pain (scale 7-10). Indication s: acute pain dicyclomine 2020-0 Yes [id number] 20mg Take 1 [facility] 20 mg 9-11 tablet by [facility] tablet 00:00: mouth [place] 00 every 6 Medical (six) Branch hours as needed for Abdominal pain. ondansetron 2020-0 Yes [id number] 4mg Take 1 [facility] ([facility]) 4 9-11 tablet by [facility] mg tablet 00:00: mouth [place] 00 every 8 Medical (eight) Branch hours as needed for Nausea and Vomiting (N/V). pantoprazol 2020-0 Yes [id number] 40mg Take 1 [facility] e 9-11 tablet by [facility] (PROTONIX) 00:00: mouth [place] 40 mg EC 00 daily. Medical tablet Branch traMADoL 2020-0 Yes [id number] 50mg Take 1 [facility] (ULTRAM) 50 9-11 tablet by [facility] mg tablet 00:00: mouth [place] 00 every 6 Medical (six) Branch hours as needed for Pain (scale 7-10). Indication s: acute pain dicyclomine 2020-0 Yes [id number] 20mg Take 1 [facility] 20 mg 9-11 tablet by [facility] tablet 00:00: mouth [place] 00 every 6 Medical (six) Branch hours as needed for Abdominal pain. ondansetron 2020-0 Yes [id number] 4mg Take 1 [facility] ([facility]FR[facility]) 4 9-11 tablet by [facility] mg tablet 00:00: mouth [place] 00 every 8 Medical (eight) Branch hours as needed for Nausea and Vomiting (N/V). pantoprazol 2020-0 Yes [id number] 40mg Take 1 [facility] e 9-11 tablet by [facility] of (PROTONIX) 00:00: mouth [place] 40 mg EC 00 daily. Medical tablet Branch traMADoL 2020-0 Yes [id number] 50mg Take 1 [facility] (ULTRAM) 50 9-11 tablet by [facility] mg tablet 00:00: mouth [place] 00 every 6 Medical (six) Branch hours as needed for Pain (scale 7-10). Indication s: acute pain dicyclomine 2020-0 Yes [id number] 20mg Take 1 [facility] 20 mg 9-11 tablet by [facility] tablet 00:00: mouth [place] 00 every 6 Medical (six) Branch hours as needed for Abdominal pain. ondansetron 2020-0 Yes [id number] 4mg Take 1 [facility] ([facility]FR[facility]) 4 9-11 tablet by [facility] mg tablet 00:00: mouth [place] 00 every 8 Medical (eight) Branch hours as needed for Nausea and Vomiting (N/V). pantoprazol 2020-0 Yes [id number] 40mg Take 1 [facility] e 9-11 tablet by [facility] of (PROTONIX) 00:00: mouth [place] 40 mg EC 00 daily. Medical tablet Branch traMADoL 2020-0 Yes [id number] 50mg Take 1 [facility] (ULTRAM) 50 9-11 tablet by [facility] mg tablet 00:00: mouth [place] 00 every 6 Medical (six) Branch hours as needed for Pain (scale 7-10). Indication s: acute pain dicyclomine 2020-0 Yes [id number] 20mg Take 1 [facility] 20 mg 9-11 tablet by [facility] tablet 00:00: mouth [place] 00 every 6 Medical (six) Branch hours as needed for Abdominal pain. ondansetron 2020-0 Yes [id number] 4mg Take 1 [facility] ([facility]FR[facility]) 4 9-11 tablet by [facility] mg tablet 00:00: mouth [place] 00 every 8 Medical (eight) Branch hours as needed for Nausea and Vomiting (N/V). pantoprazol 2020-0 Yes [id number] 40mg Take 1 [facility] e 9-11 tablet by [facility] (PROTONIX) 00:00: mouth [place] 40 mg EC 00 daily. Medical tablet Branch traMADoL 2020-0 Yes [id number] 50mg Take 1 [facility] (ULTRAM) 50 9-11 tablet by [facility] mg tablet 00:00: mouth [place] 00 every 6 Medical (six) Branch hours as needed for Pain (scale 7-10). Indication s: acute pain dicyclomine 2020-0 Yes [id number] 20mg Take 1 [facility] 20 mg 9-11 tablet by [facility] tablet 00:00: mouth [place] 00 every 6 Medical (six) Branch hours as needed for Abdominal pain. ondansetron 2020-0 Yes [id number] 4mg Take 1 [facility] ([facility]) 4 9-11 tablet by [facility] of mg tablet 00:00: mouth [place] 00 every 8 Medical (eight) Branch hours as needed for Nausea and Vomiting (N/V). pantoprazol 2020-0 Yes [id number] 40mg Take 1 [facility] e 9-11 tablet by [facility] of (PROTONIX) 00:00: mouth [place] 40 mg EC 00 daily. Medical tablet Branch traMADoL 2020-0 Yes [id number] 50mg Take 1 [facility] (ULTRAM) 50 9-11 tablet by [facility] mg tablet 00:00: mouth [place] 00 every 6 Medical (six) Branch hours as needed for Pain (scale 7-10). Indication s: acute pain dicyclomine 2020-0 Yes [id number] 20mg Take 1 [facility] 20 mg 9-11 tablet by [facility] tablet 00:00: mouth [place] 00 every 6 Medical (six) Branch hours as needed for Abdominal pain. ondansetron 2020-0 Yes [id number] 4mg Take 1 [facility] ([facility]) 4 9-11 tablet by [facility] mg tablet 00:00: mouth [place] 00 every 8 Medical (eight) Branch hours as needed for Nausea and Vomiting (N/V). pantoprazol 2020-0 Yes [id number] 40mg Take 1 [facility] e 9-11 tablet by [facility] (PROTONIX) 00:00: mouth [place] 40 mg EC 00 daily. Medical tablet Branch traMADoL 2020-0 Yes [id number] 50mg Take 1 [facility] (ULTRAM) 50 9-11 tablet by [facility] mg tablet 00:00: mouth [place] 00 every 6 Medical (six) Branch hours as needed for Pain (scale 7-10). Indication s: acute pain dicyclomine 2020-0 Yes [id number] 20mg Take 1 [facility] 20 mg 9-11 tablet by [facility] tablet 00:00: mouth [place] 00 every 6 Medical (six) Branch hours as needed for Abdominal pain. ondansetron 2020-0 Yes [id number] 4mg Take 1 [facility] ([facility]) 4 9-11 tablet by [facility] mg tablet 00:00: mouth [place] 00 every 8 Medical (eight) Branch hours as needed for Nausea and Vomiting (N/V). pantoprazol 2020-0 Yes [id number] 40mg Take 1 [facility] e 9-11 tablet by [facility] of (PROTONIX) 00:00: mouth [place] 40 mg EC 00 daily. Medical tablet Branch traMADoL 2020-0 Yes [id number] 50mg Take 1 [facility] (ULTRAM) 50 9-11 tablet by [facility] mg tablet 00:00: mouth [place] 00 every 6 Medical (six) Branch hours as needed for Pain (scale 7-10). Indication s: acute pain dicyclomine 2020-0 Yes [id number] 20mg Take 1 [facility] 20 mg 9-11 tablet by [facility] tablet 00:00: mouth [place] 00 every 6 Medical (six) Branch hours as needed for Abdominal pain. ondansetron 2020-0 Yes [id number] 4mg Take 1 [facility] ([facility]) 4 9-11 tablet by [facility] mg tablet 00:00: mouth [place] 00 every 8 Medical (eight) Branch hours as needed for Nausea and Vomiting (N/V). pantoprazol 2020-0 Yes [id number] 40mg Take 1 [facility] e 9-11 tablet by [facility] (PROTONIX) 00:00: mouth [place] 40 mg EC 00 daily. Medical tablet Branch traMADoL 2020-0 Yes [id number] 50mg Take 1 [facility] (ULTRAM) 50 9-11 tablet by [facility] mg tablet 00:00: mouth [place] 00 every 6 Medical (six) Branch hours as needed for Pain (scale 7-10). Indication s: acute pain dicyclomine 2020-0 Yes [id number] 20mg Take 1 [facility] 20 mg 9-11 tablet by [facility] tablet 00:00: mouth [place] 00 every 6 Medical (six) Branch hours as needed for Abdominal pain. ondansetron 2020-0 Yes [id number] 4mg Take 1 [facility] ([facility]) 4 9-11 tablet by [facility] mg tablet 00:00: mouth [place] 00 every 8 Medical (eight) Branch hours as needed for Nausea and Vomiting (N/V). pantoprazol 2020-0 Yes [id number] 40mg Take 1 [facility] e 9-11 tablet by [facility] of (PROTONIX) 00:00: mouth [place] 40 mg EC 00 daily. Medical tablet Branch traMADoL 2020-0 Yes [id number] 50mg Take 1 [facility] (ULTRAM) 50 9-11 tablet by [facility] mg tablet 00:00: mouth [place] 00 every 6 Medical (six) Branch hours as needed for Pain (scale 7-10). Indication s: acute pain dicyclomine 2020-0 Yes [id number] 20mg Take 1 [facility] 20 mg 9-11 tablet by [facility] tablet 00:00: mouth [place] 00 every 6 Medical (six) Branch hours as needed for Abdominal pain. ondansetron 2020-0 Yes [id number] 4mg Take 1 [facility] ([facility]) 4 9-11 tablet by [facility] mg tablet 00:00: mouth [place] 00 every 8 Medical (eight) Branch hours as needed for Nausea and Vomiting (N/V). pantoprazol 2020-0 Yes [id number] 40mg Take 1 [facility] e 9-11 tablet by [facility] of (PROTONIX) 00:00: mouth [place] 40 mg EC 00 daily. Medical tablet Branch traMADoL 2020-0 Yes [id number] 50mg Take 1 [facility] (ULTRAM) 50 9-11 tablet by [facility] mg tablet 00:00: mouth [place] 00 every 6 Medical (six) Branch hours as needed for Pain (scale 7-10). Indication s: acute pain dicyclomine 2020-0 Yes [id number] 20mg Take 1 [facility] 20 mg 9-11 tablet by [facility] tablet 00:00: mouth [place] 00 every 6 Medical (six) Branch hours as needed for Abdominal pain. ondansetron 2020-0 Yes [id number] 4mg Take 1 [facility] ([facility]FR[facility]) 4 9-11 tablet by [facility] mg tablet 00:00: mouth [place] 00 every 8 Medical (eight) Branch hours as needed for Nausea and Vomiting (N/V). pantoprazol 2020-0 Yes [id number] 40mg Take 1 [facility] e 9-11 tablet by [facility] (PROTONIX) 00:00: mouth [place] 40 mg EC 00 daily. Medical tablet Branch traMADoL 2020-0 Yes [id number] 50mg Take 1 [facility] (ULTRAM) 50 9-11 tablet by [facility] mg tablet 00:00: mouth [place] 00 every 6 Medical (six) Branch hours as needed for Pain (scale 7-10). Indication s: acute pain dicyclomine 2020-0 Yes [id number] 20mg Take 1 [facility] 20 mg 9-11 tablet by [facility] tablet 00:00: mouth [place] 00 every 6 Medical (six) Branch hours as needed for Abdominal pain. ondansetron 2020-0 Yes [id number] 4mg Take 1 [facility] ([facility]) 4 9-11 tablet by [facility] mg tablet 00:00: mouth [place] 00 every 8 Medical (eight) Branch hours as needed for Nausea and Vomiting (N/V). pantoprazol 2020-0 Yes [id number] 40mg Take 1 [facility] e 9-11 tablet by [facility] of (PROTONIX) 00:00: mouth [place] 40 mg EC 00 daily. Medical tablet Branch traMADoL 2020-0 Yes [id number] 50mg Take 1 [facility] (ULTRAM) 50 9-11 tablet by [facility] mg tablet 00:00: mouth [place] 00 every 6 Medical (six) Branch hours as needed for Pain (scale 7-10). Indication s: acute pain dicyclomine 2020-0 Yes [id number] 20mg Take 1 [facility] 20 mg 9-11 tablet by [facility] tablet 00:00: mouth [place] 00 every 6 Medical (six) Branch hours as needed for Abdominal pain. ondansetron 2020-0 Yes [id number] 4mg Take 1 [facility] ([facility]) 4 9-11 tablet by [facility] mg tablet 00:00: mouth [place] 00 every 8 Medical (eight) Branch hours as needed for Nausea and Vomiting (N/V). pantoprazol 2020-0 Yes [id number] 40mg Take 1 [facility] e 9-11 tablet by [facility] (PROTONIX) 00:00: mouth [place] 40 mg EC 00 daily. Medical tablet Branch traMADoL 2020-0 Yes [id number] 50mg Take 1 [facility] (ULTRAM) 50 9-11 tablet by [facility] mg tablet 00:00: mouth [place] 00 every 6 Medical (six) Branch hours as needed for Pain (scale 7-10). Indication s: acute pain dicyclomine 2020-0 Yes [id number] 20mg Take 1 [facility] 20 mg 9-11 tablet by [facility] tablet 00:00: mouth [place] 00 every 6 Medical (six) Branch hours as needed for Abdominal pain. ondansetron 2020-0 Yes [id number] 4mg Take 1 [facility] ([facility]) 4 9-11 tablet by [facility] mg tablet 00:00: mouth [place] 00 every 8 Medical (eight) Branch hours as needed for Nausea and Vomiting (N/V). pantoprazol 2020-0 Yes [id number] 40mg Take 1 [facility] e 9-11 tablet by [facility] (PROTONIX) 00:00: mouth [place] 40 mg EC 00 daily. Medical tablet Branch traMADoL 2020-0 Yes [id number] 50mg Take 1 [facility] (ULTRAM) 50 9-11 tablet by [facility] mg tablet 00:00: mouth [place] 00 every 6 Medical (six) Branch hours as needed for Pain (scale 7-10). Indication s: acute pain dicyclomine 2020-0 Yes [id number] 20mg Take 1 [facility] 20 mg 9-11 tablet by [facility] tablet 00:00: mouth [place] 00 every 6 Medical (six) Branch hours as needed for Abdominal pain. ondansetron 2020-0 Yes [id number] 4mg Take 1 [facility] ([facility]) 4 9-11 tablet by [facility] mg tablet 00:00: mouth [place] 00 every 8 Medical (eight) Branch hours as needed for Nausea and Vomiting (N/V). pantoprazol 2020-0 Yes [id number] 40mg Take 1 [facility] e 9-11 tablet by [facility] (PROTONIX) 00:00: mouth [place] 40 mg EC 00 daily. Medical tablet Branch traMADoL 2020-0 Yes [id number] 50mg Take 1 [facility] (ULTRAM) 50 9-11 tablet by [facility] mg tablet 00:00: mouth [place] 00 every 6 Medical (six) Branch hours as needed for Pain (scale 7-10). Indication s: acute pain dicyclomine 2020-0 Yes [id number] 20mg Take 1 [facility] 20 mg 9-11 tablet by [facility] of tablet 00:00: mouth [place] 00 every 6 Medical (six) Branch hours as needed for Abdominal pain. ondansetron 2020-0 Yes [id number] 4mg Take 1 [facility] (ZOFRAN) 4 9-11 tablet by [facility] of mg tablet 00:00: mouth [place] 00 every 8 Medical (eight) Branch hours as needed for Nausea and Vomiting (N/V). pantoprazol 2020-0 Yes [id number] 40mg Take 1 [facility] e 9-11 tablet by [facility] of (PROTONIX) 00:00: mouth [place] 40 mg EC 00 daily. Medical tablet Branch traMADoL 2020-0 Yes [id number] 50mg Take 1 [facility] (ULTRAM) 50 9-11 tablet by [facility] of mg tablet 00:00: mouth [place] 00 every 6 Medical (six) Branch hours as needed for Pain (scale 7-10). Indication s: acute pain dicyclomine 2020-0 Yes [id number] 20mg Take 1 [facility] 20 mg 9-11 tablet by [facility] of tablet 00:00: mouth [place] 00 every 6 Medical (six) Branch hours as needed for Abdominal pain. ondansetron 2020-0 Yes [id number] 4mg Take 1 [facility] (ZOFRAN) 4 9-11 tablet by [facility] of mg tablet 00:00: mouth [place] 00 every 8 Medical (eight) Branch hours as needed for Nausea and Vomiting (N/V). pantoprazol 2020-0 Yes [id number] 40mg Take 1 [facility] e 9-11 tablet by [facility] of (PROTONIX) 00:00: mouth [place] 40 mg EC 00 daily. Medical tablet Branch dicyclomine 2020-0 Yes [id number] 20mg Take 1 [facility] 20 mg 9-11 tablet by [facility] of tablet 00:00: mouth [place] 00 every 6 Medical (six) Branch hours as needed for Abdominal pain. ondansetron 2020-0 Yes [id number] 4mg Take 1 [facility] (ZOFRAN) 4 9-11 tablet by [facility] of mg tablet 00:00: mouth [place] 00 every 8 Medical (eight) Branch hours as needed for Nausea and Vomiting (N/V). pantoprazol 2020-0 Yes [id number] 40mg Take 1 [facility] e 9-11 tablet by [facility] of (PROTONIX) 00:00: mouth [place] 40 mg EC 00 daily. Medical tablet Branch traMADoL 2020-0 Yes [id number] 50mg Take 1 [facility] (ULTRAM) 50 9-11 tablet by [facility] of mg tablet 00:00: mouth [place] 00 every 6 Medical (six) Branch hours as needed for Pain (scale 7-10). Indication s: acute pain dicyclomine 2020-0 Yes [id number] 20mg Take 1 [facility] 20 mg 9-11 tablet by [facility] of tablet 00:00: mouth [place] 00 every 6 Medical (six) Branch hours as needed for Abdominal pain. ondansetron 2020-0 Yes [id number] 4mg Take 1 [facility] (ZOFRAN) 4 9-11 tablet by [facility] of mg tablet 00:00: mouth [place] 00 every 8 Medical (eight) Branch hours as needed for Nausea and Vomiting (N/V). pantoprazol 2020-0 Yes [id number] 40mg Take 1 [facility] e 9-11 tablet by [facility] of (PROTONIX) 00:00: mouth [place] 40 mg EC 00 daily. Medical tablet Branch traMADoL 2020-0 Yes [id number] 50mg Take 1 [facility] (ULTRAM) 50 9-11 tablet by [facility] of mg tablet 00:00: mouth [place] 00 every 6 Medical (six) Branch hours as needed for Pain (scale 7-10). Indication s: acute pain dicyclomine 2020-0 Yes [id number] 20mg Take 1 [facility] 20 mg 9-11 tablet by [facility] of tablet 00:00: mouth [place] 00 every 6 Medical (six) Branch hours as needed for Abdominal pain. ondansetron 2020-0 Yes [id number] 4mg Take 1 [facility] (ZOFRAN) 4 9-11 tablet by [facility] of mg tablet 00:00: mouth [place] 00 every 8 Medical (eight) Branch hours as needed for Nausea and Vomiting (N/V). pantoprazol 2020-0 Yes [id number] 40mg Take 1 [facility] e 9-11 tablet by [facility] of (PROTONIX) 00:00: mouth [place] 40 mg EC 00 daily. Medical tablet Branch traMADoL 2020-0 Yes [id number] 50mg Take 1 [facility] (ULTRAM) 50 9-11 tablet by [facility] of mg tablet 00:00: mouth [place] 00 every 6 Medical (six) Branch hours as needed for Pain (scale 7-10). Indication s: acute pain dicyclomine 2020-0 Yes [id number] 20mg Take 1 [facility] 20 mg 9-11 tablet by [facility] of tablet 00:00: mouth [place] 00 every 6 Medical (six) Branch hours as needed for Abdominal pain. ondansetron 2020-0 Yes [id number] 4mg Take 1 [facility] (ZOFRAN) 4 9-11 tablet by [facility] of mg tablet 00:00: mouth [place] 00 every 8 Medical (eight) Branch hours as needed for Nausea and Vomiting (N/V). pantoprazol 2020-0 Yes [id number] 40mg Take 1 [facility] e 9-11 tablet by [facility] of (PROTONIX) 00:00: mouth [place] 40 mg EC 00 daily. Medical tablet Branch traMADoL 2020-0 Yes [id number] 50mg Take 1 [facility] (ULTRAM) 50 9-11 tablet by [facility] of mg tablet 00:00: mouth [place] 00 every 6 Medical (six) Branch hours as needed for Pain (scale 7-10). Indication s: acute pain dicyclomine 2020-0 Yes [id number] 20mg Take 1 [facility] 20 mg 9-11 tablet by [facility] of tablet 00:00: mouth [place] 00 every 6 Medical (six) Branch hours as needed for Abdominal pain. ondansetron 2020-0 Yes [id number] 4mg Take 1 [facility] (ZOFRAN) 4 9-11 tablet by [facility] of mg tablet 00:00: mouth [place] 00 every 8 Medical (eight) Branch hours as needed for Nausea and Vomiting (N/V). pantoprazol 2020-0 Yes [id number] 40mg Take 1 [facility] e 9-11 tablet by [facility] of (PROTONIX) 00:00: mouth [place] 40 mg EC 00 daily. Medical tablet Branch traMADoL 2020-0 Yes [id number] 50mg Take 1 [facility] (ULTRAM) 50 9-11 tablet by [facility] of mg tablet 00:00: mouth [place] 00 every 6 Medical (six) Branch hours as needed for Pain (scale 7-10). Indication s: acute pain dicyclomine 2020-0 Yes [id number] 20mg Take 1 [facility] 20 mg 9-11 tablet by [facility] of tablet 00:00: mouth [place] 00 every 6 Medical (six) Branch hours as needed for Abdominal pain. ondansetron 2020-0 Yes [id number] 4mg Take 1 [facility] (ZOFRAN) 4 9-11 tablet by [facility] of mg tablet 00:00: mouth [place] 00 every 8 Medical (eight) Branch hours as needed for Nausea and Vomiting (N/V). pantoprazol 2020-0 Yes [id number] 40mg Take 1 [facility] e 9-11 tablet by [facility] of (PROTONIX) 00:00: mouth [place] 40 mg EC 00 daily. Medical tablet Branch traMADoL 2020-0 Yes [id number] 50mg Take 1 [facility] (ULTRAM) 50 9-11 tablet by [facility] of mg tablet 00:00: mouth [place] 00 every 6 Medical (six) Branch hours as needed for Pain (scale 7-10). Indication s: acute pain levonorgest 2020-0 Yes [id number] 1{tbl} Take 1 [facility] rel-ethinyl 5-22 tablet by [facility] of estradiol 00:00: mouth [place] 0.1-20 00 daily. Medical mg-mcg per Branch tablet levonorgest 2020-0 Yes [id number] 1{tbl} Take 1 [facility] rel-ethinyl 5-22 tablet by ity of estradiol 00:00: mouth [place] 0.1-20 00 daily. Medical mg-mcg per Branch tablet levonorgest 2020-0 Yes [id number] 1{tbl} Take 1 [facility] rel-ethinyl 5-22 tablet by ity of estradiol 00:00: mouth [place] 0.1-20 00 daily. Medical mg-mcg per Branch tablet levonorgest 2020-0 Yes [id number] 1{tbl} Take 1 [facility] rel-ethinyl 5-22 tablet by ity of estradiol 00:00: mouth [place] 0.1-20 00 daily. Medical mg-mcg per Branch tablet levonorgest 2020-0 Yes [id number] 1{tbl} Take 1 [facility] rel-ethinyl 5-22 tablet by ity of estradiol 00:00: mouth [place] 0.1-20 00 daily. Medical mg-mcg per Branch tablet levonorgest 2020-0 Yes [id number] 1{tbl} Take 1 [facility] rel-ethinyl 5-22 tablet by ity of estradiol 00:00: mouth [place] 0.1-20 00 daily. Medical mg-mcg per Branch tablet levonorgest 2020-0 Yes [id number] 1{tbl} Take 1 [facility] rel-ethinyl 5-22 tablet by ity of estradiol 00:00: mouth [place] 0.1-20 00 daily. Medical mg-mcg per Branch tablet levonorgest 2020-0 Yes [id number] 1{tbl} Take 1 [facility] rel-ethinyl 5-22 tablet by ity of estradiol 00:00: mouth [place] 0.1-20 00 daily. Medical mg-mcg per Branch tablet levonorgest 2020-0 Yes [id number] 1{tbl} Take 1 [facility] rel-ethinyl 5-22 tablet by [facility]y of estradiol 00:00: mouth [place] 0.1-20 00 daily. Medical mg-mcg per Branch tablet levonorgest 2020-0 Yes [id number] 1{tbl} Take 1 [facility] rel-ethinyl 5-22 tablet by [facility]y of estradiol 00:00: mouth [place] 0.1-20 00 daily. Medical mg-mcg per Branch tablet levonorgest 2020-0 Yes [id number] 1{tbl} Take 1 [facility] rel-ethinyl 5-22 tablet by [facility] of estradiol 00:00: mouth [place] 0.1-20 00 daily. Medical mg-mcg per Branch tablet levonorgest 2020-0 Yes [id number] 1{tbl} Take 1 [facility] rel-ethinyl 5-22 tablet by ity of estradiol 00:00: mouth [place] 0.1-20 00 daily. Medical mg-mcg per Branch tablet levonorgest 2020-0 Yes [id number] 1{tbl} Take 1 [facility] rel-ethinyl 5-22 tablet by ity of estradiol 00:00: mouth [place] 0.1-20 00 daily. Medical mg-mcg per Branch tablet levonorgest 2020-0 Yes [id number] 1{tbl} Take 1 [facility] rel-ethinyl 5-22 tablet by ity of estradiol 00:00: mouth [place] 0.1-20 00 daily. Medical mg-mcg per Branch tablet levonorgest 2020-0 Yes [id number] 1{tbl} Take 1 [facility] rel-ethinyl 5-22 tablet by ity of estradiol 00:00: mouth [place] 0.1-20 00 daily. Medical mg-mcg per Branch tablet levonorgest 2020-0 Yes [id number] 1{tbl} Take 1 [facility] rel-ethinyl 5-22 tablet by ity of estradiol 00:00: mouth [place] 0.1-20 00 daily. Medical mg-mcg per Branch tablet levonorgest 2020-0 Yes [id number] 1{tbl} Take 1 [facility] rel-ethinyl 5-22 tablet by ity of estradiol 00:00: mouth [place] 0.1-20 00 daily. Medical mg-mcg per Branch tablet levonorgest 2020-0 Yes [id number] 1{tbl} Take 1 [facility] rel-ethinyl 5-22 tablet by [facility]y of estradiol 00:00: mouth [place] 0.1-20 00 daily. Medical mg-mcg per Branch tablet levonorgest 2020-0 Yes [id number] 1{tbl} Take 1 [facility] rel-ethinyl 5-22 tablet by ity of estradiol 00:00: mouth [place] 0.1-20 00 daily. Medical mg-mcg per Branch tablet levonorgest 2020-0 Yes [id number] 1{tbl} Take 1 [facility] rel-ethinyl 5-22 tablet by ity of estradiol 00:00: mouth [place] 0.1-20 00 daily. Medical mg-mcg per Branch tablet levonorgest 2020-0 Yes [id number] 1{tbl} Take 1 [facility] rel-ethinyl 5-22 tablet by ity of estradiol 00:00: mouth [place] 0.1-20 00 daily. Medical mg-mcg per Branch tablet levonorgest 2020-0 Yes [id number] 1{tbl} Take 1 [facility] rel-ethinyl 5-22 tablet by ity of estradiol 00:00: mouth [place] 0.1-20 00 daily. Medical mg-mcg per Branch tablet levonorgest 2020-0 Yes [id number] 1{tbl} Take 1 [facility] rel-ethinyl 5-22 tablet by ity of estradiol 00:00: mouth [place] 0.1-20 00 daily. Medical mg-mcg per Branch tablet levonorgest 2020-0 Yes [id number] 1{tbl} Take 1 [facility] rel-ethinyl 5-22 tablet by ity of estradiol 00:00: mouth [place] 0.1-20 00 daily. Medical mg-mcg per Branch tablet levonorgest 2020-0 Yes [id number] 1{tbl} Take 1 [facility] rel-ethinyl 5-22 tablet by ity of estradiol 00:00: mouth [place] 0.1-20 00 daily. Medical mg-mcg per Branch tablet levonorgest 2020-0 Yes [id number] 1{tbl} Take 1 [facility] rel-ethinyl 5-22 tablet by ity of estradiol 00:00: mouth [place] 0.1-20 00 daily. Medical mg-mcg per Branch tablet levonorgest 2020-0 Yes [id number] 1{tbl} Take 1 [facility] rel-ethinyl 5-22 tablet by ity of estradiol 00:00: mouth [place] 0.1-20 00 daily. Medical mg-mcg per Branch tablet levonorgest 2020-0 Yes [id number] 1{tbl} Take 1 [facility] rel-ethinyl 5-22 tablet by ity of estradiol 00:00: mouth [place] 0.1-20 00 daily. Medical mg-mcg per Branch tablet levonorgest 2020-0 Yes [id number] 1{tbl} Take 1 [facility] rel-ethinyl 5-22 tablet by ity of estradiol 00:00: mouth [place] 0.1-20 00 daily. Medical mg-mcg per Branch tablet levonorgest 2020-0 Yes [id number] 1{tbl} Take 1 [facility] rel-ethinyl 5-22 tablet by ity of estradiol 00:00: mouth [place] 0.1-20 00 daily. Medical mg-mcg per Branch tablet levonorgest 2020-0 Yes [id number] 1{tbl} Take 1 [facility] rel-ethinyl 5-22 tablet by ity of estradiol 00:00: mouth [place] 0.1-20 00 daily. Medical mg-mcg per Branch tablet levonorgest 2020-0 Yes [id number] 1{tbl} Take 1 [facility] rel-ethinyl 5-22 tablet by ity of estradiol 00:00: mouth [place] 0.1-20 00 daily. Medical mg-mcg per Branch tablet levonorgest 2020-0 Yes [id number] 1{tbl} Take 1 [facility] rel-ethinyl 5-22 tablet by ity of estradiol 00:00: mouth [place] 0.1-20 00 daily. Medical mg-mcg per Branch tablet levonorgest 2020-0 Yes [id number] 1{tbl} Take 1 [facility] rel-ethinyl 5-22 tablet by ity of estradiol 00:00: mouth [place] 0.1-20 00 daily. Medical mg-mcg per Branch tablet levonorgest 2020-0 Yes [id number] 1{tbl} Take 1 [facility] rel-ethinyl 5-22 tablet by ity of estradiol 00:00: mouth [place] 0.1-20 00 daily. Medical mg-mcg per Branch tablet levonorgest 2020-0 Yes [id number] 1{tbl} Take 1 [facility] rel-ethinyl 5-22 tablet by ity of estradiol 00:00: mouth [place] 0.1-20 00 daily. Medical mg-mcg per Branch tablet levonorgest 2020-0 Yes [id number] 1{tbl} Take 1 [facility] rel-ethinyl 5-22 tablet by ity of estradiol 00:00: mouth [place] 0.1-20 00 daily. Medical mg-mcg per Branch tablet levonorgest 2020-0 Yes [id number] 1{tbl} Take 1 [facility] rel-ethinyl 5-22 tablet by ity of estradiol 00:00: mouth [place] 0.1-20 00 daily. Medical mg-mcg per Branch tablet levonorgest 2020-0 Yes [id number] 1{tbl} Take 1 [facility] rel-ethinyl 5-22 tablet by ity of estradiol 00:00: mouth [place] 0.1-20 00 daily. Medical mg-mcg per Branch tablet levonorgest 2020-0 Yes [id number] 1{tbl} Take 1 [facility] rel-ethinyl 5-22 tablet by ity of estradiol 00:00: mouth [place] 0.1-20 00 daily. Medical mg-mcg per Branch tablet levonorgest 2020-0 Yes [id number] 1{tbl} Take 1 [facility] rel-ethinyl 5-22 tablet by ity of estradiol 00:00: mouth [place] 0.1-20 00 daily. Medical mg-mcg per Branch tablet levonorgest 2020-0 Yes [id number] 1{tbl} Take 1 [facility] rel-ethinyl 5-22 tablet by ity of estradiol 00:00: mouth [place] 0.1-20 00 daily. Medical mg-mcg per Branch tablet levonorgest 2020-0 Yes [id number] 1{tbl} Take 1 [facility] rel-ethinyl 5-22 tablet by ity of estradiol 00:00: mouth [place] 0.1-20 00 daily. Medical mg-mcg per Branch tablet levonorgest 2020-0 Yes [id number] 1{tbl} Take 1 [facility] rel-ethinyl 5-22 tablet by ity of estradiol 00:00: mouth [place] 0.1-20 00 daily. Medical mg-mcg per Branch tablet levonorgest 2020-0 Yes [id number] 1{tbl} Take 1 [facility] rel-ethinyl 5-22 tablet by ity of estradiol 00:00: mouth [place] 0.1-20 00 daily. Medical mg-mcg per Branch tablet levonorgest 2020-0 Yes [id number] 1{tbl} Take 1 [facility] rel-ethinyl 5-22 tablet by ity of estradiol 00:00: mouth [place] 0.1-20 00 daily. Medical mg-mcg per Branch tablet levonorgest 2020-0 Yes [id number] 1{tbl} Take 1 [facility] rel-ethinyl 5-22 tablet by ity of estradiol 00:00: mouth [place] 0.1-20 00 daily. Medical mg-mcg per Branch tablet levonorgest 2020-0 Yes [id number] 1{tbl} Take 1 [facility] rel-ethinyl 5-22 tablet by ity of estradiol 00:00: mouth [place] 0.1-20 00 daily. Medical mg-mcg per Branch tablet levonorgest 2020-0 Yes [id number] 1{tbl} Take 1 [facility] rel-ethinyl 5-22 tablet by ity of estradiol 00:00: mouth [place] 0.1-20 00 daily. Medical mg-mcg per Branch tablet levonorgest 2020-0 Yes [id number] 1{tbl} Take 1 [facility] rel-ethinyl 5-22 tablet by ity of estradiol 00:00: mouth [place] 0.1-20 00 daily. Medical mg-mcg per Branch tablet levonorgest 2020-0 Yes [id number] 1{tbl} Take 1 [facility] rel-ethinyl 5-22 tablet by ity of estradiol 00:00: mouth [place] 0.1-20 00 daily. Medical mg-mcg per Branch tablet levonorgest 2020-0 Yes [id number] 1{tbl} Take 1 [facility] rel-ethinyl 5-22 tablet by ity of estradiol 00:00: mouth [place] 0.1-20 00 daily. Medical mg-mcg per Branch tablet levonorgest 2020-0 Yes [id number] 1{tbl} Take 1 [facility] rel-ethinyl 5-22 tablet by ity of estradiol 00:00: mouth [place] 0.1-20 00 daily. Medical mg-mcg per Branch tablet levonorgest 2020-0 Yes [id number] 1{tbl} Take 1 [facility] rel-ethinyl 5-22 tablet by ity of estradiol 00:00: mouth [place] 0.1-20 00 daily. Medical mg-mcg per Branch tablet levonorgest 2019-0 Yes [id number] 1{tbl} Take 1 [facility] rel-ethinyl 5-22 tablet by ity of estradiol 00:00: mouth [place] 0.1-20 00 daily. Medical mg-mcg per Branch tablet hydroCHLORO 0 Yes 12.5mg 12.5 mg, [facility] thiazide 4-21 Oral, ity of (ESIDRIX) 14:00: DAILY, [place] tablet 12.5 00 First dose Me dical mg on Sat Branch 11/24/19 at 0900, Until Discontinu ed, Routine 2020- No Take by [facility] rs vit 4-21 04-21 mouth. ity of calc,iron,f 13:10: 00:00 [place] olic 48 :00 Medical ( Branch VITAMIN ORAL) ferrous 2019-0 Yes [id number] 325mg Take 1 [facility] sulfate 325 4-21 102 tablet by ity of mg (65 mg 00:00: mouth 2 [place] iron) 00 (two) Medical tablet times Branch daily. ibuprofen 2019-0 Yes [id number] 600mg Take 1 [facility] 600 mg 4-21 102 tablet by ity of tablet 00:00: mouth [place] 00 every 6 Medical (six) Branch hours as needed (Pain). Take with food or milk. hydroCHLORO 2019-0 Yes [id number] 12.5mg Take 1 [facility] thiazide 4-21 102 capsule by ity o f 12.5 mg 00:00: mouth [place] capsule 00 daily. Medical Branch 2019-0 Yes [id number] 1{tbl} Take 1 [facility] vitamin 4-21 102 tablet by [facility]y of w/FA tablet 00:00: mouth [place] 00 daily. Medical Branch docusate 2019-0 Yes [id number] 240mg Take 1 [facility] calcium 240 4-21 102 capsule by it y of mg capsule 00:00: mouth once [place] 00 daily as Medical needed for Branch Constipati on. ferrous 2020-0 Yes [id number] 325mg Take 1 [facility] sulfate 325 4-21 102 tablet by ity of mg (65 mg 00:00: mouth 2 [place] iron) 00 (two) Medical tablet times Branch daily. ibuprofen 2020-0 Yes [id number] 600mg Take 1 [facility] 600 mg 4-21 102 tablet by ity of tablet 00:00: mouth [place] 00 every 6 Medical (six) Branch hours as needed (Pain). Take with food or milk. hydroCHLORO 2020-0 Yes [id number] 12.5mg Take 1 [facility] thiazide 4-21 102 capsule by ity o f 12.5 mg 00:00: mouth [place] capsule 00 daily. Medical Branch 2020-0 Yes [id number] 1{tbl} Take 1 [facility] vitamin 4-21 102 tablet by [facility]y of w/FA tablet 00:00: mouth [place] 00 daily. Medical Branch docusate 2020-0 Yes [id number] 240mg Take 1 [facility] calcium 240 4-21 102 capsule by it y of mg capsule 00:00: mouth once [place] 00 daily as Medical needed for Branch Constipati on. ferrous 2020-0 Yes [id number] 325mg Take 1 [facility] sulfate 325 4-21 102 tablet by ity of mg (65 mg 00:00: mouth 2 [place] iron) 00 (two) Medical tablet times Branch daily. ibuprofen 2020-0 Yes [id number] 600mg Take 1 [facility] 600 mg 4-21 102 tablet by ity of tablet 00:00: mouth [place] 00 every 6 Medical (six) Branch hours as needed (Pain). Take with food or milk. hydroCHLORO 2020-0 Yes [id number] 12.5mg Take 1 [facility] thiazide 4-21 102 capsule by ity o f 12.5 mg 00:00: mouth [place] capsule 00 daily. Medical Branch 2020-0 Yes [id number] 1{tbl} Take 1 [facility] vitamin 4-21 102 tablet by ity of w/FA tablet 00:00: mouth [place] 00 daily. Medical Branch docusate 2020-0 Yes [id number] 240mg Take 1 [facility] calcium 240 4-21 102 capsule by it y of mg capsule 00:00: mouth once [place] 00 daily as Medical needed for Branch Constipati on. ferrous 2020-0 Yes [id number] 325mg Take 1 [facility] sulfate 325 4-21 102 tablet by ity of mg (65 mg 00:00: mouth 2 [place] iron) 00 (two) Medical tablet times Branch daily. ibuprofen 2020-0 Yes [id number] 600mg Take 1 [facility] 600 mg 4-21 102 tablet by ity of tablet 00:00: mouth [place] 00 every 6 Medical (six) Branch hours as needed (Pain). Take with food or milk. hydroCHLORO 2020-0 Yes [id number] 12.5mg Take 1 [facility] thiazide 4-21 102 capsule by ity o f 12.5 mg 00:00: mouth [place] capsule 00 daily. Medical Branch 2020-0 Yes [id number] 1{tbl} Take 1 [facility] vitamin 4-21 102 tablet by [facility]y of w/FA tablet 00:00: mouth [place] 00 daily. Medical Branch docusate 2020-0 Yes [id number] 240mg Take 1 [facility] calcium 240 4-21 102 capsule by it y of mg capsule 00:00: mouth once [place] 00 daily as Medical needed for Branch Constipati on. ferrous 2020-0 Yes [id number] 325mg Take 1 [facility] sulfate 325 4-21 102 tablet by ity of mg (65 mg 00:00: mouth 2 [place] iron) 00 (two) Medical tablet times Branch daily. ibuprofen 2020-0 Yes [id number] 600mg Take 1 [facility] 600 mg 4-21 102 tablet by ity of tablet 00:00: mouth [place] 00 every 6 Medical (six) Branch hours as needed (Pain). Take with food or milk. hydroCHLORO 2020-0 Yes [id number] 12.5mg Take 1 [facility] thiazide 4-21 102 capsule by ity o f 12.5 mg 00:00: mouth [place] capsule 00 daily. Medical Branch 2020-0 Yes [id number] 1{tbl} Take 1 [facility] vitamin 4-21 102 tablet by ity of w/FA tablet 00:00: mouth [place] 00 daily. Medical Branch docusate 2020-0 Yes [id number] 240mg Take 1 [facility] calcium 240 4-21 102 capsule by it y of mg capsule 00:00: mouth once [place] 00 daily as Medical needed for Branch Constipati on. ferrous 2020-0 Yes [id number] 325mg Take 1 [facility] sulfate 325 4-21 102 tablet by ity of mg (65 mg 00:00: mouth 2 [place] iron) 00 (two) Medical tablet times Branch daily. ibuprofen 2020-0 Yes [id number] 600mg Take 1 [facility] 600 mg 4-21 102 tablet by ity of tablet 00:00: mouth [place] 00 every 6 Medical (six) Branch hours as needed (Pain). Take with food or milk. hydroCHLORO 2020-0 Yes [id number] 12.5mg Take 1 [facility] thiazide 4-21 102 capsule by ity o f 12.5 mg 00:00: mouth [place] capsule 00 daily. Medical Branch 2020-0 Yes [id number] 1{tbl} Take 1 [facility] vitamin 4-21 102 tablet by ity of w/FA tablet 00:00: mouth [place] 00 daily. Medical Branch docusate 2020-0 Yes [id number] 240mg Take 1 [facility] calcium 240 4-21 102 capsule by it y of mg capsule 00:00: mouth once [place] 00 daily as Medical needed for Branch Constipati on. ferrous 2020-0 Yes [id number] 325mg Take 1 [facility] sulfate 325 4-21 102 tablet by ity of mg (65 mg 00:00: mouth 2 [place] iron) 00 (two) Medical tablet times Branch daily. ibuprofen 2020-0 Yes [id number] 600mg Take 1 [facility] 600 mg 4-21 102 tablet by ity of tablet 00:00: mouth [place] 00 every 6 Medical (six) Branch hours as needed (Pain). Take with food or milk. hydroCHLORO 2020-0 Yes [id number] 12.5mg Take 1 [facility] thiazide 4-21 102 capsule by ity o f 12.5 mg 00:00: mouth [place] capsule 00 daily. Medical Branch 2020-0 Yes [id number] 1{tbl} Take 1 [facility] vitamin 4-21 102 tablet by ity of w/FA tablet 00:00: mouth [place] 00 daily. Medical Branch docusate 2020-0 Yes [id number] 240mg Take 1 [facility] calcium 240 4-21 102 capsule by it y of mg capsule 00:00: mouth once [place] 00 daily as Medical needed for Branch Constipati on. ferrous 2020-0 Yes [id number] 325mg Take 1 [facility] sulfate 325 4-21 102 tablet by ity of mg (65 mg 00:00: mouth 2 [place] iron) 00 (two) Medical tablet times Branch daily. ibuprofen 2020-0 Yes [id number] 600mg Take 1 [facility] 600 mg 4-21 102 tablet by ity of tablet 00:00: mouth [place] 00 every 6 Medical (six) Branch hours as needed (Pain). Take with food or milk. hydroCHLORO 2020-0 Yes [id number] 12.5mg Take 1 [facility] thiazide 4-21 102 capsule by ity o f 12.5 mg 00:00: mouth [place] capsule 00 daily. Medical Branch 2020-0 Yes [id number] 1{tbl} Take 1 [facility] vitamin 4-21 102 tablet by ity of w/FA tablet 00:00: mouth [place] 00 daily. Medical Branch docusate 2020-0 Yes [id number] 240mg Take 1 [facility] calcium 240 4-21 102 capsule by it y of mg capsule 00:00: mouth once [place] 00 daily as Medical needed for Branch Constipati on. ferrous 2020-0 Yes [id number] 325mg Take 1 [facility] sulfate 325 4-21 102 tablet by ity of mg (65 mg 00:00: mouth 2 [place] iron) 00 (two) Medical tablet times Branch daily. ibuprofen 2020-0 Yes [id number] 600mg Take 1 [facility] 600 mg 4-21 102 tablet by ity of tablet 00:00: mouth [place] 00 every 6 Medical (six) Branch hours as needed (Pain). Take with food or milk. hydroCHLORO 2020-0 Yes [id number] 12.5mg Take 1 [facility] thiazide 4-21 102 capsule by ity o f 12.5 mg 00:00: mouth [place] capsule 00 daily. Medical Branch 2020-0 Yes [id number] 1{tbl} Take 1 [facility] vitamin 4-21 102 tablet by ity of w/FA tablet 00:00: mouth [place] 00 daily. Medical Branch docusate 2020-0 Yes [id number] 240mg Take 1 [facility] calcium 240 4-21 102 capsule by it y of mg capsule 00:00: mouth once [place] 00 daily as Medical needed for Branch Constipati on. ferrous 2020-0 Yes [id number] 325mg Take 1 [facility] sulfate 325 4-21 102 tablet by ity of mg (65 mg 00:00: mouth 2 [place] iron) 00 (two) Medical tablet times Branch daily. ibuprofen 2020-0 Yes [id number] 600mg Take 1 [facility] 600 mg 4-21 102 tablet by ity of tablet 00:00: mouth [place] 00 every 6 Medical (six) Branch hours as needed (Pain). Take with food or milk. hydroCHLORO 2020-0 Yes [id number] 12.5mg Take 1 [facility] thiazide 4-21 102 capsule by ity o f 12.5 mg 00:00: mouth [place] capsule 00 daily. Medical Branch 2020-0 Yes [id number] 1{tbl} Take 1 [facility] vitamin 4-21 102 tablet by ity of w/FA tablet 00:00: mouth [place] 00 daily. Medical Branch docusate 2020-0 Yes [id number] 240mg Take 1 [facility] calcium 240 4-21 102 capsule by it y of mg capsule 00:00: mouth once [place] 00 daily as Medical needed for Branch Constipati on. ferrous 2020-0 Yes [id number] 325mg Take 1 [facility] sulfate 325 4-21 102 tablet by ity of mg (65 mg 00:00: mouth 2 [place] iron) 00 (two) Medical tablet times Branch daily. ibuprofen 2020-0 Yes [id number] 600mg Take 1 [facility] 600 mg 4-21 102 tablet by ity of tablet 00:00: mouth [place] 00 every 6 Medical (six) Branch hours as needed (Pain). Take with food or milk. hydroCHLORO 2020-0 Yes [id number] 12.5mg Take 1 [facility] thiazide 4-21 102 capsule by [facility] o f 12.5 mg 00:00: mouth [place] capsule 00 daily. [facility] 2020-0 Yes [id number] 1{tbl} Take 1 [facility] vitamin 4-21 102 tablet by [facility] of w/FA tablet 00:00: mouth [place] 00 daily. [facility] docusate 2020-0 Yes [id number] 240mg Take 1 [facility] calcium 240 4-21 102 capsule by [facility] y of mg capsule 00:00: mouth once [place] 00 daily as Medical needed for Branch Constipati on. ferrous 2020-0 Yes [id number] 325mg Take 1 [facility] sulfate 325 4-21 102 tablet by [facility] of mg (65 mg 00:00: mouth 2 [place] iron) 00 (two) Medical tablet times Branch daily. ibuprofen 2020-0 Yes [id number] 600mg Take 1 [facility] 600 mg 4-21 102 tablet by [facility] of tablet 00:00: mouth [place] 00 every 6 Medical (six) Branch hours as needed (Pain). Take with food or milk. hydroCHLORO 2020-0 Yes [id number] 12.5mg Take 1 [facility] thiazide 4-21 102 capsule by [facility] o f 12.5 mg 00:00: mouth [place] capsule 00 daily. [facility] 2020-0 Yes [id number] 1{tbl} Take 1 [facility] vitamin 4-21 102 tablet by [facility] of w/FA tablet 00:00: mouth [place] 00 daily. [facility] docusate 2020-0 Yes [id number] 240mg Take 1 [facility] calcium 240 4-21 102 capsule by [facility] y of mg capsule 00:00: mouth once [place] 00 daily as Medical needed for Branch Constipati on. ferrous 2020-0 Yes [id number] 325mg Take 1 [facility] sulfate 325 4-21 102 tablet by [facility] of mg (65 mg 00:00: mouth 2 [place] iron) 00 (two) Medical tablet times Branch daily. ibuprofen 2020-0 Yes [id number] 600mg Take 1 [facility] 600 mg 4-21 102 tablet by [facility] of tablet 00:00: mouth [place] 00 every 6 Medical (six) Branch hours as needed (Pain). Take with food or milk. hydroCHLORO 2020-0 Yes [id number] 12.5mg Take 1 [facility] thiazide 4-21 102 capsule by [facility] o f 12.5 mg 00:00: mouth [place] capsule 00 daily. [facility] 2020-0 Yes [id number] 1{tbl} Take 1 [facility] vitamin 4-21 102 tablet by [facility] of w/FA tablet 00:00: mouth [place] 00 daily. [facility] docusate 2020-0 Yes [id number] 240mg Take 1 [facility] calcium 240 4-21 102 capsule by [facility] of mg capsule 00:00: mouth once [place] 00 daily as Medical needed for Branch Constipati on. ferrous 2020-0 Yes [id number] 325mg Take 1 [facility] sulfate 325 4-21 102 tablet by [facility] of mg (65 mg 00:00: mouth 2 [place] iron) 00 (two) Medical tablet times Branch daily. ibuprofen 2020-0 Yes [id number] 600mg Take 1 [facility] 600 mg 4-21 102 tablet by [facility] of tablet 00:00: mouth [place] 00 every 6 Medical (six) Branch hours as needed (Pain). Take with food or milk. hydroCHLORO 2020-0 Yes [id number] 12.5mg Take 1 [facility] thiazide 4-21 102 capsule by [facility] o f 12.5 mg 00:00: mouth [place] capsule 00 daily. [facility] 2020-0 Yes [id number] 1{tbl} Take 1 [facility] vitamin 4-21 102 tablet by [facility] of w/FA tablet 00:00: mouth [place] 00 daily. [facility] docusate 2020-0 Yes [id number] 240mg Take 1 [facility] calcium 240 4-21 102 capsule by [facility] of mg capsule 00:00: mouth once [place] 00 daily as Medical needed for Branch Constipati on. ferrous 2020-0 Yes [id number] 325mg Take 1 [facility] sulfate 325 4-21 102 tablet by [facility] of mg (65 mg 00:00: mouth 2 [place] iron) 00 (two) Medical tablet times Branch daily. ibuprofen 2020-0 Yes [id number] 600mg Take 1 [facility] 600 mg 4-21 102 tablet by [facility] of tablet 00:00: mouth [place] 00 every 6 Medical (six) Branch hours as needed (Pain). Take with food or milk. hydroCHLORO 2020-0 Yes [id number] 12.5mg Take 1 [facility] thiazide 4-21 102 capsule by [facility] o f 12.5 mg 00:00: mouth [place] capsule 00 daily. [facility] 2020-0 Yes [id number] 1{tbl} Take 1 [facility] vitamin 4-21 102 tablet by [facility] of w/FA tablet 00:00: mouth [place] 00 daily. [facility] docusate 2020-0 Yes [id number] 240mg Take 1 [facility] calcium 240 4-21 102 capsule by [facility] of mg capsule 00:00: mouth once [place] 00 daily as Medical needed for Branch Constipati on. ferrous 2020-0 Yes [id number] 325mg Take 1 [facility] sulfate 325 4-21 102 tablet by [facility] of mg (65 mg 00:00: mouth 2 [place] iron) 00 (two) Medical tablet times Branch daily. ibuprofen 2020-0 Yes [id number] 600mg Take 1 [facility] 600 mg 4-21 102 tablet by [facility] of tablet 00:00: mouth [place] 00 every 6 Medical (six) Branch hours as needed (Pain). Take with food or milk. hydroCHLORO 2020-0 Yes [id number] 12.5mg Take 1 [facility] thiazide 4-21 102 capsule by [facility] o f 12.5 mg 00:00: mouth [place] capsule 00 daily. [facility] 2020-0 Yes [id number] 1{tbl} Take 1 [facility] vitamin 4-21 102 tablet by [facility] of w/FA tablet 00:00: mouth [place] 00 daily. [facility] docusate 2020-0 Yes [id number] 240mg Take 1 [facility] calcium 240 4-21 102 capsule by [facility] of mg capsule 00:00: mouth once [place] 00 daily as Medical needed for Branch Constipati on. ferrous 2020-0 Yes [id number] 325mg Take 1 [facility] sulfate 325 4-21 102 tablet by [facility] of mg (65 mg 00:00: mouth 2 [place] iron) 00 (two) Medical tablet times Branch daily. ibuprofen 2020-0 Yes [id number] 600mg Take 1 [facility] 600 mg 4-21 102 tablet by [facility] of tablet 00:00: mouth [place] 00 every 6 Medical (six) Branch hours as needed (Pain). Take with food or milk. hydroCHLORO 2020-0 Yes [id number] 12.5mg Take 1 [facility] thiazide 4-21 102 capsule by [facility] o f 12.5 mg 00:00: mouth [place] capsule 00 daily. [facility] 2020-0 Yes [id number] 1{tbl} Take 1 [facility] vitamin 4-21 102 tablet by [facility] of w/FA tablet 00:00: mouth [place] 00 daily. [facility] docusate 2020-0 Yes [id number] 240mg Take 1 [facility] calcium 240 4-21 102 capsule by [facility] of mg capsule 00:00: mouth once [place] 00 daily as Medical needed for Branch Constipati on. ferrous 2020-0 Yes [id number] 325mg Take 1 [facility] sulfate 325 4-21 102 tablet by [facility] of mg (65 mg 00:00: mouth 2 [place] iron) 00 (two) Medical tablet times Branch daily. ibuprofen 2020-0 Yes [id number] 600mg Take 1 [facility] 600 mg 4-21 102 tablet by [facility] of tablet 00:00: mouth [place] 00 every 6 Medical (six) Branch hours as needed (Pain). Take with food or milk. hydroCHLORO 2020-0 Yes [id number] 12.5mg Take 1 [facility] thiazide 4-21 102 capsule by [facility] o f 12.5 mg 00:00: mouth [place] capsule 00 daily. [facility] 2020-0 Yes [id number] 1{tbl} Take 1 [facility] vitamin 4-21 102 tablet by [facility] of w/FA tablet 00:00: mouth [place] 00 daily. [facility] docusate 2020-0 Yes [id number] 240mg Take 1 [facility] calcium 240 4-21 102 capsule by [facility] of mg capsule 00:00: mouth once [place] 00 daily as Medical needed for Branch Constipati on. ferrous 2020-0 Yes [id number] 325mg Take 1 [facility] sulfate 325 4-21 102 tablet by [facility] of mg (65 mg 00:00: mouth 2 [place] iron) 00 (two) Medical tablet times Branch daily. ibuprofen 2020-0 Yes [id number] 600mg Take 1 [facility] 600 mg 4-21 102 tablet by [facility] of tablet 00:00: mouth [place] 00 every 6 Medical (six) Branch hours as needed (Pain). Take with food or milk. hydroCHLORO 2020-0 Yes [id number] 12.5mg Take 1 [facility] thiazide 4-21 102 capsule by [facility] o f 12.5 mg 00:00: mouth [place] capsule 00 daily. [facility] 2020-0 Yes [id number] 1{tbl} Take 1 [facility] vitamin 4-21 102 tablet by [facility] of w/FA tablet 00:00: mouth [place] 00 daily. [facility] docusate 2020-0 Yes [id number] 240mg Take 1 [facility] calcium 240 4-21 102 capsule by [facility] of mg capsule 00:00: mouth once [place] 00 daily as Medical needed for Branch Constipati on. ferrous 2020-0 Yes [id number] 325mg Take 1 [facility] sulfate 325 4-21 102 tablet by [facility] of mg (65 mg 00:00: mouth 2 [place] iron) 00 (two) Medical tablet times Branch daily. ibuprofen 2020-0 Yes [id number] 600mg Take 1 [facility] 600 mg 4-21 102 tablet by [facility] of tablet 00:00: mouth [place] 00 every 6 Medical (six) Branch hours as needed (Pain). Take with food or milk. hydroCHLORO 2020-0 Yes [id number] 12.5mg Take 1 [facility] thiazide 4-21 102 capsule by [facility] o f 12.5 mg 00:00: mouth [place] capsule 00 daily. [facility] 2020-0 Yes [id number] 1{tbl} Take 1 [facility] vitamin 4-21 102 tablet by [facility] of w/FA tablet 00:00: mouth [place] 00 daily. [facility] docusate 2020-0 Yes [id number] 240mg Take 1 [facility] calcium 240 4-21 102 capsule by [facility] y of mg capsule 00:00: mouth once [place] 00 daily as Medical needed for Branch Constipati on. ferrous 2020-0 Yes [id number] 325mg Take 1 [facility] sulfate 325 4-21 102 tablet by [facility] of mg (65 mg 00:00: mouth 2 [place] iron) 00 (two) Medical tablet times Branch daily. ibuprofen 2020-0 Yes [id number] 600mg Take 1 [facility] 600 mg 4-21 102 tablet by [facility] of tablet 00:00: mouth [place] 00 every 6 Medical (six) Branch hours as needed (Pain). Take with food or milk. hydroCHLORO 2020-0 Yes [id number] 12.5mg Take 1 [facility] thiazide 4-21 102 capsule by [facility] o f 12.5 mg 00:00: mouth [place] capsule 00 daily. [facility] 2020-0 Yes [id number] 1{tbl} Take 1 [facility] vitamin 4-21 102 tablet by [facility] of w/FA tablet 00:00: mouth [place] 00 daily. [facility] docusate 2020-0 Yes [id number] 240mg Take 1 [facility] calcium 240 4-21 102 capsule by [facility] y of mg capsule 00:00: mouth once [place] 00 daily as Medical needed for Branch Constipati on. ferrous 2020-0 Yes [id number] 325mg Take 1 [facility] sulfate 325 4-21 102 tablet by [facility] of mg (65 mg 00:00: mouth 2 [place] iron) 00 (two) Medical tablet times Branch daily. ibuprofen 2020-0 Yes [id number] 600mg Take 1 [facility] 600 mg 4-21 102 tablet by [facility] of tablet 00:00: mouth [place] 00 every 6 Medical (six) Branch hours as needed (Pain). Take with food or milk. hydroCHLORO 2020-0 Yes [id number] 12.5mg Take 1 [facility] thiazide 4-21 102 capsule by [facility] o f 12.5 mg 00:00: mouth [place] capsule 00 daily. [facility] 2020-0 Yes [id number] 1{tbl} Take 1 [facility] vitamin 4-21 102 tablet by [facility] of w/FA tablet 00:00: mouth [place] 00 daily. [facility] docusate 2020-0 Yes [id number] 240mg Take 1 [facility] calcium 240 4-21 102 capsule by [facility] y of mg capsule 00:00: mouth once [place] 00 daily as Medical needed for Branch Constipati on. ferrous 2020-0 Yes [id number] 325mg Take 1 [facility] sulfate 325 4-21 102 tablet by [facility] of mg (65 mg 00:00: mouth 2 [place] iron) 00 (two) Medical tablet times Branch daily. ibuprofen 2020-0 Yes [id number] 600mg Take 1 [facility] 600 mg 4-21 102 tablet by [facility] of tablet 00:00: mouth [place] 00 every 6 Medical (six) Branch hours as needed (Pain). Take with food or milk. hydroCHLORO 2020-0 Yes [id number] 12.5mg Take 1 [facility] thiazide 4-21 102 capsule by [facility] o f 12.5 mg 00:00: mouth [place] capsule 00 daily. [facility] 2020-0 Yes [id number] 1{tbl} Take 1 [facility] vitamin 4-21 102 tablet by [facility] of w/FA tablet 00:00: mouth [place] 00 daily. [facility] docusate 2020-0 Yes [id number] 240mg Take 1 [facility] calcium 240 4-21 102 capsule by [facility] y of mg capsule 00:00: mouth once [place] 00 daily as Medical needed for Branch Constipati on. ferrous 2020-0 Yes [id number] 325mg Take 1 [facility] sulfate 325 4-21 102 tablet by [facility] of mg (65 mg 00:00: mouth 2 [place] iron) 00 (two) Medical tablet times Branch daily. ibuprofen 2020-0 Yes [id number] 600mg Take 1 [facility] 600 mg 4-21 102 tablet by [facility] of tablet 00:00: mouth [place] 00 every 6 Medical (six) Branch hours as needed (Pain). Take with food or milk. hydroCHLORO 2020-0 Yes [id number] 12.5mg Take 1 [facility] thiazide 4-21 102 capsule by [facility] o f 12.5 mg 00:00: mouth [place] capsule 00 daily. [facility] 2020-0 Yes [id number] 1{tbl} Take 1 [facility] vitamin 4-21 102 tablet by [facility] of w/FA tablet 00:00: mouth [place] 00 daily. [facility] docusate 2020-0 Yes [id number] 240mg Take 1 [facility] calcium 240 4-21 102 capsule by [facility] y of mg capsule 00:00: mouth once [place] 00 daily as Medical needed for Branch Constipati on. ferrous 2020-0 Yes [id number] 325mg Take 1 [facility] sulfate 325 4-21 102 tablet by [facility] of mg (65 mg 00:00: mouth 2 [place] iron) 00 (two) Medical tablet times Branch daily. ibuprofen 2020-0 Yes [id number] 600mg Take 1 [facility] 600 mg 4-21 102 tablet by [facility] of tablet 00:00: mouth [place] 00 every 6 Medical (six) Branch hours as needed (Pain). Take with food or milk. hydroCHLORO 2020-0 Yes [id number] 12.5mg Take 1 [facility] thiazide 4-21 102 capsule by [facility] o f 12.5 mg 00:00: mouth [place] capsule 00 daily. [facility] 2020-0 Yes [id number] 1{tbl} Take 1 [facility] vitamin 4-21 102 tablet by [facility] of w/FA tablet 00:00: mouth [place] 00 daily. [facility] docusate 2020-0 Yes [id number] 240mg Take 1 [facility] calcium 240 4-21 102 capsule by [facility] y of mg capsule 00:00: mouth once [place] 00 daily as Medical needed for Branch Constipati on. ferrous 2020-0 Yes [id number] 325mg Take 1 [facility] sulfate 325 4-21 102 tablet by [facility] of mg (65 mg 00:00: mouth 2 [place] iron) 00 (two) Medical tablet times Branch daily. ibuprofen 2020-0 Yes [id number] 600mg Take 1 [facility] 600 mg 4-21 102 tablet by [facility] of tablet 00:00: mouth [place] 00 every 6 Medical (six) Branch hours as needed (Pain). Take with food or milk. hydroCHLORO 2020-0 Yes [id number] 12.5mg Take 1 [facility] thiazide 4-21 102 capsule by [facility] o f 12.5 mg 00:00: mouth [place] capsule 00 daily. [facility] 2020-0 Yes [id number] 1{tbl} Take 1 [facility] vitamin 4-21 102 tablet by [facility] of w/FA tablet 00:00: mouth [place] 00 daily. [facility] docusate 2020-0 Yes [id number] 240mg Take 1 [facility] calcium 240 4-21 102 capsule by [facility] y of mg capsule 00:00: mouth once [place] 00 daily as Medical needed for Branch Constipati on. ferrous 2020-0 Yes [id number] 325mg Take 1 [facility] sulfate 325 4-21 102 tablet by [facility] of mg (65 mg 00:00: mouth 2 [place] iron) 00 (two) Medical tablet times Branch daily. ibuprofen 2020-0 Yes [id number] 600mg Take 1 [facility] 600 mg 4-21 102 tablet by [facility] of tablet 00:00: mouth [place] 00 every 6 Medical (six) Branch hours as needed (Pain). Take with food or milk. hydroCHLORO 2020-0 Yes [id number] 12.5mg Take 1 [facility] thiazide 4-21 102 capsule by [facility] o f 12.5 mg 00:00: mouth [place] capsule 00 daily. [facility] 2020-0 Yes [id number] 1{tbl} Take 1 [facility] vitamin 4-21 102 tablet by [facility] of w/FA tablet 00:00: mouth [place] 00 daily. [facility] docusate 2020-0 Yes [id number] 240mg Take 1 [facility] calcium 240 4-21 102 capsule by [facility] y of mg capsule 00:00: mouth once [place] 00 daily as Medical needed for Branch Constipati on. ferrous 2020-0 Yes [id number] 325mg Take 1 [facility] sulfate 325 4-21 102 tablet by [facility] of mg (65 mg 00:00: mouth 2 [place] iron) 00 (two) Medical tablet times Branch daily. ibuprofen 2020-0 Yes [id number] 600mg Take 1 [facility] 600 mg 4-21 102 tablet by [facility] of tablet 00:00: mouth [place] 00 every 6 Medical (six) Branch hours as needed (Pain). Take with food or milk. hydroCHLORO 2020-0 Yes [id number] 12.5mg Take 1 [facility] thiazide 4-21 102 capsule by [facility] o f 12.5 mg 00:00: mouth [place] capsule 00 daily. [facility] 2020-0 Yes [id number] 1{tbl} Take 1 [facility] vitamin 4-21 102 tablet by [facility] of w/FA tablet 00:00: mouth [place] 00 daily. [facility] docusate 2020-0 Yes [id number] 240mg Take 1 [facility] calcium 240 4-21 102 capsule by [facility] y of mg capsule 00:00: mouth once [place] 00 daily as Medical needed for Branch Constipati on. ferrous 2020-0 Yes [id number] 325mg Take 1 [facility] sulfate 325 4-21 102 tablet by [facility] of mg (65 mg 00:00: mouth 2 [place] iron) 00 (two) Medical tablet times Branch daily. ibuprofen 2020-0 Yes [id number] 600mg Take 1 [facility] 600 mg 4-21 102 tablet by [facility] of tablet 00:00: mouth [place] 00 every 6 Medical (six) Branch hours as needed (Pain). Take with food or milk. hydroCHLORO 2020-0 Yes [id number] 12.5mg Take 1 [facility] thiazide 4-21 102 capsule by [facility] o f 12.5 mg 00:00: mouth [place] capsule 00 daily. [facility] 2020-0 Yes [id number] 1{tbl} Take 1 [facility] vitamin 4-21 102 tablet by [facility] of w/FA tablet 00:00: mouth [place] 00 daily. [facility] docusate 2020-0 Yes [id number] 240mg Take 1 [facility] calcium 240 4-21 102 capsule by [facility] y of mg capsule 00:00: mouth once [place] 00 daily as Medical needed for Branch Constipati on. ferrous 2020-0 Yes [id number] 325mg Take 1 [facility] sulfate 325 4-21 102 tablet by [facility] of mg (65 mg 00:00: mouth 2 [place] iron) 00 (two) Medical tablet times Branch daily. ibuprofen 2020-0 Yes [id number] 600mg Take 1 [facility] 600 mg 4-21 102 tablet by [facility] of tablet 00:00: mouth [place] 00 every 6 Medical (six) Branch hours as needed (Pain). Take with food or milk. hydroCHLORO 2020-0 Yes [id number] 12.5mg Take 1 [facility] thiazide 4-21 102 capsule by [facility] o f 12.5 mg 00:00: mouth [place] capsule 00 daily. [facility] 2019-0 Yes [id number] 1{tbl} Take 1 [facility] vitamin 4-21 102 tablet by [facility] of w/FA tablet 00:00: mouth [place] 00 daily. [facility] docusate 2019-0 Yes [id number] 240mg Take 1 [facility] calcium 240 4-21 102 capsule by [facility] y of mg capsule 00:00: mouth once [place] 00 daily as Medical needed for Branch Constipati on. ferrous 2020-0 Yes [id number] 325mg Take 1 [facility] sulfate 325 4-21 102 tablet by [facility] of mg (65 mg 00:00: mouth 2 [place] iron) 00 (two) Medical tablet times Branch daily. ibuprofen 2020-0 Yes [id number] 600mg Take 1 [facility] 600 mg 4-21 102 tablet by [facility] of tablet 00:00: mouth [place] 00 every 6 Medical (six) Branch hours as needed (Pain). Take with food or milk. hydroCHLORO 2020-0 Yes [id number] 12.5mg Take 1 [facility] thiazide 4-21 102 capsule by [facility] o f 12.5 mg 00:00: mouth [place] capsule 00 daily. [facility] 2020-0 Yes [id number] 1{tbl} Take 1 [facility] vitamin 4-21 102 tablet by [facility] of w/FA tablet 00:00: mouth [place] 00 daily. [facility] docusate 2020-0 Yes [id number] 240mg Take 1 [facility] calcium 240 4-21 102 capsule by [facility] y of mg capsule 00:00: mouth once [place] 00 daily as Medical needed for Branch Constipati on. ferrous 2020-0 Yes [id number] 325mg Take 1 [facility] sulfate 325 4-21 102 tablet by [facility] of mg (65 mg 00:00: mouth 2 [place] iron) 00 (two) Medical tablet times Branch daily. ibuprofen 2020-0 Yes [id number] 600mg Take 1 [facility] 600 mg 4-21 102 tablet by [facility] of tablet 00:00: mouth [place] 00 every 6 Medical (six) Branch hours as needed (Pain). Take with food or milk. hydroCHLORO 2020-0 Yes [id number] 12.5mg Take 1 [facility] thiazide 4-21 102 capsule by [facility] o f 12.5 mg 00:00: mouth [place] capsule 00 daily. [facility] 2020-0 Yes [id number] 1{tbl} Take 1 [facility] vitamin 4-21 102 tablet by [facility] of w/FA tablet 00:00: mouth [place] 00 daily. [facility] docusate 2020-0 Yes [id number] 240mg Take 1 [facility] calcium 240 4-21 102 capsule by [facility] y of mg capsule 00:00: mouth once [place] 00 daily as Medical needed for Branch Constipati on. ferrous 2020-0 Yes [id number] 325mg Take 1 [facility] sulfate 325 4-21 102 tablet by [facility] of mg (65 mg 00:00: mouth 2 [place] iron) 00 (two) Medical tablet times Branch daily. ibuprofen 2020-0 Yes [id number] 600mg Take 1 [facility] 600 mg 4-21 102 tablet by [facility] of tablet 00:00: mouth [place] 00 every 6 Medical (six) Branch hours as needed (Pain). Take with food or milk. hydroCHLORO 2020-0 Yes [id number] 12.5mg Take 1 [facility] thiazide 4-21 102 capsule by [facility] o f 12.5 mg 00:00: mouth [place] capsule 00 daily. [facility] 2020-0 Yes [id number] 1{tbl} Take 1 [facility] vitamin 4-21 102 tablet by [facility] of w/FA tablet 00:00: mouth [place] 00 daily. [facility] docusate 2020-0 Yes [id number] 240mg Take 1 [facility] calcium 240 4-21 102 capsule by [facility] y of mg capsule 00:00: mouth once [place] 00 daily as Medical needed for Branch Constipati on. ferrous 2020-0 Yes [id number] 325mg Take 1 [facility] sulfate 325 4-21 102 tablet by [facility] of mg (65 mg 00:00: mouth 2 [place] iron) 00 (two) Medical tablet times Branch daily. ibuprofen 2020-0 Yes [id number] 600mg Take 1 [facility] 600 mg 4-21 102 tablet by [facility] of tablet 00:00: mouth [place] 00 every 6 Medical (six) Branch hours as needed (Pain). Take with food or milk. hydroCHLORO 2020-0 Yes [id number] 12.5mg Take 1 [facility] thiazide 4-21 102 capsule by [facility] o f 12.5 mg 00:00: mouth [place] capsule 00 daily. [facility] 2020-0 Yes [id number] 1{tbl} Take 1 [facility] vitamin 4-21 102 tablet by [facility] of w/FA tablet 00:00: mouth [place] 00 daily. [facility] docusate 2020-0 Yes [id number] 240mg Take 1 [facility] calcium 240 4-21 102 capsule by [facility] y of mg capsule 00:00: mouth once [place] 00 daily as Medical needed for Branch Constipati on. ferrous 2020-0 Yes [id number] 325mg Take 1 [facility] sulfate 325 4-21 102 tablet by [facility] of mg (65 mg 00:00: mouth 2 [place] iron) 00 (two) Medical tablet times Branch daily. ibuprofen 2020-0 Yes [id number] 600mg Take 1 [facility] 600 mg 4-21 102 tablet by [facility] of tablet 00:00: mouth [place] 00 every 6 Medical (six) Branch hours as needed (Pain). Take with food or milk. hydroCHLORO 2020-0 Yes [id number] 12.5mg Take 1 [facility] thiazide 4-21 102 capsule by [facility] o f 12.5 mg 00:00: mouth [place] capsule 00 daily. [facility] 2020-0 Yes [id number] 1{tbl} Take 1 [facility] vitamin 4-21 102 tablet by [facility] of w/FA tablet 00:00: mouth [place] 00 daily. [facility] docusate 2020-0 Yes [id number] 240mg Take 1 [facility] calcium 240 4-21 102 capsule by [facility] y of mg capsule 00:00: mouth once [place] 00 daily as Medical needed for Branch Constipati on. ferrous 2020-0 Yes [id number] 325mg Take 1 [facility] sulfate 325 4-21 102 tablet by [facility] of mg (65 mg 00:00: mouth 2 [place] iron) 00 (two) Medical tablet times Branch daily. ibuprofen 2020-0 Yes [id number] 600mg Take 1 [facility] 600 mg 4-21 102 tablet by [facility] of tablet 00:00: mouth [place] 00 every 6 Medical (six) Branch hours as needed (Pain). Take with food or milk. hydroCHLORO 2020-0 Yes [id number] 12.5mg Take 1 [facility] thiazide 4-21 102 capsule by [facility] o f 12.5 mg 00:00: mouth [place] capsule 00 daily. [facility] 2020-0 Yes [id number] 1{tbl} Take 1 [facility] vitamin 4-21 102 tablet by [facility] of w/FA tablet 00:00: mouth [place] 00 daily. [facility] docusate 2020-0 Yes [id number] 240mg Take 1 [facility] calcium 240 4-21 102 capsule by [facility] y of mg capsule 00:00: mouth once [place] 00 daily as Medical needed for Branch Constipati on. ferrous 2020-0 Yes [id number] 325mg Take 1 [facility] sulfate 325 4-21 102 tablet by [facility] of mg (65 mg 00:00: mouth 2 [place] iron) 00 (two) Medical tablet times Branch daily. ibuprofen 2020-0 Yes [id number] 600mg Take 1 [facility] 600 mg 4-21 102 tablet by [facility] of tablet 00:00: mouth [place] 00 every 6 Medical (six) Branch hours as needed (Pain). Take with food or milk. hydroCHLORO 2020-0 Yes [id number] 12.5mg Take 1 [facility] thiazide 4-21 102 capsule by [facility] o f 12.5 mg 00:00: mouth [place] capsule 00 daily. [facility] 2020-0 Yes [id number] 1{tbl} Take 1 [facility] vitamin 4-21 102 tablet by [facility] of w/FA tablet 00:00: mouth [place] 00 daily. [facility] docusate 2020-0 Yes [id number] 240mg Take 1 [facility] calcium 240 4-21 102 capsule by [facility] y of mg capsule 00:00: mouth once [place] 00 daily as Medical needed for Branch Constipati on. ferrous 2020-0 Yes [id number] 325mg Take 1 [facility] sulfate 325 4-21 102 tablet by [facility] of mg (65 mg 00:00: mouth 2 [place] iron) 00 (two) Medical tablet times Branch daily. ibuprofen 2020-0 Yes [id number] 600mg Take 1 [facility] 600 mg 4-21 102 tablet by [facility] of tablet 00:00: mouth [place] 00 every 6 Medical (six) Branch hours as needed (Pain). Take with food or milk. hydroCHLORO 2020-0 Yes [id number] 12.5mg Take 1 [facility] thiazide 4-21 102 capsule by [facility] o f 12.5 mg 00:00: mouth [place] capsule 00 daily. [facility] 2020-0 Yes [id number] 1{tbl} Take 1 [facility] vitamin 4-21 102 tablet by [facility] of w/FA tablet 00:00: mouth [place] 00 daily. [facility] docusate 2020-0 Yes [id number] 240mg Take 1 [facility] calcium 240 4-21 102 capsule by [facility] y of mg capsule 00:00: mouth once [place] 00 daily as Medical needed for Branch Constipati on. ferrous 2020-0 Yes [id number] 325mg Take 1 [facility] sulfate 325 4-21 102 tablet by [facility] of mg (65 mg 00:00: mouth 2 [place] iron) 00 (two) Medical tablet times Branch daily. ibuprofen 2020-0 Yes [id number] 600mg Take 1 [facility] 600 mg 4-21 102 tablet by [facility] of tablet 00:00: mouth [place] 00 every 6 Medical (six) Branch hours as needed (Pain). Take with food or milk. hydroCHLORO 2020-0 Yes [id number] 12.5mg Take 1 [facility] thiazide 4-21 102 capsule by [facility] o f 12.5 mg 00:00: mouth [place] capsule 00 daily. [facility] 2020-0 Yes [id number] 1{tbl} Take 1 [facility] vitamin 4-21 102 tablet by [facility] of w/FA tablet 00:00: mouth [place] 00 daily. [facility] docusate 2020-0 Yes [id number] 240mg Take 1 [facility] calcium 240 4-21 102 capsule by it y of mg capsule 00:00: mouth once [place] 00 daily as Medical needed for Branch Constipati on. ferrous 2020-0 Yes [id number] 325mg Take 1 [facility] sulfate 325 4-21 102 tablet by ity of mg (65 mg 00:00: mouth 2 [place] iron) 00 (two) Medical tablet times Branch daily. ibuprofen 2020-0 Yes [id number] 600mg Take 1 [facility] 600 mg 4-21 102 tablet by ity of tablet 00:00: mouth [place] 00 every 6 Medical (six) Branch hours as needed (Pain). Take with food or milk. hydroCHLORO 2020-0 Yes [id number] 12.5mg Take 1 [facility] thiazide 4-21 102 capsule by ity o f 12.5 mg 00:00: mouth [place] capsule 00 daily. Medical Branch 2020-0 Yes [id number] 1{tbl} Take 1 [facility] vitamin 4-21 102 tablet by ity of w/FA tablet 00:00: mouth [place] 00 daily. Medical Branch docusate 2020-0 Yes [id number] 240mg Take 1 [facility] calcium 240 4-21 102 capsule by it y of mg capsule 00:00: mouth once [place] 00 daily as Medical needed for Branch Constipati on. ferrous 2020-0 Yes [id number] 325mg Take 1 [facility] sulfate 325 4-21 102 tablet by ity of mg (65 mg 00:00: mouth 2 [place] iron) 00 (two) Medical tablet times Branch daily. ibuprofen 2020-0 Yes [id number] 600mg Take 1 [facility] 600 mg 4-21 102 tablet by ity of tablet 00:00: mouth [place] 00 every 6 Medical (six) Branch hours as needed (Pain). Take with food or milk. hydroCHLORO 2020-0 Yes [id number] 12.5mg Take 1 [facility] thiazide 4-21 102 capsule by ity o f 12.5 mg 00:00: mouth [place] capsule 00 daily. Medical Branch 2020-0 Yes [id number] 1{tbl} Take 1 [facility] vitamin 4-21 102 tablet by ity of w/FA tablet 00:00: mouth [place] 00 daily. Medical Branch docusate 2020-0 Yes [id number] 240mg Take 1 [facility] calcium 240 4-21 102 capsule by it y of mg capsule 00:00: mouth once [place] 00 daily as Medical needed for Branch Constipati on. ferrous 2020-0 Yes [id number] 325mg Take 1 [facility] sulfate 325 4-21 102 tablet by ity of mg (65 mg 00:00: mouth 2 [place] iron) 00 (two) Medical tablet times Branch daily. ibuprofen 2020-0 Yes [id number] 600mg Take 1 [facility] 600 mg 4-21 102 tablet by ity of tablet 00:00: mouth [place] 00 every 6 Medical (six) Branch hours as needed (Pain). Take with food or milk. hydroCHLORO 2020-0 Yes [id number] 12.5mg Take 1 [facility] thiazide 4-21 102 capsule by ity o f 12.5 mg 00:00: mouth [place] capsule 00 daily. Medical Branch 2020-0 Yes [id number] 1{tbl} Take 1 [facility] vitamin 4-21 102 tablet by ity of w/FA tablet 00:00: mouth [place] 00 daily. Medical Branch docusate 2020-0 Yes [id number] 240mg Take 1 [facility] calcium 240 4-21 102 capsule by it y of mg capsule 00:00: mouth once [place] 00 daily as Medical needed for Branch Constipati on. ferrous 2020-0 Yes [id number] 325mg Take 1 [facility] sulfate 325 4-21 102 tablet by ity of mg (65 mg 00:00: mouth 2 [place] iron) 00 (two) Medical tablet times Branch daily. ibuprofen 2020-0 Yes [id number] 600mg Take 1 [facility] 600 mg 4-21 102 tablet by ity of tablet 00:00: mouth [place] 00 every 6 Medical (six) Branch hours as needed (Pain). Take with food or milk. hydroCHLORO 2020-0 Yes [id number] 12.5mg Take 1 [facility] thiazide 4-21 102 capsule by ity o f 12.5 mg 00:00: mouth [place] capsule 00 daily. Medical Branch 2020-0 Yes [id number] 1{tbl} Take 1 [facility] vitamin 4-21 102 tablet by ity of w/FA tablet 00:00: mouth [place] 00 daily. Medical Branch docusate 2020-0 Yes [id number] 240mg Take 1 [facility] calcium 240 4-21 102 capsule by it y of mg capsule 00:00: mouth once [place] 00 daily as Medical needed for Branch Constipati on. ferrous 2020-0 Yes [id number] 325mg Take 1 [facility] sulfate 325 4-21 102 tablet by ity of mg (65 mg 00:00: mouth 2 [place] iron) 00 (two) Medical tablet times Branch daily. ibuprofen 2020-0 Yes [id number] 600mg Take 1 [facility] 600 mg 4-21 102 tablet by ity of tablet 00:00: mouth [place] 00 every 6 Medical (six) Branch hours as needed (Pain). Take with food or milk. hydroCHLORO 2020-0 Yes [id number] 12.5mg Take 1 [facility] thiazide 4-21 102 capsule by ity o f 12.5 mg 00:00: mouth [place] capsule 00 daily. Medical Branch 2020-0 Yes [id number] 1{tbl} Take 1 [facility] vitamin 4-21 102 tablet by ity of w/FA tablet 00:00: mouth [place] 00 daily. Medical Branch docusate 2020-0 Yes [id number] 240mg Take 1 [facility] calcium 240 4-21 102 capsule by it y of mg capsule 00:00: mouth once [place] 00 daily as Medical needed for Branch Constipati on. ferrous 2020-0 Yes [id number] 325mg Take 1 [facility] sulfate 325 4-21 102 tablet by ity of mg (65 mg 00:00: mouth 2 [place] iron) 00 (two) Medical tablet times Branch daily. ibuprofen 2020-0 Yes [id number] 600mg Take 1 [facility] 600 mg 4-21 102 tablet by ity of tablet 00:00: mouth [place] 00 every 6 Medical (six) Branch hours as needed (Pain). Take with food or milk. hydroCHLORO 2020-0 Yes [id number] 12.5mg Take 1 [facility] thiazide 4-21 102 capsule by ity o f 12.5 mg 00:00: mouth [place] capsule 00 daily. Medical Branch 2020-0 Yes [id number] 1{tbl} Take 1 [facility] vitamin 4-21 102 tablet by ity of w/FA tablet 00:00: mouth [place] 00 daily. Medical Branch docusate 2020-0 Yes [id number] 240mg Take 1 [facility] calcium 240 4-21 102 capsule by it y of mg capsule 00:00: mouth once [place] 00 daily as Medical needed for Branch Constipati on. ferrous 2020-0 Yes [id number] 325mg Take 1 [facility] sulfate 325 4-21 102 tablet by ity of mg (65 mg 00:00: mouth 2 [place] iron) 00 (two) Medical tablet times Branch daily. ibuprofen 2020-0 Yes [id number] 600mg Take 1 [facility] 600 mg 4-21 102 tablet by ity of tablet 00:00: mouth [place] 00 every 6 Medical (six) Branch hours as needed (Pain). Take with food or milk. hydroCHLORO 2020-0 Yes [id number] 12.5mg Take 1 [facility] thiazide 4-21 102 capsule by ity o f 12.5 mg 00:00: mouth [place] capsule 00 daily. Medical Branch 2020-0 Yes [id number] 1{tbl} Take 1 [facility] vitamin 4-21 102 tablet by ity of w/FA tablet 00:00: mouth [place] 00 daily. Medical Branch docusate 2020-0 Yes [id number] 240mg Take 1 [facility] calcium 240 4-21 102 capsule by it y of mg capsule 00:00: mouth once [place] 00 daily as Medical needed for Branch Constipati on. ferrous 2020-0 Yes [id number] 325mg Take 1 [facility] sulfate 325 4-21 102 tablet by ity of mg (65 mg 00:00: mouth 2 [place] iron) 00 (two) Medical tablet times Branch daily. ibuprofen 2020-0 Yes [id number] 600mg Take 1 [facility] 600 mg 4-21 102 tablet by ity of tablet 00:00: mouth [place] 00 every 6 Medical (six) Branch hours as needed (Pain). Take with food or milk. hydroCHLORO 2020-0 Yes [id number] 12.5mg Take 1 [facility] thiazide 4-21 102 capsule by ity o f 12.5 mg 00:00: mouth [place] capsule 00 daily. Medical Branch 2020-0 Yes [id number] 1{tbl} Take 1 [facility] vitamin 4-21 102 tablet by ity of w/FA tablet 00:00: mouth [place] 00 daily. Medical Branch docusate 2020-0 Yes [id number] 240mg Take 1 [facility] calcium 240 4-21 102 capsule by it y of mg capsule 00:00: mouth once [place] 00 daily as Medical needed for Branch Constipati on. ferrous 2020-0 Yes [id number] 325mg Take 1 [facility] sulfate 325 4-21 102 tablet by ity of mg (65 mg 00:00: mouth 2 [place] iron) 00 (two) Medical tablet times Branch daily. ibuprofen 2020-0 Yes [id number] 600mg Take 1 [facility] 600 mg 4-21 102 tablet by ity of tablet 00:00: mouth [place] 00 every 6 Medical (six) Branch hours as needed (Pain). Take with food or milk. hydroCHLORO 2020-0 Yes [id number] 12.5mg Take 1 [facility] thiazide 4-21 102 capsule by ity o f 12.5 mg 00:00: mouth [place] capsule 00 daily. Medical Branch 2020-0 Yes [id number] 1{tbl} Take 1 [facility] vitamin 4-21 102 tablet by ity of w/FA tablet 00:00: mouth [place] 00 daily. Medical Branch docusate 2020-0 Yes [id number] 240mg Take 1 [facility] calcium 240 4-21 102 capsule by it y of mg capsule 00:00: mouth once [place] 00 daily as Medical needed for Branch Constipati on. ferrous 2020-0 Yes [id number] 325mg Take 1 [facility] sulfate 325 4-21 102 tablet by ity of mg (65 mg 00:00: mouth 2 [place] iron) 00 (two) Medical tablet times Branch daily. ibuprofen 2020-0 Yes [id number] 600mg Take 1 [facility] 600 mg 4-21 102 tablet by ity of tablet 00:00: mouth [place] 00 every 6 Medical (six) Branch hours as needed (Pain). Take with food or milk. hydroCHLORO 2020-0 Yes [id number] 12.5mg Take 1 [facility] thiazide 4-21 102 capsule by ity o f 12.5 mg 00:00: mouth [place] capsule 00 daily. Medical Branch 2020-0 Yes [id number] 1{tbl} Take 1 [facility] vitamin 4-21 102 tablet by ity of w/FA tablet 00:00: mouth [place] 00 daily. Medical Branch docusate 2020-0 Yes [id number] 240mg Take 1 [facility] calcium 240 4-21 102 capsule by it y of mg capsule 00:00: mouth once [place] 00 daily as Medical needed for Branch Constipati on. ferrous 2020-0 Yes [id number] 325mg Take 1 [facility] sulfate 325 4-21 102 tablet by ity of mg (65 mg 00:00: mouth 2 [place] iron) 00 (two) Medical tablet times Branch daily. ibuprofen 2020-0 Yes [id number] 600mg Take 1 [facility] 600 mg 4-21 102 tablet by ity of tablet 00:00: mouth [place] 00 every 6 Medical (six) Branch hours as needed (Pain). Take with food or milk. hydroCHLORO 2020-0 Yes [id number] 12.5mg Take 1 [facility] thiazide 4-21 102 capsule by ity o f 12.5 mg 00:00: mouth [place] capsule 00 daily. Medical Branch 2020-0 Yes [id number] 1{tbl} Take 1 [facility] vitamin 4-21 102 tablet by ity of w/FA tablet 00:00: mouth [place] 00 daily. Medical Branch docusate 2020-0 Yes [id number] 240mg Take 1 [facility] calcium 240 4-21 102 capsule by it y of mg capsule 00:00: mouth once [place] 00 daily as Medical needed for Branch Constipati on. ferrous 2020-0 Yes [id number] 325mg Take 1 [facility] sulfate 325 4-21 102 tablet by ity of mg (65 mg 00:00: mouth 2 [place] iron) 00 (two) Medical tablet times Branch daily. ibuprofen 2020-0 Yes [id number] 600mg Take 1 [facility] 600 mg 4-21 102 tablet by ity of tablet 00:00: mouth [place] 00 every 6 Medical (six) Branch hours as needed (Pain). Take with food or milk. hydroCHLORO 2020-0 Yes [id number] 12.5mg Take 1 [facility] thiazide 4-21 102 capsule by ity o f 12.5 mg 00:00: mouth [place] capsule 00 daily. Medical Branch 2020-0 Yes [id number] 1{tbl} Take 1 [facility] vitamin 4-21 102 tablet by ity of w/FA tablet 00:00: mouth [place] 00 daily. Medical Branch docusate 2020-0 Yes [id number] 240mg Take 1 [facility] calcium 240 4-21 102 capsule by it y of mg capsule 00:00: mouth once [place] 00 daily as Medical needed for Branch Constipati on. ferrous 2020-0 Yes [id number] 325mg Take 1 [facility] sulfate 325 4-21 102 tablet by ity of mg (65 mg 00:00: mouth 2 [place] iron) 00 (two) Medical tablet times Branch daily. ibuprofen 2020-0 Yes [id number] 600mg Take 1 [facility] 600 mg 4-21 102 tablet by ity of tablet 00:00: mouth [place] 00 every 6 Medical (six) Branch hours as needed (Pain). Take with food or milk. hydroCHLORO 2020-0 Yes [id number] 12.5mg Take 1 [facility] thiazide 4-21 102 capsule by ity o f 12.5 mg 00:00: mouth [place] capsule 00 daily. Medical Branch 2020-0 Yes [id number] 1{tbl} Take 1 [facility] vitamin 4-21 102 tablet by ity of w/FA tablet 00:00: mouth [place] 00 daily. Medical Branch docusate 2020-0 Yes [id number] 240mg Take 1 [facility] calcium 240 4-21 102 capsule by it y of mg capsule 00:00: mouth once [place] 00 daily as Medical needed for Branch Constipati on. ferrous 2020-0 Yes [id number] 325mg Take 1 [facility] sulfate 325 4-21 102 tablet by ity of mg (65 mg 00:00: mouth 2 [place] iron) 00 (two) Medical tablet times Branch daily. ibuprofen 2020-0 Yes [id number] 600mg Take 1 [facility] 600 mg 4-21 102 tablet by ity of tablet 00:00: mouth [place] 00 every 6 Medical (six) Branch hours as needed (Pain). Take with food or milk. hydroCHLORO 2020-0 Yes [id number] 12.5mg Take 1 [facility] thiazide 4-21 102 capsule by ity o f 12.5 mg 00:00: mouth [place] capsule 00 daily. Medical Branch 2020-0 Yes [id number] 1{tbl} Take 1 [facility] vitamin 4-21 102 tablet by ity of w/FA tablet 00:00: mouth [place] 00 daily. Medical Branch docusate 2020-0 Yes [id number] 240mg Take 1 [facility] calcium 240 4-21 102 capsule by it y of mg capsule 00:00: mouth once [place] 00 daily as Medical needed for Branch Constipati on. ferrous 2020-0 Yes [id number] 325mg Take 1 [facility] sulfate 325 4-21 102 tablet by ity of mg (65 mg 00:00: mouth 2 [place] iron) 00 (two) Medical tablet times Branch daily. ibuprofen 2020-0 Yes [id number] 600mg Take 1 [facility] 600 mg 4-21 102 tablet by ity of tablet 00:00: mouth [place] 00 every 6 Medical (six) Branch hours as needed (Pain). Take with food or milk. hydroCHLORO 2020-0 Yes [id number] 12.5mg Take 1 [facility] thiazide 4-21 102 capsule by ity o f 12.5 mg 00:00: mouth [place] capsule 00 daily. Medical Branch 2020-0 Yes [id number] 1{tbl} Take 1 [facility] vitamin 4-21 102 tablet by ity of w/FA tablet 00:00: mouth [place] 00 daily. Medical Branch docusate 2020-0 Yes [id number] 240mg Take 1 [facility] calcium 240 4-21 102 capsule by it y of mg capsule 00:00: mouth once [place] 00 daily as Medical needed for Branch Constipati on. ferrous 2020-0 Yes [id number] 325mg Take 1 [facility] sulfate 325 4-21 102 tablet by ity of mg (65 mg 00:00: mouth 2 [place] iron) 00 (two) Medical tablet times Branch daily. ibuprofen 2020-0 Yes [id number] 600mg Take 1 [facility] 600 mg 4-21 102 tablet by ity of tablet 00:00: mouth [place] 00 every 6 Medical (six) Branch hours as needed (Pain). Take with food or milk. hydroCHLORO 2020-0 Yes [id number] 12.5mg Take 1 [facility] thiazide 4-21 102 capsule by ity o f 12.5 mg 00:00: mouth [place] capsule 00 daily. Medical Branch 2020-0 Yes [id number] 1{tbl} Take 1 [facility] vitamin 4-21 102 tablet by ity of w/FA tablet 00:00: mouth [place] 00 daily. Medical Branch docusate 2020-0 Yes [id number] 240mg Take 1 [facility] calcium 240 4-21 102 capsule by it y of mg capsule 00:00: mouth once [place] 00 daily as Medical needed for Branch Constipati on. ferrous 2020-0 Yes [id number] 325mg Take 1 [facility] sulfate 325 4-21 102 tablet by ity of mg (65 mg 00:00: mouth 2 [place] iron) 00 (two) Medical tablet times Branch daily. ibuprofen 2020-0 Yes [id number] 600mg Take 1 [facility] 600 mg 4-21 102 tablet by ity of tablet 00:00: mouth [place] 00 every 6 Medical (six) Branch hours as needed (Pain). Take with food or milk. hydroCHLORO 2020-0 Yes [id number] 12.5mg Take 1 [facility] thiazide 4-21 102 capsule by ity o f 12.5 mg 00:00: mouth [place] capsule 00 daily. Medical Branch 2020-0 Yes [id number] 1{tbl} Take 1 [facility] vitamin 4-21 102 tablet by ity of w/FA tablet 00:00: mouth [place] 00 daily. Medical Branch docusate 2020-0 Yes [id number] 240mg Take 1 [facility] calcium 240 4-21 102 capsule by it y of mg capsule 00:00: mouth once [place] 00 daily as Medical needed for Branch Constipati on. ferrous 2020-0 Yes [id number] 325mg Take 1 [facility] sulfate 325 4-21 102 tablet by ity of mg (65 mg 00:00: mouth 2 [place] iron) 00 (two) Medical tablet times Branch daily. ibuprofen 2020-0 Yes [id number] 600mg Take 1 [facility] 600 mg 4-21 102 tablet by ity of tablet 00:00: mouth [place] 00 every 6 Medical (six) Branch hours as needed (Pain). Take with food or milk. hydroCHLORO 2020-0 Yes [id number] 12.5mg Take 1 [facility] thiazide 4-21 102 capsule by ity o f 12.5 mg 00:00: mouth [place] capsule 00 daily. Medical Branch 2020-0 Yes [id number] 1{tbl} Take 1 [facility] vitamin 4-21 102 tablet by ity of w/FA tablet 00:00: mouth [place] 00 daily. Medical Branch docusate 2020-0 Yes [id number] 240mg Take 1 [facility] calcium 240 4-21 102 capsule by it y of mg capsule 00:00: mouth once [place] 00 daily as Medical needed for Branch Constipati on. ferrous 2020-0 Yes [id number] 325mg Take 1 [facility] sulfate 325 4-21 102 tablet by ity of mg (65 mg 00:00: mouth 2 [place] iron) 00 (two) Medical tablet times Branch daily. ibuprofen 2020-0 Yes [id number] 600mg Take 1 [facility] 600 mg 4-21 102 tablet by ity of tablet 00:00: mouth [place] 00 every 6 Medical (six) Branch hours as needed (Pain). Take with food or milk. hydroCHLORO 2020-0 Yes [id number] 12.5mg Take 1 [facility] thiazide 4-21 102 capsule by ity o f 12.5 mg 00:00: mouth [place] capsule 00 daily. Medical Branch 2020-0 Yes [id number] 1{tbl} Take 1 [facility] vitamin 4-21 102 tablet by ity of w/FA tablet 00:00: mouth [place] 00 daily. Medical Branch docusate 2020-0 Yes [id number] 240mg Take 1 [facility] calcium 240 4-21 102 capsule by it y of mg capsule 00:00: mouth once [place] 00 daily as Medical needed for Branch Constipati on. rho(D) 2020-0 Yes 300ug 300 mcg, Univer s immune 4-20 Intramuscu ity of globulin 17:13: lar, ONCE, [place] (RHOGAM) 34 For 1 Medical syringe 300 dose, Branch mcg Conditiona l, Routine ibuprofen 2020-0 Yes 600mg 600 mg, Univ ers (IBU) 4-20 Oral, ity of tablet 600 17:13: Q6HPRN, [place] mg 29 Starting Medical Mon Branch 11/23/19 at 1213, Until Discontinu ed, Routine, Pain (scale 4-6) acetaminoph 2020-0 Yes 650mg 650 mg, Un mar[facility] a en 4-20 Oral, ity of (TYLENOL) 17:13: Q6HPRN, [place] tablet 650 29 Starting Medic al mg Mon Branch 11/23/19 at 1213, Until Discontinu ed, Routine, Pain (scale 1-3) diphenhydrA 2020-0 Yes 25mg 25 mg, Univ ers MINE 4-20 Oral, ity of (BENADRYL) 17:13: Q6HPRN, [place] tablet 25 29 Starting Medica l mg Mon Branch 11/23/19 at 1213, Until Discontinu ed, Routine, Sleep, Itching ondansetron 2020-0 Yes 4mg 4 mg, Slow Univers (ZOFRAN 4-20 IV Push, ity of (PF)) 17:13: Q8HPRN, [place] injection 4 29 Starting Medi francis mg Mon Branch 11/23/19 at 1213, Until Discontinu ed, Routine, Nausea and Vomiting (N/V) simethicone 2020-0 Yes 160mg 160 mg, Un mar[facility] a (GAS RELIEF 4-20 Oral, ity of (SIMETHICON 17:13: PC+HSPRN, [place] E)) 29 Starting Medical chewable Mon Branch tablet 160 11/23/19 at mg 1213, Until Discontinu ed, Routine, Gas docusate 2020-0 Yes 240mg 240 mg, Unive rs calcium 4-20 Oral, ity of (SURFAK) 17:13: QDAILYPRN, [place] capsule 240 29 Starting Medi francis mg Mon Branch 11/23/19 at 1213, Until Discontinu ed, Routine, Constipati on magnesium 2020-0 Yes 30mL 30 mL, Univer s hydroxide 4-20 Oral, ity of (MILK OF 17:13: QDAILYPRN, [place] MAGNESIA) 29 Starting Medica l 400 mg/5 mL Mon Branch suspension 11/23/19 at 30 mL 1213, Until Discontinu ed, Routine, Constipati on benzocaine- 2019- Yes Topical, [place] a menthol 4-20 PRN, ity of (DERMOPLAST 17:13: Starting [place] ) 20-0.5 % 29 Mon Medical topical 11/23/19 at Branch spray 1213, Until Discontinu ed, Routine, Perineum discomfort NaCl 0.9% 2019- No IV Univers (NS) 1000 11-22 Infusion, ity of mL + KCL 40 14:00: 15:07 at 125 [place] mEq 00 :00 mL/hr, Medical ONCE, 1 Branch dose, 11/23/19 at 0900, Routine clindamycin 2019- No 900mg 900 mg, IV Univers in 5 % 11-22 Piggyback, ity of dextrose 13:00: 12:21 ONCE, 1 [place] (CLEOCIN) 00 :00 dose, Mon Medic al 900 mg/50 11/23/19 at Bran ch mL IV 0800, 50 piggyback mL
Reas RTU 900 mg on for Anti-Infec tive: Empiric Therapy for Suspected Infection< br>Restric andriy use approved by: [employer] PROVIDER gentamicin 2019- No 5mg/kg 280 mg [place] a 40 mg/mL 11-22 (rounded ity of 280 mg in 12:00: 15:02 from 273.5 [place] NaCl 0.9% 00 :00 mg = 5 Medical (NS) 250 mL mg/kg Branch IV infusion ?54.7 kg [place] weight), IV Infusion, ONCE, 1 dose, 11/23/19 at 0700, 250 mL
Reas on for Anti-Infec tive: Empiric Therapy for Suspected Infection [id number]-LR IV 2019-0 2020- No 1000mL at 125 Uni vers infusion 11-22-20 mL/hr, IV ity o f 1,000 mL 05:45: 17:13 Infusion, [place] 00 :35 CONTINUOUS Medical , Starting Branch 11/23/19 at 0045, Until 11/23/19 at 1213, Routine LR 1000 mL 2019- No 2mU/min 2-40 Uni vers + oxytocin 11-22-20 dion-unit it y of 20 units IV 05:29: 17:13 s/min [place] Solution 06 :35 (6-120 Medical mL/hr), IV Branch Infusion, TITRATE, Oxytocin Induction / Augmentati on of Labor, Starting 11/23/19 at 0029
In fuse IV through a controlled infusion pump at a proximal port on the peripheral IV line.&nbsp ; Sta rt at 2 dion-unit s/min and increase by 2 dion-unit s/min every 20 minutes according to oxytocin policy 7.11.52.&n bsp; Going over 20 dion-unit s/min requires faculty approval.& nbsp;&nbsp ;Max 40 dion-unit s/min.
lactated 2020- No 500mL at 999 Unive rs ringers IV 11-22-20 mL/hr, 500 it y of infusion 05:00: 04:05 mL, IV [place] 500 mL 00 :00 Infusion, Medical ONCE, 1 Branch dose, 11/23/19 at 0000, Routine proMETHazin 2019- No 25mg 25 mg, IV Univers e 11-22 Piggyback, ity of (PHENERGAN) 04:00: 04:06 ONCE, 1 [place] 25 mg in 00 :00 dose, Sun Medica l NaCl 0.9% 11/22/19 at Bran ch (NS) 50 mL 2300, 50 piggyback mL FENTanyl PF 2020- No 100ug 100 mcg, Univers (SUBLIMAZE 11-22 Slow IV ity o f (PF)) 04:00: 04:06 Push, [place] injection 00 :00 ONCE, 1 Medical 100 mcg dose, Sun Branch 11/22/19 at 2300, Routine 2020-0 Yes Take by [facility] vit 4-19 mouth. ity of calc,iron,f 18:26: [facility] 53 Medical ( Branch VITAMIN ORAL) 2020-0 Yes Take by [facility] Scan•Jour vit 4-09 mouth. ity of calc,iron,f 21:07: [facility] 59 Medical ( Branch VITAMIN ORAL) 2020-0 Yes Take by [facility] Scan•Jour vit 4-09 mouth. ity of calc,iron,f 21:07: [facility] 59 Medical ( Branch VITAMIN ORAL) ondansetron 2018-08 Yes TK 1 T PO U nivers 4 mg tablet 2-24 Q 12 HOURS it y of 00:00: NEEDED [place] [address] Medical Branch predniSONE 2018-08 Yes TK 1 T PO Un mar[place] a 20 mg 2-24 ONCE DAILY ity of tablet 00:00: FOR 5 DAYS [place] Medical Branch ondansetron 2018-08 Yes TK 1 T PO U nivers 4 mg tablet 2-24 Q 12 HOURS it y of 00:00: NEEDED [place] [address] Medical Branch predniSONE 2018-08 Yes TK 1 T PO [place] a 20 mg 2-24 ONCE DAILY ity of tablet 00:00: FOR 5 DAYS [place] [address] Medical Branch ondansetron 2018-08 Yes TK 1 T PO U nivers 4 mg tablet 2-24 Q 12 HOURS it y of 00:00: NEEDED [place] [address] Medical Branch predniSONE 2018-08 Yes TK 1 T PO Un [place] a 20 mg 2-24 ONCE DAILY ity of tablet 00:00: FOR 5 DAYS [place] [address] Medical Branch ondansetron 2018-08 Yes TK 1 T PO U nivers 4 mg tablet 2-24 Q 12 HOURS it y of 00:00: NEEDED [place] [address] Medical Branch predniSONE 2018-08 Yes TK 1 T PO Un [place] a 20 mg 2-24 ONCE DAILY ity of tablet 00:00: FOR 5 DAYS [place] [address] Medical Branch ondansetron 2018-08 Yes TK 1 T PO U nivers 4 mg tablet 2-24 Q 12 HOURS it y of 00:00: NEEDED [place] [address] Medical Branch predniSONE 2018- Yes TK 1 T PO Un [place] a 20 mg 2-24 ONCE DAILY ity of tablet 00:00: FOR 5 DAYS [place] [address] Medical Branch ondansetron 2018-08 Yes TK 1 T PO U nivers 4 mg tablet 2-24 Q 12 HOURS it y of 00:00: NEEDED [place] [address] Medical Branch predniSONE 2018- Yes TK 1 T PO Un [place] a 20 mg 2-24 ONCE DAILY ity of tablet 00:00: FOR 5 DAYS [place] [address] Medical Branch ondansetron 2018-08 Yes TK 1 T PO U nivers 4 mg tablet 2-24 Q 12 HOURS it y of 00:00: NEEDED [place] [address] Medical Branch predniSONE 2018- Yes TK 1 T PO Un [place] a 20 mg 2-24 ONCE DAILY ity of tablet 00:00: FOR [address] [place] [facility] ondansetron 2019- Yes TK 1 T PO U nivers 4 mg tablet 2-24 Q 12 HOURS it y of 00:00: NEEDED [address] predniSONE 2019- Yes TK 1 T PO Un [place] a 20 mg 2-24 ONCE DAILY ity of tablet 00:00: FOR [address] [place] [facility] ondansetron 2019 Yes TK 1 T PO U nivers 4 mg tablet 2-24 Q 12 HOURS it y of 00:00: NEEDED [address] predniSONE 2019- Yes TK 1 T PO [place] a 20 mg 2-24 ONCE DAILY ity of tablet 00:00: FOR [address] ondansetron 2018- Yes TK 1 T PO U nivers 4 mg tablet 2-24 Q 12 HOURS it y of 00:00: NEEDED [address] predniSONE 2019- Yes TK 1 T PO [place] a 20 mg 2-24 ONCE DAILY ity of tablet 00:00: FOR [address] ondansetron 2019- Yes TK 1 T PO U nivers 4 mg tablet 2-24 Q 12 HOURS it y of 00:00: NEEDED [place] [address] Medical [place] predniSONE 2019- Yes TK 1 T PO Un mar[place] a 20 mg 2-24 ONCE DAILY ity of tablet 00:00: FOR [address] ondansetron 2018- Yes TK 1 T PO U nivers 4 mg tablet 2-24 Q 12 HOURS it y of 00:00: NEEDED [address] predniSONE 2019- Yes TK 1 T PO [place] a 20 mg 2-24 ONCE DAILY ity of tablet 00:00: FOR [address] ondansetron 2018- Yes TK 1 T PO U nivers 4 mg tablet 2-24 Q 12 HOURS it y of 00:00: NEEDED [address] predniSONE 2019- Yes TK 1 T PO [place] a 20 mg 2-24 ONCE DAILY ity of tablet 00:00: FOR [address] ondansetron 2018-08 Yes TK 1 T PO U nivers 4 mg tablet 2-24 Q 12 HOURS it y of 00:00: NEEDED [address] predniSONE 2019- Yes TK 1 T PO [place] a 20 mg 2-24 ONCE DAILY ity of tablet 00:00: FOR 5 DAYS [place] [facility] Branch ondansetron 2019- Yes TK 1 T PO U nivers 4 mg tablet 2-24 Q 12 HOURS it y of 00:00: NEEDED [place] [facility] Branch ondansetron 2019- Yes TK 1 T PO U nivers 4 mg tablet 2-24 Q 12 HOURS it y of 00:00: NEEDED [facility] ondansetron 2019- Yes TK 1 T PO U nivers 4 mg tablet 2-24 Q 12 HOURS it y of 00:00: NEEDED [facility] ondansetron 2019- Yes TK 1 T PO U nivers 4 mg tablet 2-24 Q 12 HOURS it y of 00:00: NEEDED [facility] ondansetron 2019- Yes TK 1 T PO U nivers 4 mg tablet 2-24 Q 12 HOURS it y of 00:00: NEEDED [facility] ondansetron 2019- Yes TK 1 T PO U nivers 4 mg tablet 2-24 Q 12 HOURS it y of 00:00: NEEDED [facility] ondansetron 2019- Yes TK 1 T PO U nivers 4 mg tablet 2-24 Q 12 HOURS it y of 00:00: NEEDED [facility] ondansetron 2019- Yes TK 1 T PO U nivers 4 mg tablet 2-24 Q 12 HOURS it y of 00:00: NEEDED [facility] ondansetron 2019- Yes TK 1 T PO U nivers 4 mg tablet 2-24 Q 12 HOURS it y of 00:00: NEEDED [facility] ondansetron 2019- Yes TK 1 T PO U nivers 4 mg tablet 2-24 Q 12 HOURS it y of 00:00: NEEDED [facility] ondansetron 2019- 2020- No TK 1 T PO [facility] 4 mg tablet 2-24 -21 Q 12 HOURS i ty of 00:00: 00:00 NEEDED [place] 00 :00 [facility] predniSONE 2019- 2020- No TK 1 T PO U nivers 20 mg 2-24 - ONCE DAILY ity of tablet 00:00: 00:00 FOR 5 DAYS [facility] :[facility] predniSONE 2019-1 2020- No TK 1 T PO U nivers 20 mg 2-24 - ONCE DAILY ity of tablet 00:00: 00:00 FOR 5 DAYS [facility] 00 :[facility] 2019- Yes Take by Univer s vit 0-28 mouth. ity of calc,iron,f 16:26: [place] [id number] Medical ( Branch VITAMIN ORAL) 2019- Yes Take by Univer s vit 0-28 mouth. ity of calc,iron,f 16:26: [place] [id number] Medical ( Branch VITAMIN ORAL) 2019- Yes Take by Univer s vit 0-28 mouth. ity of calc,iron,f 16:26: [place] [id number] Medical ( Branch VITAMIN ORAL) 2019- Yes Take by Univer s vit 0-28 mouth. ity of calc,iron,f 16:26: [place] [id number] Medical ( Branch VITAMIN ORAL) 2019- Yes Take by Univer s vit 0-28 mouth. ity of calc,iron,f 16:26: [address] ( Branch VITAMIN ORAL) 2019- Yes Take by Univer s vit 0-28 mouth. ity of calc,iron,f 16:26: [address] ( Branch VITAMIN ORAL) 2019- Yes Take by Univer s vit 0-28 mouth. ity of calc,iron,f 16:26: [address] ( Branch VITAMIN ORAL) 2019- Yes Take by Univer s vit 0-28 mouth. ity of calc,iron,f 16:26: [place] [id number] Medical ( Branch VITAMIN ORAL) 2019- Yes Take by Univer s vit 0-28 mouth. ity of calc,iron,f 16:26: [place] [address] Medical ( Branch VITAMIN ORAL) 2019- Yes Take by Univer s vit 0-28 mouth. ity of calc,iron,f 16:26: [place] [address] Medical ( Branch VITAMIN ORAL) 2019- Yes Take by Univer s vit 0-28 mouth. ity of calc,iron,f 16:26: [place] [address] Medical ( Branch VITAMIN ORAL) 2019- Yes Take by Univer s vit 0-28 mouth. ity of calc,iron,f 16:26: [place] [address] Medical ( Branch VITAMIN ORAL) 2019- Yes Take by Univer s vit 0-28 mouth. ity of calc,iron,f 16:26: [place] [address] Medical ( Branch VITAMIN ORAL) 2019- Yes Take by Univer s vit 0-28 mouth. ity of calc,iron,f 16:26: [place] [address] Medical ( Branch VITAMIN ORAL) 2019- Yes Take by Univer s vit 0-28 mouth. ity of calc,iron,f 16:26: [place] [address] Medical ( Branch VITAMIN ORAL) 2019- Yes Take by Univer s vit 0-28 mouth. ity of calc,iron,f 16:26: [place] [address] Medical ( Branch VITAMIN ORAL) 2019- Yes Take by Univer s vit 0-28 mouth. ity of calc,iron,f 16:26: [place] [address] Medical ( Branch VITAMIN ORAL) 2019- Yes Take by Univer s vit 0-28 mouth. ity of calc,iron,f 16:26: [address] ( Branch VITAMIN ORAL) 2019- Yes Take by Univer s vit 0-28 mouth. ity of calc,iron,f 16:26: [place] [address] Medical ( Branch VITAMIN ORAL) 2019- Yes Take by Univer s vit 0-28 mouth. ity of calc,iron,f 16:26: [address] ( Branch VITAMIN ORAL) 2019- Yes Take by Univer s vit 0-28 mouth. ity of calc,iron,f 16:26: [place] [address] Medical ( Branch VITAMIN ORAL) metoclopram 2018-08 Yes [id number] 10mg Take 1 [facility] jason HCl 10 0-07 tablet by ity of mg tablet 00:00: mouth [place] 00 every 6 Medical (six) Branch hours as needed for Nausea and Vomiting (N/V). metoclopram 2018-08 Yes [id number] 10mg Take 1 [facility] jason HCl 10 0-07 tablet by ity of mg tablet 00:00: mouth [place] 00 every 6 Medical (six) Branch hours as needed for Nausea and Vomiting (N/V). metoclopram 2018-08 Yes [id number] 10mg Take 1 [facility] jason HCl 10 0-07 tablet by ity of mg tablet 00:00: mouth [place] 00 every 6 Medical (six) Branch hours as needed for Nausea and Vomiting (N/V). metoclopram 2018-08 Yes [id number] 10mg Take 1 [facility] jason HCl 10 0-07 tablet by ity of mg tablet 00:00: mouth [place] 00 every 6 Medical (six) Branch hours as needed for Nausea and Vomiting (N/V). metoclopram 2018-08 Yes [id number] 10mg Take 1 [facility] jason HCl 10 0-07 tablet by ity of mg tablet 00:00: mouth [place] 00 every 6 Medical (six) Branch hours as needed for Nausea and Vomiting (N/V). metoclopram 2018-08 Yes [id number] 10mg Take 1 [facility] jason HCl 10 0-07 tablet by ity of mg tablet 00:00: mouth [place] 00 every 6 Medical (six) Branch hours as needed for Nausea and Vomiting (N/V). metoclopram 2018-08 Yes [id number] 10mg Take 1 [facility] jason HCl 10 0-07 tablet by ity of mg tablet 00:00: mouth [place] 00 every 6 Medical (six) Branch hours as needed for Nausea and Vomiting (N/V). metoclopram 2018-08 Yes [id number] 10mg Take 1 [facility] jason HCl 10 0-07 tablet by ity of mg tablet 00:00: mouth [place] 00 every 6 Medical (six) Branch hours as needed for Nausea and Vomiting (N/V). metoclopram 2018-08 Yes [id number] 10mg Take 1 [facility] jason HCl 10 0-07 tablet by ity of mg tablet 00:00: mouth [place] 00 every 6 Medical (six) Branch hours as needed for Nausea and Vomiting (N/V). metoclopram 2018-08 Yes [id number] 10mg Take 1 [facility] jason HCl 10 0-07 tablet by ity of mg tablet 00:00: mouth [place] 00 every 6 Medical (six) Branch hours as needed for Nausea and Vomiting (N/V). metoclopram 2018-08 Yes [id number] 10mg Take 1 [facility] jason HCl 10 0-07 tablet by ity of mg tablet 00:00: mouth [place] 00 every 6 Medical (six) Branch hours as needed for Nausea and Vomiting (N/V). metoclopram 2018-08 Yes [id number] 10mg Take 1 [facility] jason HCl 10 0-07 tablet by ity of mg tablet 00:00: mouth [place] 00 every 6 Medical (six) Branch hours as needed for Nausea and Vomiting (N/V). metoclopram 2018-08 Yes [id number] 10mg Take 1 [facility] jason HCl 10 0-07 tablet by ity of mg tablet 00:00: mouth [place] 00 every 6 Medical (six) Branch hours as needed for Nausea and Vomiting (N/V). metoclopram 2018-08 Yes [id number] 10mg Take 1 [facility] jason HCl 10 0-07 tablet by ity of mg tablet 00:00: mouth [place] 00 every 6 Medical (six) Branch hours as needed for Nausea and Vomiting (N/V). metoclopram 2018-08 Yes [id number] 10mg Take 1 [facility] jason HCl 10 0-07 tablet by ity of mg tablet 00:00: mouth [place] 00 every 6 Medical (six) Branch hours as needed for Nausea and Vomiting (N/V). metoclopram 2018-08 Yes [id number] 10mg Take 1 [facility] jason HCl 10 0-07 tablet by ity of mg tablet 00:00: mouth [place] 00 every 6 Medical (six) Branch hours as needed for Nausea and Vomiting (N/V). metoclopram 2018-08 Yes [id number] 10mg Take 1 [facility] jason HCl 10 0-07 tablet by ity of mg tablet 00:00: mouth [place] 00 every 6 Medical (six) Branch hours as needed for Nausea and Vomiting (N/V). metoclopram 2018-08 Yes [id number] 10mg Take 1 [facility] jason HCl 10 0-07 tablet by ity of mg tablet 00:00: mouth [place] 00 every 6 Medical (six) Branch hours as needed for Nausea and Vomiting (N/V). metoclopram 2018-08 Yes [id number] 10mg Take 1 [facility] jason HCl 10 0-07 tablet by ity of mg tablet 00:00: mouth [place] 00 every 6 Medical (six) Branch hours as needed for Nausea and Vomiting (N/V). metoclopram 2018-08 Yes [id number] 10mg Take 1 [facility] jason HCl 10 0-07 tablet by ity of mg tablet 00:00: mouth [place] 00 every 6 Medical (six) Branch hours as needed for Nausea and Vomiting (N/V). metoclopram 2018-08 Yes [id number] 10mg Take 1 [facility] jason HCl 10 0-07 tablet by ity of mg tablet 00:00: mouth [place] 00 every 6 Medical (six) Branch hours as needed for Nausea and Vomiting (N/V). metoclopram 2018-08 Yes [id number] 10mg Take 1 [facility] jason HCl 10 0-07 tablet by ity of mg tablet 00:00: mouth [place] 00 every 6 Medical (six) Branch hours as needed for Nausea and Vomiting (N/V). metoclopram 2018-08 Yes [id number] 10mg Take 1 [facility] jason HCl 10 0-07 tablet by ity of mg tablet 00:00: mouth [place] 00 every 6 Medical (six) Branch hours as needed for Nausea and Vomiting (N/V). metoclopram 2018-08 Yes [id number] 10mg Take 1 [facility] jason HCl 10 0-07 tablet by ity of mg tablet 00:00: mouth [place] 00 every 6 Medical (six) Branch hours as needed for Nausea and Vomiting (N/V). metoclopram 2018-08 2020- No [id number] 10mg Take 1 [facility] jason HCl 10 0-07 04-21 tablet by ity of mg tablet 00:00: 00:00 mouth [place] 00 :00 every 6 Medical (six) Branch hours as needed for Nausea and Vomiting (N/V). doxylamine 2018- Yes [id number] 12.5mg Take 0.5 [facility] 25 mg 9-25 tablets by ity of tablet 00:00: mouth [place] 00 every 6 Medical (six) Branch hours. pyridoxine, 2019-0 Yes [id number] 25mg Take 1 [facility] vitamin B6, 9-25 tablet by ity of 25 mg 00:00: mouth [place] tablet 00 every 6 Medical (six) Branch hours. doxylamine 2018-0 Yes [id number] 12.5mg Take 0.5 [facility] 25 mg 9-25 tablets by ity of tablet 00:00: mouth [place] 00 every 6 Medical (six) Branch hours. pyridoxine, 2019-0 Yes [id number] 25mg Take 1 [facility] vitamin B6, 9-25 tablet by ity of 25 mg 00:00: mouth [place] tablet 00 every 6 Medical (six) Branch hours. doxylamine 2018-0 Yes [id number] 12.5mg Take 0.5 [facility] 25 mg 9-25 tablets by ity of tablet 00:00: mouth [place] 00 every 6 Medical (six) Branch hours. pyridoxine, 2019-0 Yes [id number] 25mg Take 1 [facility] vitamin B6, 9-25 tablet by ity of 25 mg 00:00: mouth [place] tablet 00 every 6 Medical (six) Branch hours. doxylamine 2019-0 Yes [id number] 12.5mg Take 0.5 [facility] 25 mg 9-25 tablets by ity of tablet 00:00: mouth [place] 00 every 6 Medical (six) Branch hours. pyridoxine, 2019-0 Yes [id number] 25mg Take 1 [facility] vitamin B6, 9-25 tablet by ity of 25 mg 00:00: mouth [place] tablet 00 every 6 Medical (six) Branch hours. doxylamine 2019-0 Yes [id number] 12.5mg Take 0.5 [facility] 25 mg 9-25 tablets by ity of tablet 00:00: mouth [place] 00 every 6 Medical (six) Branch hours. pyridoxine, 2019-0 Yes [id number] 25mg Take 1 [facility] vitamin B6, 9-25 tablet by ity of 25 mg 00:00: mouth [place] tablet 00 every 6 Medical (six) Branch hours. doxylamine 2018-0 Yes [id number] 12.5mg Take 0.5 [facility] 25 mg 9-25 tablets by ity of tablet 00:00: mouth [place] 00 every 6 Medical (six) Branch hours. pyridoxine, 2019-0 Yes [id number] 25mg Take 1 [facility] vitamin B6, 9-25 tablet by ity of 25 mg 00:00: mouth [place] tablet 00 every 6 Medical (six) Branch hours. doxylamine 2019-0 Yes [id number] 12.5mg Take 0.5 [facility] 25 mg 9-25 tablets by ity of tablet 00:00: mouth [place] 00 every 6 Medical (six) Branch hours. pyridoxine, 2019-0 Yes [id number] 25mg Take 1 [facility] vitamin B6, 9-25 tablet by ity of 25 mg 00:00: mouth [place] tablet 00 every 6 Medical (six) Branch hours. doxylamine 2019-0 Yes [id number] 12.5mg Take 0.5 [facility] 25 mg 9-25 tablets by ity of tablet 00:00: mouth [place] 00 every 6 Medical (six) Branch hours. pyridoxine, 2019-0 Yes [id number] 25mg Take 1 [facility] vitamin B6, 9-25 tablet by ity of 25 mg 00:00: mouth [place] tablet 00 every 6 Medical (six) Branch hours. doxylamine 2019-0 Yes [id number] 12.5mg Take 0.5 [facility] 25 mg 9-25 tablets by ity of tablet 00:00: mouth [place] 00 every 6 Medical (six) Branch hours. pyridoxine, 2019-0 Yes [id number] 25mg Take 1 [facility] vitamin B6, 9-25 tablet by ity of 25 mg 00:00: mouth [place] tablet 00 every 6 Medical (six) Branch hours. doxylamine 2019-0 Yes [id number] 12.5mg Take 0.5 [facility] 25 mg 9-25 tablets by ity of tablet 00:00: mouth [place] 00 every 6 Medical (six) Branch hours. pyridoxine, 2019-0 Yes [id number] 25mg Take 1 [facility] vitamin B6, 9-25 tablet by ity of 25 mg 00:00: mouth [place] tablet 00 every 6 Medical (six) Branch hours. doxylamine 2018-0 Yes [id number] 12.5mg Take 0.5 [facility] 25 mg 9-25 tablets by ity of tablet 00:00: mouth [place] 00 every 6 Medical (six) Branch hours. pyridoxine, 2019-0 Yes [id number] 25mg Take 1 [facility] vitamin B6, 9-25 tablet by ity of 25 mg 00:00: mouth [place] tablet 00 every 6 Medical (six) Branch hours. doxylamine 2018-0 Yes [id number] 12.5mg Take 0.5 [facility] 25 mg 9-25 tablets by ity of tablet 00:00: mouth [place] 00 every 6 Medical (six) Branch hours. pyridoxine, 2018-0 Yes [id number] 25mg Take 1 [facility] vitamin B6, 9-25 tablet by ity of 25 mg 00:00: mouth [place] tablet 00 every 6 Medical (six) Branch hours. doxylamine 2019-0 Yes [id number] 12.5mg Take 0.5 [facility] 25 mg 9-25 tablets by ity of tablet 00:00: mouth [place] 00 every 6 Medical (six) Branch hours. pyridoxine, 2019-0 Yes [id number] 25mg Take 1 [facility] vitamin B6, 9-25 tablet by ity of 25 mg 00:00: mouth [place] tablet 00 every 6 Medical (six) Branch hours. doxylamine 2018-0 Yes [id number] 12.5mg Take 0.5 [facility] 25 mg 9-25 tablets by ity of tablet 00:00: mouth [place] 00 every 6 Medical (six) Branch hours. pyridoxine, 2019-0 Yes [id number] 25mg Take 1 [facility] vitamin B6, 9-25 tablet by ity of 25 mg 00:00: mouth [place] tablet 00 every 6 Medical (six) Branch hours. doxylamine 2019-0 Yes [id number] 12.5mg Take 0.5 [facility] 25 mg 9-25 tablets by ity of tablet 00:00: mouth [place] 00 every 6 Medical (six) Branch hours. pyridoxine, 2019-0 Yes [id number] 25mg Take 1 [facility] vitamin B6, 9-25 tablet by ity of 25 mg 00:00: mouth [place] tablet 00 every 6 Medical (six) Branch hours. doxylamine 2018-0 Yes [id number] 12.5mg Take 0.5 [facility] 25 mg 9-25 tablets by ity of tablet 00:00: mouth [place] 00 every 6 Medical (six) Branch hours. pyridoxine, 2018-0 Yes [id number] 25mg Take 1 [facility] vitamin B6, 9-25 tablet by ity of 25 mg 00:00: mouth [place] tablet 00 every 6 Medical (six) Branch hours. doxylamine 2018-0 Yes [id number] 12.5mg Take 0.5 [facility] 25 mg 9-25 tablets by ity of tablet 00:00: mouth [place] 00 every 6 Medical (six) Branch hours. pyridoxine, 2019-0 Yes [id number] 25mg Take 1 [facility] vitamin B6, 9-25 tablet by ity of 25 mg 00:00: mouth [place] tablet 00 every 6 Medical (six) Branch hours. doxylamine 2018-0 Yes [id number] 12.5mg Take 0.5 [facility] 25 mg 9-25 tablets by ity of tablet 00:00: mouth [place] 00 every 6 Medical (six) Branch hours. pyridoxine, 2019-0 Yes [id number] 25mg Take 1 [facility] vitamin B6, 9-25 tablet by ity of 25 mg 00:00: mouth [place] tablet 00 every 6 Medical (six) Branch hours. doxylamine 2019-0 Yes [id number] 12.5mg Take 0.5 [facility] 25 mg 9-25 tablets by ity of tablet 00:00: mouth [place] 00 every 6 Medical (six) Branch hours. pyridoxine, 2019-0 Yes [id number] 25mg Take 1 [facility] vitamin B6, 9-25 tablet by ity of 25 mg 00:00: mouth [place] tablet 00 every 6 Medical (six) Branch hours. doxylamine 2019-0 Yes [id number] 12.5mg Take 0.5 [facility] 25 mg 9-25 tablets by ity of tablet 00:00: mouth [place] 00 every 6 Medical (six) Branch hours. pyridoxine, 2019-0 Yes [id number] 25mg Take 1 [facility] vitamin B6, 9-25 tablet by ity of 25 mg 00:00: mouth [place] tablet 00 every 6 Medical (six) Branch hours. doxylamine 2019-0 Yes [id number] 12.5mg Take 0.5 [facility] 25 mg 9-25 tablets by ity of tablet 00:00: mouth [place] 00 every 6 Medical (six) Branch hours. pyridoxine, 2019-0 Yes [id number] 25mg Take 1 [facility] vitamin B6, 9-25 tablet by ity of 25 mg 00:00: mouth [place] tablet 00 every 6 Medical (six) Branch hours. doxylamine 2018-0 Yes [id number] 12.5mg Take 0.5 [facility] 25 mg 9-25 tablets by ity of tablet 00:00: mouth [place] 00 every 6 Medical (six) Branch hours. pyridoxine, 2019-0 Yes [id number] 25mg Take 1 [facility] vitamin B6, 9-25 tablet by ity of 25 mg 00:00: mouth [place] tablet 00 every 6 Medical (six) Branch hours. doxylamine 2019-0 Yes [id number] 12.5mg Take 0.5 [facility] 25 mg 9-25 tablets by ity of tablet 00:00: mouth [place] 00 every 6 Medical (six) Branch hours. pyridoxine, 2019-0 Yes [id number] 25mg Take 1 [facility] vitamin B6, 9-25 tablet by ity of 25 mg 00:00: mouth [place] tablet 00 every 6 Medical (six) Branch hours. doxylamine 2019-0 Yes [id number] 12.5mg Take 0.5 [facility] 25 mg 9-25 tablets by ity of tablet 00:00: mouth [place] 00 every 6 Medical (six) Branch hours. pyridoxine, 2019-0 Yes [id number] 25mg Take 1 [facility] vitamin B6, 9-25 tablet by ity of 25 mg 00:00: mouth [place] tablet 00 every 6 Medical (six) Branch hours. doxylamine 2018- 2020- No [id number] 12.5mg Take 0.5 [facility] 25 mg 9-25 04-21 tablets by ity of tablet 00:00: 00:00 mouth [place] 00 :00 every 6 Medical (six) Branch hours. pyridoxine, 2018- 2020- No [id number] 25mg Take 1 [facility] vitamin B6, 9-25 04-21 tablet by it y of 25 mg 00:00: 00:00 mouth [place] tablet 00 :00 every 6 Medical (six) Branch hours. proMETHazin Yes [id number] 25mg Insert 1 [facility] e 8-30 Suppositor ity of (PHENERGAN) 00:00: [place] 25 mg 00 rectum Medical suppository every 4 Branc h (four) hours as needed for Nausea and Vomiting (N/V). proMETHazin Yes [id number] 25mg Insert 1 [facility] e 8-30 Suppositor ity of (PHENERGAN) 00:00: y [place] 25 mg 00 rectum Medical suppository every 4 Branc h (four) hours as needed for Nausea and Vomiting (N/V). proMETHazin Yes [id number] 25mg Insert 1 [facility] e 8-30 Suppositor ity of (PHENERGAN) 00:00: y [place] 25 mg 00 rectum Medical suppository every 4 Branc h (four) hours as needed for Nausea and Vomiting (N/V). proMETHazin Yes [id number] 25mg Insert 1 [facility] e 8-30 Suppositor ity of (PHENERGAN) 00:00: y [place] 25 mg 00 rectum Medical suppository every 4 Branc h (four) hours as needed for Nausea and Vomiting (N/V). proMETHazin Yes [id number] 25mg Insert 1 [facility] e 8-30 Suppositor ity of (PHENERGAN) 00:00: y [place] 25 mg 00 rectum Medical suppository every 4 Branc h (four) hours as needed for Nausea and Vomiting (N/V). proMETHazin Yes [id number] 25mg Insert 1 [facility] e 8-30 Suppositor ity of (PHENERGAN) 00:00: y [place] mg 00 rectum Medical suppository every 4 Branc h (four) hours as needed for Nausea and Vomiting (N/V). proMETHazin 2019-0 Yes [id number] 25mg Insert 1 [facility] e 8-30 Suppositor ity of (PHENERGAN) 00:00: y [place] mg 00 rectum Medical suppository every 4 Branc h (four) hours as needed for Nausea and Vomiting (N/V). proMETHazin 2019-0 Yes [id number] 25mg Insert 1 [facility] e 8-30 Suppositor ity of (PHENERGAN) 00:00: y [place] mg 00 rectum Medical suppository every 4 Branc h (four) hours as needed for Nausea and Vomiting (N/V). proMETHazin 2018-0 Yes [id number] 25mg Insert 1 [facility] e 8-30 Suppositor ity of (PHENERGAN) 00:00: y [place] mg 00 rectum Medical suppository every 4 Branc h (four) hours as needed for Nausea and Vomiting (N/V). proMETHazin 2019- No [id number] 25mg Insert 1 [facility] e 8-30 08-30 Suppositor ity of (PHENERGAN) 00:00: 00:00 y into [place] 25 mg 00 :00 rectum Medical suppository every 4 Branc h (four) hours as needed for Nausea and Vomiting (N/V). proMETHazin 2019- Yes [id number] 25mg Take 1 [facility] e 25 mg 8-29 tablet by ity of tablet 00:00: mouth [place] 00 every 6 Medical (six) Branch hours as needed for Nausea and Vomiting (N/V). proMETHazin 2019-0 Yes [id number] 25mg Take 1 [facility] e 25 mg 8-29 tablet by ity of tablet 00:00: mouth [place] 00 every 6 Medical (six) Branch hours as needed for Nausea and Vomiting (N/V). proMETHazin 2019-0 Yes [id number] 25mg Take 1 [facility] e 25 mg 8-29 tablet by ity of tablet 00:00: mouth [place] 00 every 6 Medical (six) Branch hours as needed for Nausea and Vomiting (N/V). proMETHazin 2019-0 Yes [id number] 25mg Take 1 Univers e 25 mg 8-29 tablet by ity of tablet 00:00: mouth [place] 00 every 6 Medical (six) Branch hours as needed for Nausea and Vomiting (N/V). proMETHazin Yes [id number] 25mg Take 1 Univers e 25 mg 8-29 tablet by ity of tablet 00:00: mouth [place] 00 every 6 Medical (six) Branch hours as needed for Nausea and Vomiting (N/V). proMETHazin Yes [id number] 25mg Take 1 Univers e 25 mg 8-29 tablet by ity of tablet 00:00: mouth [place] 00 every 6 Medical (six) Branch hours as needed for Nausea and Vomiting (N/V). proMETHazin Yes [id number] 25mg Take 1 Univers e 25 mg 8-29 tablet by ity of tablet 00:00: mouth [place] 00 every 6 Medical (six) Branch hours as needed for Nausea and Vomiting (N/V). proMETHazin Yes [id number] 25mg Take 1 Univers e 25 mg 8-29 tablet by ity of tablet 00:00: mouth [place] 00 every 6 Medical (six) Branch hours as needed for Nausea and Vomiting (N/V). proMETHazin Yes [id number] 25mg Take 1 Univers e 25 mg 8-29 tablet by ity of tablet 00:00: mouth [place] 00 every 6 Medical (six) Branch hours as needed for Nausea and Vomiting (N/V). proMETHazin Yes [id number] 25mg Take 1 [facility] e 25 mg 8-29 tablet by ity of tablet 00:00: mouth [place] 00 every 6 Medical (six) Branch hours as needed for Nausea and Vomiting (N/V). levonorgest Yes [id number] 1{tbl} Take 1 Tab [facility] rel-ethinyl 5-15 by mouth ity of estradiol 00:00: daily. [place] (AVIANE,JANE 00 Medical [facility] ) 0.1-20 mg-mcg per tablet levonorgest Yes [id number] 1{tbl} Take 1 Tab [facility] rel-ethinyl 5-15 by mouth ity of estradiol 00:00: daily. [place] (AVIANE,JANE 00 Medical [facility] Branch ) 0.1-20 mg-mcg per tablet levonorgest Yes [id number] 1{tbl} Take 1 Tab [facility] rel-ethinyl 5-15 by mouth ity of estradiol 00:00: daily. [place] (AVIANE,JANE [facility] ) 0.1-20 mg-mcg per tablet levonorgest Yes [id number] 1{tbl} Take 1 Tab [facility] rel-ethinyl 5-15 by mouth ity of estradiol 00:00: daily. [place] (AVIANE,JANE [facility] ) 0.1-20 mg-mcg per tablet levonorgest Yes [id number] 1{tbl} Take 1 Tab [facility] rel-ethinyl 5-15 by mouth ity of estradiol 00:00: daily. [place] (AVIANE,JANE [facility] ) 0.1-20 mg-mcg per tablet levonorgest Yes [id number] 1{tbl} Take 1 Tab [facility] rel-ethinyl 5-15 by mouth ity of estradiol 00:00: daily. [place] (AVIANE,JANE [facility] ) 0.1-20 mg-mcg per tablet levonorgest Yes [id number] 1{tbl} Take 1 Tab [facility] rel-ethinyl 5-15 by mouth ity of estradiol 00:00: daily. [place] (AVIANE,JANE [facility] ) 0.1-20 mg-mcg per tablet levonorgest Yes [id number] 1{tbl} Take 1 Tab [facility] rel-ethinyl 5-15 by mouth ity of estradiol 00:00: daily. [place] (AVIANE,JANE [facility] ) 0.1-20 mg-mcg per tablet levonorgest Yes [id number] 1{tbl} Take 1 Tab [facility] rel-ethinyl 5-15 by mouth ity of estradiol 00:00: daily. [place] (AVIANE,JANE [facility] ) 0.1-20 mg-mcg per tablet levonorgest Yes [id number] 1{tbl} Take 1 Tab [facility] rel-ethinyl 5-15 by mouth ity of estradiol 00:00: daily. [place] (AVIANE,JANE [facility] ) 0.1-20 mg-mcg per tablet levonorgest 2013-0 Yes [id number] 1{tbl} Take 1 Tab [facility] rel-ethinyl 5-15 by mouth ity of estradiol 00:00: daily. [place] (AVIANE,JANE 00 Medical [facility] ) 0.1-20 mg-mcg per tablet Immunizations Ordered Filled Immunization Date Status Comments [facility] e Immunization Name Name TD 2020-12-16 Completed [facility] 00:[facility]00 [facility] TDAP 2020-12-16 Completed [facility] 00[facility]00 [facility] TDAP 2020-12-16 Completed [facility] 00:00:00 [facility] TDAP 2020-12-16 Completed [facility] 00:00:00 [facility] TDAP 2020-12-16 Completed [facility] 00:00:00 [facility] TDAP 2020-12-16 Completed [facility] 00:00:00 [facility] TDAP 2020-12-16 Completed [facility] 00:00:00 [facility] TDAP 2020-12-16 Completed [facility] 00:00:00 [facility] TDAP 2020-12-16 Completed [facility] 00:00:00 [facility] TDAP 2020-12-16 Completed [facility] 00:00:00 [facility] TDAP 2020-12-16 Completed [facility] 00:00:00 [facility] TDAP 2020-12-16 Completed [facility] 00:00:00 [facility] TDAP 2020-12-16 Completed [facility] 00:00:00 [facility] TDAP 2020-12-16 Completed [facility] 00:00:00 [facility] TDAP 2020-12-16 Completed [facility] 00:00:00 [facility] TDAP 2020-12-16 Completed [facility]00 [facility] TDAP 2020-12-16 Completed [facility] 00:[facility]:00 [facility] TDAP 2020-12-16 Completed [facility] 00:[facility]:00 [facility] TDAP 2020-12-16 Completed [facility] 00:00:00 [facility] TDAP 2020-12-16 Completed [facility] 00:00:00 [facility] TDAP 2020-12-16 Completed [facility] 00:00:00 [facility] TDAP 2020-12-16 Completed [facility] 00:00:00 [facility] TDAP 2020-12-16 Completed [facility] 00:00:00 [facility] TDAP 2020-12-16 Completed [facility] 00:00:00 [facility] TDAP 2020-12-16 Completed [facility] 00:00:00 [facility] TDAP 2020-12-16 Completed [facility] 00:00:00 [facility] TDAP 2020-12-16 Completed [facility] 00:00:00 [facility] TDAP 2020-12-16 Completed [facility] 00:00:00 [facility] TDAP 2020-12-16 Completed [facility] 00:00:00 [facility] TDAP 2020-12-16 Completed [facility] 00:00:00 [facility] TDAP 2020-12-16 Completed [facility] 00:00:00 [facility] TDAP 2020-12-16 Completed [facility] 00:00:00 [facility] TDAP 2020-12-16 Completed [facility] 00:00:00 [facility] TDAP 2020-12-16 Completed [facility] 00:00:00 [facility] TDAP 2020-12-16 Completed [facility] 00:00:00 [facility] TDAP 2020-12-16 Completed [facility] 00:00:00 [facility] TDAP 2020-12-16 Completed [facility] 00:00:00 [facility] TDAP 2020-12-16 Completed [facility] 00:00:00 [facility] TDAP 2020-12-16 Completed [facility] 00:00:00 [facility] TDAP 2020-12-16 Completed [facility] 00:00:00 [facility] TDAP 2020-12-16 Completed [facility] 00:00:00 [facility] TDAP 2020-12-16 Completed [facility] 00:00:00 [facility] TDAP (ADACEL) 2019-09-17 Completed [facility] of VACCINE 00:00:00 [facility] TDAP (ADACEL) 2019-09-17 Completed [facility] VACCINE 00:00:00 [facility] TDAP (ADACEL) 2019-09-17 Completed [facility] VACCINE 00:00:00 [facility] TDAP (ADACEL) 2019-09-17 Completed [facility] VACCINE 00:00:00 [facility] TDAP (ADACEL) 2019-09-17 Completed [facility] VACCINE 00:00:00 [facility] TDAP (ADACEL) 2019-09-17 Completed [facility] VACCINE 00:00:00 [facility] TDAP (ADACEL) 2019-09-17 Completed [facility] VACCINE 00:00:00 [facility] TDAP (ADACEL) 2019-09-17 Completed [facility] VACCINE 00:00:00 [facility] TDAP (ADACEL) 2019-09-17 Completed [facility] VACCINE 00:00:00 [facility] TDAP (ADACEL) 2019-09-17 Completed [facility] VACCINE 00:00:00 [facility] TDAP (ADACEL) 2019-09-17 Completed [facility] VACCINE 00:00:00 [facility] TDAP (ADACEL) 2019-09-17 Completed [facility] VACCINE 00:00:00 [facility] TDAP (ADACEL) 2019-09-17 Completed [facility] of VACCINE 00:00:00 [facility] TDAP (ADACEL) 2019-09-17 Completed [facility] VACCINE 00:00:00 [facility] TDAP (ADACEL) 2019-09-17 Completed [facility] VACCINE 00:00:00 [facility] TDAP (ADACEL) 2019-09-17 Completed [facility] VACCINE 00:00:00 [facility] TDAP (ADACEL) 2019-09-17 Completed [facility] VACCINE 00:00:00 [facility] TDAP (ADACEL) 2019-09-17 Completed [facility] VACCINE 00:00:00 [facility] TDAP (ADACEL) 2019-09-17 Completed [facility] VACCINE 00:00:00 [facility] TDAP (ADACEL) 2019-09-17 Completed [facility] VACCINE 00:00:00 [facility] TDAP (ADACEL) 2019-09-17 Completed [facility] VACCINE 00:00:00 [facility] TDAP (ADACEL) 2019-09-17 Completed [facility] VACCINE 00:00:00 [facility] TDAP (ADACEL) 2019-09-17 Completed [facility] VACCINE 00:00:00 [facility] TDAP (ADACEL) 2019-09-17 Completed [facility] VACCINE 00:00:00 [facility] TDAP (ADACEL) 2019-09-17 Completed [facility] VACCINE 00:00:00 [facility] TDAP (ADACEL) 2019-09-17 Completed [facility] VACCINE 00:00:00 [facility] TDAP (ADACEL) 2019-09-17 Completed [facility] VACCINE 00:00:00 [facility] TDAP (ADACEL) 2019-09-17 Completed [facility] VACCINE 00:00:00 [facility] TDAP (ADACEL) 2019-09-17 Completed [facility] VACCINE 00:00:00 [facility] TDAP (ADACEL) 2019-09-17 Completed [facility] VACCINE 00:00:00 [facility] TDAP (ADACEL) 2019-09-17 Completed [facility] VACCINE 00:00:00 [facility] TDAP (ADACEL) 2019-09-17 Completed [facility] VACCINE 00:00:00 [facility] TDAP (ADACEL) 2019-09-17 Completed [facility] VACCINE 00:00:00 [facility] TDAP (ADACEL) 2019-09-17 Completed [facility] VACCINE 00:00:00 [facility] TDAP (ADACEL) 2019-09-17 Completed [facility] VACCINE 00:00:00 [facility] TDAP (ADACEL) 2019-09-17 Completed [facility] VACCINE 00:00:00 [facility] TDAP (ADACEL) 2019-09-17 Completed [facility] VACCINE 00:00:00 [facility] TDAP (ADACEL) 2019-09-17 Completed [facility] VACCINE 00:00:00 [facility] TDAP (ADACEL) 2019-09-17 Completed [facility] VACCINE 00:00:00 [facility] TDAP (ADACEL) 2019-09-17 Completed [facility] VACCINE 00:00:00 [facility] TDAP (ADACEL) 2019-09-17 Completed [facility] VACCINE 00:00:00 [facility] TDAP (ADACEL) 2019-09-17 Completed [facility] VACCINE 00:00:00 [facility] TDAP (ADACEL) 2019-09-17 Completed [facility] VACCINE 00:00:00 [facility] TDAP (ADACEL) 2019-09-17 Completed [facility] VACCINE 00:00:00 [facility] TDAP (ADACEL) 2019-09-17 Completed [facility] VACCINE 00:00:00 [facility] TDAP (ADACEL) 2019-09-17 Completed [facility] VACCINE 00:00:00 [facility] TDAP (ADACEL) 2019-09-17 Completed [facility] VACCINE 00:00:00 [facility] TDAP (ADACEL) 2019-09-17 Completed [facility] VACCINE 00:00:00 [facility] TDAP (ADACEL) 2019-09-17 Completed [facility] VACCINE 00:00:00 [facility] TDAP (ADACEL) 2019-09-17 Completed [facility] VACCINE 00:00:00 [facility] TDAP (ADACEL) 2019-09-17 Completed [facility] VACCINE 00:00:00 [facility] TDAP (ADACEL) 2019-09-17 Completed [facility] VACCINE 00:00:00 [facility] TDAP (ADACEL) 2019-09-17 Completed [facility] VACCINE 00:00:00 [facility] TDAP (ADACEL) 2019-09-17 Completed [facility] VACCINE 00:00:00 [facility] TDAP (ADACEL) 2019-09-17 Completed [facility] VACCINE 00:00:00 [facility] TDAP (ADACEL) 2019-09-17 Completed [facility] VACCINE 00:00:00 [facility] TDAP (ADACEL) 2019-09-17 Completed [facility] VACCINE 00:00:00 [facility] TDAP (ADACEL) 2019-09-17 Completed [facility] VACCINE 00:00:00 [facility] TDAP (ADACEL) 2019-09-17 Completed [facility] VACCINE 00:00:00 [facility] TDAP (ADACEL) 2019-09-17 Completed [facility] VACCINE 00:00:00 [facility] TDAP (ADACEL) 2019-09-17 Completed [facility] VACCINE 00:00:00 [facility] TDAP (ADACEL) 2019-09-17 Completed [facility] VACCINE 00:00:00 [facility] TDAP (ADACEL) 2019-09-17 Completed [facility] VACCINE 00:00:00 [facility] TDAP (ADACEL) 2019-09-17 Completed [facility] VACCINE 00:00:00 [facility] TDAP (ADACEL) 2019-09-17 Completed [facility] VACCINE 00:00:00 [facility] TDAP (ADACEL) 2019-09-17 Completed [facility] VACCINE 00:00:00 [facility] TDAP (ADACEL) 2019-09-17 Completed [facility] VACCINE 00:00:00 [facility] TDAP (ADACEL) 2019-09-17 Completed [facility] VACCINE 00:00:00 [facility] TDAP (ADACEL) 2019-09-17 Completed [facility] VACCINE 00:00:00 [facility] TDAP (ADACEL) 2019-09-17 Completed [facility] VACCINE 00:00:00 [facility] TDAP (ADACEL) 2019-09-17 Completed [facility] VACCINE 00:00:00 [facility] TDAP (ADACEL) 2019-09-17 Completed [facility] VACCINE 00:00:00 [facility] TDAP (ADACEL) 2019-09-17 Completed [facility] VACCINE 00:00:00 [facility] TDAP (ADACEL) 2019-09-17 Completed [facility] VACCINE 00:00:00 [facility] TDAP (ADACEL) 2019-09-17 Completed [facility] VACCINE 00:00:00 [facility] TDAP (ADACEL) 2019-09-17 Completed [facility] VACCINE 00:00:00 [facility] TDAP (ADACEL) 2019-09-17 Completed [facility] VACCINE 00:00:00 [facility] TDAP (ADACEL) 2019-09-17 Completed [facility] of VACCINE 00:00:00 [facility] TDAP (ADACEL) 2019-09-17 Completed [facility] VACCINE 00:00:00 [facility] TDAP (ADACEL) 2019-09-17 Completed [facility] of VACCINE 00:00:00 [facility] Td 2008-08-05 Completed [facility] 00:00:00 [facility] Td 2008-08-05 Completed [facility] 00:00:00 [facility] Td 2008-08-05 Completed [facility] 00:00:00 [facility] Td 2008-08-05 Completed [facility] 00:00:00 [facility] Td 2008-08-05 Completed [facility] 00:00:00 [facility] Td 2008-08-05 Completed [facility] 00:00:00 [facility] Td 2008-08-05 Completed [facility] 00:00:00 [facility] Td 2008-08-05 Completed [facility] 00:00:00 [facility] Td 2008-08-05 Completed [facility] 00:00:00 [facility] Td 2008-08-05 Completed [facility] 00:00:00 [facility] Td 2008-08-05 Completed [facility] 00:00:00 [facility] Td 2008-08-05 Completed [facility] 00:00:00 [facility] Td 2008-08-05 Completed [facility] 00:00:00 [facility] Td 2008-08-05 Completed [facility] 00:00:00 [facility] Td 2008-08-05 Completed [facility] 00:00:00 [facility] Td 2008-08-05 Completed [facility] 00:00:00 [facility] Td 2008-08-05 Completed [facility] 00:00:00 [facility] Td 2008-08-05 Completed [facility] 00:00:00 [facility] Td 2008-08-05 Completed [facility] 00:00:00 [facility] Td 2008-08-05 Completed [facility] 00:00:00 [facility] Td 2008-08-05 Completed [facility] 00:00:00 [facility] Td 2008-08-05 Completed [facility] 00:00:00 [facility] Td 2008-08-05 Completed [facility] 00:00:00 [facility] Td 2008-08-05 Completed [facility] 00:00:00 [facility] Td 2008-08-05 Completed [facility] 00:00:00 [facility] Td 2008-08-05 Completed [facility] 00:00:00 [facility] Td 2008-08-05 Completed [facility] 00:00:00 [facility] Td 2008-08-05 Completed [facility] 00:00:00 [facility] Td 2008-08-05 Completed [facility] 00:00:00 [facility] Td 2008-08-05 Completed [facility] 00:00:00 [facility] Td 2008-08-05 Completed [facility] 00:00:00 [facility] Td 2008-08-05 Completed [facility] 00:00:00 [facility] Td 2008-08-05 Completed [facility] 00:00:00 [facility] Td 2008-08-05 Completed [facility] 00:00:00 [facility] Td 2008-08-05 Completed [facility] 00:00:00 [facility] Td 2008-08-05 Completed [facility] 00:00:00 [facility] Td 2008-08-05 Completed [facility] 00:00:00 [facility] Td 2008-08-05 Completed [facility] 00:00:00 [facility] Td 2008-08-05 Completed [facility] 00:00:00 [facility] Td 2008-08-05 Completed [facility] 00:00:00 [facility] Td 2008-08-05 Completed [facility] 00:00:00 [facility] Td 2008-08-05 Completed [facility] 00:00:00 [facility] Td 2008-08-05 Completed [facility] 00:00:00 [facility] Td 2008-08-05 Completed [facility] 00:00:00 [facility] Td 2008-08-05 Completed [facility] 00:00:00 [facility] Td 2008-08-05 Completed [facility] 00:00:00 [facility] Td 2008-08-05 Completed [facility] 00:00:00 [facility] Td 2008-08-05 Completed [facility] 00:00:00 [facility] Td 2008-08-05 Completed [facility] 00:00:00 [facility] Td 2008-08-05 Completed [facility] 00:00:00 [facility] Td 2008-08-05 Completed [facility] 00:00:00 [facility] Td 2008-08-05 Completed [facility] 00:00:00 [facility] Td 2008-08-05 Completed [facility] 00:00:00 [facility] Td 2008-08-05 Completed [facility] 00:00:00 [facility] Td 2008-08-05 Completed [facility] 00:00:00 [facility] Td 2008-08-05 Completed [facility] 00:00:00 [facility] Td 2008-08-05 Completed [facility] 00:00:00 [facility] Td 2008-08-05 Completed [facility] 00:00:00 [facility] Td 2008-08-05 Completed [facility] 00:00:00 [facility] Td 2008-08-05 Completed [facility] 00:00:00 [facility] Td 2008-08-05 Completed [facility] 00:00:00 [facility] Td 2008-08-05 Completed [facility] 00:00:00 [facility] Td 2008-08-05 Completed [facility] 00:00:00 [facility] Td 2008-08-05 Completed [facility] 00:00:00 [facility] Td 2008-08-05 Completed [facility] 00:00:00 [facility] Td 2008-08-05 Completed [facility] 00:00:00 [facility] Td 2008-08-05 Completed [facility] 00:00:00 [facility] Td 2008-08-05 Completed [facility] 00:00:00 [facility] Td 2008-08-05 Completed [facility] 00:00:00 [facility] Td 2008-08-05 Completed [facility] 00:00:00 [facility] Td 2008-08-05 Completed [facility] 00:00:00 [facility] Td 2008-08-05 Completed [facility] 00:00:00 [facility] Td 2008-08-05 Completed [facility] 00:00:00 [facility] Td 2008-08-05 Completed [facility] 00:00:00 [facility] Td 2008-08-05 Completed [facility] 00:00:00 [facility] Td 2008-08-05 Completed [facility] 00:00:00 [facility] Td 2008-08-05 Completed [facility] 00:00:00 [facility] Td 2008-08-05 Completed [facility] 00:00:00 [facility] Td 2008-08-05 Completed [facility] 00:00:00 [facility] Td 2008-08-05 Completed [facility] 00:00:00 [facility] Td 2008-08-05 Completed [facility] 00:00:00 [facility] Td 2008-08-05 Completed [facility] 00:00:00 [facility] Td 2008-08-05 Completed [facility] 00:00:00 [facility] Td 2008-08-05 Completed [facility] 00:00:00 [facility] Td 2008-08-05 Completed [facility] 00:00:00 [facility] Td 2008-08-05 Completed [facility] 00:00:00 [facility] Td 2008-08-05 Completed [facility] 00:00:00 [facility] Td 2008-08-05 Completed [facility] 00:00:00 [facility] Td 2008-08-05 Completed [facility] 00:00:00 [facility] Td 2008-08-05 Completed [facility] 00:00:00 [facility] Td 2008-08-05 Completed [facility] 00:00:00 [facility] Td 2008-08-05 Completed [facility] 00:00:00 [facility] Td 2008-08-05 Completed [facility] 00:00:00 [facility] Vital Signs Vital Name Observation Time Observation Value Comments Source Systolic blood 2022-07-25 112 mm[Hg] [facility] of pressure 18:52:00 [facility] Diastolic blood 2022-07-25 69 mm[Hg] Martha o f pressure 18:52:00 [facility] Heart rate 2022-07-25 66 /min [facility] of 18:52:00 [facility] Body temperature 2022-07-25 36.83 Malika [facility] 18:52:00 [facility] Respiratory rate 2022-07-25 18 /min [facility] 18:52:00 [facility] Body height 2022-07-25 165.1 cm [facility] of 18:52:00 [facility] Body weight 2022-07-25 78.472 kg [facility] of 18:52:00 [facility] BMI 2022-07-25 28.79 kg/m2 [facility] of 18:52:00 [facility] Oxygen saturation 2022-07-25 99 /min [facility] of in Arterial blood 18:52:00 [facility] Systolic blood 2022-03-07 109 mm[Hg] [facility] of pressure 20:09:17 [facility] Diastolic blood 2022-03-07 62 mm[Hg] University o f pressure 20:09:17 [facility] Heart rate 2022-03-07 63 /min [facility] of 20:09:17 [facility] Respiratory rate 2022-03-07 18 /min [facility] of 20:09:17 [facility] Oxygen saturation 2022-03-07 99 /min [facility] of in Arterial blood 20:09:17 [facility] Body temperature 2022-03-07 36.78 Malika [facility] 14:43:00 [facility] Body weight 2022-03-07 83.915 kg University of 14:43:00 [facility] BMI 2022-03-07 31.74 kg/m2 [facility] of 14:43:00 [facility] Systolic blood 2021-03-01 123 mm[Hg] [facility] of pressure 19:01:00 [facility] Diastolic blood 2021-03-01 67 mm[Hg] [facility] o f pressure 19:01:00 [facility] Heart rate 2021-03-01 61 /min [facility] 19:01:00 [facility] Body temperature 2021-03-01 37 Malika [facility] 19:01:00 [facility] Respiratory rate 2021-03-01 16 /min [facility] 19:01:00 [facility] Body height 2021-03-01 162.6 cm [facility] of 19:01:00 [facility] Body weight 2021-03-01 86.807 kg [facility] of 19:01:00 [facility] BMI 2021-03-01 32.85 kg/m2 [facility] of 19:01:00 [facility] Systolic blood 2021-02-27 119 mm[Hg] [facility] of pressure 20:30:00 [facility] Diastolic blood 2021-02-27 69 mm[Hg] University o f pressure 20:30:00 [facility] Heart rate 2021-02-27 60 /min [facility] of 20:30:00 [facility] Body temperature 2021-02-27 36.44 Malika [facility] 20:30:00 [facility] Respiratory rate 2021-02-27 16 /min [facility] 20:30:00 [facility] Body height 2021-02-27 162.6 cm [facility] of 20:30:00 [facility] Body weight 2021-02-27 87.743 kg [facility] of 20:30:00 [facility] BMI 2021-02-27 33.20 kg/m2 [facility] of 20:30:00 [facility] Systolic blood 2021-02-22 127 mm[Hg] [facility] of pressure 20:50:00 [facility] Diastolic blood 2021-02-22 73 mm[Hg] University o f pressure 20:50:00 [facility] Heart rate 2021-02-22 71 /min [facility] 20:50:00 [facility] Body temperature 2021-02-22 37.11 Malika [facility] 20:50:00 [facility] Respiratory rate 2021-02-22 16 /min [facility] 20:50:00 [facility] Body height 2021-02-22 162.6 cm [facility] 20:50:00 [facility] Body weight 2021-02-22 88.083 kg [facility] of 20:50:00 [facility] BMI 2021-02-22 33.33 kg/m2 [facility] of 20:50:00 [facility] Systolic blood 2021-02-13 120 mm[Hg] [facility] of pressure 18:11:00 [facility] Diastolic blood 2021-02-13 74 mm[Hg] University o f pressure 18:11:00 [facility] Heart rate 2021-02-13 76 /min [facility] 18:11:00 [facility] Body temperature 2021-02-13 37 Malika [facility] 18:11:00 [facility] Respiratory rate 2021-02-13 16 /min [facility] 18:11:00 [facility] Body height 2021-02-13 162.6 cm [facility] of 18:11:00 [facility] Body weight 2021-02-13 85.872 kg [facility] of 18:11:00 [facility] BMI 2021-02-13 32.50 kg/m2 [facility] of 18:11:00 [facility] Systolic blood 2021-02-08 130 mm[Hg] [facility] of pressure 18:18:00 [facility] Diastolic blood 2021-02-08 74 mm[Hg] University o f pressure 18:18:00 [facility] Heart rate 2021-02-08 69 /min [facility] 18:18:00 [facility] Body temperature 2021-02-08 37.56 Malika [facility] 18:18:00 [facility] Respiratory rate 2021-02-08 16 /min [facility] 18:18:00 [facility] Body height 2021-02-08 162.6 cm [facility] 18:18:00 [facility] Body weight 2021-02-08 86.41 kg [facility] of 18:18:00 [facility] BMI 2021-02-08 32.70 kg/m2 [facility] of 18:18:00 [facility] Systolic blood 2021-02-06 122 mm[Hg] [facility] of pressure 20:34:00 [facility] Diastolic blood 2021-02-06 70 mm[Hg] University o f pressure 20:34:00 [facility] Heart rate 2021-02-06 81 /min [facility] of 20:34:00 [facility] Body temperature 2021-02-06 37.33 Malika [facility] of 20:34:00 [facility] Respiratory rate 2021-02-06 16 /min [facility] 20:34:00 [facility] Body height 2021-02-06 162.6 cm [facility] 20:34:00 [facility] Body weight 2021-02-06 86.75 kg [facility] of 20:34:00 [facility] BMI 2021-02-06 32.83 kg/m2 University of 20:34:00 [facility] Systolic blood 2021-01-13 140 mm[Hg] taken on lower University of pressure 00:15:00 [facility] Diastolic blood 2021-01-13 86 mm[Hg] taken on lower University of pressure 00:15:00 [facility] Heart rate 2021-01-13 79 /min [facility] of 00:15:00 [facility] Body temperature 2021-01-13 36.56 Malika [facility] of 00:15:00 [facility] Respiratory rate 2021-01-13 18 /min [facility] of 00:15:00 [facility] Oxygen saturation 2021-01-12 100 /min [facility] Arterial blood 22:20:00 [facility] Body weight 2021-01-12 82.918 kg [facility] of 12:50:00 [facility] BMI 2021-01-12 31.38 kg/m2 [facility] of 12:50:00 [facility] Body height 2021-01-12 162.6 cm [facility] of 12:37:00 [facility] Systolic blood 2021-01-06 120 mm[Hg] [facility] pressure 15:16:00 [facility] Diastolic blood 2021-01-06 71 mm[Hg] [facility] f pressure 15:16:00 [facility] Heart rate 2021-01-06 57 /min [facility] of 15:16:00 [facility] Body temperature 2021-01-06 36.89 Malika [facility] 15:16:00 [facility] Respiratory rate 2021-01-06 16 /min [facility] 15:16:00 [facility] Body height 2021-01-06 165.1 cm University of 15:16:00 [facility] Body weight 2021-01-06 83.915 kg University of 15:16:00 [facility] BMI 2021-01-06 30.79 kg/m2 University of 15:16:00 [facility] Systolic blood 2020-12-16 117 mm[Hg] [facility] pressure 19:16:00 [facility] Diastolic blood 2020-12-16 69 mm[Hg] [facility] pressure 19:16:00 [facility] Heart rate 2020-12-16 68 /min [facility] 19:16:00 [facility] Body temperature 2020-12-16 36.94 Malika [facility] 19:16:00 [facility] Respiratory rate 2020-12-16 16 /min [facility] 19:16:00 [facility] Body height 2020-12-16 165.1 cm [facility] 19:16:00 [facility] Body weight 2020-12-16 83.178 kg [facility] of 19:16:00 [facility] BMI 2020-12-16 30.52 kg/m2 [facility] of 19:16:00 [facility] Systolic blood 2020-10-28 138 mm[Hg] [facility] pressure 15:38:00 [facility] Diastolic blood 2020-10-28 87 mm[Hg] [facility] pressure 15:38:00 [facility] Heart rate 2020-10-28 86 /min [facility] 15:38:00 [facility] Body temperature 2020-10-28 36.56 Malika [facility] 15:38:00 [facility] Respiratory rate 2020-10-28 16 /min [facility] 15:38:00 [facility] Body height 2020-10-28 165.1 cm [facility] 15:38:00 [facility] Body weight 2020-10-28 82.101 kg [facility] 15:38:00 [facility] BMI 2020-10-28 30.12 kg/m2 [facility] 15:38:00 [facility] Systolic blood 2020-04-16 129 mm[Hg] [facility] pressure 04:54:00 [facility] Diastolic blood 2020-04-16 86 mm[Hg] [facility] pressure 04:54:00 [facility] Heart rate 2020-04-16 55 /min [facility] of 04:54:00 [facility] Respiratory rate 2020-04-16 17 /min [facility] of 04:54:00 [facility] Oxygen saturation 2020-04-16 99 /min University of in Arterial blood 04:54:00 [facility] by Pulse oximetry [place] Body temperature 2020-04-16 37.17 Malika [facility] 01:53:00 [facility] Body height 2020-04-16 162.6 cm [facility] 01:53:00 [facility] Body weight 2020-04-16 83.915 kg [facility] 01:53:00 [facility] BMI 2020-04-16 31.76 kg/m2 [facility] 01:53:00 [facility] Systolic blood 2020-04-16 129 mm[Hg] [facility] pressure 04:54:00 [facility] Diastolic blood 2020-04-16 86 mm[Hg] [facility] pressure 04:54:00 [facility] Heart rate 2020-04-16 55 /min [facility] 04:54:00 [facility] Respiratory rate 2020-04-16 17 /min [facility] 04:54:00 [facility] Oxygen saturation 2020-04-16 99 /min [facility] of in Arterial blood 04:54:00 [facility] by Pulse oximetry [place] Body temperature 2020-04-16 37.17 Malika [facility] 01:53:00 [facility] Body height 2020-04-16 162.6 cm [facility] :53:00 [facility] Body weight 2020-04-16 83.915 kg Martha of 01:53:00 [facility] BMI 2020-04-16 31.76 kg/m2 [facility] 01:53:00 [facility] Systolic blood 2020-04-15 115 mm[Hg] [facility] pressure 05:07:51 [facility] Diastolic blood 2020-04-15 72 mm[Hg] [facility] pressure 05:07:51 [facility] Heart rate 2020-04-15 61 /min [facility] of 05:07:51 [facility] Respiratory rate 2020-04-15 16 /min [facility] of 05:07:51 [facility] Oxygen saturation 2020-04-15 97 /min [facility] of in Arterial blood 05:07:51 [facility] Pulse o[facility] Body weight 2020-04-15 87.091 kg University of 03:41:00 [facility] BMI 2020-04-15 32.96 kg/m2 University of 03:41:00 [facility] Body temperature 2020-04-15 36.67 Malika [facility] of 03:30:00 [facility] Systolic blood 2020-04-15 115 mm[Hg] [facility] pressure 05:07:51 [facility] Diastolic blood 2020-04-15 72 mm[Hg] [facility] pressure 05:07:51 [facility] Heart rate 2020-04-15 61 /min [facility] of 05:07:51 [facility] Respiratory rate 2020-04-15 16 /min [facility] of 05:07:51 [facility] Oxygen saturation 2020-04-15 97 /min [facility] of in Arterial blood 05:07:51 [facility] by Pulse oximetry Branch Body weight 2020-04-15 87.091 kg University of 03:41:00 [facility] BMI 2020-04-15 32.96 kg/m2 [facility] of 03:41:00 [facility] Body temperature 2020-04-15 36.67 Malika [facility] 03:30:00 [facility] Systolic blood 2019-11-30 132 mm[Hg] [facility] pressure 19:54:00 [facility] Diastolic blood 2019-11-30 90 mm[Hg] [facility] pressure 19:54:00 [facility] Heart rate 2019-11-30 85 /min [facility] 19:54:00 [facility] Body temperature 2019-11-30 36.94 Malika [facility] 19:54:00 [facility] Respiratory rate 2019-11-30 18 /min [facility] of 19:54:00 [facility] Body height 2019-11-30 162.6 cm [facility] of 19:54:00 [facility] Body weight 2019-11-30 87.454 kg [facility] of 19:54:00 [facility] BMI 2019-11-30 33.09 kg/m2 [facility] 19:54:00 [facility] Systolic blood 2019-11-30 132 mm[Hg] [facility] pressure 19:54:00 [facility] Diastolic blood 2019-11-30 90 mm[Hg] [facility] pressure 19:54:00 [facility] Heart rate 2019-11-30 85 /min University of :54:00 [facility] Body temperature 2019-11-30 36.94 Malika University of :54:00 [facility] Respiratory rate 2019-11-30 18 /min University of :54:00 [facility] Body height 2019-11-30 162.6 cm University of :54:00 [facility] Body weight 2019-11-30 87.454 kg University of :54:00 [facility] BMI 2019-11-30 33.09 kg/m2 University of :54:00 [facility] Systolic blood 2019-11-24 137 mm[Hg] [facility] pressure 11:55:00 [facility] Diastolic blood 2019-11-24 96 mm[Hg] [facility] pressure 11:55:00 [facility] Heart rate 2019-11-24 69 /min [facility] of 11:55:00 [facility] Body temperature 2019-11-24 36.72 Malika [facility] of 11:55:00 [facility] Respiratory rate 2019-11-24 16 /min [facility] of 11:55:00 [facility] Oxygen saturation 2019-11-24 100 /min Martha of in Arterial blood 11:55:00 [facility] by Pulse oximetry Branch Body height 2019-11-23 162.6 cm University of 03:02:00 [facility] Body weight 2019-11-23 97.977 kg University of 03:02:00 [facility] BMI 2019-11-23 37.08 kg/m2 [facility] of 03:02:00 [facility] Systolic blood 2019-11-24 137 mm[Hg] [facility] pressure 11:55:00 [facility] Diastolic blood 2019-11-24 96 mm[Hg] [facility] pressure 11:55:00 [facility] Heart rate 2019-11-24 69 /min [facility] of 11:55:00 [facility] Body temperature 2019-11-24 36.72 Malika [facility] of 11:55:00 [facility] Respiratory rate 2019-11-24 16 /min [facility] of 11:55:00 [facility] Oxygen saturation 2019-11-24 100 /min [facility] of in Arterial blood 11:55:00 [facility] by Pulse oximetry Branch Body height 2019-11-23 162.6 cm University of 03:02:00 [facility] Body weight 2019-11-23 97.977 kg University of 03:02:00 [facility] BMI 2019-11-23 37.08 kg/m2 University of 03:02:00 [facility] Heart rate 2019-11-22 66 /min [facility] of 18:00:00 [facility] Oxygen saturation 2019-11-22 100 /min [facility] of in Arterial blood 17:30:00 [facility] by Pulse oximetry [facility] Systolic blood 2019-11-22 131 mm[Hg] [facility] pressure 16:25:00 [facility] Diastolic blood 2019-11-22 78 mm[Hg] [facility] pressure 16:25:00 [facility] Body temperature 2019-11-22 37.06 Malika [facility] 16:25:00 [facility] Respiratory rate 2019-11-22 18 /min [facility] of 16:25:00 [facility] Body height 2019-11-22 162.6 cm [facility] of 16:25:00 [facility] Body weight 2019-11-22 97.977 kg [facility] of 16:25:00 [facility] BMI 2019-11-22 37.08 kg/m2 [facility] of 16:25:00 [facility] Heart rate 2019-11-22 66 /min [facility] of 18:00:00 [facility] Oxygen saturation 2019-11-22 100 /min [facility] of in Arterial blood 17:30:00 [facility] by Pulse oximetry [facility] Systolic blood 2019-11-22 131 mm[Hg] [facility] pressure 16:25:00 [facility] Diastolic blood 2019-11-22 78 mm[Hg] [facility] pressure 16:25:00 [facility] Body temperature 2019-11-22 37.06 Malika [facility] 16:25:00 [facility] Respiratory rate 2019-11-22 18 /min [facility] of 16:25:00 [facility] Body height 2019-11-22 162.6 cm [facility] of 16:25:00 [facility] Body weight 2019-11-22 97.977 kg [facility] of 16:25:00 [facility] BMI 2019-11-22 37.08 kg/m2 [facility] of 16:25:00 [facility] Systolic blood 2019-11-19 121 mm[Hg] [facility] pressure 21:14:00 [facility] Diastolic blood 2019-11-19 76 mm[Hg] [facility] pressure 21:14:00 [facility] Heart rate 2019-11-19 86 /min [facility] of 21:12:00 [facility] Body temperature 2019-11-19 36.89 Malika [facility] 21:12:00 [facility] Respiratory rate 2019-11-19 18 /min [facility] of 21:12:00 [facility] Body height 2019-11-19 162.6 cm [facility] 21:12:00 [facility] Body weight 2019-11-19 98.703 kg [facility] of 21:12:00 [facility] BMI 2019-11-19 37.35 kg/m2 [facility] of 21:12:00 [facility] Systolic blood 2019-11-19 121 mm[Hg] [facility] pressure 21:14:00 [facility] Diastolic blood 2019-11-19 76 mm[Hg] [facility] pressure 21:14:00 [facility] Heart rate 2019-11-19 86 /min [facility] of 21:12:00 [facility] Body temperature 2019-11-19 36.89 Malika [facility] 21:12:00 [facility] Respiratory rate 2019-11-19 18 /min [facility] of 21:12:00 [facility] Body height 2019-11-19 162.6 cm [facility] of 21:12:00 [facility] Body weight 2019-11-19 98.703 kg [facility] of 21:12:00 [facility] BMI 2019-11-19 37.35 kg/m2 [facility] 21:12:00 [facility] Systolic blood 2019-11-12 136 mm[Hg] [facility] pressure 21:06:00 [facility] Diastolic blood 2019-11-12 87 mm[Hg] [facility] pressure 21:06:00 [facility] Heart rate 2019-11-12 68 /min [facility] of 21:06:00 [facility] Body temperature 2019-11-12 36.67 Malika [facility] 21:06:00 [facility] Respiratory rate 2019-11-12 18 /min [facility] of 21:06:00 [facility] Body height 2019-11-12 160 cm [facility] of 21:06:00 [facility] Body weight 2019-11-12 97.523 kg [facility] of 21:06:00 [facility] BMI 2019-11-12 38.09 kg/m2 [facility] of 21:06:00 [facility] Systolic blood 2019-11-12 136 mm[Hg] [facility] pressure 21:06:00 [facility] Diastolic blood 2019-11-12 87 mm[Hg] [facility] pressure 21:06:00 [facility] Heart rate 2019-11-12 68 /min [facility] of 21:06:00 [facility] Body temperature 2019-11-12 36.67 Malika [facility] 21:06:00 [facility] Respiratory rate 2019-11-12 18 /min [facility] of 21:06:00 [facility] Body height 2019-11-12 160 cm [facility] of 21:06:00 [facility] Body weight 2019-11-12 97.523 kg [facility] of 21:06:00 [facility] BMI 2019-11-12 38.09 kg/m2 [facility] 21:06:00 [facility] Systolic blood 2019-11-05 123 mm[Hg] [facility] pressure 15:20:00 [facility] Diastolic blood 2019-11-05 80 mm[Hg] [facility] pressure 15:20:00 [facility] Heart rate 2019-11-05 61 /min [facility] 15:20:00 [facility] Body temperature 2019-11-05 36.89 Malika [facility] 15:20:00 [facility] Respiratory rate 2019-11-05 18 /min [facility] of 15:20:00 [facility] Body height 2019-11-05 162.6 cm [facility] of 15:20:00 [facility] Body weight 2019-11-05 96.163 kg [facility] 15:20:00 [facility] BMI 2019-11-05 36.39 kg/m2 [facility] 15:20:00 [facility] Systolic blood 2019-11-05 123 mm[Hg] [facility] pressure 15:20:00 [facility] Diastolic blood 2019-11-05 80 mm[Hg] [facility] pressure 15:20:00 [facility] Heart rate 2019-11-05 61 /min [facility] of 15:20:00 [facility] Body temperature 2019-11-05 36.89 Malika [facility] 15:20:00 [facility] Respiratory rate 2019-11-05 18 /min [facility] of 15:20:00 [facility] Body height 2019-11-05 162.6 cm [facility] 15:20:00 [facility] Body weight 2019-11-05 96.163 kg [facility] 15:20:00 [facility] BMI 2019-11-05 36.39 kg/m2 [facility] 15:20:00 [facility] Systolic blood 2019-10-29 131 mm[Hg] [facility] pressure 21:13:00 [facility] Diastolic blood 2019-10-29 82 mm[Hg] [facility] pressure 21:13:00 [facility] Heart rate 2019-10-29 79 /min [facility] of 21:13:00 [facility] Body temperature 2019-10-29 37 Malika [facility] 21:13:00 [facility] Respiratory rate 2019-10-29 18 /min [facility] of 21:13:00 [facility] Body height 2019-10-29 162.6 cm [facility] of 21:13:00 [facility] Body weight 2019-10-29 97.07 kg University of 21:13:00 [facility] BMI 2019-10-29 36.73 kg/m2 University of 21:13:00 [facility] Systolic blood 2019-10-29 131 mm[Hg] [facility] pressure 21:13:00 [facility] Diastolic blood 2019-10-29 82 mm[Hg] [facility] pressure 21:13:00 [facility] Heart rate 2019-10-29 79 /min [facility] of 21:13:00 [facility] Body temperature 2019-10-29 37 Malika [facility] 21:13:00 [facility] Respiratory rate 2019-10-29 18 /min [facility] of 21:13:00 [facility] Body height 2019-10-29 162.6 cm [facility] of 21:13:00 [facility] Body weight 2019-10-29 97.07 kg University of 21:13:00 [facility] BMI 2019-10-29 36.73 kg/m2 [facility] of 21:13:00 [facility] Systolic blood 2019-10-14 117 mm[Hg] [facility] pressure 19:15:00 [facility] Diastolic blood 2019-10-14 72 mm[Hg] [facility] pressure 19:15:00 [facility] Heart rate 2019-10-14 90 /min [facility] of 19:15:00 [facility] Body temperature 2019-10-14 36.78 Malika [facility] 19:15:00 [facility] Respiratory rate 2019-10-14 20 /min [facility] of 19:15:00 [facility] Body height 2019-10-14 162.6 cm [facility] of 19:15:00 [facility] Body weight 2019-10-14 94.348 kg University of 19:15:00 [facility] BMI 2019-10-14 35.70 kg/m2 [facility] of 19:15:00 [facility] Systolic blood 2019-09-17 122 mm[Hg] [facility] pressure 17:43:00 [facility] Diastolic blood 2019-09-17 79 mm[Hg] [facility] pressure 17:43:00 [facility] Heart rate 2019-09-17 71 /min [facility] of 17:43:00 [facility] Body temperature 2019-09-17 36.89 Malika [facility] of 17:43:00 [facility] Respiratory rate 2019-09-17 18 /min [facility] of 17:43:00 [facility] Body height 2019-09-17 167.6 cm University of 17:43:00 [facility] Body weight 2019-09-17 92.534 kg [facility] of 17:43:00 [facility] BMI 2019-09-17 32.93 kg/m2 [facility] of 17:43:00 [facility] Systolic blood 2019-04-13 122 mm[Hg] [facility] pressure 14:21:00 [facility] Diastolic blood 2019-04-13 76 mm[Hg] [facility] pressure 14:21:00 [facility] Heart rate 2019-04-13 86 /min [facility] of 14:21:00 [facility] Body temperature 2019-04-13 36.83 Malika [facility] 14:21:00 [facility] Respiratory rate 2019-04-13 17 /min [facility] of 14:21:00 [facility] Body height 2019-04-13 167.6 cm [facility] of 14:21:00 [facility] Body weight 2019-04-13 88.996 kg [facility] of 14:21:00 [facility] BMI 2019-04-13 31.67 kg/m2 [facility] of 14:21:00 [facility] Systolic blood 2019-04-03 122 mm[Hg] [facility] pressure 13:39:00 [facility] Diastolic blood 2019-04-03 80 mm[Hg] [facility] pressure 13:39:00 [facility] Heart rate 2019-04-03 86 /min [facility] of 13:39:00 [facility] Body temperature 2019-04-03 36.89 Malika [facility] of 13:39:00 [facility] Respiratory rate 2019-04-03 17 /min [facility] of 13:39:00 [facility] Body height 2019-04-03 167.6 cm University of 13:39:00 [facility] Body weight 2019-04-03 88.996 kg University of 13:39:00 [facility] BMI 2019-04-03 31.67 kg/m2 [facility] 13:39:00 [facility] Systolic blood 2019-04-02 127 mm[Hg] [facility] pressure 14:18:00 [facility] Diastolic blood 2019-04-02 86 mm[Hg] [facility] pressure 14:18:00 [facility] Heart rate 2019-04-02 78 /min [facility] 14:18:00 [facility] Body temperature 2019-04-02 36.67 Malika [facility] 14:18:00 [facility] Respiratory rate 2019-04-02 16 /min [facility] 14:18:00 [facility] Body height 2019-04-02 167.6 cm [facility] 14:18:00 [facility] Body weight 2019-04-02 89.132 kg [facility] 14:18:00 [facility] BMI 2019-04-02 31.72 kg/m2 [facility] 14:18:00 [facility] Procedures Procedure Date / Time Performing Clinician Source Performed ASSIGNMENT OF BENEFITS 2022-07-25 18:47:38 Doctor Unassigned, No [facility] URINALYSIS 2022-03-07 19:35:00 Quentin Campbell [facility] CT ABDOMEN PELVIS W 2022-03-07 18:32:20 Quentin Campbell [facility] CONTRAST [facility] US GALL BLADDER 2022-03-07 17:21:05 Quentin Campbell [facility] LIPASE 2022-03-07 17:09:00 Quentin Campbell [facility] MAGNESIUM 2022-03-07 17:09:00 Quentin Campbell [facility] COMP. METABOLIC PANEL 2022-03-07 17:09:00 Quentin Campbell [facility] ([id number]) [facility] CBC WITH DIFF 2022-03-07 17:09:00 Quentin Campbell Tiffany [facility] URINALYSIS 2022-03-07 15:45:00 Quentin Campbell [facility] POCT TEST 2022-03-07 15:45:00 Quentin Campbell [facility] CONSENT/REFUSAL FOR 2022-03-07 14:30:26 Doctor Unassigned, No Un [facility] DIAGNOSIS AND TREATMENT Name [facility] NON-STRESS TEST 2021-03-01 19:32:20 Akinsipe, Kinjal C U [facility] POCT URINALYSIS 2021-03-01 19:02:00 Akinsipe, Kinjal C [facility] NON-STRESS TEST 2021-02-27 21:35:00 Akinsipe, Kinjal C U [facility] POCT URINALYSIS 2021-02-27 20:34:00 Akinsipe, Kinjal C [facility] NON-STRESS TEST 2021-02-22 21:18:22 Akinsipe, Kinjal C U [facility] POCT URINALYSIS 2021-02-22 20:52:00 Akinsipe, Kinjal C [facility] POCT URINALYSIS 2021-02-13 18:13:00 Akinsipe, Kinjal C [facility] NON-STRESS TEST 2021-02-08 21:57:47 Akinsipe, Kinjal C U [facility] POCT URINALYSIS 2021-02-08 18:24:00 Akinsipe, Kinjal C [facility] NON-STRESS TEST 2021-02-06 22:39:37 Manpreet Vazquez [facility] POCT URINALYSIS 2021-02-06 20:41:00 Akinsipe Kinjal C [facility] SECOND AND THIRD 2021-01-26 16:41:00 Akinflor Kinjal C [facility] TRIMESTER ULTRASOUND [facility] MAGNESIUM 2021-01-12 22:49:00 Srinivas Peraza Martha o [facility] BASIC METABOLIC PANEL 2021-01-12 22:49:00 Srinivas Peraza [facility] (NA, K, CL, CO2, [facility] GLUCOSE, BUN, CREATININE, CA) NON-STRESS TEST 2021-01-12 22:26:22 Srinivas Peraza [facility] URINALYSIS 2021-01-12 15:15:00 [facility] - 2021-01-12 14:50:00 Srinivas Peraza [facility] WET PREP Medical Branch COVID-19 (ID NOW RAPID 2021-01-12 14:50:00 Srinivas Peraza [facility] TESTING) [facility] CBC WITH DIFF 2021-01-12 14:23:00 [facility] 2021-01-12 14:22:00 Luz Maria [facility] LIP[facility] 2021-01-12 14:22:00 Gonzalez [facility] MAGNESIUM 2021-01-12 14:22:00 Gonzalez [facility] COMP. METABOLIC PANEL 2021-01-12 14:22:00 Luz Maria Perazaen Salvatore [facility] ([id number]) Medical Branch NOTICE OF PRIVACY 2021-01-12 12:30:48 Doctor Unassigned, No [facility] PRACTICES [facility] CONSENT/REFUSAL FOR 2021-01-12 12:29:55 Doctor Unassigned, No [facility] DIAGNOSIS AND TREATMENT [facility] ASSIGNMENT OF BENEFITS 2021-01-12 12:29:45 Doctor Unassigned, No [facility] POCT URINALYSIS 2021-01-06 15:19:00 Kinjal Clay [facility] TDAP VACCINE, >11 YRS, 2020-12-16 19:25:38 Kinjal Clay [facility] POCT URINALYSIS 2020-12-16 19:17:00 Kinjal Clay [facility] POCT TEST 2020-10-28 15:39:00 Kinjal Clay [facility] POCT URINALYSIS W/O 2020-10-28 15:39:00 Kinjal Clay [facility] SPECIFIC GRAVITY [facility] REPORT OF 2020-10-28 05:01:00 Doctor Unassigned, No [facility] [id number] 2020-06-10 00:00:00 DARSU.01 [facility] US ABDOMEN LIMITED 2020-04-16 04:01:21 Sheree Fierro [facility] LIPASE 2020-04-16 02:14:00 Sheree Fierro [facility] COMP. METABOLIC PANEL 2020-04-16 02:14:00 [facility] ([id number]) Medical [place] CBC WITH DIFF 2020-04-16 02:14:00 Sheree Fierro [facility] URINALYSIS 2020-04-16 02:06:00 Sheree Fierro [facility] CONSENT/REFUSAL FOR 2020-04-16 01:42:57 Doctor Unassigned, No [facility]REATMENT [facility] POCT TEST 2020-04-15 03:52:00 Sheree Fierro [facility] LIPASE 2020-04-15 03:50:00 Sheree Fierro [facility] COMP. METABOLIC PANEL 2020-04-15 03:50:00 [facility] ([id number]) [facility] CBC WITH DIFF 2020-04-15 03:50:00 Sheree Fierro [facility] NOTICE OF PRIVACY 2020-04-15 03:26:09 Doctor Unassigned, No Univ [facility] NOTICE OF PRIVACY 2020-04-15 03:25:58 Doctor Unassigned, No Univ ers[facility] CBC WITH DIFFERENTIAL 2019-11-24 09:18:00 Luis [facility] VENOUS CORD GAS 2019-11-23 11:27:00 [facility] SURFACE 2019-11-23 05:45:00 Luis Martinez [facility] ANTIGEN [facility] ADC OR JAYNE ONLY - 2019-11-23 05:45:00 [facility] RPR [facility] HIV 1/2 AG-AB WITH 2019-11-23 05:45:00 Luis Martinez [facility] REFLEX [facility] Branch HB ABO GROUPING 2019-11-23 05:30:[address] [facility] RHO (D) IMMUNE GLOBULIN 2019-11-23 05:30:00 Luis Martinez [facility] PROTEIN CREAT RATIO 2019-11-23 04:04:00 Hari [facility] URINE RANDOM [facility] URIC ACID 2019-11-23 04:03:[address] [facility] COMP. METABOLIC PANEL 2019-11-23 04:03:00 [id number] CBC WITH DIFFERENTIAL 2019-11-23 04:03:00 [facility] URINALYSIS 2019-11-23 04:03:[address] [facility] CORONAVIRUS COVID-19 2019-11-23 04:03:00 [facility] TESTING [facility] L&D VISIT 2019-11-22 05:01:00 Doctor Unassigned, No [facility] (NON-DELIVERED) [facility] POCT URINALYSIS W/O 2019-11-19 00:00:00 Srinivas Peraza [facility] SPECIFIC formerly [facility] POCT URINALYSIS W/O 2019-11-12 00:00:00 Srinivas Peraza [facility] ASSIGNMENT OF BENEFITS 2019-11-06 17:01:09 Doctor Unassigned, No [facility] POCT URINALYSIS W/O 2019-11-05 00:00:00 Hubert Pabon [facility] ADC / LCC - DRUG SCREEN 2019-10-29 21:41:00 Srinivas Peraza [facility] TRIAGE [facility] DSU PRE-OP 2019-10-29 05:01:00 Doctor Unassigned, No [facility] POCT HEMOGLOBIN A1C 2019-10-29 00:00:00 Srinivas Peraza [facility] TEST [facility] POCT URINALYSIS W/O 2019-10-29 00:00:00 Srinivas Peraza [facility] POCT URINALYSIS W/O 2019-10-14 00:00:00 Hubert Pabon [facility] SPECIFIC GRAVITY [facility] URINE DRUG (LCMSMS) - 2019-09-22 17:39:00 Cm [facility] CANNABINOID [facility] (MARIJUANA/THC) PANEL ADC / LCC - DRUG SCREEN 2019-09-17 20:44:00 Cm [facility] TRIAGE [facility] TDAP (ADACEL) 2019-09-17 18:08:58 Cm [facility] o f [place] IMMUNIZATION [facility] POCT URINALYSIS W/O 2019-09-17 00:00:00 [facility] CBC WITH DIFFERENTIAL 2019-09-16 22:02:00 Srinivas Peraza [facility] <14 WEEKS US 2019-04-13 15:15:[address] [facility] GLUCOSE 1 HOUR POST 2019-04-09 17:16:00 Kinjal Clay [facility] CBC WITH DIFFERENTIAL 2019-04-09 17:16:00 Kinjal Clay [facility] RUBELLA SCREEN IGG 2019-04-09 17:16:00 Kinjal Clay [facility] VZV ANTIBODY SCREEN 2019-04-09 17:16:00 Kinjal Clay [facility] HEPATITIS B SURFACE 2019-04-09 17:16:00 Kinjal Clay [facility] ANTIGEN [facility] WORKUP, BLOOD 2019-04-09 17:16:00 Kinjal Clay [facility] BANK [facility] HIV 1/2 AG-AB WITH 2019-04-09 17:16:00 Kinjal Clay [facility] REFLEX [facility] GALV ONLY - SYPHILIS 2019-04-09 17:16:00 [facility] PAP SMEAR-LIQUID 2019-04-02 16:21:00 Kinjal Clay [facility] BASED-CP [facility] POCT URINALYSIS W/O 2019-04-02 14:23:00 Kinjal Clay Uni versity of [facility] POCT TEST 2019-04-02 14:20:00 Kinjal Clay Uni versity of [facility] ASSIGNMENT OF BENEFITS 2019-04-02 13:31:17 Doctor Unassigned, No [facility] Plan of Care Planned Activity Planned Date Details Comments Source Future Scheduled 2022-11-04 COVID-[address] [facility] Test 10:52:54 (#1) [code = COVID-19 VACCINE (#1)] Future Scheduled 2022-11-04 [facility] Test 10:52:54 malignant neoplasm of cervix (procedure) [code = 886322973] Future Scheduled 2022-11-04 INFLUENZA [facility]ACCINE [facility] 10:52:54 [code = INFLUENZA VACCINE] Encounters Start End Encounter Admission Attending Care Care Encounter Source Date/Time Date/Time Type Type Clinicians Facility Department ID 2021-06-05 Outpatient [facility] [id number] Univers 12:09:05 ity [facility] 2021-06-05 Emergency [facility] [id number] Univers 00:18:48 ity [facility] 2021-06-02 Emergency [facility] [id number] Univers 17:11:[address] [facility] 2021-06-02 Emergency [facility] [id number] Univers [facility]:58[facility] 2021-06-01 Outpatient P [facility] [place] [id number] Univers 18:23:[address] [facility] 2021-06-01 Outpatient [facility] [place] [id number] Univers 18:23:23 [facility] 2020-06-10 Inpatient DARNELL Camejo MED [id number] [facility] 15:40:[address] 2022-07-25 2022-07-25 Outpatient Maya CARRASCO LACHRISTOPHER [facility] [id number] Univers 12:20:00 13:28:09 MP ity [facility] 2022-07-25 2022-07-25 Urgent Mp Carrasco [facility] 1.2.840.114 [id number] Univers 12:20:00 13:28:09 Care Unknown, Attending HEALTH [id number] ity of [place] 4.2.7.2.686 Brian as WAQAR?BLEA [phone] Pr dicroland FRAUSTO [address] MEDICAL OFFICE BUILDING 2022-07-25 2022-07-25 Orders Doctor DARIA 1.2.840.114 [id number] Univers 00:00:00 00:00:00 Only Unassigned, GLENN 350.1.13.10 ity of [place] [facility] 4.2.7.2.686 Brian as [phone] [facility] [address] [place] 2022-03-07 2022-03-07 Emergency X Quentin CAMPBELL [facility] ERT [id number] Univers 09:45:00 16:34:[address] 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 10 ity of REGIONAL 4.2.7.2.686 Brian as MATERNAL [phone] [facility] ical & CHILD [facility] 2021-03-01 2021-03-01 Routine Akinsipe, [facility] 1.2.288.593 [id number] Univers 13:35:59 14:30:08 Kinjal C 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10 ity of Visit REGIONAL 4.2.7.2.686 Brian as MATERNAL [phone] [facility] & CHILD [address] [place] [address] 2021-03-01 2021-03-01 Outpatient P [facility] [id number] Univers 14:30:00 14:30:00 ity [facility] 2021-02-27 2021-02-27 Routine Akinsipe, [facility] [id number] Univers 15:25:06 16:17:27 Kinjal C 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10 ity of Visit REGIONAL 4.2.7.2.686 Brian as MATERNAL [phone] [facility] & CHILD [address] [place] [address] 2021-02-27 2021-02-27 Outpatient R AKINSIPE, [facility] [id number] Univers 16:00:00 16:00:00 KINJAL ity o f [facility] 2021-02-22 2021-02-22 Routine Akinsipe, [facility] 1.2.381.045 [id number] Univers 15:23:37 16:24:50 Kinjal C 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10 ity of Visit REGIONAL 4.2.7.2.686 Brian as MATERNAL [phone] [facility] & [address] 2021-02-22 2021-02-22 Outpatient R AKINSIPE, [facility] [id number] Univers 15:30:00 15:30:[address] o f [facility] 2021-02-22 2021-02-22 Outpatient R AKINSIPE, [facility] [id number] Univers 15:15:00 15:15:00 [address]y o f [facility] 2021-02-20 2021-02-20 Outpatient R [facility] [id number] Univers 13:00:00 13:00:00 ity [facility] 2021-02-15 2021-02-15 Outpatient R AKINSIPE, [facility] [id number] Univers 13:15:00 13:15:[address]y o f [facility] 2021-02-13 2021-02-13 Routine Akinsipe, [facility] 1.2.141.751 [id number] Univers 12:53:13 13:28:01 Kinjal C 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10 ity of Visit REGIONAL 4.2.7.2.686 Brian as MATERNAL [phone] [facility] & [address] 2021-02-13 2021-02-13 Outpatient R [facility] [id number] Univers 08:00:00 08:00:[address] [facility] 2021-02-10 2021-02-10 Abstract Obed [facility] 1.2.840.114 [id number] Univers 00:00:00 00:00:00 Kinjal C 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10 ity of REGIONAL 4.2.7.2.686 Brian as MATERNAL [phone] [address] 2021-02-09 2021-02-09 Telephone EMMA Jarquin .2.840.114 [id number] Univers 00:00:00 00:00:00 [facility] 350.1.13.10 ity of [place] [phone] [address] 2021-02-08 2021-02-08 Computer Applications Developer Ultrasound, [facility] 1.2 .840.114 [id number] Univers 13:52:41 14:22:41 Visit Kinjal Clay 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 10 ity of Francia Golden [facility] 4.2.7.2.686 [place] MATERNAL [phone] [facility] & CHILD [address] [place] [address] 2021-02-08 2021-02-08 Routine Obed [facility] 1.2.735.835 [id number] Univers 12:48:54 13:52:10 Kinjal C 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10 ity of Visit [facility] 4.2.7.2.686 Brian as MATERNAL [phone] [facility] & [address] 2021-02-08 2021-02-08 Outpatient R OBED [facility] [id number] Univers 12:45:00 12:45:[address] o l[address] [facility] 2021-02-06 2021-02-06 Routine George [facility] 1.2.840.114 [id number] Univers 15:25:37 16:12:49 Manpreet Maya 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10 ity of Visit REGIONAL 4.2.7.2.686 Brian as MATERNAL [phone] [facility] & CHILD [address] [place] [address] 2021-02-06 2021-02-06 Outpatient R GEORGE [facility] [id number] Univers 15:30:00 15:30:[address] o l[address] [facility] 2021-02-02 2021-02-02 Abstract Obed [facility] 1.2.840.114 [id number] Univers 00:00:00 00:00:00 Kinjal Simon 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10 ity of REGIONAL 4.2.7.2.686 Brian as MATERNAL [phone] [facility] & CHILD [address] [place] [address] 2021-02-01 2021-02-01 Computer Applications Developer Ultrasound, [facility] 1.2 .840.114 [id number] Univers 14:35:35 15:05:35 Visit Mario Alberto Pollock 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1 0 ity of REGIONAL 4.2.7.2.686 Brian as MATERNAL [phone] [facility] & CHILD [address] [place] [address] 2021-02-01 2021-02-01 Outpatient P [facility] [id number] Univers 14:45:00 14:45:[address] [facility] 2021-01-27 2021-01-27 Abstract Obed [facility] 1.2.840.114 [id number] Univers 00:00:00 00:00:00 Kinjal C 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10 ity of REGIONAL 4.2.7.2.686 Brian as MATERNAL [phone] [facility] & CHILD [address] [place] [address] 2021-01-26 2021-01-26 Computer Applications Developer Ultrasound, [facility] 1.2 .840.114 [id number] Univers 11:41:17 12:11:17 Visit Patricia Martíneztyponcho Flannery DEPARTMENTAL SHIPPING CLERK 350.1. 13.10 ity of [facility] 4.2.7.2.686 Brian as MATERNAL [phone] [facility] & CHILD [address] [facility] 2021-01-26 2021-01-26 Outpatient P [facility] [id number] Univers 11:30:00 11:30:[address] [facility] 2021-01-26 2021-01-26 Outpatient P [facility] [id number] Univers 11:30:00 11:30:00 ity [facility] 2021-01-20 2021-01-20 [facility] [id number] Univers 12:45:00 12:45:[address] o f [facility] 2021-01-19 2021-01-19 Abstract [email or web address] 1.2.840.114 [id number] Univers 00:00:00 00:00:00 Kinjal Simon 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10 ity of [facility] 4.2.7.2.686 Brian as MATERNAL [phone] [facility] & CHILD [address] [place] [address] 2021-01-18 2021-01-18 Computer Applications Developer 2, [facility] Us Room UNIVERSIT 1 .2.840.114 [id number] Univers 09:52:25 10:22:25 Visit Gale Bonilla MAGDA 350.1.13.10 ity of [facility] 4.2.7.2.[place] [phone] [facility] [address] 2021-01-18 2021-01-18 Outpatient P [facility] [id number] Univers 09:30:00 09:30:00 ity [facility] 2021-01-12 2021-01-12 Emergency Srinivas Peraza [facility] 1.2.840.114 [id number] Univers 07:37:00 20:52:00 [facility] 350.1.13.10 i ty of [place]2.7.2.[place] [phone] [facility] [address] 2021-01-06 2021-01-06 Routine Akinsipe, [facility] 1.2.435.471 [id number] Univers 09:56:02 10:31:11 Kinjal C 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10 ity of Visit REGIONAL 4.2.7.2.686 Brian as MATERNAL [phone] [facility] ical & CHILD [address] [place] [address] 2021-01-06 2021-01-06 Outpatient R OBED [facility] [id number] Univers 10:00:00 10:00:[address]y o f [facility] 2020-12-30 2020-12-30 [facility] [id number] Univers 16:00:00 16:00:00 [address]JAL ity o f [facility] 2020-12-30 2020-12-30 Computer Applications Developer Lab, [facility] 1.2.840. 114 [id number] Univers 08:37:31 08:51:12 Visit Naseem Clayola C 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 10 ity of REGIONAL 4.2.7.2.686 Brian as MATERNAL [phone] [facility] & [address] 2020-12-30 2020-12-30 Outpatient R OBED [facility] [id number] Univers 08:30:00 08:30:00 [address] ity o f [facility] 2020-12-20 2020-12-20 Telephone [email or web address] 1.2.840.114 [id number] Univers 00:00:00 00:00:00 Kinjal C 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10 ity of REGIONAL 4.2.7.2.686 Brian as MATERNAL [phone] [facility] & CHILD [address] [place] [address] 2020-12-19 2020-12-19 Outpatient R [facility] [id number] Univers 10:30:00 10:30:[address] [facility] 2020-12-16 2020-12-16 [facility] 1.2.151.630 [id number] Univers 14:01:07 14:39:49 Kinjal C 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10 ity of Visit REGIONAL 4.2.7.2.686 Brian as MATERNAL [phone] [facility] & [address] 2020-12-16 2020-12-16 Outpatient R OBED [facility] [id number] Univers 14:00:00 14:00:[address]y o [address] [facility] 2020-12-12 2020-12-12 [facility] [id number] Univers 11:00:00 11:00:[address] o [address] [facility] 2020-11-25 2020-11-25 Out[facility] [id number] Univers 13:00:00 13:00:[address]gy o [address] [facility] 2020-11-04 2020-11-04 Computer Applications Developer 2, [facility] Room UNIVERSIT 1 .2.840.114 [id number] Univers 13:32:12 14:17:12 Visit Gale Bonilla 350.1.13.10 ity of [place] [phone] [address] 2020-11-04 2020-11-04 Outpatient R [facility] [id number] Univers 14:15:00 14:15:[address] [facility] 2020-11-04 2020-11-04 Abstract [facility] [place] 1.2.840.114 [id number] Univers 00:00:00 00:00:00 Kinjal C 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10 ity of REGIONAL 4.2.7.2.686 Brian as MATERNAL [phone] [facility] & CHILD [address] [place] [address] 2020-10-31 2020-10-31 Telephone Obed [facility] 1.2.840.114 [id number] Univers 00:00:00 00:00:00 Kinjal C 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10 ity of REGIONAL 4.2.7.2.686 Brian as MATERNAL [phone] [facility] & CHILD [address] [place] [address] 2020-10-282020-10-[address] [facility] 1.2.067.063 [id number] Univers 10:30:08 11:26:05 Kinjal Simon 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10 ity of Visit REGIONAL 4.2.7.2.686 Brian as MATERNAL [phone] [facility] & CHILD [address] [place] [address] 2020-10-28 2020-10-28 [facility] [id number] Univers 10:00:00 10:00:00 K[address]JAL ity o f [facility] 2020-10-28 2020-10-28 Orders Doctor DARIA 1.2.840.114 [id number] Univers 00:00:00 00:00:00 Only Unassigned, GLENN 350.1.13.10 ity of [place] [facility] 4.2.7.2.686 Brian as [phone] [facility] [address] 2020-10-28 2020-10-[address] [facility] 1.2.840.114 [id number] Univers 00:00:00 00:00:00 Kinjal Simon 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10 ity of REGIONAL 4.2.7.2.686 Brian as MATERNAL [phone] [facility] & CHILD [address] [place] [address] 2020-06-09 2020-06-09 Outpatient Sánchez, HCACL LABO [id number] [facility] 23:26:00 23:26:[address] 2020-04-15 2020-04-15 Emergency Critical access hospital 1.2.796.816 [id number] 21:04:00 23:55:00 Sheree Isabel Sh[place] 350.1.13.10 [place] 4.2.7.2.686 [place] [phone] [facility] 2020-04-15 2020-04-15 Emergency Critical access hospital 1.2.085.849 [id number] Univers 21:04:00 23:55:00 Sheree Isabel [place] 350.1.13.10 ity of [place] 4.2.7.2.686 [facility] [phone] [place] [id number] [place] 2020-04-14 2020-04-15 Emergency Hiral Massey [facility] 1.2.840.1 14 [id number] 22:42:00 00:15:00 Sheree Fierro 350.1.13.10 [place] 4.2.7.2.686 [place] [id number] [facility] 2020-04-14 2020-04-15 Emergency Hiral Massey [facility] 1.2.840.1 [id number] [facility] 22:42:00 00:15:00 Sheree Fierro 350.1.13.10 ity of [place] [phone] [address] 2019-12-25 2019-12-25 Outpatient R CM [facility] [id number] [facility] 15:00:00 15:00:[address] [facility] 2019-12-25 2019-12-25 Telemedici [email or web address] 1.2.840.114 [id number] 09:24:12 09:39:12 ne Visit Hubert Matamoros 350.1.13.10 [place] 4.2.7.2.686 Professio [phone] [address] 2019-12-25 2019-12-25 Telemedici Cm [facility] 1.2.840.114 [id number] [facility] 09:24:12 09:39:12 ne Visit Hubert Matamoros 350.1.13.10 ity of [place] [phone] [address] 2019-11-30 2019-11-30 Nurse Nurse, [facility] 1.2.840.114 [id number] [facility] 14:38:58 14:55:30 Visit Srinivas Peraza 350.1.13.10 ity of [place].2.[place] [phone] Pr dic[address] 2019-11-30 2019-11-30 Nurse Nurse, [facility] 1.2.840.114 [id number] 14:38:58 14:55:30 Visit [facility] 350.1.13.10 [facility] [place] 4.2.7.2.686 Professio [phone] [address] 2019-11-30 2019-11-30 Outpatient R SRINIVAS PERAZ[facility] [id number] Univers 14:30:00 14:30:00 ity [facility] 2019-11-25 2019-11-25 Outpatient R [facility] [id number] Univers 16:15:00 16:15:00 ity [facility] 2019-11-22 2019-11-24 [facility] [id number] Univers 21:57:00 10:35:00 Encounter [place] [id number] [facility] [id number] [id number] [address] 2019-11-22 2019-11-24 [facility] [id number] 21:57:00 10:35:00 Encounter Luis [place] [id number] [place] [id number] [place] [phone] [facility] 2019-11-24 2019-11-24 [facility] 1.2.840.114 [id number] 00:00:00 00:00:00 Cam Bristow 350.1.13.10 [place] 4.2.7.2.686 Professio [phone] [address] 2019-11-24 2019-11-24 [facility] 1.2.840.114 [id number] Univers 00:00:00 00:00:00 Cam Bristow 350.1.13.10 i [place] [phone] Pr dical [address] 2019-11-22 2019-11-22 [facility] 1.2.840.114 [id number] 11:15:00 13:25:00 Encounter Luis Bristow 350.1.13.10 [place] 4.2.7.2.686 [place] [phone] [facility] 2019-11-22 2019-11-22 [facility] 1.2.840.114 [id number] Univers 11:15:00 13:25:00 Encounter Luis Bristow 350.1.13.10 ity [place] [phone] [address] 2019-11-20 2019-11-20 Outpatient R [facility] [id number] Univers 10:15:00 10:15:00 ity [facility] 2019-11-19 2019-11-19 Routine [facility] 1.2.889.015 [id number] 16:00:04 16:26:51 Cam Bristow 350.1.13.10 Visit [place] 4.2.7.2.686 Professio [phone] [address] 2019-11-19 2019-11-19 Routine Srinivas Peraza [facility] 1.2.314.315 [id number] [id number] Univers 16:00:04 16:26:51 Cam Bristow 350.1.13.10 ity of Visit [place] 4.2.7.2.686 [facility] s Professio [phone] Me dical [address] 2019-11-19 2019-11-19 Outpatient R SRINIVAS PERAZA [facility] [id number] Univers 16:15:00 [facility] 2019-11-19 2019-11-19 [facility] [id number] Univers 14:00:00 14:00:00 HUBERT ity [facility] 2019-11-12 2019-11-12 [facility] 1.2.338.214 [id number] 15:54:30 16:23:02 Cam Bristow 350.1.13.10 Visit [place] 4.2.7.2.686 Professio [phone] [address] 2019-11-12 2019-11-12 Routine Srinivas Peraza [facility] 1.2.035.844 [id number] Univers 15:54:30 16:23:02 Cam Bristow 350.1.13.10 ity of Visit [place] [phone] Pr dical [address] 2019-11-12 2019-11-12 Outpatient R SRINIVAS PERAZA [facility] [id number] Univers 15:45:00 15:45:00 ity [facility] 2019-11-06 2019-11-06 Outpatient R [facility] [id number] Univers 11:45:00 11:45:00 ity [facility] 2019-11-06 2019-11-06 Orders Doctor HUFF 1.2.840.114 [id number] 00:00:00 00:00:00 Only Unassigned, GLENN 350.1.13.10 [place] [facility] 4.2.7.2.686 [phone] [facility] 2019-11-06 2019-11-06 Orders Doctor HUFF 1.2.840.114 [id number] Univers 00:00:00 00:00:00 Only Unassigned, GLENN 350.1.13.10 ity of [place] [facility] 4.2.7.2.686 Brian as [phone] [address] 2019-11-05 2019-11-05 [facility] [id number] Univers 10:15:00 10:15:00 [facility] 2019-11-05 2019-11-05 [email or web address] 1.2.304.782 [id number] 07:54:57 08:09:57 Hubert Bristow 350.1.13.10 Visit [place] 4.2.7.2.686 Professio [phone] [address] 2019-11-05 2019-11-05 [email or web address] 1.2.794.081 [id number] Univers 07:54:57 08:09:57 Hubert Bristow 350.1.13.10 ity of Visit [place] [phone] Pr dical [address] 2019-11-02 2019-11-02 Telephone Srinivas Peraza [facility] 1.2.840.114 [id number] 00:00:00 00:00:00 Cam Bristow 350.1.13.10 [place] 4.2.7.2.686 Professio [phone] [address] 2019-11-02 2019-11-02 Telephone Srinivas Peraza [facility] 1.2.840.114 [id number] Univers 00:00:00 00:00:00 Cam Bristow 350.1.13.10 i ty of [place] [phone] Pr dical [address] 2019-10-29 2019-10-30 Routine Srinivas Peraza [facility] 1.2.972.159 [id number] 15:58:33 10:03:05 Cam Bristow 350.1.13.10 Visit [place] 4.2.7.2.686 Professio [phone] [address] 2019-10-29 2019-10-30 Routine Srinivas Peraza [facility] 1.2.739.024 [id number] Univers 15:58:33 10:03:05 Cam Bristow 350.1.13.10 ity of Visit [place] [phone] Pr dical [address] 2019-10-30 2019-10-30 Case Srinivas Peraza [facility] 1.2.281.384 [id number] 00:00:00 00:00:00 Management Cam Bristow 350.1.13.10 [place] 4.2.7.2.686 Professio [phone] [address] 2019-10-30 2019-10-30 Case Srinivas Peraza [facility] 1.2.964.992 [id number] Univers 00:00:00 00:00:00 Management Cam Bristow 350.1.13.10 ity of [place] [phone] [address] 2019-10-29 2019-10-29 Outpatient R SRINIVAS PERAZA [facility] [id number] Univers 16:15:00 16:15:[address] [facility] 2019-10-29 2019-10-29 Computer Applications Developer Yue Anand Lab Main [facility] 1.2.8 40.114 [id number] Univers 11:53:50 12:08:50 Visit Hubert Pabon [place] 350.1.13.10 ity of [place] [phone] Pr dical nal 353 [facility] 2019-10-29 2019-10-29 Case [email or web address] 1.2.971.483 [id number] Univers 00:00:00 00:00:00 Management Hubert [place]ton 350.1.13.10 ity of [place] [phone] Pr dical nal 134 [facility] 2019-10-29 2019-10-29 Orders Doctor DARIA 1.2.840.114 [id number] Univers 00:00:00 00:00:00 Only Unassigned, GLENN 350.1.13.10 ity of [place] [facility] 4.2.7.2.686 Brian as [phone] [address] 2019-10-14 2019-10-14 Routine [email or web address] 1.2.768.574 [id number] [facility] 13:48:17 14:27:40 Hubert Shiloh 350.1.13.10 ity of Visit [place] [phone] Pr dical nal 134 [facility] 2019-10-14 2019-10-14 [facility] [id number] Univers 13:45:00 13:45:[address] [facility] 2019-09-17 2019-09-28 Routine [email or web address] 1.2.526.528 [id number] Univers 11:25:16 15:19:10 Hubert Shiloh 350.1.13.10 ity of Visit [place] [phone] Pr dical nal 134 [facility] 2019-09-22 2019-09-22 [facility] KRISTI Borges 1.2.840.114 [id number] Univers 14:10:09 23:59:00 Encounter Art Parr 350.1.13.10 ity of BUILDING 4.2.7.2.686 Brian as [phone] [facility] [address] 2019-09-22 2019-09-22 Outpatient R JONY, [facility] ACO [id number] Univers 00:00:00 00:00:[address] [facility] 2019-09-16 2019-09-16 Computer Applications Developer Cheng, Yue Lab Main [facility] 1.2.8 40.114 [id number] Univers 15:48:40 17:04:39 Visit Srinivas Peraza [place] 350.1.13.10 ity of [place] [phone] Pr dical [facility] 353 [facility] 2019-04-13 2019-04-13 Routine Trimester, [facility] Res-1st UNIVERSIT 1.2.840.114 [id number] Univers 09:15:29 10:16:29 Monty Gu [facility] 350.1.13.10 ity of Visit [facility] 4[place]2.7.2.[place] [phone] [facility] [address] 2019-04-10 2019-04-10 Telephone [email or web address] 1.2.840.114 [id number] Univers 00:00:00 00:00:00 Kinjal C 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10 ity of [facility] 4.2.7.2.686 Brian as MATERNAL [phone] Med ical & CHILD [address] [place] [address] 2019-04-09 2019-04-09 Computer Applications Developer Lab, [facility] 1.2.840. 114 [id number] Univers 10:52:25 11:20:28 Visit Kinjal Clay 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 10 ity of [facility] 4.2.7.2.686 Brian as MATERNAL [phone] Med ical & CHILD [address] [place] [address] 2019-04-09 2019-04-09 Telephone [email or web address] 1.2.840.114 [id number] Univers 00:00:00 00:00:00 Kinjal C 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10 ity of [facility] 4.2.7.2.686 Brian as MATERNAL [phone] Med ical & CHILD [address] [place] [address] 2019-04-03 2019-04-03 Routine Trimester, [facility] UNIVERSIT 1.2.840.114 [id number] Univers 08:20:37 09:46:40 Michael Isaac Y HEALTH 350.1.13.10 ity of Visit CLINICS [place] [phone] [address] 2019-04-03 2019-04-03 Telephone EMMA Blakely 1.2.840.114 [id number] Univers 00:00:00 00:00:00 Randi R Y HEALTH 350.1.13.10 ity of CLIN[place] [phone] [address] 2019-04-03 2019-04-03 Nurse DARIA Hooks 1.2.576.730 [id number] Univers 00:00:00 00:00:00 Triage Xu GLENN 350.1.13.10 it y of HOSPITAL 4.2.7.2.686 Brian as [phone] [facility] [address] 2019-04-02 2019-04-02 [place] 1.2.000.237 [id number] 3393 Univers 09:08:54 10:07:50 Kinjal Simon 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10 ity of Visit [facility] 4.2.7.2.686 Brian as MATERNAL [phone] Med ical & CHILD 107 [facility] 2019-04-02 2019-04-02 Orders Doctor DARIA 1.2.840.114 [id number] Univers 00:00:00 00:00:00 Only Unassigned, GLENN 350.1.13.10 ity of [place] [facility] 4.2.7.2.686 Brian as [phone] [facility] [address] Results Test Description Test Time Test Comments Results Result Comments Source COMP. METABOLIC PANEL (82840) 2022-03-07 18:04:22 Test Item Value Reference Range Interpretation Comme nts NA (test code = 5283458488) 142 mmol/L 135-145 K (test code = 2543441531) 4.2 mmol/L 3.5-5 CL (test code = 4695754652) 102 mmol/L 98-108 CO2 TOTAL (test code = 6534792750) 25 mmol/L 23-31 AGAP (test code = 5486347880) 2-16 BUN (test code = 5208817075) 13 mg/dL 7-23 GLUCOSE (test code = 8671343011) 94 mg/dL 70-110 CREATININE (test code = 0.68 mg/dL 0.5-1.04 9708355617) TOTAL BILI (test code = 1.1 mg/dL 0.1-1.2 5301648832) CALCIUM (test code = 8529836981) 9.9 mg/dL 8.6-10.6 T PROTEIN (test code = 0773405586) 8.7 g/dL 6.3-8.2 H ALBUMIN (test code = 5444778464) 5.3 g/dL 3.5-5 H ALK PHOS (test code = 1540836306) 78 U/L 34-122 ALTv (test code = 1742-6) 14 U/L 5-35 AST(SGOT) (test code = 6496904194) 18 U/L 13-40 eGFR (test code = 1204095467) mL/min/1.73m2 MAYTE (test code = MAYTE) Association of Glomerular Filtration Rate (GFR) and Staging of Kidney Disease* + +-------- + ------+| GFR (mL/min/1.73 m2) ?| With Kidney Damage ?| ?Without Kidney Damage+ +-- + +| ?>90 ?| ?Stage one ?| ? Normal ?+ +------- + -------+| ?60-89 ?| ?Stage two ?| ? Decreased GFR ? + +-------- + ------+| ?30-59 ?| ?Stage three ?| ? Stage three ? + +-------- + ------+| ?15-29 ?| ?Stage four ? | ? Stage four ?+ +------- + -------+| ?<15 (or dialysis) ? ?| ?Stage five ? | ? Stage five ?+ +------- + -------+ *Each stage assumes the associated GFR level has been in effect for at least three months. ?Stages 1 to 5, with or without kidney disease, indicate chronic kidney disease. Notes: Determination of stages one and two (with eGFR >59mL/min/1.73 m2) requires estimation of kidney damage for at least three months as defined by structural or functional abnormalities of the kidney, manifested by either:Pathological abnormalities or Markers of kidney damage (including abnormalities in the composition of the blood or urine or abnormalities in imaging tests). Lab Interpretation (test code = Abnormal 30843-1) [facility]04[facility]22 Test Item Value Reference Range Interpretation Comments MAGNESIUM (test code = 0033582860) 1.6 mg/dL 1.7-2.4 L Lab Interpretation (test code = Abnormal 82478-3) [facility] 18:04:02 Test Item Value Reference Range Interpretation Comments LIPASE (test code = 8708489097) 26 U/L 0-220 Lab Interpretation (test code = Normal 34054-4) [facility] WITH [id number] 17:42:39 Test Item Value Reference Range Interpretation Comments WBC (test code = See_Comment H [Automated 6690-2) message] The system which generated this result transmit andriy reference range : 4.30 - 11.10 10*3/?L. The reference range was not used to interpret this result as normal/abnormal . RBC (test code = See_Comment H [Automated 789-8) message] The system which generated this result transmit andriy reference range : 3.93 - 5.25 10*6/?L. The reference range was not used to interpret this result as normal/abnormal . HGB (test code = 15.6 g/dL 11.6-15 H 718-7) HCT (test code = 46.5 % 35.7-45.2 H 4544-3) MCV (test code = 87.2 fL 80.6-95.5 787-2) MCH (test code = 29.3 pg 25.9-32.8 785-6) MCHC (test code = 33.5 g/dL 31.6-35.1 786-4) RDW-SD (test code = 43.8 fL 39-49.9 87991-4) RDW-CV (test code = 13.9 % 12-15.5 788-0) PLT (test code = See_Comment H [Automated 777-3) message] The system which generated this result transmit andriy reference range : 166 - 358 10*3/ ?L. The reference range was not u sed to interpret th is result as normal/abnormal . MPV (test code = 8.9 fL 9.5-12.9 L 38999-8) NRBC/100 WBC (test See_Comment [Automat ed code = 0424340051) message] The system which generated this result transmit andriy reference range : 0.0 - 10.0 /100 WBCs. The reference range was not used to interpret this result as normal/abnormal . NRBC x10^3 (test code See_Comment [Auto mated = 6607783299) message] The system which generated this result transmit andriy reference range : 10*3/?L. The reference range was not used to interpret this result as normal/abnormal . GRAN MAT (NEUT) % 89.4 % (test code = 770-8) IMM GRAN % (test code 0.30 % = 9799106830) LYMPH % (test code = 5.7 % 736-9) MONO % (test code = 4.1 % 5905-5) EOS % (test code = 0.1 % 713-8) BASO % (test code = 0.4 % 706-2) GRAN MAT x10^3(ANC) 14.97 10*3/uL 1.88-7.09 H (test code = 8314126202) IMM GRAN x10^3 (test 0.05 10*3/uL 0-0.06 code = 7485560085) LYMPH x10^3 (test code 0.95 10*3/uL 1.32-3.29 L = 731-0) MONO x10^3 (test code 0.68 10*3/uL 0.33-0.92 = 742-7) EOS x10^3 (test code = 0.03-0.39 L 711-2) BASO x10^3 (test code 0.06 10*3/uL 0.01-0.07 = 704-7) Lab Interpretation Abnormal (test code = 60380-6) [facility] [id number] 15:45:00 Test Item Value Reference Range Interpretation Comments POCT PREG (test code = 1605) NEGATIVE On board controls acceptable with present C Line (test code = 3574) POCT PREG LOT # (test code = 3575) [id number] POCT PREG TEST DATE (test 06/04/2023 code = 3576) Lab Interpretation (test code = Normal 93645-3) [facility] NON-STRESS [id number] 19:32:55NST: cat 1, reactive/reassuring, no ctx, +accels, neg decls, moderate variability [facility] URINALYSIS W SPECIFIC [id number] 19:03:00 Test Item Value Reference Range Interpretation Comments POCT U SP GRAV (test code = 3255) . 1.005-1.025 POCT PH U (test code = 3254) . 5-8 POCT U LEUK EST (test code = 3263) . Negative - Negative POCT U NIT (test code = 3262) . Negative - Negative POCT U PROT (test code = 3259) Trace Negative - Negative POCT U GLU (test code = 3256) Neg Negative - Negative POCT U KETONE (test code = 3258) . Negative - Negative POCT U UROBILI (test code = 3260) . 0.2-1 POCT U BILI (test code = 3261) . Negative - Negative POCT U BLD (test code = 3257) . Negative - Negative POCT U COLOR (test code = 3266) POCT U APPEAR (test code = 3267) [facility] NON-STRESS [id number] 21:35:29NST: cat 1, reactive/reassuring, no ctx, +accels, neg decls, moderate variability [facility] URINALYSIS W SPECIFIC [id number] 20:34:00 Test Item Value Reference Range Interpretation Comments POCT U SP GRAV (test code = 3255) . 1.005-1.025 POCT PH U (test code = 3254) . 5-8 POCT U LEUK EST (test code = 3263) . Negative - Negative POCT U NIT (test code = 3262) . Negative - Negative POCT U PROT (test code = 3259) Trace Negative - Negative POCT U GLU (test code = 3256) Neg Negative - Negative POCT U KETONE (test code = 3258) . Negative - Negative POCT U UROBILI (test code = 3260) . 0.2-1 POCT U BILI (test code = 3261) . Negative - Negative POCT U BLD (test code = 3257) . Negative - Negative POCT U COLOR (test code = 3266) POCT U APPEAR (test code = 3267) [facility] [id number] 21:18:59NST: cat 1, reactive/reassuring, no ctx, +accels, neg decls, moderate variability [facility] URINALYSIS W SPECIFIC [id number] 20:52:00 Test Item Value Reference Range Interpretation Comments POCT U SP GRAV (test code = 3255) . 1.005-1.025 POCT PH U (test code = 3254) . 5-8 POCT U LEUK EST (test code = 3263) . Negative - Negative POCT U NIT (test code = 3262) . Negative - Negative POCT U PROT (test code = 3259) Trace Negative - Negative POCT U GLU (test code = 3256) Neg Negative - Negative POCT U KETONE (test code = 3258) . Negative - Negative POCT U UROBILI (test code = 3260) . 0.2-1 POCT U BILI (test code = 3261) . Negative - Negative POCT U BLD (test code = 3257) . Negative - Negative POCT U COLOR (test code = 3266) POCT U APPEAR (test code = 3267) [facility] URINALYSIS W SPECIFIC [id number] 18:13:00 Test Item Value Reference Range Interpretation Comments POCT U SP GRAV (test code = 3255) . 1.005-1.025 POCT PH U (test code = 3254) . 5-8 POCT U LEUK EST (test code = 3263) . Negative - Negative POCT U NIT (test code = 3262) . Negative - Negative POCT U PROT (test code = 3259) Trace Negative - Negative POCT U GLU (test code = 3256) Neg Negative - Negative POCT U KETONE (test code = 3258) . Negative - Negative POCT U UROBILI (test code = 3260) . 0.2-1 POCT U BILI (test code = 3261) . Negative - Negative POCT U BLD (test code = 3257) . Negative - Negative POCT U COLOR (test code = 3266) POCT U APPEAR (test code = 3267) [facility] URINALYSIS W SPECIFIC [id number] 18:13:00 Test Item Value Reference Range Interpretation Comments POCT U SP GRAV (test code = 3255) . 1.005-1.025 POCT PH U (test code = 3254) . 5-8 POCT U LEUK EST (test code = 3263) . Negative - Negative POCT U NIT (test code = 3262) . Negative - Negative POCT U PROT (test code = 3259) Trace Negative - Negative POCT U GLU (test code = 3256) Neg Negative - Negative POCT U KETONE (test code = 3258) . Negative - Negative POCT U UROBILI (test code = 3260) . 0.2-1 POCT U BILI (test code = 3261) . Negative - Negative POCT U BLD (test code = 3257) . Negative - Negative POCT U COLOR (test code = 3266) POCT U APPEAR (test code = 3267) [facility] URINALYSIS W SPECIFIC [id number] 18:13:00 Test Item Value Reference Range Interpretation Comments POCT U SP GRAV (test code = 3255) . 1.005-1.025 POCT PH U (test code = 3254) . 5-8 POCT U LEUK EST (test code = 3263) . Negative - Negative POCT U NIT (test code = 3262) . Negative - Negative POCT U PROT (test code = 3259) Trace Negative - Negative POCT U GLU (test code = 3256) Neg Negative - Negative POCT U KETONE (test code = 3258) . Negative - Negative POCT U UROBILI (test code = 3260) . 0.2-1 POCT U BILI (test code = 3261) . Negative - Negative POCT U BLD (test code = 3257) . Negative - Negative POCT U COLOR (test code = 3266) POCT U APPEAR (test code = 3267) [facility] URINALYSIS W SPECIFIC [id number] 18:13:00 Test Item Value Reference Range Interpretation Comments POCT U SP GRAV (test code = 3255) . 1.005-1.025 POCT PH U (test code = 3254) . 5-8 POCT U LEUK EST (test code = 3263) . Negative - Negative POCT U NIT (test code = 3262) . Negative - Negative POCT U PROT (test code = 3259) Trace Negative - Negative POCT U GLU (test code = 3256) Neg Negative - Negative POCT U KETONE (test code = 3258) . Negative - Negative POCT U UROBILI (test code = 3260) . 0.2-1 POCT U BILI (test code = 3261) . Negative - Negative POCT U BLD (test code = 3257) . Negative - Negative POCT U COLOR (test code = 3266) POCT U APPEAR (test code = 3267) [facility] URINALYSIS W SPECIFIC [id number] 18:13:00 Test Item Value Reference Range Interpretation Comments POCT U SP GRAV (test code = 3255) . 1.005-1.025 POCT PH U (test code = 3254) . 5-8 POCT U LEUK EST (test code = 3263) . Negative - Negative POCT U NIT (test code = 3262) . Negative - Negative POCT U PROT (test code = 3259) Trace Negative - Negative POCT U GLU (test code = 3256) Neg Negative - Negative POCT U KETONE (test code = 3258) . Negative - Negative POCT U UROBILI (test code = 3260) . 0.2-1 POCT U BILI (test code = 3261) . Negative - Negative POCT U BLD (test code = 3257) . Negative - Negative POCT U COLOR (test code = 3266) POCT U APPEAR (test code = 3267) [facility] URINALYSIS W SPECIFIC [id number] 18:13:00 Test Item Value Reference Range Interpretation Comments POCT U SP GRAV (test code = 3255) . 1.005-1.025 POCT PH U (test code = 3254) . 5-8 POCT U LEUK EST (test code = 3263) . Negative - Negative POCT U NIT (test code = 3262) . Negative - Negative POCT U PROT (test code = 3259) Trace Negative - Negative POCT U GLU (test code = 3256) Neg Negative - Negative POCT U KETONE (test code = 3258) . Negative - Negative POCT U UROBILI (test code = 3260) . 0.2-1 POCT U BILI (test code = 3261) . Negative - Negative POCT U BLD (test code = 3257) . Negative - Negative POCT U COLOR (test code = 3266) POCT U APPEAR (test code = 3267) [facility] URINALYSIS W SPECIFIC [id number] 18:13:00 Test Item Value Reference Range Interpretation Comments POCT U SP GRAV (test code = 3255) . 1.005-1.025 POCT PH U (test code = 3254) . 5-8 POCT U LEUK EST (test code = 3263) . Negative - Negative POCT U NIT (test code = 3262) . Negative - Negative POCT U PROT (test code = 3259) Trace Negative - Negative POCT U GLU (test code = 3256) Neg Negative - Negative POCT U KETONE (test code = 3258) . Negative - Negative POCT U UROBILI (test code = 3260) . 0.2-1 POCT U BILI (test code = 3261) . Negative - Negative POCT U BLD (test code = 3257) . Negative - Negative POCT U COLOR (test code = 3266) POCT U APPEAR (test code = 3267) [facility] NON-STRESS [id number] 21:58:15NST: cat 1, reactive/reassuring, no ctx, +accels, neg decls, moderate variability [facility] NON-STRESS [id number] 21:58:15NST: cat 1, reactive/reassuring, no ctx, +accels, neg decls, moderate variability [facility] URINALYSIS W SPECIFIC [id number] 18:24:00 Test Item Value Reference Range Interpretation Comments POCT U SP GRAV (test code = * 1.005-1.025 3255) POCT PH U (test code = 3254) * 5-8 POCT U LEUK EST (test code = * Negative - Negative 3263) POCT U NIT (test code = 3262) * Negative - Negative POCT U PROT (test code = 3259) trace Negative - Negative POCT U GLU (test code = 3256) negative Negative - Negative POCT U KETONE (test code = 3258) * Negative - Negative POCT U UROBILI (test code = * 0.2-1 3260) POCT U BILI (test code = 3261) * Negative - Negative POCT U BLD (test code = 3257) * Negative - Negative POCT U COLOR (test code = 3266) POCT U APPEAR (test code = 3267) [facility] URINALYSIS W SPECIFIC [id number] 18:24:00 Test Item Value Reference Range Interpretation Comments POCT U SP GRAV (test code = * 1.005-1.025 3255) POCT PH U (test code = 3254) * 5-8 POCT U LEUK EST (test code = * Negative - Negative 3263) POCT U NIT (test code = 3262) * Negative - Negative POCT U PROT (test code = 3259) trace Negative - Negative POCT U GLU (test code = 3256) negative Negative - Negative POCT U KETONE (test code = 3258) * Negative - Negative POCT U UROBILI (test code = * 0.2-1 3260) POCT U BILI (test code = 3261) * Negative - Negative POCT U BLD (test code = 3257) * Negative - Negative POCT U COLOR (test code = 3266) POCT U APPEAR (test code = 3267) [facility] [facility] NON-STRESS [id number] 22:40:23 [facility]Un[facility] TEST 2021-02-06 22:40:23Reactive and ReassuringUnNorth [facility] CampusPOFL URINALYSIS W SPECIFIC [id number] 20:41:00 Test Item Value Reference Range Interpretation Comments POCT U SP GRAV (test code = 3255) . 1.005-1.025 POCT PH U (test code = 3254) . 5-8 POCT U LEUK EST (test code = 3263) . Negative - Negative POCT U NIT (test code = 3262) . Negative - Negative POCT U PROT (test code = 3259) Trace Negative - Negative POCT U GLU (test code = 3256) Neg Negative - Negative POCT U KETONE (test code = 3258) . Negative - Negative POCT U UROBILI (test code = 3260) . 0.2-1 POCT U BILI (test code = 3261) . Negative - Negative POCT U BLD (test code = 3257) . Negative - Negative POCT U COLOR (test code = 3266) POCT U APPEAR (test code = 3267) [facility] SPECIFIC [id number] 20:41:00 Test Item Value Reference Range Interpretation Comments POCT U SP GRAV (test code = 3255) . 1.005-1.025 POCT PH U (test code = 3254) . 5-8 POCT U LEUK EST (test code = 3263) . Negative - Negative POCT U NIT (test code = 3262) . Negative - Negative POCT U PROT (test code = 3259) Trace Negative - Negative POCT U GLU (test code = 3256) Neg Negative - Negative POCT U KETONE (test code = 3258) . Negative - Negative POCT U UROBILI (test code = 3260) . 0.2-1 POCT U BILI (test code = 3261) . Negative - Negative POCT U BLD (test code = 3257) . Negative - Negative POCT U COLOR (test code = 3266) POCT U APPEAR (test code = 3267) [facility]MAG[facility]IUM2021-[facility]-10 23:14:17 Test Item Value Reference Range Interpretation Comments MAGNESIUM (test code = 3273449204) 1.9 mg/dL 1.7-2.4 Lab Interpretation (test code = Normal 83788-3) [facility] (NA, K, CL, CO2, GLUCOSE, BUN, CREATININE, CA)2021-01-12 23:14:02 Test Item Value Reference Range Interpretation Comments NA (test code = 136 mmol/L 135-145 2732042610) K (test code = 3.3 mmol/L 3.5-5.0 L 4881358044) CL (test code = 103 mmol/L 98-108 0360387500) CO2 TOTAL (test code = 26 mmol/L 23-31 4559295423) AGAP (test code = 2-16 8940732852) BUN (test code = 3 mg/dL 7-23 L 1292492975) GLUCOSE (test code = 100 mg/dL 70-110 3924978298) CREATININE (test code = 0.42 mg/dL 0.50-1.04 L 1878544078) CALCIUM (test code = 8.8 mg/dL 8.6-10.6 9889083797) eGFR (test code = mL/min/1.73m2 3937127544) MAYTE (test code = MAYTE) Association of Glomerular Filtration Rate (GFR) and Staging of Kidney Disease* + --+ --+ ------+| GFR (mL/min/1.73 m2) ?| With Kidney Damage ?| ?Without Kidney Damage+ --------+ --------+ +| ?>90 ?| ?Stage one ?| ? Normal ?+ ---+ ---+ -------+| ?60-89 ?| ?Stage two ?| ? Decreased GFR ? + --+ --+ ------+| ?30-59 ?| ?Stage three ?| ? Stage three ? + --+ --+ ------+| ?15-29 ?| ?Stage four ? | ? Stage four ?+ ---+ ---+ -------+| ?<15 (or dialysis) ? ?| ?Stage five ? | ? Stage five ?+ ---+ ---+ -------+ *Each stage assumes the associated GFR level has been in effect for at least three months. ?Stages 1 to 5, with or without kidney disease, indicate chronic kidney disease. Notes: Determination of stages one and two (with eGFR >59mL/min/1.73 m2) requires estimation of kidney damage for at least three months as defined by structural or functional abnormalities of the kidney, manifested by either:Pathological abnormalities or Markers of kidney damage (including abnormalities in the composition of the blood or urine or abnormalities in imaging tests). Lab Interpretation Abnormal (test code = 34127-7) [facility] HospitalFETAL NON-STRESS [id number] 22:26:57 Reactive and reassuringToco quiescent Srinivas Peraza MD ?01/12/2021 ?5:26 PM [facility] HospitalAD [facility] OR L[facility] ONLY - WET [id number] 15:53:57 Test Item Value Reference Range Interpretation Comments CLUE CELLS WET PREP (test code = None Seen None Seen HPF 0457446018) BACTERIA WET PREP (test code = Moderate None Seen HPF A 7559553715) WBC WET PREP (test code = Few None Seen HPF A 0014499291) RBC WET PREP (test code = None Seen None Seen HPF 9545940731) TRICHOMONAS WET PREP (test code = None Seen None Seen HPF 5056726002) YEAST WET PREP (test code = None Seen None Seen HPF 6114216100) Lab Interpretation (test code = Abnormal 51637-0) [facility]MAG[facility]UM2021-[facility]-10 15:52:00 Test Item Value Reference Range Interpretation Comments MAGNESIUM (test code = 5699591725) 1.6 mg/dL 1.7-2.4 L Lab Interpretation (test code = Abnormal 29618-4) [facility] HospitalURINALYSIS2021-06-10 15:43:57 Test Item Value Reference Range Interpretation Comments APPEARANCE (test code = Cloudy Clear A 5738859563) COLOR (test code = Evette Yellow A 7592346231) PH (test code = 4.8-8.0 3842644065) SP GRAVITY (test code = 1.003-1.030 0203078615) GLU U QUAL (test code = Normal Normal 1974368406) BLOOD (test code = Negative Negative 0243171789) KETONES (test code = 80 mg/dL Negative A 4373589662) PROTEIN (test code = 30 mg/dL Negative A 2887-8) UROBILIN (test code = 2.0 mg/dL Normal A 1791833561) BILIRUBIN (test code = Negative Negative 4366442864) NITRITE (test code = Negative Negative 2635985190) LEUK PAVITHRA (test code = 25/uL Negative A 1231108192) RBC/HPF (test code = See_Comment [Autom ated message] 0839866864) The system Celect generated this result transmit andriy reference range : 0 - 3 HPF. The refe rence range was not u sed to interpret th is result as normal/abnormal . WBC/HPF (test code = See_Comment [Autom ated message] 6763485095) The system Celect generated this result transmit andriy reference range : 0 - 5 HPF. The refe rence range was not u sed to interpret th is result as normal/abnormal . BACTERIA (test code = Many Negative A 7948432701) MUCOUS (test code = Slight Negative LPF A 9402054283) AMORPHOUS (test code = Few Rare HPF A 8143808924) SQ EPITH (test code = HPF 3555901616) YEAST BUD (test code = <1 See_Comment [Aut omated message] 6996284261) The system Celect generated this result transmit andriy reference range : <=1 HPF. The refere nce range was not u sed to interpret th is result as normal/abnormal . Lab Interpretation (test Abnormal code = 44219-9) [facility]. METABOLIC PANEL (57723)2021-01-12 15:37:29 Test Item Value Reference Range Interpretation Comments NA (test code = 137 mmol/L 135-145 4378920241) K (test code = 2.8 mmol/L 3.5-5.0 LL 5142096364) CL (test code = 105 mmol/L 98-108 2345226474) CO2 TOTAL (test code = 23 mmol/L 23-31 1768915196) AGAP (test code = 2-16 7888173796) BUN (test code = 5 mg/dL 7-23 L 7343666000) GLUCOSE (test code = 90 mg/dL 70-110 6049281097) CREATININE (test code = 0.35 mg/dL 0.50-1.04 L 9872653130) TOTAL BILI (test code = 0.6 mg/dL 0.1-1.4 1991926310) CALCIUM (test code = 9.2 mg/dL 8.6-10.6 3522707044) T PROTEIN (test code = 7.2 g/dL 6.3-8.2 2929899221) ALBUMIN (test code = 4.0 g/dL 3.5-5.0 8983576747) ALK PHOS (test code = 114 U/L 34-122 7572157511) ALTv (test code = 7 U/L 5-35 1742-6) AST(SGOT) (test code = 19 U/L 13-40 0189054671) eGFR (test code = mL/min/1.73m2 2534071065) MAYTE (test code = MAYTE) Association of Glomerular Filtration Rate (GFR) and Staging of Kidney Disease* + --+ --+ ------+| GFR (mL/min/1.73 m2) ?| With Kidney Damage ?| ?Without Kidney Damage+ --------+ --------+ +| ?>90 ?| ?Stage one ?| ? Normal ?+ ---+ ---+ -------+| ?60-89 ?| ?Stage two ?| ? Decreased GFR ? + --+ --+ ------+| ?30-59 ?| ?Stage three ?| ? Stage three ? + --+ --+ ------+| ?15-29 ?| ?Stage four ? | ? Stage four ?+ ---+ ---+ -------+| ?<15 (or dialysis) ? ?| ?Stage five ? | ? Stage five ?+ ---+ ---+ -------+ *Each stage assumes the associated GFR level has been in effect for at least three months. ?Stages 1 to 5, with or without kidney disease, indicate chronic kidney disease. Notes: Determination of stages one and two (with eGFR >59mL/min/1.73 m2) requires estimation of kidney damage for at least three months as defined by structural or functional abnormalities of the kidney, manifested by either:Pathological abnormalities or Markers of kidney damage (including abnormalities in the composition of the blood or urine or abnormalities in imaging tests). Lab Interpretation Abnormal (test code = 67139-9) [facility] HospitalLIPASE2021-[facility] 15:24:59 Test Item Value Reference Range Interpretation Comments LIPASE (test code = 2592860417) 29 U/L 0-220 Lab Interpretation (test code = Normal 28458-5) [facility] HospitalAMYLASE2021-06-10 15:24:19 Test Item Value Reference Range Interpretation Comments MARCY (test code = 6732347962) 55 U/L 35-110 Lab Interpretation (test code = Normal 21935-5) [facility] HospitalCOVID-19 (ID NOW RAPID TESTING)2021-01-12 15:14:59 Test Item Value Reference Range Interpretation Comments SARS-CoV-2 Rapid ID NOW Not Detected Not Detected (test code = 81066-0) MAYTE (test code = MAYTE) ID NOW COVID-19 Assay is an isothermal nucleic acid amplification test intended for the qualitative detection of nucleic acid from SARS-CoV-2 viral RNA in nasopharyngeal ([employer]IL[employer]) specimens. It is used under Emergency Use Authorization (EUA) by FDA. The limit of detection (LOD) of the assay is 125 Genome Equivalents/mL. A positive result is indicative of the presence of SARS-CoV-2 RNA. ?Clinical correlation with patient history and other diagnostic information is necessary to determine patient infection status. A negative (Not Detected) result does not preclude SARS-CoV-2 infection. In patients with clinical symptoms and other tests that are consistent with SARS-CoV-2 infection, negative results should be treated as presumptive negative and a new specimen should be tested with alternative PCR molecular test. Invalid: Please collect a new specimen for repeat patient testing if clinically indicated. Lab Interpretation Normal (test code = 69739-6) [facility] WITH [id number] 15:04:36 Test Item Value Reference Range Interpretation Comments WBC (test code = See_Comment [Automated 4490-2) message] The sy stem which generated this result transmitted reference range : 4.30 - 11.10 10*3/?L. The reference range was not used to interpret this result as normal/abnormal . RBC (test code = See_Comment [Automated 899-8) message] The sy stem which generated this result transmitted reference range : 3.93 - 5.25 10*6/?L. The reference range was not used to interpret this result as normal/abnormal . HGB (test code = 12.5 g/dL 11.6-15.0 718-7) HCT (test code = 36.3 % 35.7-45.2 4544-3) MCV (test code = 87.7 fL 80.6-95.5 787-2) MCH (test code = 30.2 pg 25.9-32.8 785-6) MCHC (test code = 34.4 g/dL 31.6-35.1 786-4) RDW-SD (test code = 42.0 fL 39.0-49.9 18206-0) RDW-CV (test code = 13.1 % 12.0-15.5 788-0) PLT (test code = See_Comment [Automated 777-3) message] The sy stem which generated this result transmitted reference range : 166 - 358 10*3/ ?L. The reference r thierno was not used to interpret this result as normal/abnormal . MPV (test code = 10.7 fL 9.5-12.9 66742-1) NRBC/100 WBC (test See_Comment [Automat ed code = 6271403889) message] The system which generated this result transmitted reference range : 0.0 - 10.0 /100 WBCs. The refer ence range was not u sed to interpret th is result as normal/abnormal . NRBC x10^3 (test code <0.01 See_Comment [Auto mated = 0941069745) message] The s ystem which generated this result transmitted reference range : 10*3/?L. The reference range was not used to interpret this result as normal/abnormal . GRAN MAT (NEUT) % 68.2 % (test code = 770-8) IMM GRAN % (test code 0.70 % = 8738537434) LYMPH % (test code = 15.0 % 736-9) MONO % (test code = 11.5 % 5905-5) EOS % (test code = 4.0 % 713-8) BASO % (test code = 0.6 % 706-2) GRAN MAT x10^3(ANC) 5.80 10*3/uL 1.88-7.09 (test code = 0734474850) IMM GRAN x10^3 (test 0.06 10*3/uL 0.00-0.06 code = 7438942479) LYMPH x10^3 (test code 1.28 10*3/uL 1.32-3.29 L = 731-0) MONO x10^3 (test code 0.98 10*3/uL 0.33-0.92 H = 742-7) EOS x10^3 (test code = 0.34 10*3/uL 0.03-0.39 711-2) BASO x10^3 (test code 0.05 10*3/uL 0.01-0.07 = 704-7) Lab Interpretation Abnormal (test code = 25969-6) [facility] URINALYSIS W SPECIFIC [id number] 15:19:00 Test Item Value Reference Range Interpretation Comments POCT U SP GRAV (test code = 3255) . 1.005-1.025 POCT PH U (test code = 3254) . 5-8 POCT U LEUK EST (test code = 3263) . Negative - Negative POCT U NIT (test code = 3262) . Negative - Negative POCT U PROT (test code = 3259) Trace Negative - Negative POCT U GLU (test code = 3256) Neg Negative - Negative POCT U KETONE (test code = 3258) . Negative - Negative POCT U UROBILI (test code = 3260) . 0.2-1 POCT U BILI (test code = 3261) . Negative - Negative POCT U BLD (test code = 3257) . Negative - Negative POCT U COLOR (test code = 3266) POCT U APPEAR (test code = 3267) [facility] URINALYSIS W SPECIFIC [id number] 15:19:00 Test Item Value Reference Range Interpretation Comments POCT U SP GRAV (test code = 3255) . 1.005-1.025 POCT PH U (test code = 3254) . 5-8 POCT U LEUK EST (test code = 3263) . Negative - Negative POCT U NIT (test code = 3262) . Negative - Negative POCT U PROT (test code = 3259) Trace Negative - Negative POCT U GLU (test code = 3256) Neg Negative - Negative POCT U KETONE (test code = 3258) . Negative - Negative POCT U UROBILI (test code = 3260) . 0.2-1 POCT U BILI (test code = 3261) . Negative - Negative POCT U BLD (test code = 3257) . Negative - Negative POCT U COLOR (test code = 3266) POCT U APPEAR (test code = 3267) [facility] URINALYSIS W SPECIFIC [id number] 15:19:00 Test Item Value Reference Range Interpretation Comments POCT U SP GRAV (test code = 3255) . 1.005-1.025 POCT PH U (test code = 3254) . 5-8 POCT U LEUK EST (test code = 3263) . Negative - Negative POCT U NIT (test code = 3262) . Negative - Negative POCT U PROT (test code = 3259) Trace Negative - Negative POCT U GLU (test code = 3256) Neg Negative - Negative POCT U KETONE (test code = 3258) . Negative - Negative POCT U UROBILI (test code = 3260) . 0.2-1 POCT U BILI (test code = 3261) . Negative - Negative POCT U BLD (test code = 3257) . Negative - Negative POCT U COLOR (test code = 3266) POCT U APPEAR (test code = 3267) [facility] URINALYSIS W SPECIFIC [id number] 19:17:00 Test Item Value Reference Range Interpretation Comments POCT U SP GRAV (test code = 3255) . 1.005-1.025 POCT PH U (test code = 3254) . 5-8 POCT U LEUK EST (test code = 3263) . Negative - Negative POCT U NIT (test code = 3262) . Negative - Negative POCT U PROT (test code = 3259) Trace Negative - Negative POCT U GLU (test code = 3256) Neg Negative - Negative POCT U KETONE (test code = 3258) . Negative - Negative POCT U UROBILI (test code = 3260) . 0.2-1 POCT U BILI (test code = 3261) . Negative - Negative POCT U BLD (test code = 3257) . Negative - Negative POCT U COLOR (test code = 3266) POCT U APPEAR (test code = 3267) [facility] URINALYSIS W SPECIFIC [id number] 19:17:00 Test Item Value Reference Range Interpretation Comments POCT U SP GRAV (test code = 3255) . 1.005-1.025 POCT PH U (test code = 3254) . 5-8 POCT U LEUK EST (test code = 3263) . Negative - Negative POCT U NIT (test code = 3262) . Negative - Negative POCT U PROT (test code = 3259) Trace Negative - Negative POCT U GLU (test code = 3256) Neg Negative - Negative POCT U KETONE (test code = 3258) . Negative - Negative POCT U UROBILI (test code = 3260) . 0.2-1 POCT U BILI (test code = 3261) . Negative - Negative POCT U BLD (test code = 3257) . Negative - Negative POCT U COLOR (test code = 3266) POCT U APPEAR (test code = 3267) [facility] [id number] 15:39:00 Test Item Value Reference Range Interpretation Comments POCT PREG (test code = 1605) Positive On board controls acceptable with C Yes Line (test code = 3574) POCT PREG LOT # (test code = 3575) POCT PREG TEST DATE (test code = 3576) [facility] URINALYSIS W/O SPECIFIC [id number] 15:39:00 Test Item Value Reference Range Interpretation Comments POCT PH U (test code = 3254) 5 mg/dl 5-8 POCT U LEUK EST (test code = 2+ Negative - Negative 3263) POCT U NIT (test code = 3262) pos Negative - Negative POCT U PROT (test code = 3259) trace Negative - Negative POCT U GLU (test code = 3256) neg Negative - Negative POCT U KETONE (test code = 3258) large Negative - Negative POCT U BLD (test code = 3257) small Negative - Negative Lab Interpretation (test code = Abnormal 37133-2) [facility] [id number] 05:17:00 Test Item Value Reference Range Interpretation Comments SODIUM (test code = NA) 138 mmol/L 134-147 N POTASSIUM (test code = 3.7 mmol/L 3.4-5.0 N K) CHLORIDE (test code = 108 mmol/L 100-108 N CL) CARBON DIOXIDE (test 22 mmol/L 21-32 N code = CO2) ANION GAP (test code = 8.0 GAP calc 4.0-15.0 N GAP) GLUCOSE (test code = 73 MG/DL 70-110 N GLU) BLOOD UREA NITROGEN 4 MG/DL 7-18 L (test code = BUN) GLOMERULAR FILTRATION >=60 max estimate >60 RATE (test code = GFR) estGFR CREATININE (test code = 0.7 MG/DL 0.6-1.0 N CREAT) TOTAL PROTEIN (test code 6.8 G/DL 6.4-8.2 N = PROT) ALBUMIN (test code = 3.4 G/DL 3.4-5.0 N ALB) GLOBULIN (test code = 3.4 GM/dL GLOB) ALBUMIN/GLOBULIN RATIO 1.0 RATIO 1.2-2.2 L (test code = A/G) CALCIUM (test code = CA) 8.4 MG/DL 8.5-10.1 L BILIRUBIN TOTAL (test 0.70 MG/DL 0.2-1.2 N code = BILT) SGOT/AST (test code = 14 Unit/L 15-37 L AST) SGPT/ALT (test code = 15 Unit/L 12-78 N ALT) ALKALINE PHOSPHATASE 66 Unit/L 45-117 N TOTAL (test code = ALKP) [id number] 05:17:00 Test Item Value Reference Range Interpretation Comments LIPASE (test code = LIP) 100 Unit/L 114-286 L COMPREHENSIVE METABOLIC [id number] 05:14:00 Test Item Value Reference Range Interpretation [...] TOTAL (test Unit/L 45-117 code = ALKP) [id number] 05:14:00 Test Item Value Reference Range Interpretation Comments LIPASE (test code = LIP) 100 Unit/L 114-286 L CBC W/AUTO [id number] 05:04:00 Test Item Value Reference Range Interpretation [...] NO DIFF/SCN CRITERIA = MDIFF) - XR [id number] 17:35:00 [facility] 1995 Sex: F Name: FORREST JACKSON [facility] : 1995 Age/S: 25 / F [address] [address] Unit #: [id number] Loc: [place] [address] Phys: Kishor Sánchez MD Acct: [id number] Dis Date: Status: ADM IN PHONE #: [phone] Exam Date: 06/10/2020 1610 FAX #: Reason: ERCP EXAMS: CPT: [id number] XR ERCP 91608 Fluoro Time: 199 DAP (Gy m2): Air Kerma (mGy): EXAM: - XR ERCP HISTORY: ERCP Location code: C3 COMPARISON: None available time of interpretation. FINDINGS: Intraoperative fluoroscopy was provided for Kishor Sánchez MD. Radiologist was not present for the procedure. 1 fluoroscopy images was obtained. Pleasesee surgical report. IMPRESSION: 1. As above. Fluoroscopy time: 3 minutes 33 seconds Cumulative dose : 25.59 mGy at 3772 Reported and signed by: Annabella Thorne M.D. CC: Kishor Sánchez MD; Srinivas Peraza MD PAGE 1 Signed Report Name: FORREST JACKSON : 1995 Age/S: 25 / F [address] [address] Unit #: [id number] Loc: [place] [address] Phys: Kishor Sánchez MD Acct: [id number] Dis Date: Status: ADM IN PHONE #: [phone] Exam Date: 06/10/2020 1610 FAX #: Reason: ERCP EXAMS: CPT: [id number] XR ERCP 23766 Fluoro Time: 199 DAP (Gy m2): Air Kerma (mGy): (Continued) Technologist: Sage Grant, RT(R)(CT); ... Trnscb Date/Time: 06/10/2020 (173) t.[email or web address].[email or web address] Orig Print D/T: S: 06/10/2020 (4090) PAGE 2 Signed ReportUR HCG [id number] 11:21:00 Test Item Value Reference Range Interpretation Comments UR HCG QUAL (test code = HCGQLU) NEGATIVE NEGATIVE PROTHROMBIN [id number] 11:01:00 Test Item Value Reference Range Interpretation Comments PT PATIENT (test code = PTP) 14.2 SECONDS 9.3-12.9 H INTERNATIONAL NORMAL RATIO 1.25 INR Unit 0.8-1.2 H (test code = INR) [id number] 22:52:00 Test Item Value Reference Range Interpretation [...] may michelle yby method. Completed by Nursing: [id number] 18:51:00 Test Item Value Reference Range Interpretation [...] yby method. Completed by Nursing: NO- MRI [id number] 18:12:00 [facility] : 1995 Sex: F FAX: Kishor Cortez MD [phone] Camps: PM St: ADM FAX: Srinivas Lee MD [phone] FAX: Jeffry Payton [phone] Name: FORREST JACKSON [facility] : 1995 Age/S: 25/F [address] [address] Unit #: [id number] [place]: [place] [address] Phys: Kishor Sánchez MD Acct: [id number] Dis Date: Status: ADM INPHONE #: [phone] Exam Date: 06/09/2020 1804 FAX #: Reason: Dilated CBD EXAMS: CPT: [id number] MRI MRCP 64822 EXAM: - MRI MRCP HISTORY: Cholelithiasis, biliary dilatation TECHNIQUE: Multiplanar multisequence MR imaging was performed of the abdomen utilizing MRCP protocol. Rotational image data as well as 3-D volume rendered images are provided. COMPARISON: Right upper quadrant ultrasound performed the same day FINDINGS: The liver is normal in appearance. The spleen is mildly enlarged measuring 13.5 cm in AP dimension. The pancreas, adrenal glands and kidneys appear normal. There is no free fluid or lymphadenopathy. The stomach and bowel are normal in appearance. No suspicious bony abnormalities are identified and the lung bases are clear. Numerous small gallstones are present in the gallbladd er lumen. There is no gallbladder wall thickening and no adjacent inflammatory changes are identified. The common bile duct is dilated measuring 1 cm. There is also prominence of the central intrahepatic biliary system. The common bile duct appears patent to the level of the ampulla where it abruptlytruncates. On series 8 image 33 there is discontinuity between the distal common bile duct and the adjacent bowel. An area measuring approximately 4.4 mm this present and may represent an impacted stone at the ampulla. A small filling defect is also seen in this area on axial images. The finding may represent adjacent stones. IMPRESSION: 1. Continued biliary dilatation. There are numerous stones in the gallbladder lumen and and apparent filling defect in the distal common bile duct at the level of the ampulla, likely a small stone. at 1812 Reported and signed by: Annabella Thorne M.D. PAGE 1 Signed Report (CONTINUED) FAX: Kishor Sánchez MD [phone] Camps: PM St: ADM FAX: Srinivas Lee MD [phone] FAX: Jeffry Payton [phone] Name: FORREST JACKSON : 1995 Age/S: 25/F [address] [address] Unit #: [id number] Loc: [place] [address] Phys: Kishor Sánchez MD Acct: [id number] Dis Date: Status: ADM IN PHONE #: [phone] Exam Date: 06/09/2020 180 FAX #: Reason: Dilated CBD EXAMS: CPT: [id number] MRI MRCP 87130 (Continued) CC: Kishor Sánchez MD; Srinivas Peraza MD; Jeffry Moffett MD Technologist: Theresa Barragan, RT(R)(MR) Transcribed Date/Time/By: 06/09/2020 (1811) :[email or web address] Orig Print D/T: S: 06/09/2020 (1814) PAGE 2 Signed Report COVID 19 INHOUSE [id number] 16:34:00 Test Item Value Reference Range Interpretation Comments COVID 19 INHOUSE AG NEGATIVE Negative Per manu facturer, (test code = negative result s should [id number]) be treated aspr esumptive and, if inconsi stent with clinical signs andsymptoms or necessary for patient man agement, should betested with an alternative mol ecular assay. Negative resultsdo not preclude SA RS-CoV-2 infection and s hould not be usedas the s ole basis for patient man agement decisions. Nega tive results should be considered in t he context of apatient's r ecent exposures, hist ory, presence of cli nicalsigns and symptoms co nsistent with COVID-19. UA RFLX MICR CULT IF [id number] 16:20:00 Test Item Value Reference Range Interpretation [...] culture: Flank PainUA RFLX MICR CULT IF [id number] 16:19:00 Test Item Value Reference Range Interpretation [...] Indication for culture: Flank Pain- US ABDOMEN [id number] 15:08:00 [facility] : 1995 Sex: F Name: FORREST JACKSON [facility] : 1995 Age/S: 25 / F [address] [address] Unit #: [id number] Loc: [place] [address] Phys: Jeffry Moffett MD Acct: [id number] Dis Date: Status: REG ER PHONE #: [phone] Exam Date: 06/09/2020 1500 FAX #: Reason: abdominal pain EXAMS: CPT: [id number] [address] EXAMINATION: - US ABDOMEN [facility]. LOCATION: S17. HISTORY: Abdominal pain. COMPARISON: None. [...] due to overlying bowel gas. The right kidney measures 9 cm. There is no hydronephrosis. The visualized portions of abdominal aorta and IVC appear unremarkable. IMPRESSION: Dilated CBD at 10 mm, correlate with LFTs. Cholelithiasis. at 1508 Reported and signed by: Alison Guerrero M.D. CC: Gretchen RENDON; Jeffry Moffett MD Technologist: Amber Chandler Trnscb Date/Time: 06/09/2020 (4941) t.CONNORR.ANS4 PAGE 1 Signed Report Name: FORREST JACKSON : 1995 Age/S: 25 / F [address] Unit #: [id number] Loc: [place] [address] Phys: Jeffry Moffett MD Acct: [id number] Dis Date: Status: REG ER PHONE #: [phone] Exam Date: 06/09/2020 1500 FAX #: Reason: abdominal pain EXAMS: CPT: [id number] ABDOMEN LTD 30584 (Continued) Orig Print D/T: S: 06/09/2020 (1845) Probe: PAGE 2 Signed ReportBASIC METABOLIC [id number] 14:57:00 Test Item Value Reference Range Interpretation [...] CA) 9.2 MG/DL 8.5-10.1 N HEPATIC FUNCTION [id number] 14:57:00 Test Item Value Reference Range Interpretation [...] 68 Unit/L 45-117 N code = ALKP) [id number] 14:57:00 Test Item Value Reference Range Interpretation Comments LIPASE (test code = LIP) 3123 Unit/L 114-286 H CBC W/AUTO [id number] 14:48:00 Test Item Value Reference Range Interpretation [...] (test code NO DIFF/SCN CRITERIA = MDIFF) US ABDOMEN [id number] 04:14:41 1. ?Cholelithiasis without acute cholecystitis. No biliary dilation.2. ?A subcentimeter (0.4 cm) echogenic avascular focus in the gallbladderfundus may represent a sludge ball versus a polyp. Preliminary Report Dictated by Resident: Eitan Carlisle MD., have reviewed this study and agree with the abovereport.US ABDOMEN LIMITED HISTORY: EPIGASTRIC Pain, elevated LFT, R/O ACUTE CHOLECYSTITIS vsCHOLELITHIASIS COMPARISON: None. TECHNIQUE: Grayscale and limited color Doppler images of the abdomen wereobtained. FINDINGS: LIVER: Normal in size (16.4 cm) and echo- texture. No focal hepatic lesion. Normal hepatopetal ?flow within the main portal vein. GALLBLADDER: The gallbladder contains stones with no distention, wallthickening, pericholecystic fluid . No sonographic Tanner's sign. Thecommon bile duct measures 0.2 cm. An echogenic focus near the fundus of gallbladder measures 0.4 x 0.3 x 0.3cm with no vascularity. This may represent a sludge ball versus a polyp. PANCREAS: The visualized portions of the pancreas are normal. RIGHT KIDNEY: The visualized portion of the right kidney is unremarkable. The suprarenal abdominal aorta measures 1.7 cm in diameter. [facility], Radiant Results Inft User - 04/15/2020 11:15 PM CDTUS ABDOMEN LIMITEDHISTORY: EPIGASTRIC Pain, elevated LFT, R/O ACUTE CHOLECYSTITIS vsCHOLELITHIASIS COMPARISON: None.TECHNIQUE: Grayscale and limited color Doppler images of the abdomen wereobtained. FINDINGS: LIVER: Normal in size (16.4 cm) and echo-texture. No focal hepaticlesion. Normal hepatopetal flow within the main portal vein. GALLBLADDER: The gallbladder contains stones with no distention, wallthickening, pericholecystic fluid . No sonographic Tanner's sign. Thecommon bile duct measures 0.2 cm.An echogenic focus near the fundus of gallbladder measures 0.4 x 0.3 x0.3cm with no vascularity. This may represent a sludge ball versus a polyp.PANCREAS: The visualized portions of the pancreas are normal.RIGHT KIDNEY: The visualized portion of the right kidney is unremarkable.The suprarenal abdominal aorta measures 1.7 cm in diameter.IMPRESSION 1. Cholelithiasis without acute cholecystitis. No biliary dilation.2. A subcentimeter (0.4 cm) echogenic avascular focus in the gallbladderfundus may represent a sludge ball versus a polyp.Preliminary Report Dictated by Resident: Eitan Cadet MD., have reviewed this study and agree with the abovereport.[facility] HospitalUrinalysis2020-09-12 03:08:00 Test Item Value Reference Range Interpretation Comments APPEARANCE (test code = Hazy Clear A 4033447863) COLOR (test code = Evette Yellow A 6271602028) PH (test code = 4.8-8.0 8481472463) SP GRAVITY (test code = 1.003-1.030 0257307053) GLU U QUAL (test code = Normal Normal 7068276914) BLOOD (test code = Negative Negative 7564625815) KETONES (test code = Negative Negative 5272225755) PROTEIN (test code = Negative Negative 2887-8) UROBILIN (test code = 4.0 mg/dL Normal A 9719682329) BILIRUBIN (test code = Negative Negative 5431017519) NITRITE (test code = Negative Negative 9560917996) LEUK PAVITHRA (test code = 250/uL Negative A 3577534433) RBC/HPF (test code = <1 See_Comment [Autom ated message] 2706471724) The system whic h generated this result transmit andriy reference range : 0 - 3 HPF. The refe rence range was not u sed to interpret th is result as normal/abnormal . WBC/HPF (test code = See_Comment H [Autom ated message] 5931023746) The system Celect generated this result transmit andriy reference range : 0 - 5 HPF. The refe rence range was not u sed to interpret th is result as normal/abnormal . BACTERIA (test code = Few Negative A 1819446388) MUCOUS (test code = Slight Negative LPF A 2534109433) SQ EPITH (test code = HPF 6516805353) Lab Interpretation (test Abnormal code = 74196-6) [facility] HospitalComplete Metabolic [id number] 02:51:00 Test Item Value Reference Range Interpretation Comments NA (test code = 139 mmol/L 135-145 5859952310) K (test code = 3.9 mmol/L 3.5-5 6565554823) CL (test code = 103 mmol/L 98-108 3009811844) CO2 TOTAL (test code = 27 mmol/L 23-31 1255489917) AGAP (test code = 2-16 3221105135) BUN (test code = 14 mg/dL 7-23 2326726313) GLUCOSE (test code = 110 mg/dL 70-110 0407344249) CREATININE (test code = 0.78 mg/dL 0.5-1.04 4204304703) TOTAL BILI (test code = 2.4 mg/dL 0.1-1.1 H 7542392970) CALCIUM (test code = 9.4 mg/dL 8.6-10.6 1008732855) T PROTEIN (test code = 7.4 g/dL 6.3-8.2 0558174242) ALBUMIN (test code = 4.2 g/dL 3.5-5 4256402695) ALK PHOS (test code = 169 U/L 34-122 H 7566544171) ALTv (test code = 271 U/L 5-35 H 1742-6) AST(SGOT) (test code = 553 U/L 13-40 H 0447691315) eGFR Calculation mL/min/1.73m2 (Non-) (test code = 0122074731) eGFR Calculation mL/min/1.73m2 () (test code = 3404550553) MAYTE (test code = MAYTE) Association of Glomerular Filtration Rate (GFR) and Staging of Kidney Disease* + --+ --+ ------+| GFR (mL/min/1.73 m2) ?| With Kidney Damage ?| ?Without Kidney Damage+ --------+ --------+ +| ?>90 ?| ?Stage one ?| ? Normal ?+ ---+ ---+ -------+| ?60-89 ?| ?Stage two ?| ? Decreased GFR ? + --+ --+ ------+| ?30-59 ?| ?Stage three ?| ? Stage three ? + --+ --+ ------+| ?15-29 ?| ?Stage four ? | ? Stage four ?+ ---+ ---+ -------+| ?<15 (or dialysis) ? ?| ?Stage five ? | ? Stage five ?+ ---+ ---+ -------+ *Each stage assumes the associated GFR level has been in effect for at least three months. ?Stages 1 to 5, with or without kidney disease, indicate chronic kidney disease. Notes: Determination of stages one and two (with eGFR >59mL/min/1.73 m2) requires estimation of kidney damage for at least three months as defined by structural or functional abnormalities of the kidney, manifested by either:Pathological abnormalities or Markers of kidney damage (including abnormalities in the composition of the blood or urine or abnormalities in imaging tests). Lab Interpretation Abnormal (test code = 68424-8) [facility] HospitalLipase, [id number] 02:51:00 Test Item Value Reference Range Interpretation Comments LIPASE (test code = 8731805015) 87 U/L 0-220 Lab Interpretation (test code = Normal 83214-2) [facility] HospitalCB with [id number] 02:42:00 Test Item Value Reference Range Interpretation Comments WBC (test code = See_Comment [Automated 5698-2) message] The sy stem which generated this result transmitted reference range : 4.30 - 11.10 10*3/?L. The reference range was not used to interpret this result as normal/abnormal . RBC (test code = See_Comment [Automated 789-8) message] The sy stem which generated this result transmitted reference range : 3.93 - 5.25 10*6/?L. The reference range was not used to interpret this result as normal/abnormal . HGB (test code = 13.1 g/dL 11.6-15 718-7) HCT (test code = 39.1 % 35.7-45.2 4544-3) MCV (test code = 84.6 fL 80.6-95.5 787-2) MCH (test code = 28.4 pg 25.9-32.8 785-6) MCHC (test code = 33.5 g/dL 31.6-35.1 786-4) RDW-SD (test code = 45.0 fL 39-49.9 85037-4) RDW-CV (test code = 14.6 % 12-15.5 788-0) PLT (test code = See_Comment H [Automated 777-3) message] The sy stem which generated this result transmitted reference range : 166 - 358 10*3/ ?L. The reference r thierno was not used to interpret this result as normal/abnormal . MPV (test code = 9.0 fL 9.5-12.9 L 52908-0) NRBC/100 WBC (test See_Comment [Automat ed code = 1944012745) message] The system which generated this result transmitted reference range : 0.0 - 10.0 /100 WBCs. The refer ence range was not u sed to interpret th is result as normal/abnormal . NRBC x10^3 (test code <0.01 See_Comment [Auto mated = 8551153108) message] The s ystem which generated this result transmitted reference range : 10*3/?L. The reference range was not used to interpret this result as normal/abnormal . GRAN MAT (NEUT) % 65.4 % (test code = 770-8) IMM GRAN % (test code 0.20 % = 6035251039) LYMPH % (test code = 21.5 % 736-9) MONO % (test code = 11.7 % 5905-5) EOS % (test code = 0.5 % 713-8) BASO % (test code = 0.7 % 706-2) GRAN MAT x10^3(ANC) 5.33 10*3/uL 1.88-7.09 (test code = 3074314549) IMM GRAN x10^3 (test <0.03 0-0.06 code = 7479227976) LYMPH x10^3 (test code 1.75 10*3/uL 1.32-3.29 = 731-0) MONO x10^3 (test code 0.95 10*3/uL 0.33-0.92 H = 742-7) EOS x10^3 (test code = 0.04 10*3/uL 0.03-0.39 711-2) BASO x10^3 (test code 0.06 10*3/uL 0.01-0.07 = 704-7) Lab Interpretation Abnormal (test code = 12454-7) [facility]. METABOLIC PANEL (24666)2020-04-15 04:33:00 Test Item Value Reference Range Interpretation Comments NA (test code = 139 mmol/L 135-145 1842929699) K (test code = 3.6 mmol/L 3.5-5 5432394535) CL (test code = 102 mmol/L 98-108 0387253454) CO2 TOTAL (test code = 27 mmol/L 23-31 2666548740) AGAP (test code = 2-16 5017488411) BUN (test code = 15 mg/dL 7-23 4319414350) GLUCOSE (test code = 119 mg/dL 70-110 H 1854043018) CREATININE (test code = 0.89 mg/dL 0.5-1.04 5442559405) TOTAL BILI (test code = 0.8 mg/dL 0.1-1.3 8033058793) CALCIUM (test code = 9.6 mg/dL 8.6-10.6 2516845254) T PROTEIN (test code = 7.3 g/dL 6.3-8.2 4149168357) ALBUMIN (test code = 4.2 g/dL 3.5-5 8690534761) ALK PHOS (test code = 91 U/L 34-122 3191071731) ALTv (test code = 32 U/L 5-35 1742-6) AST(SGOT) (test code = 94 U/L 13-40 H 0627027165) eGFR Calculation mL/min/1.73m2 (Non-) (test code = 3587723855) eGFR Calculation mL/min/1.73m2 () (test code = 3469982062) MAYTE (test code = MAYTE) Association of Glomerular Filtration Rate (GFR) and Staging of Kidney Disease* + --+ --+ ------+| GFR (mL/min/1.73 m2) ?| With Kidney Damage ?| ?Without Kidney Damage+ --------+ --------+ +| ?>90 ?| ?Stage one ?| ? Normal ?+ ---+ ---+ -------+| ?60-89 ?| ?Stage two ?| ? Decreased GFR ? + --+ --+ ------+| ?30-59 ?| ?Stage three ?| ? Stage three ? + --+ --+ ------+| ?15-29 ?| ?Stage four ? | ? Stage four ?+ ---+ ---+ -------+| ?<15 (or dialysis) ? ?| ?Stage five ? | ? Stage five ?+ ---+ ---+ -------+ *Each stage assumes the associated GFR level has been in effect for at least three months. ?Stages 1 to 5, with or without kidney disease, indicate chronic kidney disease. Notes: Determination of stages one and two (with eGFR >59mL/min/1.73 m2) requires estimation of kidney damage for at least three months as defined by structural or functional abnormalities of the kidney, manifested by either:Pathological abnormalities or Markers of kidney damage (including abnormalities in the composition of the blood or urine or abnormalities in imaging tests). Lab Interpretation Abnormal (test code = 24406-7) [facility] HospitalLIPASE2020-09-[facility] 04:33:00 Test Item Value Reference Range Interpretation Comments LIPASE (test code = 6492210643) 69 U/L 0-220 Lab Interpretation (test code = Normal 95681-0) [facility] HospitalCB WITH [id number] 04:10:00 Test Item Value Reference Range Interpretation Comments WBC (test code = See_Comment [Automated 7990-2) message] The sy stem which generated this result transmitted reference range : 4.30 - 11.10 10*3/?L. The reference range was not used to interpret this result as normal/abnormal . RBC (test code = See_Comment [Automated 789-8) message] The sy stem which generated this result transmitted reference range : 3.93 - 5.25 10*6/?L. The reference range was not used to interpret this result as normal/abnormal . HGB (test code = 13.7 g/dL 11.6-15 718-7) HCT (test code = 40.9 % 35.7-45.2 4544-3) MCV (test code = 84.3 fL 80.6-95.5 787-2) MCH (test code = 28.2 pg 25.9-32.8 785-6) MCHC (test code = 33.5 g/dL 31.6-35.1 786-4) RDW-SD (test code = 45.1 fL 39-49.9 90647-0) RDW-CV (test code = 14.7 % 12-15.5 788-0) PLT (test code = See_Comment H [Automated 777-3) message] The sy stem which generated this result transmitted reference range : 166 - 358 10*3/ ?L. The reference r thierno was not used to interpret this result as normal/abnormal . MPV (test code = 8.9 fL 9.5-12.9 L 53790-2) NRBC/100 WBC (test See_Comment [Automat ed code = 2607040521) message] The system which generated this result transmitted reference range : 0.0 - 10.0 /100 WBCs. The refer ence range was not u sed to interpret th is result as normal/abnormal . NRBC x10^3 (test code <0.01 See_Comment [Auto mated = 2001478662) message] The s ystem which generated this result transmitted reference range : 10*3/?L. The reference range was not used to interpret this result as normal/abnormal . GRAN MAT (NEUT) % 53.4 % (test code = 770-8) IMM GRAN % (test code 0.30 % = 4236848354) LYMPH % (test code = 35.5 % 736-9) MONO % (test code = 9.4 % 5905-5) EOS % (test code = 0.8 % 713-8) BASO % (test code = 0.6 % 706-2) GRAN MAT x10^3(ANC) 4.86 10*3/uL 1.88-7.09 (test code = 4419335993) IMM GRAN x10^3 (test 0.03 10*3/uL 0-0.06 code = 2470116691) LYMPH x10^3 (test code 3.22 10*3/uL 1.32-3.29 = 731-0) MONO x10^3 (test code 0.85 10*3/uL 0.33-0.92 = 742-7) EOS x10^3 (test code = 0.07 10*3/uL 0.03-0.39 711-2) BASO x10^3 (test code 0.05 10*3/uL 0.01-0.07 = 704-7) Lab Interpretation Abnormal (test code = 48294-1) [facility] HospitalPOCT [id number] 03:52:00 Test Item Value Reference Range Interpretation Comments POCT PREG (test code = 1605) negative On board controls acceptable with present C Line (test code = 3574) POCT PREG LOT # (test code = 3575) [id number] POCT PREG TEST DATE (test 04/04/2021 code = 3576) Lab Interpretation (test code = Normal 96165-9) [facility]CB WITH [id number] 10:57:00 Test Item Value Reference Range Interpretation Comments WBC (test code = See_Comment H [Automated 8439-2) message] The sy stem which generated this result transmitted reference range : 4.30 - 11.10 10*3/?L. The reference range was not used to interpret this result as normal/abnormal . RBC (test code = See_Comment [Automated 597-8) message] The sy stem which generated this result transmitted reference range : 3.93 - 5.25 10*6/?L. The reference range was not used to interpret this result as normal/abnormal . HGB (test code = 11.7 g/dL 11.6-15 718-7) HCT (test code = 34.9 % 35.7-45.2 L 4544-3) MCV (test code = 88.1 fL 80.6-95.5 787-2) MCH (test code = 29.5 pg 25.9-32.8 785-6) MCHC (test code = 33.5 g/dL 31.6-35.1 786-4) RDW-SD (test code = 43.0 fL 39-49.9 90818-7) RDW-CV (test code = 13.4 % 12-15.5 788-0) PLT (test code = See_Comment [Automated 777-3) message] The sy stem which generated this result transmitted reference range : 166 - 358 10*3/ ?L. The reference r thierno was not used to interpret this result as normal/abnormal . MPV (test code = 10.4 fL 9.5-12.9 25670-1) NRBC/100 WBC (test See_Comment [Automat ed code = 4594132672) message] The system which generated this result transmitted reference range : 0.0 - 10.0 /100 WBCs. The refer ence range was not u sed to interpret th is result as normal/abnormal . NRBC x10^3 (test code <0.01 See_Comment [Auto mated = 6655684016) message] The s ystem which generated this result transmitted reference range : 10*3/?L. The reference range was not used to interpret this result as normal/abnormal . GRAN MAT (NEUT) % 65.7 % (test code = 770-8) IMM GRAN % (test code 0.90 % = 9767428463) LYMPH % (test code = 23.8 % 736-9) MONO % (test code = 8.5 % 5905-5) EOS % (test code = 0.6 % 713-8) BASO % (test code = 0.5 % 706-2) GRAN MAT x10^3(ANC) 8.03 10*3/uL 1.88-7.09 H (test code = 8554811397) IMM GRAN x10^3 (test 0.11 10*3/uL 0-0.06 H code = 0581017593) LYMPH x10^3 (test code 2.90 10*3/uL 1.32-3.29 = 731-0) MONO x10^3 (test code 1.04 10*3/uL 0.33-0.92 H = 742-7) EOS x10^3 (test code = 0.07 10*3/uL 0.03-0.39 711-2) BASO x10^3 (test code 0.06 10*3/uL 0.01-0.07 = 704-7) Lab Interpretation Abnormal (test code = 47124-2) [facility] OR JAYNE ONLY - [id number] 05:19:00 Test Item Value Reference Range Interpretation Comments RPR (Qualitative) (test code = Nonreactive Nonreactive 13294-3) Lab Interpretation (test code = Normal 11325-3) [facility] HospitalRHO (D) IMMUNE [id number] 17:30:00 Test Item Value Reference Range Interpretation Comments RHIG CANDIDATE? No- see comment mom Rh po sPerformed at (test code = [facility] Laboratory 5055) Services - [facility] Blood [address] [place], [place] [address]Toll Free: [phone] A No. [id number] [facility] HospitalHepatitis B Surface [id number] 15:39:00 Test Item Value Reference Range Interpretation Comments HBsAg Semi-Quantitative (test code = Negative Negative 5195-3) [facility] HospitalArterial Cord [id number] 11:43:00 Test Item Value Reference Range Interpretation Comments BASE EXCESS, CORD (test mEq/L code = 2507646001) AC PH, CORD (BEAKER) 7.18-7.38 H (test code = 2902780617) PC02, CORD (test code = See_Comment [Au tomated message] 5118024316) The system [employer] generated this result transmitted ref erence range: 32 - 66 mmHg. The reference r thierno was not used to interpret this result as normal/abnor mal. PO2, CORD (test code = See_Comment H [Aut omated message] 4284352868) The system ic [employer] generated this result transmitted ref erence range: 10 - 30 mmHg. The reference r thierno was not used to interpret this result as normal/abnor mal. BICARBONATE, CORD (test See_Comment [Au tomated message] code = 7037437287) The syste m which generated this result transmitted ref erence range: 17 - 27 mEq/L. The reference r thierno was not used to interpret this result as normal/abnor mal. Lab Interpretation (test Abnormal code = 93815-2) [facility] HospitalVenous Cord [id number] 11:41:00 Test Item Value Reference Range Interpretation Comments VENOUS BASE EXCESS, mEq/L CORD (test code = 2052813132) VENOUS PH, CORD (test 7.25-7.45 code = 6994783277) VENOUS PC02, CORD See_Comment [Automate d message] The (test code = system which ge nerated 1701602689) this result tra nsmitted reference range : 27 - 49 mmHg. The refer ence range was not used to interpret this result as normal/abnormal . VENOUS PO2, CORD (test See_Comment [Aut omated message] The code = 1390597148) system wh ich generated this result tra nsmitted reference range : 17 - 41 mmHg. The refer ence range was not used to interpret this result as normal/abnormal . VENOUS BICARBONATE, See_Comment [Automa andriy message] The CORD (test code = system whi ch generated 4643427572) this result tra nsmitted reference range : 12 - 29 mEq/L. The refe rence range was not used to interpret this result as normal/abnormal . [facility] HospitalHIV 1/2 AG-AB WITH [id number] 10:40:00 Test Item Value Reference Range Interpretation Comments HIV Negative Negative Semi-quantitative (test code = 58205-2) MAYTE (test code = Non-reactive for HIV-1 MAYTE) antigen and HIV-1/HIV-2 antibodies. ?No laboratory evidence of HIV infection. ?Repeat in 2-4 weeks if acute HIV infection is suspected. [facility] HospitalType and Screen - ONCE [id number] 07:15:21 Test Item Value Reference Range Interpretation Comments ABO & RH (test code O Positive Performe d at [facility] = 20) Laboratory [facility] Blood Bank[address] [place] [address]Goak Free: [phone] A No. [id number] IAT (test code = Negative Performed a t [facility] 1185) [facility] Blood Bank[address] [place] [address]Jkjv Free: [phone] A No. [id number] [facility] HospitalPROTEIN CREAT RATIO URINE [id number] 05:24:00 Test Item Value Reference Range Interpretation Comments T. PROT U (test code = 2888-6) 32 mg/dL CREAT U (test code = 6951522945) 118.6 mg/dL Protein/Creatinine Ratio Urine 0.0-2.0 (test code = 8642550382) [facility] HospitalCORONAVIRUS COVID-19 [id number] 05:12:00 Test Item Value Reference Range Interpretation Comments SARS-CoV-2 (test code = Not Detected Not Detected 27310-4) MAYTE (test code = MAYTE) ID NOW COVID-19 Assay is an isothermal nucleic acid amplification test intended for the qualitative detection of nucleic acid from SARS-CoV-2 viral RNA in nasopharyngeal (BOILING [employer]IL[employer]) specimens. It is used under Emergency Use Authorization (EUA) by FDA. The limit of detection (LOD) of the assay is 125 Genome Equivalents/mL. A positive result is indicative of the presence of SARS-CoV-2 RNA. ?Clinical correlation with patient history and other diagnostic information is necessary to determine patient infection status. A negative (Not Detected) result does not preclude SARS-CoV-2 infection. Clinical correlation with patient history and other diagnostic information should be used in patient management decisions. Invalid: Please collect a new specimen for repeat patient testing if clinically indicated. Lab Interpretation Normal (test code = 09577-0) [facility] HospitalURINALYSIS2020-04-20 04:32:00 Test Item Value Reference Range Interpretation Comments APPEARANCE (test code = Cloudy Clear A 0743044058) COLOR (test code = Yellow Yellow 5628657650) PH (test code = 4.8-8.0 2646450315) SP GRAVITY (test code = 1.003-1.030 7204733612) GLU U QUAL (test code = Normal Normal 4786418967) BLOOD (test code = 3+ Negative A 7142455914) KETONES (test code = 20 mg/dL Negative A 1801286921) PROTEIN (test code = Negative Negative 2887-8) UROBILIN (test code = Normal Normal 3023808644) BILIRUBIN (test code = Negative Negative 7466901677) NITRITE (test code = Negative Negative 6711274919) LEUK PAVITHRA (test code = 250/uL Negative A 4402672304) RBC/HPF (test code = See_Comment H [Autom ated message] 7036760112) The system [employer] generated this result transmitted ref erence range: 0 - 3 HP F. The reference range was not used to int erpret this result as normal/abnormal . WBC/HPF (test code = See_Comment H [Autom ated message] 4157152254) The system [employer] generated this result transmitted ref erence range: 0 - 5 HP F. The reference range was not used to int erpret this result as normal/abnormal . BACTERIA (test code = Few Negative A 3808766274) MUCOUS (test code = Slight Negative LPF A 5992332159) SQ EPITH (test code = HPF 0693347266) Lab Interpretation (test Abnormal code = 33603-3) [facility] HospitalURIC ACID [id number] 04:29:00 Test Item Value Reference Range Interpretation Comments URIC ACID (test code = 2374759480) 3.8 mg/dL 2.9-6 Lab Interpretation (test code = Normal 61403-9) [facility]. METABOLIC PANEL (73267)2019-11-23 04:29:00 Test Item Value Reference Range Interpretation Comments NA (test code = 136 mmol/L 135-145 0754389435) K (test code = 3.2 mmol/L 3.5-5 L 9534208822) CL (test code = 103 mmol/L 98-108 7725255060) CO2 TOTAL (test code = 23 mmol/L 23-31 0245389254) AGAP (test code = 2-16 [id number]) BUN (test code = 8 mg/dL 7-23 5057913211) GLUCOSE (test code = 87 mg/dL 70-110 7838066318) CREATININE (test code = 0.52 mg/dL 0.5-1.04 0341194582) TOTAL BILI (test code = 0.5 mg/dL 0.1-1.8 3482442317) CALCIUM (test code = 10.9 mg/dL 8.6-10.6 H 8784565683) T PROTEIN (test code = 7.2 g/dL 6.3-8.2 1674016427) ALBUMIN (test code = 3.9 g/dL 3.5-5 4224955249) ALK PHOS (test code = 140 U/L 34-122 H 3906328921) ALTv (test code = 12 U/L 5-35 1742-6) AST(SGOT) (test code = 19 U/L 13-40 2076984745) eGFR Calculation mL/min/1.73m2 (Non-) (test code = 9111878502) eGFR Calculation mL/min/1.73m2 () (test code = 2829125380) MAYTE (test code = MAYTE) Association of Glomerular Filtration Rate (GFR) and Staging of Kidney Disease* + --+ --+ ------+| GFR (mL/min/1.73 m2) ?| With Kidney Damage ?| ?Without Kidney Damage+ --------+ --------+ +| ?>90 ?| ?Stage one ?| ? Normal ?+ ---+ ---+ -------+| ?60-89 ?| ?Stage two ?| ? Decreased GFR ? + --+ --+ ------+| ?30-59 ?| ?Stage three ?| ? Stage three ? + --+ --+ ------+| ?15-29 ?| ?Stage four ? | ? Stage four ?+ ---+ ---+ -------+| ?<15 (or dialysis) ? ?| ?Stage five ? | ? Stage five ?+ ---+ ---+ -------+ *Each stage assumes the associated GFR level has been in effect for at least three months. ?Stages 1 to 5, with or without kidney disease, indicate chronic kidney disease. Notes: Determination of stages one and two (with eGFR >59mL/min/1.73 m2) requires estimation of kidney damage for at least three months as defined by structural or functional abnormalities of the kidney, manifested by either:Pathological abnormalities or Markers of kidney damage (including abnormalities in the composition of the blood or urine or abnormalities in imaging tests). Lab Interpretation Abnormal (test code = 33473-1) [facility] WITH [id number] 04:16:00 Test Item Value Reference Range Interpretation Comments WBC (test code = See_Comment H [Automated 6690-2) message] The system which generated this result transmit andriy reference range : 4.30 - 11.10 10*3/?L. The reference range was not used to interpret this result as normal/abnormal . RBC (test code = See_Comment [Automated 789-8) message] The system which generated this result transmit andriy reference range : 3.93 - 5.25 10*6/?L. The reference range was not used to interpret this result as normal/abnormal . HGB (test code = 13.7 g/dL 11.6-15 718-7) HCT (test code = 39.6 % 35.7-45.2 4544-3) MCV (test code = 85.5 fL 80.6-95.5 787-2) MCH (test code = 29.6 pg 25.9-32.8 785-6) MCHC (test code = 34.6 g/dL 31.6-35.1 786-4) RDW-SD (test code = 39.6 fL 39-49.9 83071-4) RDW-CV (test code = 13.0 % 12-15.5 788-0) PLT (test code = See_Comment [Automated 777-3) message] The system which generated this result transmit andriy reference range : 166 - 358 10*3/ ?L. The reference range was not u sed to interpret th is result as normal/abnormal . MPV (test code = 10.1 fL 9.5-12.9 34477-5) NRBC/100 WBC (test See_Comment [Automat ed code = 2993386857) message] The system which generated this result transmit andriy reference range : 0.0 - 10.0 /100 WBCs. The reference range was not used to interpret this result as normal/abnormal . NRBC x10^3 (test code <0.01 See_Comment [Auto mated = 7148338053) message] The system which generated this result transmit andriy reference range : 10*3/?L. The reference range was not used to interpret this result as normal/abnormal . GRAN MAT (NEUT) % 77.3 % (test code = 770-8) IMM GRAN % (test code 0.60 % = 9205856955) LYMPH % (test code = 13.6 % 736-9) MONO % (test code = 7.9 % 5905-5) EOS % (test code = 0.1 % 713-8) BASO % (test code = 0.5 % 706-2) GRAN MAT x10^3(ANC) 13.50 10*3/uL 1.88-7.09 H (test code = 3914262264) IMM GRAN x10^3 (test 0.11 10*3/uL 0-0.06 H code = 5228155625) LYMPH x10^3 (test code 2.37 10*3/uL 1.32-3.29 = 731-0) MONO x10^3 (test code 1.38 10*3/uL 0.33-0.92 H = 742-7) EOS x10^3 (test code = <0.03 0.03-0.39 L 711-2) BASO x10^3 (test code 0.08 10*3/uL 0.01-0.07 H = 704-7) Lab Interpretation Abnormal (test code = 79197-4) [facility] URINALYSIS W/O SPECIFIC [id number] 21:14:00 Test Item Value Reference Range Interpretation Comments POCT PH U (test code = 3254) n/a 5-8 POCT U LEUK EST (test code = 3263) n/a Negative - Negative POCT U NIT (test code = 3262) n/a Negative - Negative POCT U PROT (test code = 3259) neg Negative - Negative POCT U GLU (test code = 3256) neg Negative - Negative POCT U KETONE (test code = 3258) n/a Negative - Negative POCT U BLD (test code = 3257) n/a Negative - Negative Lab Interpretation (test code = Normal 52562-3) [facility] URINALYSIS W/O SPECIFIC [id number] 21:08:00 Test Item Value Reference Range Interpretation Comments POCT PH U (test code = 3254) n/a 5-8 POCT U LEUK EST (test code = 3263) n/a Negative - Negative POCT U NIT (test code = 3262) n/a Negative - Negative POCT U PROT (test code = 3259) neg Negative - Negative POCT U GLU (test code = 3256) neg Negative - Negative POCT U KETONE (test code = 3258) n/a Negative - Negative POCT U BLD (test code = 3257) n/a Negative - Negative Lab Interpretation (test code = Normal 58318-5) [facility] [id number] 15:30:00 Test Item Value Reference Range Interpretation Comments POCT PH U (test code = 3254) N/A 5-8 POCT U LEUK EST (test code = N/A Negative - Negative 3263) POCT U NIT (test code = 3262) N/A Negative - Negative POCT U PROT (test code = 3259) Trace Negative - Negative POCT U GLU (test code = 3256) Negative Negative - Negative POCT U KETONE (test code = 3258) N/A Negative - Negative POCT U BLD (test code = 3257) N/A Negative - Negative [facility] / [facility] - DRUG SCREEN [id number] 22:13:00 Test Item Value Reference Range Interpretation Comments BENZO U (test code = Negative Negative 8398196061) SERVANDO U (test code = Negative Negative 7494704203) AMPHET (test code = Negative Negative 1202495161) THC (test code = Presumptive Negative A Confirmatio n of 7731828200) Positive Presumptive Positive THC result requires physician order . METHADONE (test code Negative Negative = 0503699857) Meth U (test code = Negative Negative 2653051998) OPIATES (test code = Negative Negative 2279582308) Cocaine Metabolite Negative Negative (test code = 6975105198) PROPOXY (test code = Negative Negative 7087337076) Tric U (test code = Negative Negative 9255689522) PCP (test code = Negative Negative 1459388533) OXYCOD (test code = Negative Negative 2164406131) MAYTE (test code = Urine Drug Cutoff MAYTE) Ranges Benzodiazepines: ? ? 150 ng/mLBarbiturates : ?200 ng/mLAmphetamine: ? 500 ng/mLCannabinoids : ?50 ?ng/mLMethadone: ? 200 ng/mLMethamphetam ine: ? ? 500 ng/mL Opiates: ? 100 ng/mL or 2000 ng/mLCocaine: ? 150 ng/mLPropoxyphene : ?300 ng/mLTricyclics: ?300 ng/mLOxycodone: ? 100 ng/mLPCP: ? 25 ?ng/mL The results are to be used only for medical (i.e., treatment) purposes. Unconfirmed screening results must not be used for non-medical purposes (e.g., employment testing, legal testing). Lab Interpretation Abnormal (test code = 64219-2) [facility] / [facility] - DRUG SCREEN [id number] 22:13:00 Test Item Value Reference Range Interpretation Comments BENZO U (test code = Negative Negative 5472874517) SERVANDO U (test code = Negative Negative 9451115177) AMPHET (test code = Negative Negative 5483206326) THC (test code = Presumptive Negative A Confirmatio n of 9476020817) Positive Presumptive Positive THC result requires physician order . METHADONE (test code Negative Negative = 6305964435) Meth U (test code = Negative Negative 8780092409) OPIATES (test code = Negative Negative 0487417434) Cocaine Metabolite Negative Negative (test code = 0548666096) PROPOXY (test code = Negative Negative 3230229749) Tric U (test code = Negative Negative 3476274203) PCP (test code = Negative Negative 8165995519) OXYCOD (test code = Negative Negative 9336654492) MAYTE (test code = Urine Drug Cutoff MAYTE) Ranges Benzodiazepines: ? ? 150 ng/mLBarbiturates : ?200 ng/mLAmphetamine: ? 500 ng/mLCannabinoids : ?50 ?ng/mLMethadone: ? 200 ng/mLMethamphetam ine: ? ? 500 ng/mL Opiates: ? 100 ng/mL or 2000 ng/mLCocaine: ? 150 ng/mLPropoxyphene : ?300 ng/mLTricyclics: ?300 ng/mLOxycodone: ? 100 ng/mLPCP: ? 25 ?ng/mL The results are to be used only for medical (i.e., treatment) purposes. Unconfirmed screening results must not be used for non-medical purposes (e.g., employment testing, legal testing). Lab Interpretation Abnormal (test code = 18436-8) [facility] HEMOGLOBIN A1C [id number] 21:27:00 Test Item Value Reference Range Interpretation Comments POCT HBA1C (test code = 4548-4) 5.0% 4-6 Lab Interpretation (test code = Normal 84354-9) [facility] HEMOGLOBIN A1C [id number] 21:27:00 Test Item Value Reference Range Interpretation Comments POCT HBA1C (test code = 4548-4) 5.0% 4-6 Lab Interpretation (test code = Normal 19347-9) [facility] URINALYSIS W/O SPECIFIC [id number] 21:13:00 Test Item Value Reference Range Interpretation Comments POCT PH U (test code = 3254) N/A 5-8 POCT U LEUK EST (test code = N/A Negative - Negative 3263) POCT U NIT (test code = 3262) N/A Negative - Negative POCT U PROT (test code = 3259) Negative Negative - Negative POCT U GLU (test code = 3256) Negative Negative - Negative POCT U KETONE (test code = 3258) N/A Negative - Negative POCT U BLD (test code = 3257) N/A Negative - Negative [facility] URINALYSIS W/O SPECIFIC [id number] 21:13:00 Test Item Value Reference Range Interpretation Comments POCT PH U (test code = 3254) N/A 5-8 POCT U LEUK EST (test code = N/A Negative - Negative 3263) POCT U NIT (test code = 3262) N/A Negative - Negative POCT U PROT (test code = 3259) Negative Negative - Negative POCT U GLU (test code = 3256) Negative Negative - Negative POCT U KETONE (test code = 3258) N/A Negative - Negative POCT U BLD (test code = 3257) N/A Negative - Negative [facility] [id number] 19:38:00 Test Item Value Reference Range Interpretation Comments POCT PH U (test code = 3254) n/a 5-8 POCT U LEUK EST (test code = n/a Negative - Negative 3263) POCT U NIT (test code = 3262) n/a Negative - Negative POCT U PROT (test code = 3259) negative Negative - Negative POCT U GLU (test code = 3256) negative Negative - Negative POCT U KETONE (test code = 3258) n/a Negative - Negative POCT U BLD (test code = 3257) n/a Negative - Negative [facility]NA[facility] (MARIJUANA/THC) [id number] 19:40:00 Test Item Value Reference Range Interpretation Comments Cannabinoid-LCMS (test 400 ng/mL <25 H code = 2544596029) Cannabinoid-Creatinine 321 ng/mg Normalized (test code = 9533520692) Cannabinoid-Interpreta Positive Negative A tion (test code = 8176562223) CREAT U (test code = 124.6 mg/dL 5247461518) MAYTE (test code = MAYTE) Test developed and characteristics determined by [facility] Laboratory Services. Lab Interpretation Abnormal (test code = 14378-7) [facility] [id number] 00:43:00 Test Item Value Reference Range Interpretation Comments BENZO U (test code = Negative Negative 0503583147) SERVANDO U (test code = Negative Negative 4874534895) AMPHET (test code = Negative Negative 1608433308) THC (test code = Presumptive Negative A Confirmatio n of 7379139327) Positive Presumptive Positive THC result requires physician order . This is a corrected resul t. ?Previous resul t was Negative on 09/17/2019 at 18 42 [employer] METHADONE (test code Negative Negative = 9308644191) Meth U (test code = Negative Negative 5085470467) OPIATES (test code = Negative Negative 2008279570) Cocaine Metabolite Negative Negative (test code = 4873872223) PROPOXY (test code = Negative Negative 0878199546) Tric U (test code = Negative Negative 1166132203) PCP (test code = Negative Negative 1676247952) OXYCOD (test code = Negative Negative 7905546764) MAYTE (test code = Urine Drug Cutoff MAYTE) Ranges Benzodiazepines: ? ? 150 ng/mLBarbiturates : ?200 ng/mLAmphetamine: ? 500 ng/mLCannabinoids : ?50 ?ng/mLMethadone: ? 200 ng/mLMethamphetam ine: ? ? 500 ng/mL Opiates: ? 100 ng/mL or 2000 ng/mLCocaine: ? 150 ng/mLPropoxyphene : ?300 ng/mLTricyclics: ?300 ng/mLOxycodone: ? 100 ng/mLPCP: ? 25 ?ng/mL The results are to be used only for medical (i.e., treatment) purposes. Unconfirmed screening results must not be used for non-medical purposes (e.g., employment testing, legal testing). Lab Interpretation Abnormal (test code = 51225-1) [facility] / [facility] - DRUG SCREEN [id number] 00:43:00 Test Item Value Reference Range Interpretation Comments BENZO U (test code = Negative Negative 8719171620) SERVANDO U (test code = Negative Negative 2865402333) AMPHET (test code = Negative Negative 5773443009) THC (test code = Presumptive Negative A Confirmatio n of 5179715607) Positive Presumptive Positive THC result requires physician order . This is a corrected resul t. ?Previous resul t was Negative on 09/17/2019 at 18 42 [employer] METHADONE (test code Negative Negative = 4890955806) Meth U (test code = Negative Negative 4467825523) OPIATES (test code = Negative Negative 9243312616) Cocaine Metabolite Negative Negative (test code = 3485949098) PROPOXY (test code = Negative Negative 5346941794) Tric U (test code = Negative Negative 3949072464) PCP (test code = Negative Negative 8144835605) OXYCOD (test code = Negative Negative 6674778204) MAYTE (test code = Urine Drug Cutoff MAYTE) Ranges Benzodiazepines: ? ? 150 ng/mLBarbiturates : ?200 ng/mLAmphetamine: ? 500 ng/mLCannabinoids : ?50 ?ng/mLMethadone: ? 200 ng/mLMethamphetam ine: ? ? 500 ng/mL Opiates: ? 100 ng/mL or 2000 ng/mLCocaine: ? 150 ng/mLPropoxyphene : ?300 ng/mLTricyclics: ?300 ng/mLOxycodone: ? 100 ng/mLPCP: ? 25 ?ng/mL The results are to be used only for medical (i.e., treatment) purposes. Unconfirmed screening results must not be used for non-medical purposes (e.g., employment testing, legal testing). Lab Interpretation Abnormal (test code = 19525-0) [facility] / [facility] - DRUG SCREEN [id number] 00:43:00 Test Item Value Reference Range Interpretation Comments BENZO U (test code = Negative Negative 4062731974) SERVANDO U (test code = Negative Negative 6622163594) AMPHET (test code = Negative Negative 9355020106) THC (test code = Presumptive Negative A Confirmatio n of 1155145428) Positive Presumptive Positive THC result requires physician order . This is a corrected resul t. ?Previous resul t was Negative on 09/17/2019 at 18 42 [employer] METHADONE (test code Negative Negative = 5947356945) Meth U (test code = Negative Negative 7812593557) OPIATES (test code = Negative Negative 6757816276) Cocaine Metabolite Negative Negative (test code = 2086705922) PROPOXY (test code = Negative Negative 4294306243) Tric U (test code = Negative Negative 7643721468) PCP (test code = Negative Negative 7610477774) OXYCOD (test code = Negative Negative 9345298601) MAYTE (test code = Urine Drug Cutoff MAYTE) Ranges Benzodiazepines: ? ? 150 ng/mLBarbiturates : ?200 ng/mLAmphetamine: ? 500 ng/mLCannabinoids : ?50 ?ng/mLMethadone: ? 200 ng/mLMethamphetam ine: ? ? 500 ng/mL Opiates: ? 100 ng/mL or 2000 ng/mLCocaine: ? 150 ng/mLPropoxyphene : ?300 ng/mLTricyclics: ?300 ng/mLOxycodone: ? 100 ng/mLPCP: ? 25 ?ng/mL The results are to be used only for medical (i.e., treatment) purposes. Unconfirmed screening results must not be used for non-medical purposes (e.g., employment testing, legal testing). Lab Interpretation Abnormal (test code = 20354-4) [facility] / [facility] - DRUG SCREEN [id number] 00:43:00 Test Item Value Reference Range Interpretation Comments BENZO U (test code = Negative Negative 3857739774) SERVANDO U (test code = Negative Negative 5503415227) AMPHET (test code = Negative Negative 9679245839) THC (test code = Presumptive Negative A Confirmatio n of 6858005021) Positive Presumptive Positive THC result requires physician order . This is a corrected resul t. ?Previous resul t was Negative on 09/17/2019 at 18 42 [employer] METHADONE (test code Negative Negative = 7327495304) Meth U (test code = Negative Negative 8231164062) OPIATES (test code = Negative Negative 0630708874) Cocaine Metabolite Negative Negative (test code = 2074627359) PROPOXY (test code = Negative Negative 6265203801) Tric U (test code = Negative Negative 2585072595) PCP (test code = Negative Negative 7275251145) OXYCOD (test code = Negative Negative 6625221650) MAYTE (test code = Urine Drug Cutoff MAYTE) Ranges Benzodiazepines: ? ? 150 ng/mLBarbiturates : ?200 ng/mLAmphetamine: ? 500 ng/mLCannabinoids : ?50 ?ng/mLMethadone: ? 200 ng/mLMethamphetam ine: ? ? 500 ng/mL Opiates: ? 100 ng/mL or 2000 ng/mLCocaine: ? 150 ng/mLPropoxyphene : ?300 ng/mLTricyclics: ?300 ng/mLOxycodone: ? 100 ng/mLPCP: ? 25 ?ng/mL The results are to be used only for medical (i.e., treatment) purposes. Unconfirmed screening results must not be used for non-medical purposes (e.g., employment testing, legal testing). Lab Interpretation Abnormal (test code = 30875-1) [facility] / [facility] - DRUG SCREEN [id number] 00:43:00 Test Item Value Reference Range Interpretation Comments BENZO U (test code = Negative Negative 9724231926) SERVANDO U (test code = Negative Negative 5071396534) AMPHET (test code = Negative Negative 3894339059) THC (test code = Presumptive Negative A Confirmatio n of 5103119294) Positive Presumptive Positive THC result requires physician order . This is a corrected resul t. ?Previous resul t was Negative on 09/17/2019 at 18 42 [employer] METHADONE (test code Negative Negative = 1083684967) Meth U (test code = Negative Negative 6776544020) OPIATES (test code = Negative Negative 1474619031) Cocaine Metabolite Negative Negative (test code = 2523755962) PROPOXY (test code = Negative Negative 0709960392) Tric U (test code = Negative Negative 3075597766) PCP (test code = Negative Negative 8908428897) OXYCOD (test code = Negative Negative 7857409702) MAYTE (test code = Urine Drug Cutoff MAYTE) Ranges Benzodiazepines: ? ? 150 ng/mLBarbiturates : ?200 ng/mLAmphetamine: ? 500 ng/mLCannabinoids : ?50 ?ng/mLMethadone: ? 200 ng/mLMethamphetam ine: ? ? 500 ng/mL Opiates: ? 100 ng/mL or 2000 ng/mLCocaine: ? 150 ng/mLPropoxyphene : ?300 ng/mLTricyclics: ?300 ng/mLOxycodone: ? 100 ng/mLPCP: ? 25 ?ng/mL The results are to be used only for medical (i.e., treatment) purposes. Unconfirmed screening results must not be used for non-medical purposes (e.g., employment testing, legal testing). Lab Interpretation Abnormal (test code = 13710-1) [facility] URINALYSIS W/O SPECIFIC [id number] 17:52:00 Test Item Value Reference Range Interpretation Comments POCT PH U (test code = 3254) n/a 5-8 POCT U LEUK EST (test code = n/a Negative - Negative 3263) POCT U NIT (test code = 3262) n/a Negative - Negative POCT U PROT (test code = 3259) negative Negative - Negative POCT U GLU (test code = 3256) negative Negative - Negative POCT U KETONE (test code = 3258) n/a Negative - Negative POCT U BLD (test code = 3257) n/a Negative - Negative [facility] URINALYSIS W/O SPECIFIC [id number] 17:52:00 Test Item Value Reference Range Interpretation Comments POCT PH U (test code = 3254) n/a 5-8 POCT U LEUK EST (test code = n/a Negative - Negative 3263) POCT U NIT (test code = 3262) n/a Negative - Negative POCT U PROT (test code = 3259) negative Negative - Negative POCT U GLU (test code = 3256) negative Negative - Negative POCT U KETONE (test code = 3258) n/a Negative - Negative POCT U BLD (test code = 3257) n/a Negative - [facility] [id number] 17:52:00 Test Item Value Reference Range Interpretation Comments POCT PH U (test code = 3254) n/a 5-8 POCT U LEUK EST (test code = n/a Negative - Negative 3263) POCT U NIT (test code = 3262) n/a Negative - Negative POCT U PROT (test code = 3259) negative Negative - Negative POCT U GLU (test code = 3256) negative Negative - Negative POCT U KETONE (test code = 3258) n/a Negative - Negative POCT U BLD (test code = 3257) n/a Negative - [facility] [id number] 17:52:00 Test Item Value Reference Range Interpretation Comments POCT PH U (test code = 3254) n/a 5-8 POCT U LEUK EST (test code = n/a Negative - Negative 3263) POCT U NIT (test code = 3262) n/a Negative - Negative POCT U PROT (test code = 3259) negative Negative - Negative POCT U GLU (test code = 3256) negative Negative - Negative POCT U KETONE (test code = 3258) n/a Negative - Negative POCT U BLD (test code = 3257) n/a Negative - Negative [facility] URINALYSIS W/O SPECIFIC [id number] 17:52:00 Test Item Value Reference Range Interpretation Comments POCT PH U (test code = 3254) n/a 5-8 POCT U LEUK EST (test code = n/a Negative - Negative 3263) POCT U NIT (test code = 3262) n/a Negative - Negative POCT U PROT (test code = 3259) negative Negative - Negative POCT U GLU (test code = 3256) negative Negative - Negative POCT U KETONE (test code = 3258) n/a Negative - Negative POCT U BLD (test code = 3257) n/a Negative - [facility] [id number] 17:52:00 Test Item Value Reference Range Interpretation Comments POCT PH U (test code = 3254) n/a 5-8 POCT U LEUK EST (test code = n/a Negative - Negative 3263) POCT U NIT (test code = 3262) n/a Negative - Negative POCT U PROT (test code = 3259) negative Negative - Negative POCT U GLU (test code = 3256) negative Negative - Negative POCT U KETONE (test code = 3258) n/a Negative - Negative POCT U BLD (test code = 3257) n/a Negative - [facility] [id number] 17:52:00 Test Item Value Reference Range Interpretation Comments POCT PH U (test code = 3254) n/a 5-8 POCT U LEUK EST (test code = n/a Negative - Negative 3263) POCT U NIT (test code = 3262) n/a Negative - Negative POCT U PROT (test code = 3259) negative Negative - Negative POCT U GLU (test code = 3256) negative Negative - Negative POCT U KETONE (test code = 3258) n/a Negative - Negative POCT U BLD (test code = 3257) n/a Negative - Negative [facility] [id number] 17:52:00 Test Item Value Reference Range Interpretation Comments POCT PH U (test code = 3254) n/a 5-8 POCT U LEUK EST (test code = n/a Negative - Negative 3263) POCT U NIT (test code = 3262) n/a Negative - Negative POCT U PROT (test code = 3259) negative Negative - Negative POCT U GLU (test code = 3256) negative Negative - Negative POCT U KETONE (test code = 3258) n/a Negative - Negative POCT U BLD (test code = 3257) n/a Negative - Negative [facility] [id number] 22:11:00 Test Item Value Reference Range Interpretation Comments WBC (test code = See_Comment H [Automated 6190-2) message] The sy stem which generated this result transmitted reference range : 4.30 - 11.10 10*3/?L. The reference range was not used to interpret this result as normal/abnormal . RBC (test code = See_Comment [Automated 689-8) message] The sy stem which generated this result transmitted reference range : 3.93 - 5.25 10*6/?L. The reference range was not used to interpret this result as normal/abnormal . HGB (test code = 13.7 g/dL 11.6-15 718-7) HCT (test code = 41.9 % 35.7-45.2 4544-3) MCV (test code = 91.9 fL 80.6-95.5 787-2) MCH (test code = 30.0 pg 25.9-32.8 785-6) MCHC (test code = 32.7 g/dL 31.6-35.1 786-4) RDW-SD (test code = 43.0 fL 39-49.9 60293-4) RDW-CV (test code = 13.0 % 12-15.5 788-0) PLT (test code = See_Comment H [Automated 777-3) message] The sy stem which generated this result transmitted reference range : 166 - 358 10*3/ ?L. The reference r thierno was not used to interpret this result as normal/abnormal . MPV (test code = 9.8 fL 9.5-12.9 78601-7) NRBC/100 WBC (test See_Comment [Automat ed code = 3633873655) message] The system which generated this result transmitted reference range : 0.0 - 10.0 /100 WBCs. The refer ence range was not u sed to interpret th is result as normal/abnormal . NRBC x10^3 (test code <0.01 See_Comment [Auto mated = [id number]) message] The s ystem which generated this result transmitted reference range : 10*3/?L. The reference range was not used to interpret this result as normal/abnormal . GRAN MAT (NEUT) % 72.5 % (test code = 770-8) IMM GRAN % (test code 0.70 % = 4800827646) LYMPH % (test code = 16.8 % 736-9) MONO % (test code = 8.6 % 5905-5) EOS % (test code = 1.0 % 713-8) BASO % (test code = 0.4 % 706-2) GRAN MAT x10^3(ANC) 8.81 10*3/uL 1.88-7.09 H (test code = 3687110990) IMM GRAN x10^3 (test 0.08 10*3/uL 0-0.06 H code = 3654274133) LYMPH x10^3 (test code 2.04 10*3/uL 1.32-3.29 = 731-0) MONO x10^3 (test code 1.04 10*3/uL 0.33-0.92 H = 742-7) EOS x10^3 (test code = 0.12 10*3/uL 0.03-0.39 711-2) BASO x10^3 (test code 0.05 10*3/uL 0.01-0.07 = 704-7) Lab Interpretation Abnormal (test code = 61698-2) [facility] [id number] 19:08:00 Test Item Value Reference Range Interpretation Comments Rubella screen IgG Positive Negative (test code = 8697324896) MAYTE (test code = MAYTE) Positive - Indicates the patient was exposed to Rubella through infection or vaccination.Negative - Indicates the patient could be susceptible to Rubella infection.Equivocal - A second specimen should be sent. [facility] [id number] 19:08:00 Test Item Value Reference Range Interpretation Comments VZV IgG antibody Positive Negative (test code = 82233-3) MAYTE (test code = MAYTE) Positive - Indicates the patient was exposed to VZV through infection or vaccination.Negative - Indicates the patient could be susceptible to VZV infection.Equivocal - A second specimen should be sent for testing. [facility] ONLY - SYPHILIS [id number] 15:13:00 Test Item Value Reference Range Interpretation Comments Syphilis IgG/IgM (test Non-reactive Non-reactive code = 71254-7) MAYTE (test code = MAYTE) Non-reactive - No serologic evidence of T. pallidum infection. Cannot exclude incubating or early syphilis. Submit a second specimen in 2-4 weeks if syphilis is clinically suspected.Equivocal - Further testing to follow.Reactive - Further testing to follow. Lab Interpretation (test Normal code = 10466-0) [facility] WITH [id number] 12:17:00 Test Item Value Reference Range Interpretation Comments HIV Negative Negative Semi-quantitative (test code = 33422-7) MAYTE (test code = Non-reactive for HIV-1 MAYTE) antigen and HIV-1/HIV-2 antibodies.?No laboratory evidence of HIV infection.?Repeat in 2-4 weeks if acute HIV infection is suspected. [facility], BLOOD [id number] 07:07:45 Test Item Value Reference Range Interpretation Comments ABO & RH (test code O POSITIVE Performe d at [facility] = 20) Laboratory Serv [facility] [address]Lrvg Free: [phone] A No. [id number] IAT (test code = Negative Performed a t [facility] 1185) Laboratory Serv [facility] [address] [place] [address] isabel [address]Ovqi Free: [phone] A No. [id number] [facility] SURFACE [id number] 06:40:00 Test Item Value Reference Range Interpretation Comments HBsAg Semi-Quantitative (test code = 5195-3) [facility] 1 Hour Post [id number] 06:37:00 Test Item Value Reference Range Interpretation Comments GLUC 1 HR (test code = 8410072275) 135 mg/dL 120-170 Lab Interpretation (test code = Normal 64323-3) [facility]CBC WITH [id number] 04:37:00 Test Item Value Reference Range Interpretation Comments WBC (test code = See_Comment [Automated 6190-2) message] The sy stem which generated this result transmitted reference range : 4.30 - 11.10 10*3/?L. The reference range was not used to interpret this result as normal/abnormal . RBC (test code = See_Comment [Automated 509-8) message] The sy stem which generated this result transmitted reference range : 3.93 - 5.25 10*6/?L. The reference range was not used to interpret this result as normal/abnormal . HGB (test code = 15.1 g/dL 11.6-15 H 718-7) HCT (test code = 45.5 % 35.7-45.2 H 4544-3) MCV (test code = 87.5 fL 80.6-95.5 787-2) MCH (test code = 29.0 pg 25.9-32.8 785-6) MCHC (test code = 33.2 g/dL 31.6-35.1 786-4) RDW-SD (test code = 40.2 fL 39-49.9 36928-1) RDW-CV (test code = 12.6 % 12-15.5 788-0) PLT (test code = See_Comment H [Automated 777-3) message] The sy stem which generated this result transmitted reference range : 166 - 358 10*3/ ?L. The reference r thierno was not used to interpret this result as normal/abnormal . MPV (test code = 8.9 fL 9.5-12.9 L 34970-4) NRBC/100 WBC (test See_Comment [Automat ed code = 5564960685) message] The system which generated this result transmitted reference range : 0.0 - 10.0 /100 WBCs. The refer ence range was not u sed to interpret th is result as normal/abnormal . NRBC x10^3 (test code <0.01 See_Comment [Auto mated = 9906532666) message] The s ystem which generated this result transmitted reference range : 10*3/?L. The reference range was not used to interpret this result as normal/abnormal . GRAN MAT (NEUT) % 73.8 % (test code = 770-8) IMM GRAN % (test code 0.20 % = 7287216048) LYMPH % (test code = 18.9 % 736-9) MONO % (test code = 6.1 % 5905-5) EOS % (test code = 0.4 % 713-8) BASO % (test code = 0.6 % 706-2) GRAN MAT x10^3(ANC) 6.95 10*3/uL 1.88-7.09 (test code = 8198823208) IMM GRAN x10^3 (test <0.03 0-0.06 code = 2054688883) LYMPH x10^3 (test code 1.78 10*3/uL 1.32-3.29 = 731-0) MONO x10^3 (test code 0.57 10*3/uL 0.33-0.92 = 742-7) EOS x10^3 (test code = 0.04 10*3/uL 0.03-0.39 711-2) BASO x10^3 (test code 0.06 10*3/uL 0.01-0.07 = 704-7) Lab Interpretation Abnormal (test code = 84528-5) [facility] URINALYSIS W/O SPECIFIC [id number] 14:23:00 Test Item Value Reference Range Interpretation Comments POCT PH U (test code = 3254) 5 mg/dl 5-8 POCT U LEUK EST (test code = 1+ Negative - Negative 3263) POCT U NIT (test code = 3262) Neg Negative - Negative POCT U PROT (test code = 3259) Trace Negative - Negative POCT U GLU (test code = 3256) Neg Negative - Negative POCT U KETONE (test code = 3258) 3+ Negative - Negative POCT U BLD (test code = 3257) Neg Negative - Negative [facility]PO[facility] [id number] 14:20:00 Test Item Value Reference Range Interpretation Comments POCT PREG (test code = 1605) Positive On board controls acceptable with C Yes Line (test code = 3574) POCT PREG LOT # (test code = 3575) POCT PREG TEST DATE (test code = 3576) [facility]"
--- NOTE | 2022-12-15 17:59 | ER ---
Nurse's Notes [facility] Name: Matilda Jackson Age: 27 yrs Sex: Female : 1995 Arrival Date: 12/15/2022 Time: 17:28 Bed 14 Private MD: Diagnosis: Acute gingivitis Presentation: 12/15 17:38 Chief complaint: Patient states: "had dental work done in September and since then I aa5 feel some bumps on the inside of my mouth and it's bothering me". pt reports she has appointment with dentist December 20. Coronavirus screen: At this time, the client does not indicate any symptoms associated with coronavirus-19. Ebola Screen: Patient denies travel to an Ebola-affected area in the 21 days before illness onset. Initial Sepsis Screen: Does the patient meet any 2 criteria? No. Patient's initial sepsis screen is negative. Does the patient have a suspected source of infection? No. Patient's initial sepsis screen is negative. Risk Assessment: Do you want to hurt yourself or someone else? Patient reports no desire to harm self or others. Onset of symptoms was September 2022. 17:38 Method Of Arrival: Ambulatory aa5 17:38 Acuity: CHI 5 aa5 Historical: - Allergies: 17:38 PENICILLINS; aa5 - PMHx: 17:38 GALLSTONES; aa5 - PSHx: 17:38 None; aa5 - Immunization history:: Adult Immunizations unknown. - Social history:: Smoking status: Patient/guardian denies using tobacco. Screenin:50 [facility] ED Fall Risk Assessment (Adult) History of falling in the last 3 months, kc6 including since admission No falls in past 3 months (0 pts) Confusion or Disorientation No (0 pts) Intoxicated or Sedated No (0 pts) Impaired Gait No (0 pts) Mobility Assist Device Used No (0 pt) Altered Elimination No (0 pt) Score/Fall Risk Level 0 - 2 = Low Risk Oriented to surroundings, Maintained a safe environment, Educated pt \\T\\ family on fall prevention, incl call for assistance when getting out of bed, Assessed \\T\\ reinforced patient's understanding of fall precautions, Hourly rounding (assess needs \\T\\ fall precautionary measures) done. Abuse screen: Denies threats or abuse. Denies injuries from another. Nutritional screening: No deficits noted. Tuberculosis screening: No symptoms or risk factors identified. Assessment: 17:49 General: Appears in no apparent distress. comfortable, Behavior is calm, cooperative, kc6 appropriate for age. Pain: Complains of pain in mouth, "gingivitis". Neuro: Gautam Agitation-Sedation Scale (RASS): 0 - Alert and Calm Level of Consciousness is awake, alert, obeys commands, Oriented to person, place, time, situation, Appropriate for age. Cardiovascular: Capillary refill < 3 seconds. Respiratory: Airway is patent Trachea midline Respiratory effort is even, unlabored, Respiratory pattern is regular, symmetrical. GI: No signs and/or symptoms were reported involving the gastrointestinal system. : No signs and/or symptoms were reported regarding the genitourinary system. EENT: No signs and/or symptoms were reported regarding the EENT system. Derm: No signs and/or symptoms reported regarding the dermatologic system. Skin is intact, Skin is pink, warm \\T\\ dry. Musculoskeletal: No signs and/or symptoms reported regarding the musculoskeletal system. Circulation, motion, and sensation intact. Capillary refill < 3 seconds, Range of motion: intact in all extremities. Vital Signs: 17:38 BP 132 / 85; Pulse 66; Resp 17 S; Temp 98.4(O); Pulse Ox 99% on R/A; aa5 ED Course: 17:29 Patient arrived in ED. ts1 17:30 Jesus Milan MD is Attending Physician. bs3 17:33 Arm band placed on Patient placed in an exam room, on a stretcher. aa5 17:35 Nuha Dumas RN is Primary Nurse. kc6 17:39 Triage completed. aa5 17:50 Patient has correct armband on for positive identification. Bed in low position. Call kc6 light in reach. Side rails up X 1. 18:06 No provider procedures requiring assistance completed. Patient did not have IV access kc6 during this emergency room visit. Administered Medications: No medications were administered Medication: 18:07 VIS not applicable for this client. kc6 Outcome: 17:58 Discharge ordered by . bs3 18:07 Discharged to home ambulatory. kc6 18:07 Condition: stable 18:07 Discharge instructions given to patient, Instructed on discharge instructions, follow up and referral plans. medication usage, Demonstrated understanding of instructions, follow-up care, medications, Prescriptions given X 1. 18:07 Patient left the ED. kc6 Signatures: Leanne Allred RN RN aa5 Nuha Dumas RN RN kc6 Jesus Milan MD MD bs3 Hiral Phillip PAS PAS ts1
--- NOTE | 2022-12-15 17:59 | EDPHYS ---
Physician Documentation [facility] Name: Matilda Jackson Age: 27 yrs Sex: Female : 1995 Arrival Date: 12/15/2022 Time: 17:28 Bed 14 Private MD: ED Physician Jesus Milan HPI: 12/15 17:54 This 27 yrs old Female presents to ER via Ambulatory with complaints of Mouth bs3 Problem. 17:54 27-year-old female presents with approximately 1 month of gum pain nothing seems to bs3 make it better or worse that started after getting a cleaning she follow-up with a dentist who did not have advice and therefore came in denies difficulty breathing or swallowing denies fevers or chills denies any tooth pain she has tried whva-wbg-autwoew medicines without relief. Historical: - Allergies: 17:38 PENICILLINS; aa5 - PMHx: 17:38 GALLSTONES; aa5 - PSHx: 17:38 None; aa5 - Immunization history:: Adult Immunizations unknown. - Social history:: Smoking status: Patient/guardian denies using tobacco. ROS: 17:54 Constitutional: Negative for fever, chills bs3 17:54 All other systems are negative. Exam: 17:54 Constitutional: This is a well developed, well nourished patient who is awake, alert, bs3 and in no acute distress. Head/Face: Normocephalic, atraumatic. Eyes: Pupils equal round and reactive to light, extra-ocular motions intact. Lids and lashes normal. ENT: mmm, no posterior phyarngeal erythema, she has no posterior pharyngeal erythema or exudate she has no trismus she has no significant dental decay she points to her upper gums the entire area for her area of discomfort however they appear normal with no signs of periapical abscess Neck: Trachea midline, no thyromegaly, no neck stiffness Neuro: Awake and alert, GCS 15, oriented to person, place, time, and situation. Cranial nerves II-XII grossly intact. Motor strength 5/5 in all extremities. Sensory grossly intact. Psych: Awake, alert, with orientation to person, place and time. Behavior, mood, and affect are within normal limits. Vital Signs: 17:38 BP 132 / 85; Pulse 66; Resp 17 S; Temp 98.4(O); Pulse Ox 99% on R/A; aa5 MDM: 17:29 Patient medically screened. bs3 17:54 Data reviewed: vital signs, nurses notes. ED course: Possible gingivitis no signs of bs3 necrotizing gingivostomatitis, no sea captain, rpa, dez, pharyngitis, advised peridex and f/u with her dentist as scheduled on 12/20, return prec given. Administered Medications: No medications were administered Disposition Summary: 12/15/22 17:58 Discharge Ordered Location: Home bs3 Problem: an ongoing problem bs3 Symptoms: are unchanged bs3 Condition: Stable bs3 Diagnosis - Acute gingivitis bs3 Followup: bs3 - With: Private Physician - When: 5 - 6 days - Reason: Re-evaluation by your physician Discharge Instructions: - Discharge Summary Sheet bs3 Forms: - Medication Reconciliation Form bs3 - Thank You Letter bs3 - Antibiotic Education bs3 - Prescription Opioid Use bs3 Prescriptions: - Peridex 0.12 % Mucous Membrane Mouthwash - swish 15 milliliter by BUCCAL route 2 times per day; 118 milliliter; Refills: bs3 0, Product Selection Permitted Signatures: Leanne Allred, RN RN aa5 Jesus Milan MD MD bs3
[2022-12-15 18:29] VITALS: BP 132/85; TEMP 98.4; O2SAT 99
== END 2022-12-15 18:07 | disposition home or self-care (01) ==
LOC: ER 17:28
DX: K05.00 Acute gingivitis, plaque induced (principal); Z88.0 Allergy status to penicillin
CPT/HCPCS: 99283